=== PATIENT | female | born 1970 | race Caucasian/White ===

== ENCOUNTER 2024-05-30 01:27 | Inpatient (IN) | payer OTHER, SELFPAY ==
[2024-05-30] VITALS (38 sets, daily range): BP systolic 65–184; BP diastolic 36–88; PULSE 67–163; RESP 16–70; TEMP 36.6–37.1; O2SAT 83–100; BMI 24.3; BMI 24.2
--- NOTE | 2024-05-30 01:29 | ECG_ITS ---
APPROVED REPORT Exam: Resting ECG HR:129 bpm ECG Measurements Heart Rate 129 AXES MA 153 P 71 QRSd 94 QRS 52 QT 335 T 61 QTc 411 Conclusion SINUS TACHYCARDIA WITH FREQUENT VENTRICULAR PREMATURE COMPLEXES NONSPECIFIC T-WAVE ABNORMALITY No STEMI Electronically signed by : JACOB ROBIN, 05/30/2024 06:44:50
--- NOTE | 2024-05-30 01:31 | CT_ITS ---
PROCEDURE INFORMATION: Exam: CTA Chest With Contrast Exam date and time: 05/30/2024 2:11 AM Age: 53 years old Clinical indication: Pain; Shortness of breath; Chest pressure; Additional info: Cp tachy hypoxic TECHNIQUE: Imaging protocol: Computed tomographic angiography of the chest with contrast. Exam focused on the arteries. 3D rendering (Not supervised by radiologist): MIP and/or 3D reconstructed images were created by the technologist. Total images: 789 Radiation optimization: All CT scans at this facility use at least one of these dose optimization techniques: automated exposure control; mA and/or kV adjustment per patient size (includes targeted exams where dose is matched to clinical indication); or iterative reconstruction. Contrast material: ISOVUE; Contrast volume: 80 ml; Contrast route: INTRAVENOUS (IV); COMPARISON: CR XR CHEST PORTABLE 05/30/2024 1:43 AM FINDINGS: Pulmonary arteries: Adequate contrast opacification the pulmonary arteries. Cardiac pulsation artifact in the main pulmonary artery. No acute pulmonary emboli. Aorta: Mildly atherosclerotic thoracic aorta without aneurysm or dissection. Cardiac pulsation artifact in the ascending aorta. Thyroid: Irregular 2.2 x 2.8 cm right thyroid nodule. Lungs: The trachea and main bronchi are patent. Completely opacified bronchus intermedius and right lower lobe bronchi. Partially opacified right middle lobe, inferior lingular, and left lower lobe bronchi. Considerable airspace consolidation throughout the majority of the right lower lobe, with partial sparing in the superior segment. Additional considerable airspace consolidation the base of the right upper lobe. Additional airspace consolidation scattered throughout the left lower lobe and within the lingula. Mild centrilobular emphysema. Pleural spaces: Trace right pleural effusion. No pneumothorax. Heart: Normal heart size. No pericardial effusion. Coronary arteries: Mild scattered coronary artery calcifications. Lymph nodes: Mild mediastinal lymphadenopathy. Moderate right greater than left hilar lymphadenopathy. Liver: Hepatic steatosis. Small right hepatic cyst. Gallbladder and biliary ducts: Status post cholecystectomy. Adrenal glands: Bilateral adrenal thickening/hyperplasia. Bones/joints: Moderate degenerative changes of the thoracic spine. Mild osteopenia. Complete loss of disc space with block vertebral body at C6-C7. Remote healed fracture deformity left clavicle. Soft tissues: Unremarkable. IMPRESSION: 1. Considerable airspace consolidation throughout the right lower lobe in keeping with lobar pneumonia. 2. Additional airspace consolidation at the base of the right upper lobe, scattered within the left lower lobe and lingula compatible with bilateral pneumonia. 3. No acute pulmonary emboli. 4. Mediastinal and bilateral hilar lymphadenopathy most likely reactive/postinflammatory. Differential includes granulomatous, metastatic, neoplastic causes. Follow-up will be required. 5. Impacted bronchus intermedius and bilateral lower lobe bronchi compatible with mucous plugging. Partially opacified right middle lobe and lingular bronchi. 6. Trace right pleural effusion 7. Concerning 2.2 x 2.8 cm right thyroid nodule. Recommend follow-up nonemergent ultrasound. 8. Hepatic steatosis 9. Adrenal hyperplasia. 10. Additional chronic and incidental findings. COMMENTS: 1. Consistent with the [employer]'s Incidental Findings Committee white paper (J Am Estelita Radiol 2015): In patients aged 35 years and older with an incidental thyroid nodule equal to or greater than 1.[address], MRI or extrathyroidal US, further evaluation with dedicated thyroid US is recommended for patients with normal life expectancy and without comorbidities. For smaller nodules without suspicious features, no further evaluation or follow up is recommended. 2. The presence of pulmonary emphysema on CT is an independent risk factor for lung cancer. In the absence of a history or active diagnosis of lung cancer, it is recommended that this patient with emphysema be evaluated for enrollment in a low dose CT lung cancer screening program.
--- NOTE | 2024-05-30 01:37 | XR_ITS ---
PROCEDURE INFORMATION: Exam: XR Chest Exam date and time: 05/30/2024 1:43 AM Age: 53 years old Clinical indication: Shortness of breath; Additional info: RAMAN yanez TECHNIQUE: Imaging protocol: Radiologic exam of the chest. Views: 1 view. Total images: 1 COMPARISON: No relevant prior studies available. FINDINGS: Tubes, catheters and devices: EKG leads are present. Lungs: Significant masslike consolidation in the right lung base and right perihilar region. Additional left basilar atelectasis and infiltrate with small volume consolidation. No pulmonary vascular congestion. Pleural spaces: Probable small bilateral pleural effusions. No pneumothorax. Heart/Mediastinum: Unremarkable. No cardiomegaly. No mediastinal widening or hilar enlargement. Bones/joints: Remote fracture deformity left clavicle. Moderate degenerative changes of the thoracic spine. IMPRESSION: 1. Significant masslike consolidation in the right lung base and right perihilar region. Differential includes pneumonia and neoplasm. 2. Additional left basilar atelectasis and infiltrate with small volume consolidation. 3. Suspect small bilateral pleural effusions.
--- NOTE | 2024-05-30 01:38 | ED_ITS ---
Discharge Plan Disposition Patient Disposition: Admitted Condition: Serious Clinical Impressions Clinical Impression: Pneumonia, Sepsis, Hypoxic respiratory failure, Thyroid nodule Discharge ED Provider: Priscilla Cr General Chief Complaint: Chest Pain Stated Complaint: cp Time Seen by Provider: 05/30/24 01:31 Mode of Arrival: Wheelchair Source of Information: Patient Limitations: No Limitations Description of Symptoms (Recalled from ER Triage Doc. by RN): Patient reports pain up uppper back wrapping around to chest. Has been ongoing 4-5 days. States it is a constant pain 05/04. Describes it as pressure. History of Present Illness HPI narrative: 53-year-old female presents to the ER with chest pain, shortness of breath, cough productive of dark sputum. Patient reports symptoms started 4 to 5 days ago with squeezing/pressure which has progressed. She states the pain started more towards her back but wraps around the chest on both sides. She denies any radiation to the arms or neck. Patient states she has felt like she has had fever/chills but has not documented a temperature at home. She has not had congestion, nausea, vomiting, or diarrhea. She reports worsening pain with deep inspiration. Patient reports occasional smoking and occasional marijuana use, denies any history of IV drug use. No known cardiac history. Patient is not on any hormones and has no history of recent long distance travel. No history of blood clot. Patient does not wear oxygen at home, no known pulmonary problems. She reports being a prediabetic who is supposed to take metformin but has not been compliant with her medications recently. She is also supposed to take an antidepressant but has not been on that. Related Data Allergies Allergy/AdvReac Type Severity Reaction Status Date / Time sertraline [From Zoloft] Allergy Unknown unknown Verified 05/30/24 01:38 [facility] Disclaimer: The information contained in this section may have been updated after the patient was seen, as this information can be updated by other users. Social History Smoking Status: Current every day smoker alcohol intake: never current occupational status: other Travel in the last 8 weeks: None ROS Obtained: Yes Systems reviewed as appropriate & no additional complaints except as documented Constitutional Constitutional: Reports chills, Reports fever(s), Denies headache(s) and Denies weakness Eyes Eyes: Denies change in vision ENT Ears, Nose, Mouth, and Throat: Denies dizziness, Denies headache(s), Denies nasal congestion and Denies sore throat Cardiovascular Cardiovascular: Reports chest pain, Reports dyspnea and Denies leg edema Respiratory Respiratory: Reports cough, Reports dyspnea and Reports pain on inspiration Gastrointestinal Gastrointestingal: Denies constipation, diarrhea, nausea or vomiting Genitourinary Female Genitourinary: Denies dysuria Musculoskeletal Musculoskeletal: Denies arthralgias, Denies myalgias, Denies numbness and Denies tingling Integumentary/Breasts Skin/Breast: Denies change in pigmentation Neurologic Neurologic: Denies dizziness, Denies headache(s), Denies numbness, Denies tingling and Denies weakness Physical Exam General General appearance: alert and in distress Comment: In obvious respiratory distress with tachypnea, tachycardia, hypoxia, increased work of breathing Head Head exam: atraumatic and normocephalic Eye Eye exam: Present PERRL and EOMI ENT ENT exam: Present mucous membranes moist Neck Neck exam: Present normal inspection and full ROM Chest Chest inspection: Present symmetric chest wall rise; Absent tenderness Respiratory Respiratory exam: Present respiratory distress; Absent normal lung sounds bilaterally (Rhonchi, rales bilaterally, worse at the bases, increased work of breathing with obvious respiratory distress and hypoxia on room air), wheezes or stridor Cardiovascular Cardiovascular exam: Present normal rhythm and tachycardia Abdominal Exam Abdominal exam: Present soft; Absent distention or tenderness Extremities Exam Extremities exam: Present full ROM; Absent edema Neurological Exam Neurological exam: Present alert and oriented X3; Absent motor sensory deficit Psychiatric Psychiatric exam: Present normal affect and normal mood Skin Skin exam: Present warm and dry HEART Score HEART Score HEART Score assessment performed?: Yes History (anamnesis): Slightly suspicious ECG: Non-specific disturbance Age: 45-65 years Risk factors: 1-2 risk factors Troponin: </= normal limit HEART Score: 3 Critical Care Critical Care Time Critical Care Time: Yes Attestation: On 05/30/24, the high probability of a clinically significant, sudden or life threatening deterioration of the following system(s) (respiratory) required my full and direct attention, intervention and personal management. The time I documented below is in addition to time spent performing reported procedures but includes the following listed in this critical care notation. Total Time Total Critical Care Time: 65 Medical Decision Making Román Inquiry Pt receiving controlled substance: No Vital Signs Vital Signs: 05/30/24 01:27 05/30/24 01:38 05/30/24 01:40 Temperature 97.9 F Temperature Source Oral Pulse Rate 129 H 135 H Pulse Rate [Right Radial] 135 H Respiratory Rate 24 48 H Blood Pressure Blood Pressure [Right Arm] 165/88 H Blood Pressure Mean [Right Arm] 113 Blood Pressure Source Blood Pressure Source [Right Arm] Automatic Cuff Blood Pressure Position Blood Pressure Position [Right Arm] Supine 02 Sat by Pulse Oximetry 83 L 89 L Oxygen Delivery Method Room Air Oxygen Flow Rate (LPM) 4 05/30/24 02:04 05/30/24 02:30 05/30/24 02:57 Temperature 98.1 F Temperature Source Oral Pulse Rate 67 114 H 120 H Pulse Rate [Right Radial] Respiratory Rate 56 H 35 H 24 Blood Pressure 184/83 H 164/75 H 164/88 H Blood Pressure [Right Arm] Blood Pressure Mean [Right Arm] Blood Pressure Source Automatic Cuff Blood Pressure Source [Right Arm] Blood Pressure Position Supine Blood Pressure Position [Right Arm] 02 Sat by Pulse Oximetry 88 L 89 L Oxygen Delivery Method BiPAP Oxygen Flow Rate (LPM) 05/30/24 03:00 05/30/24 03:15 05/30/24 03:30 Temperature Temperature Source Pulse Rate 128 H 124 H 116 H Pulse Rate [Right Radial] Respiratory Rate 46 H 32 H 32 H Blood Pressure 151/83 H 151/83 H 114/65 Blood Pressure [Right Arm] Blood Pressure Mean [Right Arm] Blood Pressure Source Blood Pressure Source [Right Arm] Blood Pressure Position Blood Pressure Position [Right Arm] 02 Sat by Pulse Oximetry 90 L 95 94 L Oxygen Delivery Method Oxygen Flow Rate (LPM) Lab Data Labs: Lab Results 05/30/24 01:40: WBC 2.7 L, RBC 5.17, Hgb 15.2, Hct 45.2, MCV 87.4, MCH 29.4, MCHC 33.6, RDW 14.3, Plt Count 198, MPV 9.9, Neut % (Auto) 87.2 H, Lymph % (Auto) 7.5 L, [place] % (Auto) 4.5, Eos % (Auto) 0.1, Baso % (Auto) 0.8, Neut # (Auto) 2.4, Lymph # (Auto) 0.2 L, [place] # (Auto) 0.1, Eos # (Auto) 0.0, Baso # (Auto) 0.0, Total Counted 100, Neutrophils % (Manual) 83 H, Band Neutrophils % 2.0, Lymphocytes % (Manual) 10, Monocytes % (Manual) 2, Metamyelocytes % 3.0 H, Toxic Vacuolation 1+, RBC Morphology Normal, PT 13.2 H, INR 1.20 H, Sodium 127 L , Potassium 3.4 L, Chloride 94 L, Carbon Dioxide 23, Anion Gap 13.4, BUN 21 H, C reatinine 0.50 L, Estimated Creat Clear 124, Estimated GFR 129, Est GFR ( Amer) 156, Glucose 114 H, Calcium 9.0, Total Bilirubin 1.9 H, AST 56 H, ALT 36, Alkaline Phosphatase 86, Troponin I < 0.01, NT-Pro-B Natriuret Pep 549 H, Total Protein 7.6, Albumin 4.0, Globulin 3.6 H, Albumin/Globulin Ratio 1.1 05/30/24 01:44: VBG pH 7.51 H, VBG pCO2 28.6 L, VBG pO2 64.3 H, VBG HCO3 22.1 L, VBG Total CO2 22.9 L, VBG O2 Saturation 94.7 H, VBG Base Excess -1.0, VBG Lactic Acid 4.8 H 05/30/24 01:49: SARS-CoV-2 (PCR) Not detected, Influenza A Untype (PCR) Not detected, Influenza Type B (PCR) Not detected 05/30/24 01:55: Lactate 3.8 H 05/30/24 01:40 05/30/24 01:40 Response Orders (Tests/Meds): ED MEDICATIONS Generic Name Dose Route Start Last Admin Trade Name Freq PRN Reason Stop Dose Admin Acetaminophen 650 mg 05/30/24 03:28 Acetaminophen 325mg Tab PO 06/29/24 03:27 Q4HP PRN Fever or Mild Pain (1-3) Heparin Sodium (Porcine) 5,000 unit 05/30/24 03:30 Heparin Sodium 5,000 Unit/Ml Vial SUBCUT 06/29/24 03:29 Q8H [facility] Miscellaneous 1 each 05/30/24 02:00 05/30/24 01:56 Vancomycin Consult Request NOTAPPLIC 06/29/24 01:59 Not Given CONSULT PHARMACY [facility] Promethazine HCl 25 mg 11/05/24 03:28 Promethazine Hcl 25mg/Ml 1ml Vial IV 06/29/24 03:27 Q6HP PRN Nausea And Vomiting Sodium Chloride 10 ml 05/30/24 01:49 Sodium Chloride 0.9% 10ml Vial IV 06/29/24 01:48 NEEDED PRN to Dilute Lorazepam inj Sodium Chloride 10 ml 05/30/24 02:43 Sodium Chloride 0.9% 10ml Vial IV 06/29/24 02:42 NEEDED PRN to Dilute Lorazepam inj Sodium Chloride 25 ml 05/30/24 03:28 Sodium Chloride 0.9% 25ml Bag IV 06/29/24 03:27 NEEDED PRN for Use with IV Promethazine Discontinued Medications Generic Name Dose Route Start Last Admin Trade Name Freq PRN Reason Stop Dose Admin Albuterol/Ipratropium 3 ml 05/30/24 01:37 05/30/24 01:55 Ipratropium/Albuterol 3 Ml Neb IH 05/30/24 01:38 3 ml ONCE ONE Administration Aspirin 324 mg 05/30/24 01:31 05/30/24 01:43 Aspirin 81mg Chewable Tablet PO 05/30/24 01:32 324 mg ONCE ONE Administration Piperacillin Sod/Tazobactam 100 mls @ 200 mls/hr 05/30/24 01:48 05/30/24 02:05 Sod 4.5 gm/ Sodium Chloride IV 05/30/24 02:17 200 mls/hr ONCE ONE Administration Lactated Ringer's 1,840 mls @ 920 mls/hr 05/30/24 01:48 05/30/24 02:04 Lactated Ringer's 1000 Ml Bag 30 ml/kg infuse over 2 hr (1840 ml) 05/30/24 03:47 920 mls/hr IV Administration .Q2H ONE Vancomycin/PEG/NADA/Lysine/Water 1.25 gm in 250 mls @ 125 mls/hr 05/30/24 02:00 05/30/24 02:06 Vancomycin 1.25gm/250ml (Peg) Premix IV 05/30/24 03:59 125 mls/hr ONCE ONE Administration Iopamidol 80 ml 05/30/24 02:20 05/30/24 02:21 Iopamidol-370 (76%);100ml Bottle IV 05/30/24 02:21 80 ml ONCE ONE Administration Ketorolac Tromethamine 30 mg 05/30/24 02:23 05/30/24 02:27 Ketorolac 30mg/Ml Vial IV 05/30/24 02:24 30 mg ONCE ONE Administration Lorazepam 1 mg 05/30/24 01:49 05/30/24 02:06 Lorazepam 2mg/Ml Vial IV 05/30/24 01:50 1 mg ONCE ONE Administration Lorazepam 1 mg 05/30/24 02:43 05/30/24 02:51 Lorazepam 2mg/Ml Vial IV 05/30/24 02:44 1 mg ONCE ONE Administration Sodium Chloride 50 ml 05/30/24 02:20 05/30/24 02:22 0.9 % Sodium Chloride 50 Ml Vial IV 05/30/24 02:21 50 ml ONCE ONE Administration Sodium Chloride 10 ml 05/30/24 02:20 05/30/24 02:21 Sodium Chloride 0.9% 10ml Syr (Rad Only) IV 05/30/24 02:21 10 ml ONCE ONE Administration ORDERS Category Date Time Status CT angio chest PE protocol Stat Cat Scan 05/30/24 01:31 Completed CXR --portable [XR chest portable] Stat Exams 05/30/24 01:37 Completed POCUS Point of Care (ER Only) Stat Exams 05/30/24 01:42 Completed Complete Blood Count Auto Diff Stat Lab 05/30/24 01:40 Completed Comprehensive Metabolic Panel Stat Lab 05/30/24 01:40 Completed Lactic Acid Stat Lab 05/30/24 01:55 Completed NT Pro Brain Natriuretic Pep. Stat Lab 05/30/24 01:40 Completed Prothrombin Time INR Stat Lab 05/30/24 01:40 Completed Rapid PCR Covid and Flu A/B Stat Lab 05/30/24 01:49 Completed Troponin I Q3H Lab 05/30/24 04:45 Ordered Troponin I Q3H Lab 05/30/24 07:45 Ordered Troponin I Stat Lab 05/30/24 01:40 Completed Urinalysis and Microscopic Stat Lab 05/30/24 02:45 Ordered Blood Culture Stat Micro 05/30/24 02:00 Received Venous Blood Gas Stat RT 05/30/24 01:44 Completed Tissue Perfus/Sepsis Re-Eval Sepsis Re-Evaluation Performed: Yes Date Performed: 05/30/24 Time Performed: 02:54 MDM Narrative Medical Decision Narrative: In summary, this 53-year-old female presents to the emergency department today with chest pain, shortness of breath, increased work of breathing, subjective fevers and chills. On initial evaluation patient is tachycardic but not hypotensive, tachypneic, hypoxic on room air, obvious respiratory distress with increased work of breathing, rhonchi and rales throughout the bilateral lower lobes, worse on the right, no obvious wheezing, patient improved to 89% on 4 L nasal cannula, DuoNeb administered to help improve oxygenation since patient does have a history of smoking, also performed [id number] bedside ultrasound which demonstrated hepatization of the right lower lobe concerning for pneumonia but no B-lines. This ultrasound exam did not save to the permanent archive. Differential diagnosis includes but is not limited to sepsis, ACS, PE, pneumonia, pneumothorax, I have highest suspicion for pneumonia since this was identified on ultrasound and patient meets sepsis criteria. Based on these concerns, I ordered serum labs, lactic, cardiac workup, CTA PE, chest x-ray, IV fluids, broad-spectrum antibiotics. ECG personally interpreted demonstrates sinus tachycardia, frequent PVCs, rate 129, normal axis, normal ND and QTc, no STEMI. Patient received IV fluids, broad-spectrum antibiotics, DuoNeb, aspirin initially for treatment. Labs personally reviewed demonstrate lactic 4.8, Leukopenia, no anemia, patient is alkalotic with pH 7.51, hypocarbia, elevated lactic. CMP with hyponatremia sodium 127 concerning for possible Legionella pneumonia, trace hypokalemia, mild prerenal azotemia, initial troponin undetectably low at less than 0.01, BNP elevated at 549. PT/INR mildly elevated. Patient was placed on BiPAP for respiratory support. She received IV Ativan for comfort and agitation. She is not sedated on this medication. She is breathing more comfortably, tachycardia is improving, oxygenation is improving, respiratory rate is also improved. XR personally interpreted at bedside demonstrates obvious right lower lobe pneumonia. CT imaging personally interpreted demonstrate no large PE, patient does have obvious right pneumonia as well as left pneumonia. Radiology read also identifies multiple other findings including findings of mucous plugging, thyroid nodule, mediastinal adenopathy. See radiology read for final interpretation. Incidental findings discussed with family. Patient requires admission at this time. She and family are amenable to this plan. I discussed this case with the hospitalist who accepted the patient for admission. Before going upstairs patient became acutely agitated, ripped off her BiPAP, she required additional Ativan and after this again comfortably adjusted back onto the BiPAP. Her heart rate has improved, oxygenation is now in the mid upper 90s and respiratory rate morrison decreased by half compared to her rate on arrival. She is still arousable to stimuli but is now resting more comfortably and respiratory and hemodynamic status is steadily improving. She was admitted in serious but improving condition.
[2024-05-30] MEDS: ASPIRIN 81MG CHEWABLE TABLET 324 MG PO (01:43)
[2024-05-30 01:45] LABS: Basophils % 0.8 % (0.1-2.0); Eosinophils % 0.1 % (0.1-12.0); Hematocrit 45.2 % (37.0-47.0); Hemoglobin 15.2 g/dL (12.2-16.2); Lymphocytes # 0.2 K/mm3 (0.7-4.5); Lymphocytes % 7.5 % (10-50); Mean Corpuscular HGB Conc 33.6 g/dL (31.8-35.4); Mean Corpuscular Hemoglobin 29.4 pg (27.0-31.2); Mean Corpuscular Volume 87.4 fl (81-99); Mean Platelet Volume 9.9 fl (7.4-10.4); Monocytes # 0.1 K/mm3 (0.1-1.0); Monocytes % 4.5 % (1.7-9.3); Neutrophils # 2.4 K/mm3 (1.8-7.8); Neutrophils % 87.2 % (37.0-80.0); Platelet Count 198 K/mm3 (142-424); Red Blood Count 5.17 M/mm3 (4.20-5.40); Red Cell Distribution Width 14.3 % (11.5-17.5); White Blood Count 2.7 K/mm3 (4.8-10.8)
[2024-05-30 01:47] LABS: VBG HCO3 22.1 mmol/L (23-30); VBG Oxygen Saturation 94.7 % (50-70); VBG PCO2 28.6 mmol/L (35-51); VBG PH 7.51 mmol/L (7.31-7.41); VBG PO2 64.3 mmol/L (28-40); VBG Total CO2 22.9 mmol/L (23-27)
[2024-05-30 01:51] LABS: Lactate Venous 4.8 mmol/L (0.4-2.0)
--- NOTE | 2024-05-30 01:51 | PC.NURSE ---
Notified Dr. Cr of patients critical VBG result: Lactiv 4.8 called by rosie
[2024-05-30 01:53] LABS: MANUAL DIFFERENTIAL MANUAL DIFFERENTIAL (MANUAL DIFF)
[2024-05-30 01:53] LABS: Coronavirus 19, PCR Not Detected (NotDetected); Influenza A, PCR Not Detected (NotDetected); Influenza B, PCR Not Detected (NotDetected)
[2024-05-30] MEDS: IPRATROPIUM/ALBUTEROL 3 ML NEB IH ×4 (01:55→18:01)
[2024-05-30 02:03] LABS: Prothrombin Time 13.2 seconds (10.1-12.5)
[2024-05-30] MEDS: LACTATED RINGERS 1000ML 1,840 ML 920 ML IV (02:04)
[2024-05-30] MEDS: PIPERACILLIN/TAZO 4.5 GM in 0.9 % SODIUM CHLORIDE 100 ML IV (02:05)
[2024-05-30] MEDS: LORazepam 2MG/ML VIAL 1 MG IV ×3 (02:06→21:52)
[2024-05-30] MEDS: VANCOMYCIN/WATER FOR INJ (PEG) 1.25 GM/250 ML PIGGYBACK IV (02:06)
[2024-05-30 02:14] LABS: Alanine Aminotransferase 36 U/L (12-78); Albumin/Globulin Ratio 1.1 (1.1-1.8); Alkaline Phosphatase 86 U/L (38-126); Anion Gap 13.4 mEq/L (5-15); Aspartate Amino Transferase 56 U/L (14-36); Bilirubin,Total 1.9 mg/dl (0.2-1.3); Blood Urea Nitrogen 21 mg/dl (7-17); Carbon Dioxide 23 mmol/L (22.0-30.0); Chloride 94 mmol/L (98-107); Creatinine Clearance Estimated 124 mL/min (50-200); Estimated Glomerular Filt Rate 129 ml/min (>60); GFR (African American) 156 ML/MIN (>60); Globulin 3.6 g/dL (1.3-3.2); Glucose 114 mg/dl (74-100); Potassium 3.4 mmoL/L (3.5-5.1); Sodium 127 mmol/L (136-145); Total Protein,Serum 7.6 g/dl (6.3-8.2)
[2024-05-30 02:16] LABS: Lactic Acid 3.8 mmol/L (0.7-2.1)
[2024-05-30] MEDS: IOPAMIDOL-370 (76%);100ML BOTTLE 80 ML IV (02:21)
[2024-05-30] MEDS: SODIUM CHLORIDE 0.9% 10ML SYR (RAD ONLY) 10 ML IV (02:21)
[2024-05-30] MEDS: 0.9 % SODIUM CHLORIDE 50 ML VIAL IV (02:22)
[2024-05-30 02:26] LABS: NT Pro Brain Natriuretic Pep. 549 pg/mL (0-125); Troponin I < 0.01 ng/ml (0.00-0.034)
[2024-05-30] MEDS: KETOROLAC 30MG/ML VIAL 30 MG IV (02:27)
--- NOTE | 2024-05-30 02:32 | PC.NURSE ---
RT placed pt on bipap
[2024-05-30 02:34] LABS: Lymphocytes % 10 % (10-50); Monocytes % 2 % (2-9); Neutrophils % 83 % (42-76); Total Cells Counted 100
[2024-05-30 02:35] LABS: RBC Morphology Normal; Toxic Vacuolation 1+
--- NOTE | 2024-05-30 02:44 | PC.NURSE ---
speaking with hospitalist regarding admission at this time
--- NOTE | 2024-05-30 03:15 | PC.NURSE ---
Patient in OBS in ER per char house supervisor until 399. Then patient will go upstairs to [facility]
--- NOTE | 2024-05-30 03:31 | P.HP_ITS ---
History of Present Illness *Admission Date: 05/30/24 *Reason for visit:: SOB *History of present illness: Patient is a 53-year-old female with past medical history of smoking, marijuana use, prediabetes, depression who presents to the hospital due to shortness of breath, cough. According to patient she also has associated chest pain with shortness of breath, has phlegm production along with a cough. She also mentions she has subjective fevers and chills. She denies sick contacts. She mentions she feels chest pain especially with deep breathing. On further evaluation patient was found to have hypoxia, hyponatremia, hypokalemia as well as right lower lobe consolidation. [facility] Disclaimer: The information contained in this section may have been updated after the patient was seen, as this information can be updated by other users. Social History (Updated 05/30/24 @ 04:11 by Priscilla Cr MD) Smoking Status: Current every day smoker alcohol intake: never current occupational status: other Travel in the last 8 weeks: None Review of Systems Review of Systems Review of systems:: pertinent systems reviewed and negative unless documented below Constitutional Constitutional: Denies headache(s) and Denies weakness ENT Ears, Nose, Mouth, and Throat: Denies dizziness and Denies headache(s) *Musculoskeletal Musculoskeletal: Denies numbness and Denies tingling *Neurologic Neurologic: Denies dizziness, Denies headache(s), Denies numbness, Denies tingling and Denies weakness Meds Home Medications and Allergies New Prescriptions to Start Prescriptions: Allergies Allergy/AdvReac Type Severity Reaction Status Date / Time sertraline [From Zoloft] Allergy Unknown unknown Verified 05/30/24 01:38 Exam Data for Last 24 hours Vital signs and Labs for Last 24 Hours: Temp Pulse Resp BP Pulse Ox O2 Del Method O2 Flow Rate 98.1 F 124 H 32 H 151/83 H 95 BiPAP 4 05/30/24 02:57 05/30/24 03:15 05/30/24 03:15 05/30/24 03:15 05/30/24 03:15 05/30/24 02:57 05/30/24 01:38 FiO2 40 05/30/24 02:48 Laboratory Results - last 24 hr 05/30/24 01:40: WBC 2.7 L, RBC 5.17, Hgb 15.2, Hct 45.2, MCV 87.4, MCH 29.4, MCHC 33.6, RDW 14.3, Plt Count 198, MPV 9.9, Neut % (Auto) 87.2 H, Lymph % (Auto) 7.5 L, [place] % (Auto) 4.5, Eos % (Auto) 0.1, Baso % (Auto) 0.8, Neut # (Auto) 2.4, Lymph # (Auto) 0.2 L, [place] # (Auto) 0.1, Eos # (Auto) 0.0, Baso # (Auto) 0.0, Total Counted 100, Neutrophils % (Manual) 83 H, Band Neutrophils % 2.0, Lymphocytes % (Manual) 10, Monocytes % (Manual) 2, Metamyelocytes % 3.0 H, Toxic Vacuolation 1+, RBC Morphology Normal, PT 13.2 H, INR 1.20 H, Sodium 127 L , Potassium 3.4 L, Chloride 94 L, Carbon Dioxide 23, Anion Gap 13.4, BUN 21 H, Creatinine 0.50 L, Estimated Creat Clear 124, Estimated GFR 129, Est GFR ( Amer) 156, Glucose 114 H, Calcium 9.0, Total Bilirubin 1.9 H, AST 56 H, ALT 36, Alkaline Phosphatase 86, Troponin I < 0.01, NT-Pro-B Natriuret Pep 549 H , Total Protein 7.6, Albumin 4.0, Globulin 3.6 H, Albumin/Globulin Ratio 1.1 05/30/24 01:44: VBG pH 7.51 H, VBG pCO2 28.6 L, VBG pO2 64.3 H, VBG HCO3 22.1 L, VBG Total CO2 22.9 L, VBG O2 Saturation 94.7 H, VBG Base Excess -1.0, VBG Lactic Acid 4.8 H 05/30/24 01:49: SARS-CoV-2 (PCR) Not detected, Influenza A Untype (PCR) Not detected, Influenza Type B (PCR) Not detected 05/30/24 01:55: Lactate 3.8 H I & O for Last 24 hours: Intake & Output 05/27/24 05/28/24 05/29/24 05/30/24 23:59 22:59 23:59 23:59 Weight 61.235 kg Constitutional Constitutional: no acute distress *Routine HEENT Exam Head: Present normocephalic Eye: Present EOMI and PERRL ENT: Present mucous membranes moist *Routine Neck Exam Neck: Present supple; Absent lymphadenopathy *Routine Respiratory Exam Respiratory: Present decreased breath sounds and rhonchi *Routine Cardiovascular Exam Cardiovascular: Present RRR *Routine Abdominal Exam Abdominal: Present soft and normoactive bowel sounds; Absent tenderness *Routine Rectal Exam Rectal:: deferred *Routine Genitalia Exam Genitalia:: deferred *Routine Extremities Exam Extremities: Absent cyanosis, clubbing or edema *Routine Skin Exam Skin: Present warm; Absent rash *Routine Neurological Exam Neurological: Present alert and oriented X3 Assessment and Plan *Assessment and plan (1) Hypoxic respiratory failure: Status: Acute Category: Medical Code(s): J96.91 - Respiratory failure, unspecified with hypoxia (2) Sepsis: Status: Acute Category: Medical Code(s): A41.9 - Sepsis, unspecified organism (3) Pneumonia: Status: Acute Category: Medical Code(s): J18.9 - Pneumonia, unspecified organism Plan Patient is a 53-year-old female with past medical history of smoking, marijuana use, prediabetes, depression who presents to the hospital due to shortness of breath, cough. According to patient she also has associated chest pain with shortness of breath, has phlegm production along with a cough. She also mentions she has subjective fevers and chills. She denies sick contacts. She mentions she feels chest pain especially with deep breathing. On further evaluation patient was found to have hypoxia, hyponatremia, hypokalemia as well as right lower lobe consolidation. Assessment and plan Right lung pneumonia suspect community-acquired pneumonia likely gram-positive organism Mucous plugging, opacified right middle lobe and lingular bronchi Acute hypoxic respiratory failure satting less than 90% on room air Sepsis present on admission likely source pulmonary Started on vancomycin, cefepime Start Mucomyst inhalations Consult pulmonary-appreciate recommendations Currently patient is on BiPAP, wean oxygen as tolerated Start gentle IV fluids with normal saline Monitor blood gases Rapid flu antigen, COVID test performed-negative Check procalcitonin Check nasal MRSA swab Urine Legionella antigen Urine strep antigen Sputum Gram stain culture DVT prophylaxis-heparin
--- NOTE | 2024-05-30 04:14 | PC.NURSE ---
Patient arrived to floor via stretcher from ED at 04:11.
[2024-05-30 04:35] LABS: Troponin I < 0.01 ng/ml (0.00-0.034)
[2024-05-30 05:51] LABS: Reflex Lactic Add Lactic Reflex
[2024-05-30] MEDS: HEPARIN SODIUM 5,000 UNIT/ML VIAL 5000 UNIT SUBCUT ×3 (06:12→21:20)
[2024-05-30] MEDS: 0.9 % SODIUM CHLORIDE 1000ML 1,000 ML 75 ML IV ×2 (06:13→18:22)
[2024-05-30] MEDS: CEFEPIME HCL 2 GM in 0.9 % SODIUM CHLORIDE 100 ML IV ×3 (06:15→21:20)
--- NOTE | 2024-05-30 06:31 | PC.NURSE ---
Patient has rested / slept since admission to floor with Bi Pap in place and tolerating it well at this time. Remains asleep will awaken when spoken to no new c/o.
[2024-05-30 07:00] LABS: Lymphocytes # 0.2 K/mm3 (0.7-4.5); Monocytes # 0.1 K/mm3 (0.1-1.0)
[2024-05-30 07:24] LABS: Anion Gap 12.1 mEq/L (5-15); Blood Urea Nitrogen 19 mg/dl (7-17); Carbon Dioxide 26 mmol/L (22.0-30.0); Chloride 96 mmol/L (98-107); Creatinine Clearance Estimated 124 mL/min (50-200); Estimated Glomerular Filt Rate 129 ml/min (>60); GFR (African American) 156 ML/MIN (>60); Glucose 96 mg/dl (74-100); Potassium 3.1 mmoL/L (3.5-5.1); Sodium 131 mmol/L (136-145)
[2024-05-30 07:30] LABS: Eosinophils % 0.3 % (0.1-12.0); Hematocrit 37.2 % (37.0-47.0); Lymphocytes % 10.5 % (10-50); Mean Corpuscular HGB Conc 33.9 g/dL (31.8-35.4); Mean Corpuscular Hemoglobin 29.1 pg (27.0-31.2); Mean Corpuscular Volume 86.1 fl (81-99); Mean Platelet Volume 9.7 fl (7.4-10.4); Monocytes % 2.3 % (1.7-9.3); Neutrophils # 1.8 K/mm3 (1.8-7.8); Neutrophils % 85.9 % (37.0-80.0); Platelet Count 161 K/mm3 (142-424); Red Blood Count 4.32 M/mm3 (4.20-5.40); Red Cell Distribution Width 14.2 % (11.5-17.5); White Blood Count 2.1 K/mm3 (4.8-10.8)
[2024-05-30 07:31] LABS: Hemoglobin 12.6 g/dL (12.2-16.2)
--- NOTE | 2024-05-30 07:53 | P.CONPHA_ITS ---
Pharmacy Consult Date: 05/30/24 Time: 07:53 Referring provider: DR. ALEJANDRA Reason for Consult:: VANCOMYCIN DOSING Allergies Allergy/AdvReac Type Severity Reaction Status Date / Time sertraline [From Zoloft] Allergy Unknown unknown Verified 05/30/24 01:38 New Prescriptions to Start Prescriptions: Height: 1.59 m Weight: 61.235 kg Laboratory Results:: Laboratory Results - last 24 hr 05/30/24 01:40: WBC 2.7 L, RBC 5.17, Hgb 15.2, Hct 45.2, MCV 87.4, MCH 29.4, MCHC 33.6, RDW 14.3, Plt Count 198, MPV 9.9, Neut % (Auto) 87.2 H, Lymph % (Auto) 7.5 L, [place] % (Auto) 4.5, Eos % (Auto) 0.1, Baso % (Auto) 0.8, Neut # (Auto) 2.4, Lymph # (Auto) 0.2 L, [place] # (Auto) 0.1, Eos # (Auto) 0.0, Baso # (Auto) 0.0, Total Counted 100, Neutrophils % (Manual) 83 H, Band Neutrophils % 2.0, Lymphocytes % (Manual) 10, Monocytes % (Manual) 2, Metamyelocytes % 3.0 H, Toxic Vacuolation 1+, RBC Morphology Normal, PT 13.2 H, INR 1.20 H, Sodium 127 L , Potassium 3.4 L, Chloride 94 L, Carbon Dioxide 23, Anion Gap 13.4, BUN 21 H, Creatinine 0.50 L, Estimated Creat Clear 124, Estimated GFR 129, Est GFR ( Amer) 156, Glucose 114 H, Calcium 9.0, Total Bilirubin 1.9 H, AST 56 H, ALT 36, Alkaline Phosphatase 86, Troponin I < 0.01, NT-Pro-B Natriuret Pep 549 H , Total Protein 7.6, Albumin 4.0, Globulin 3.6 H, Albumin/Globulin Ratio 1.1 05/30/24 01:44: VBG pH 7.51 H, VBG pCO2 28.6 L, VBG pO2 64.3 H, VBG HCO3 22.1 L, VBG Total CO2 22.9 L, VBG O2 Saturation 94.7 H, VBG Base Excess -1.0, VBG Lactic Acid 4.8 H 05/30/24 01:49: SARS-CoV-2 (PCR) Not detected, Influenza A Untype (PCR) Not detected, Influenza Type B (PCR) Not detected 05/30/24 01:55: Lactate 3.8 H 05/30/24 04:05: Troponin I < 0.01 05/30/24 05:25: WBC 2.1 L, RBC 4.32, Hgb 12.6 D, Hct 37.2, MCV 86.1, MCH 29.1, MCHC 33.9, RDW 14.2, Plt Count 161, MPV 9.7, Neut % (Auto) 85.9 H, Lymph % (Auto) 10.5, [place] % (Auto) 2.3, Eos % (Auto) 0.3, Baso % (Auto) 1.0, Neut # (Auto) 1.8, Lymph # (Auto) 0.2 L, [place] # (Auto) 0.1, Eos # (Auto) 0.0, Baso # (Auto) 0.0, Sodium 131 L, Potassium 3.1 L, Chloride 96 L, Carbon Dioxide 26, Anion Gap 12.1, BUN 19 H, Creatinine 0.50 L, Estimated Creat Clear 124, Estimated GFR 129, Est GFR ( Amer) 156, Glucose 96, Calcium 8.0 L Assessment and Plan Assessment and plan all Dx Assessment and Plan for all problems:: Pharmacokinetic dosing service Objective: Patient: Floor: Age: 53 yo Serum creatinine: 0.75 mg/dL Height: 62.6 Inches Weight (kg): 61.235 Assessment: IBW (kg): 55.98 Dosing wt(kg): 61.235 Estimated Creatinine clearance (ml/min): 89.2 CRCL method: Cockcroft and Gault using ibw(default). Drug selected: Vancomycin Loading dose (mg): 0 Vd (liters): 49.0 (factor used: 0.8 L/kg) Percy (hr-1): 0.078 Half life (hrs): 8.89 Recommended dose: 1000 mg Interval: 12 hrs Infusion time (hrs): 2.0 Predicted peak (mcg/mL): 31.1 Predicted trough (mcg/mL): 14.26 Total body weight is being used for vancomycin dosing. Recommendations: Give Vancomycin 1000 mg q 12 hrs with an expected Cpeak of 31.1 mcg/ml and an expected Ctrough of 14.26 mcg/ml ----Vanco only - ignore for aminoglycosides----- CLvanco= 3.82 L/hr AUC 0-24 /ALESSANDRA Data: ALESSANDRA 0.5 mcg/mL: AUC/ALESSANDRA: 1047.1 ALESSANDRA 1.0 mcg/mL: AUC/ALESSANDRA: 523.6 --------- ALESSANDRA 1.5 mcg/mL: AUC/ALESSANDRA: 349.0 ALESSANDRA 2.0 mcg/mL: AUC/ALESSANDRA: 261.8
[2024-05-30 08:28] LABS: VBG Base Excess 1.6 mmol/L (-2.4-2.3); VBG HCO3 25.3 mmol/L (23-30); VBG Oxygen Saturation 96.9 % (50-70); VBG PCO2 35.5 mmol/L (35-51); VBG PH 7.47 mmol/L (7.31-7.41); VBG PO2 83.1 mmol/L (28-40); VBG Total CO2 26.3 mmol/L (23-27)
[2024-05-30 08:29] LABS: Lactate Venous 3.4 mmol/L (0.4-2.0)
--- NOTE | 2024-05-30 08:40 | PC.NURSE ---
RESP CARE NOTE: Pt placed on [address] Sanchez verbal order to wean patient from BIPAP. Will continue to monitor patient.
[2024-05-30 08:44] LABS: Lactic Acid Follow Up (RFLX 1) 2.3 mmol/L (0.7-2.1)
--- NOTE | 2024-05-30 08:51 | PC.NURSE ---
bladder scanned pt due to no urine output overnight and this morning, 677 scanned.
[2024-05-30 09:00] LABS: Troponin I < 0.01 ng/ml (0.00-0.034)
[2024-05-30 09:04] LABS: Procalcitonin 30.4 ng/mL (0.0-2.0)
[2024-05-30 09:23] LABS: Microscopic, Urine URINE MICROSCOPIC (MICROSCOPIC)
--- NOTE | 2024-05-30 09:24 | P.CONS_ITS ---
History of Present Illness History of present illness: Ms. Mckeon is a 53-year-old female with reported history of tobacco abuse presented today with worsening respiratory status and shortness of breath and pulmonary was consulted for further evaluation and management. Patient appeared lethargic, still arousable to verbal commands and responding appropriately [facility] Disclaimer: The information contained in this section may have been updated after the patient was seen, as this information can be updated by other users. Medical History (Updated 05/30/24 @ 10:06 by Raman Sanchez MD) Lactic acidosis Acute respiratory failure with hypoxia Social History (Updated 05/30/24 @ 07:37 by Stephanie Grimaldo, RN) Smoking Status: Current every day smoker alcohol intake: never current occupational status: other Travel in the last 8 weeks: None Review of Systems Review of Systems Review of systems (narrative): Limited review of systems given patient lethargy. Constitutional Constitutional: Reports weakness Eyes Eyes: Denies eye discharge, Denies dry eyes, Denies irritation and Denies itchy eyes ENT Ears, Nose, Mouth, and Throat: Denies lip swelling *Cardiovascular Cardiovascular: Reports dyspnea, Reports dyspnea on exertion, Reports orthopnea and Reports rapid heart rate *Respiratory Respiratory: Reports change in phlegm color, Reports cough, Reports dyspnea, Reports dyspnea on exertion, Reports excessive phlegm production, Denies hemoptysis, Denies pain on inspiration, Denies pain with cough and Reports wheezing *Gastrointestinal Gastrointestinal: Denies abdominal pain, Denies belching and Denies cramping *Musculoskeletal Musculoskeletal: Denies numbness and Denies tingling *Neurologic Neurologic: Denies numbness, Denies tingling and Reports weakness Psychiatric Psychiatric: Denies homicidal ideation and Denies suicidal ideation Endocrine Endocrine: Denies heat intolerance Hematologic/Lymphatic Hematologic/Lymphatic: Denies easy bleeding and Denies lymphadenopathy Allergic/Immunologic Allergic/Immunologic: Denies itchy eyes, Denies lip swelling and Reports wheezing Pulmonology Exam Inpatient Vital signs and Labs for Last 24 Hours: Temp Pulse Resp BP Pulse Ox O2 Del Method O2 Flow Rate 97.8 F 110 H 20 101/59 L 94 L Nasal Cannula 3 05/30/24 07:46 05/30/24 04:18 05/30/24 08:00 05/30/24 04:15 05/30/24 08:39 05/30/24 08:39 05/30/24 08:39 FiO2 40 05/30/24 06:18 Laboratory Results - last 24 hr 05/30/24 01:40: WBC 2.7 L, RBC 5.17, Hgb 15.2, Hct 45.2, MCV 87.4, MCH 29.4, MCHC 33.6, RDW 14.3, Plt Count 198, MPV 9.9, Neut % (Auto) 87.2 H, Lymph % (Auto) 7.5 L, [place] % (Auto) 4.5, Eos % (Auto) 0.1, Baso % (Auto) 0.8, Neut # (Auto) 2.4, Lymph # (Auto) 0.2 L, [place] # (Auto) 0.1, Eos # (Auto) 0.0, Baso # (Auto) 0.0, Total Counted 100, Neutrophils % (Manual) 83 H, Band Neutrophils % 2.0, Lymphocytes % (Manual) 10, Monocytes % (Manual) 2, Metamyelocytes % 3.0 H, Toxic Vacuolation 1+, RBC Morphology Normal, PT 13.2 H, INR 1.20 H, Sodium 127 L , Potassium 3.4 L, Chloride 94 L, Carbon Dioxide 23, Anion Gap 13.4, BUN 21 H, C reatinine 0.50 L, Estimated Creat Clear 124, Estimated GFR 129, Est GFR ( Amer) 156, Glucose 114 H, Calcium 9.0, Total Bilirubin 1.9 H, AST 56 H, ALT 36, Alkaline Phosphatase 86, Troponin I < 0.01, NT-Pro-B Natriuret Pep 549 H, Total Protein 7.6, Albumin 4.0, Globulin 3.6 H, Albumin/Globulin Ratio 1.1 05/30/24 01:44: VBG pH 7.51 H, VBG pCO2 28.6 L, VBG pO2 64.3 H, VBG HCO3 22.1 L, VBG Total CO2 22.9 L, VBG O2 Saturation 94.7 H, VBG Base Excess -1.0, VBG Lactic Acid 4.8 H 05/30/24 01:49: SARS-CoV-2 (PCR) Not detected, Influenza A Untype (PCR) Not detected, Influenza Type B (PCR) Not detected 05/30/24 01:55: Lactate 3.8 H 05/30/24 04:05: Troponin I < 0.01 05/30/24 05:25: WBC 2.1 L, RBC 4.32, Hgb 12.6 D, Hct 37.2, MCV 86.1, MCH 29.1, MCHC 33.9, RDW 14.2, Plt Count 161, MPV 9.7, Neut % (Auto) 85.9 H, Lymph % (Auto) 10.5, [place] % (Auto) 2.3, Eos % (Auto) 0.3, Baso % (Auto) 1.0, Neut # (Auto) 1.8, Lymph # (Auto) 0.2 L, [place] # (Auto) 0.1, Eos # (Auto) 0.0, Baso # (Auto) 0.0, Sodium 131 L, Potassium 3.1 L, Chloride 96 L, Carbon Dioxide 26, Anion Gap 12.1, BUN 19 H, Creatinine 0.50 L, Estimated Creat Clear 124, Estimated GFR 129, Est GFR ( Amer) 156, Glucose 96, Calcium 8.0 L 05/30/24 07:54: VBG pH 7.47 H, VBG pCO2 35.5, VBG pO2 83.1 H, VBG HCO3 25.3, VBG Total CO2 26.3, VBG O2 Saturation 96.9 H, VBG Base Excess 1.6, VBG Lactic Acid 3.4 H 05/30/24 08:05: Troponin I < 0.01, Procalcitonin 30.4 H 05/30/24 08:09: Lactate 2.3 H I & O for Labs for Last 24 Hours: Intake & Output 05/27/24 05/28/24 05/29/24 05/30/24 23:59 22:59 23:59 23:59 Intake Total 840 / 840 Output Total 0 / 0 Balance 840 / 840 Weight 135 lb 0.001 oz Constitutional: Present severe distress Head: Present normocephalic and atraumatic ENT: Present normal exam, normal oropharynx and mucous membranes moist Neck: Present normal inspection and full ROM Respiratory: Present prolonged expiratory phase, respiratory distress, rhonchi, diminished air movement and able to speak in complete sentences Cardiac: Present S1/S2, Tachycardia and radial pulses present GI: Present soft and distention; Absent tenderness or guarding Rectal (female): Present deferred (female): Present deferred Skin: Present intact; Absent cyanosis or jaundice Neuro: Present oriented x 3; Absent alert or awake Extremities: Present normal inspection; Absent clubbing or cyanosis Meds Home Medications and Allergies Home Medications ?Medication ?Instructions ?Recorded ?Confirmed ?Type No Known Home Medications 05/30/24 05/30/24 History New Prescriptions to Start Prescriptions: Allergies Allergy/AdvReac Type Severity Reaction Status Date / Time sertraline [From Zoloft] Allergy Unknown unknown Verified 05/30/24 01:38 Results Laboratory Findings 05/30/24 05:25 05/30/24 05:25 PT/INR, D-dimer PT 13.2 seconds (10.1-12.5) H 05/30/24 01:40 INR 1.20 (0.9-1.1) H 05/30/24 01:40 Abnormal lab findings: Abnormal Labs 05/30/24 05/30/24 05/30/24 01:40 01:44 01:55 WBC 2.7 L Neut % (Auto) 87.2 H Lymph % (Auto) 7.5 L Lymph # (Auto) 0.2 L Neutrophils % (Manual) 83 H Metamyelocytes % 3.0 H PT 13.2 H INR 1.20 H VBG pH 7.51 H VBG pCO2 28.6 L VBG pO2 64.3 H VBG HCO3 22.1 L VBG Total CO2 22.9 L VBG O2 Saturation 94.7 H VBG Lactic Acid 4.8 H Sodium 127 L Potassium 3.4 L Chloride 94 L BUN 21 H Creatinine 0.50 L Glucose 114 H Lactate 3.8 H Calcium Total Bilirubin 1.9 H AST 56 H NT-Pro-B Natriuret Pep 549 H Globulin 3.6 H Procalcitonin 05/30/24 05/30/24 05/30/24 05:25 07:54 08:05 WBC 2.1 L Neut % (Auto) 85.9 H Lymph % (Auto) Lymph # (Auto) 0.2 L Neutrophils % (Manual) Metamyelocytes % PT INR VBG pH 7.47 H VBG pCO2 VBG pO2 83.1 H VBG HCO3 VBG Total CO2 VBG O2 Saturation 96.9 H VBG Lactic Acid 3.4 H Sodium 131 L Potassium 3.1 L Chloride 96 L BUN 19 H Creatinine 0.50 L Glucose Lactate Calcium 8.0 L Total Bilirubin AST NT-Pro-B Natriuret Pep Globulin Procalcitonin 30.4 H 05/30/24 08:09 WBC Neut % (Auto) Lymph % (Auto) Lymph # (Auto) Neutrophils % (Manual) Metamyelocytes % PT INR VBG pH VBG pCO2 VBG pO2 VBG HCO3 VBG Total CO2 VBG O2 Saturation VBG Lactic Acid Sodium Potassium Chloride BUN Creatinine Glucose Lactate 2.3 H Calcium Total Bilirubin AST NT-Pro-B Natriuret Pep Globulin Procalcitonin Assessment and Plan *Assessment and plan (1) Acute respiratory failure with hypoxia: Status: Acute Category: Medical Code(s): J96.01 - Acute respiratory failure with hypoxia (2) Pneumonia: Status: Acute Category: Medical Code(s): J18.9 - Pneumonia, unspecified organism (3) Lactic acidosis: Status: Acute Category: Medical Code(s): E87.20 - Acidosis, unspecified Plan Ms. Mckeon is a 53-year-old female with reported history of tobacco abuse presented today with worsening respiratory status and shortness of breath and pulmonary was consulted for further evaluation and management. Patient appeared lethargic, still arousable to verbal commands and responding appropriately Leukopenia with lymphopenia upon admission. CTA upon admission dense lobar consolidative changes in the right lower lobe along with consolidative changes in the right upper lobe and left lower lobe. COVID-19 and flu PCR panel negative. No recent prior imaging available for comparison. On initial examination patient appeared to be in severe respiratory distress. Saturating 95% on 3 L nasal cannula. VBG from this morning did not show any evidence of hypercarbic respiratory failure. VBG upon admission showed tachypnea and hypercarbia. Plan: Follow with a venous blood gas in 1 hour. Patient respiratory status appeared to be very concerning at this point of time despite no significant hypoxia noted. She is a full code and after discussion this morning she is agreeable for intubation. Will closely monitor her respiratory distress. Continue vancomycin and cefepime pending sputum and blood culture results DuoNebs every 6 hours scheduled Continue nasal cannula oxygen supplementation to maintain O2 saturation goal of 90% and above Recommend to complete sepsis bolus at 30 mL/kg # Thank you for involving pulmonary in this patient care. Will continue to follow.
[2024-05-30 09:37] LABS: Appearance,Urine CLEAR (Clear); Blood, Urine Negative (Negative); Color,Urine YELLOW (Yellow); Glucose,Urine (UA) Negative (Negative); Ketones,Urine TRACE (Negative); Leukocyte Esterase,Urine Negative (Negative); Nitrate,Urine Negative (Negative); PH,Urine 5.5 (5.0-8.5); Protein,Urine 1+ (Negative); Specific Gravity, Urine <= 1.005 (1.005-1.030); Urobilinogen,Urine 0.2 EU/dl (0.2)
[2024-05-30 09:38] LABS: Bilirubin,Urine 1+ (Negative)
[2024-05-30] MEDS: SODIUM CHLORIDE 3% 15ML NEB 3 ML IH (09:40)
[2024-05-30 09:51] LABS: Squamous Epithelial Cell,Urine Occasional #/hpf (0-5); WBC,Urine Occasional #/hpf (0-3)
[2024-05-30 10:44] LABS: Reflex Lactic (2 hrs) Add Lactic Reflex
[2024-05-30 11:23] LABS: VBG Base Excess -0.8 mmol/L (-2.4-2.3); VBG HCO3 23.1 mmol/L (23-30); VBG PCO2 33.4 mmol/L (35-51); VBG PH 7.46 mmol/L (7.31-7.41); VBG PO2 64.9 mmol/L (28-40); VBG Total CO2 24.1 mmol/L (23-27)
--- NOTE | 2024-05-30 12:10 | HMH.PHAINT1 ---
Pharmacy Intervention Comments: Home medication list reviewed, but pt is a poor historian, pt SO was questioned by nursing and he is also unsure. Pt mother also called, she is unsure. Pt listed pharmacy, but she hasn't had medications filled there previously.
[2024-05-30 12:35] LABS: Lactic Acid Follow up (RFLX 2) 2.4 mmol/L (0.7-2.1)
[2024-05-30 13:55] LABS: HIV (1&2) Antibody Rapid NONREACTIVE (NONREACTIVE)
--- NOTE | 2024-05-30 16:00 | PC.NURSE ---
pt resting supine in bed. pt has been very fatigued this shift, sleeping majority of the time with periods of wakefulness where pt is able to answer questions and express needs. pt bladder scanned this morning, showing 677ml. dave placed using sterile technique with 700 immediately out and adequate output since. pt was able to eat some of her lunch, but continually fell asleep. pt has requested water to drink numerous times and has tolerated well. pt was on bipap overnight, but currently on 3L NC with sats >90%. pts lungs sound wet, but cough is nonproductive. pt had episode of anxiety, expressing that she was hot and she felt like her chest was tight. pt encouraged to take deep breaths through nose, uncovered and fan placed on pt. pt calmed easily. no complaints of pain at this time. call light within reach, bed in low and locked position and bed alarm on for pt safety.
--- NOTE | 2024-05-30 16:31 | P.PN_ITS ---
Subjective *Date: 05/31/24 *Time: 00:04 Interval history: Patient has remained somewhat somnolent today. Weaned off BiPAP to nasal cannula oxygen. Improvement in oxygenation. Remains tachycardic and tachypneic. Pulmonology seeing patient this morning. Continues to require ICU level care. Medical Exam Vital signs and Labs for Last 24 Hours: Vital Signs Temp Pulse Pulse Pulse Resp BP BP 05/30/24 16:00 98.1 F 05/30/24 16:00 98 H 05/30/24 15:00 05/30/24 15:00 05/30/24 14:00 112 H 34 H 172/81 H 05/30/24 13:00 05/30/24 12:00 110 H 05/30/24 12:00 98.8 F 96 H 28 H 05/30/24 11:45 106 H 05/30/24 11:45 105 H 05/30/24 11:44 98.5 F 05/30/24 11:00 05/30/24 09:57 97 H 18 05/30/24 09:57 98 H 05/30/24 09:57 97 H 05/30/24 09:57 05/30/24 09:00 05/30/24 08:39 05/30/24 08:00 95 H 24 140/78 05/30/24 08:00 90 05/30/24 08:00 20 05/30/24 07:46 97.8 F 05/30/24 06:52 05/30/24 06:18 05/30/24 05:00 05/30/24 04:18 110 H 05/30/24 04:15 98.6 F 115 H 30 H 101/59 L 05/30/24 03:30 116 H 32 H 114/65 05/30/24 03:15 124 H 32 H 151/83 H 05/30/24 03:00 128 H 46 H 151/83 H 05/30/24 02:57 98.1 F 120 H 24 164/88 H 05/30/24 02:48 05/30/24 02:30 114 H 35 H 164/75 H 05/30/24 02:04 67 56 H 184/83 H 05/30/24 01:40 135 H 05/30/24 01:38 129 H 48 H 05/30/24 01:27 97.9 F 135 H 24 165/88 H Pulse Ox O2 Del Method O2 Flow Rate FiO2 05/30/24 16:00 05/30/24 16:00 91 L Nasal Cannula 3 05/30/24 15:00 Nasal Cannula 2 05/30/24 15:00 Nasal Cannula 3 05/30/24 14:00 93 L Nasal Cannula 3 05/30/24 13:00 Nasal Cannula 3 05/30/24 12:00 05/30/24 12:00 92 L Nasal Cannula 3 05/30/24 11:45 05/30/24 11:45 05/30/24 11:44 05/30/24 11:00 Nasal Cannula 3 05/30/24 09:57 05/30/24 09:57 05/30/24 09:57 05/30/24 09:57 93 L Nasal Cannula 3 05/30/24 09:00 Nasal Cannula 3 05/30/24 08:39 94 L Nasal Cannula 3 05/30/24 08:00 93 L Nasal Cannula 3 05/30/24 08:00 05/30/24 08:00 94 L Nasal Cannula 3 05/30/24 07:46 05/30/24 06:52 BiPAP 05/30/24 06:18 40 05/30/24 05:00 BiPAP 05/30/24 04:18 05/30/24 04:15 95 BiPAP 05/30/24 03:30 94 L 05/30/24 03:15 95 05/30/24 03:00 90 L 05/30/24 02:57 BiPAP 05/30/24 02:48 40 05/30/24 02:30 89 L 05/30/24 02:04 88 L 05/30/24 01:40 05/30/24 01:38 89 L 4 05/30/24 01:27 83 L Room Air Intake and Output 05/30/24 05/30/24 05/30/24 07:59 15:59 23:59 Intake Total 840 / 840 Output Total 0 / 850 850 / 850 Balance 840 / -10 -850 / -10 Intake: Intake, Oral Amount 0 / 0 Intake, Total IV Amount 840 / 840 Lactated Ringers 1000ML 1,840 840 / 840 ml @ 920 mls/hr IV .Q2H ONE Rx# :[id number] Output: Output, Urine Amount 0 850 850 / 850 Other: Number of Voids 0 Weight 61.235 kg Patient Weight 05/30/24 23:59 Weight 61.235 kg Laboratory Results - last 24 hr 05/30/24 01:40: WBC 2.7 L, RBC 5.17, Hgb 15.2, Hct 45.2, MCV 87.4, MCH 29.4, MCHC 33.6, RDW 14.3, Plt Count 198, MPV 9.9, Neut % (Auto) 87.2 H, Lymph % (Auto) 7.5 L, [place] % (Auto) 4.5, Eos % (Auto) 0.1, Baso % (Auto) 0.8, Neut # (Auto) 2.4, Lymph # (Auto) 0.2 L, Benton # (Auto) 0.1, Eos # (Auto) 0.0, Baso # (Auto) 0.0, Total Counted 100, Neutrophils % (Manual) 83 H, Band Neutrophils % 2.0, Lymphocytes % (Manual) 10, Monocytes % (Manual) 2, Metamyelocytes % 3.0 H, Toxic Vacuolation 1+, RBC Morphology Normal, PT 13.2 H, INR 1.20 H, Sodium 127 L , Potassium 3.4 L, Chloride 94 L, Carbon Dioxide 23, Anion Gap 13.4, BUN 21 H, Creatinine 0.50 L, Estimated Creat Clear 124, Estimated GFR 129, Est GFR ( Amer) 156, Glucose 114 H, Calcium 9.0, Total Bilirubin 1.9 H, AST 56 H, ALT 36, Alkaline Phosphatase 86, Troponin I < 0.01, NT-Pro-B Natriuret Pep 549 H , Total Protein 7.6, Albumin 4.0, Globulin 3.6 H, Albumin/Globulin Ratio 1.1 05/30/24 01:44: VBG pH 7.51 H, VBG pCO2 28.6 L, VBG pO2 64.3 H, VBG HCO3 22.1 L, VBG Total CO2 22.9 L, VBG O2 Saturation 94.7 H, VBG Base Excess -1.0, VBG Lactic Acid 4.8 H 05/30/24 01:49: SARS-CoV-2 (PCR) Not detected, Influenza A Untype (PCR) Not detected, Influenza Type B (PCR) Not detected 05/30/24 01:55: Lactate 3.8 H 05/30/24 04:05: Troponin I < 0.01 05/30/24 05:25: WBC 2.1 L, RBC 4.32, Hgb 12.6 D, Hct 37.2, MCV 86.1, MCH 29.1, MCHC 33.9, RDW 14.2, Plt Count 161, MPV 9.7, Neut % (Auto) 85.9 H, Lymph % (Auto) 10.5, Benton % (Auto) 2.3, Eos % (Auto) 0.3, Baso % (Auto) 1.0, Neut # (Auto) 1.8, Lymph # (Auto) 0.2 L, Benton # (Auto) 0.1, Eos # (Auto) 0.0, Baso # (Auto) 0.0, Sodium 131 L, Potassium 3.1 L, Chloride 96 L, Carbon Dioxide 26, Anion Gap 12.1, BUN 19 H, Creatinine 0.50 L, Estimated Creat Clear 124, Estimated GFR 129, Est GFR ( Amer) 156, Glucose 96, Calcium 8.0 L, HIV 1&2 Antibody Rapid Nonreactive 05/30/24 07:54: VBG pH 7.47 H, VBG pCO2 35.5, VBG pO2 83.1 H, VBG HCO3 25.3, VBG Total CO2 26.3, VBG O2 Saturation 96.9 H, VBG Base Excess 1.6, VBG Lactic Acid 3.4 H 05/30/24 08:05: Troponin I < 0.01, Procalcitonin 30.4 H 05/30/24 08:09: Lactate 2.3 H 05/30/24 09:15: Urine Color Yellow, Urine Appearance Clear, Urine pH 5.5, Ur Specific [place] <= 1.005, Urine Protein 1+ A, Urine Glucose (UA) Negative, Urine Ketones Trace, Urine Blood Negative, Urine Nitrate Negative, Urine Jaime irubin 1+ A, Urine Urobilinogen 0.2, Ur Leukocyte Esterase Negative, Urine RBC None, Urine WBC Occasional, Ur Squamous Epith Cells Occasional, Urine Bacteria None 05/30/24 11:11: VBG pH 7.46 H, VBG pCO2 33.4 L, VBG pO2 64.9 H, VBG HCO3 23.1, VBG Total CO2 24.1, VBG O2 Saturation 94.0 H, VBG Base Excess -0.8, VBG Lactic Acid 3.0 H, Lactate 2.4 H I & O for Labs for Last 24 Hours: Intake & Output 05/27/24 05/28/24 05/29/24 05/30/24 23:59 22:59 23:59 23:59 Intake Total 840 / 840 Output Total 850 / 850 Balance - Weight 61.235 kg Microbiology Reports for the Last 24 Hours: Microbiology 05/30/24 01:55 Blood Blood Culture - Preliminary 05/30/24 02:00 Blood Blood Culture - Preliminary Constitutional: Present mild distress, average body habitus, chronically ill appearing and somnolent Head: Present atraumatic and normocephalic ENT: Present normal exam Respiratory: Present accessory muscle use, rhonchi, wheezes and crackles Cardiac: Present Regular Rhythm and Tachycardia GI: Present soft and normal bowel sounds; Absent distention or tenderness Extremities: Present normal inspection and full ROM; Absent tenderness Skin: Present intact; Absent erythema Neuro: Present Grossly Intact, alert, awake and moves all extremities Comment:: Dozes easily Assessment and Plan *Assessment and plan (1) Sepsis: Status: Acute Category: Medical Code(s): A41.9 - Sepsis, unspecified organism (2) Streptococcal bacteremia: Status: Acute Category: Medical Code(s): R78.81 - Bacteremia; B95.5 - Unspecified streptococcus as the cause of diseases classified elsewhere (3) Acute respiratory failure with hypoxia: Status: Acute Category: Medical Code(s): J96.01 - Acute respiratory failure with hypoxia (4) Pneumonia: Status: Acute Qualifiers: Laterality: bilateral Lung location: lower lobe of lung Pneumonia type: due to Pneumococcus Qualified Code(s): J13 - Pneumonia due to Streptococcus pneumoniae Category: Medical Code(s): J18.9 - Pneumonia, unspecified organism (5) Pleural effusion associated with pulmonary infection: Status: Acute Category: Medical Code(s): J18.9 - Pneumonia, unspecified organism; J91.8 - Pleural effusion in other conditions classified elsewhere Plan Patient is a 53-year-old female with past medical history of smoking, marijuana use, prediabetes, depression who presents to the hospital due to shortness of breath, cough. According to patient she also has associated chest pain with shortness of breath, has phlegm production along with a cough. She also mentions she has subjective fevers and chills. She denies sick contacts. She mentions she feels chest pain especially with deep breathing. On further evaluation patient was found to have hypoxia, hyponatremia, hypokalemia as well as right lower lobe consolidation. PSI/port score of 114 on presentation. Class IV risk. Necessitating ICU level care. Problems addressed as follows: Bilateral pneumonia, dense right consolidation Streptococcal pneumonia bacteremia, likely cause of her pneumonia. Acute hypoxic respiratory failure satting less than 90% on room air Sepsis present on admission due to pneumonia and bacteremia -Continues to require ICU level care. De-escalate from BiPAP to nasal cannula oxygen today. Continue on 3 L. -Discussed case with pulmonology, recommend continuing DuoNebs every 6 hours scheduled. Continue Mucomyst twice daily. -Sputum and blood cultures pending, blood cultures positive in all 4 bottles for strep pneumonia at less than 24 hours -Continue vancomycin and cefepime IV. Cefepime every 8 hours. Monitor for toxicity. -Goal sats greater 90%. -Flu and COVID-negative -Procalcitonin elevated at 30, severely elevated consistent with bacterial infection. White count low at 2.1. Kidney function normal with BUN 19, creatinine 0.5. -MRSA swab pending. - Continue Tylenol as needed every 4 hours 650 mg for fever or pain On metformin at home. A1c pending. Continue sliding scale insulin and fingersticks ACHS. Hold blood pressure medication from home due to hypotension. Monitor daily. Goal blood pressure less than 180/100 DVT prophylaxis-heparin regular diet
--- NOTE | 2024-05-30 17:13 | PC.NURSE ---
Pt became anxious and C/O soa after bed bath and coughing up sputum. Pt was noted to be tachypneic and tachycardic. Breathing and calming exercises were tried. Pt continued to c/o soa. RT notified. Pt placed back on Bipap. MD Tenorio and Daniel notified. New orders received to get VBG in 2hrs and notify Daniel with results. Keep pt NPO tonight.
[2024-05-30] MEDS: ACETYLCYSTEINE 20% 4ML VIAL 1 ML IH (18:01)
--- NOTE | 2024-05-30 18:47 | PC.NURSE ---
Lab notified to obtain VB @ 3296.
[2024-05-30 19:36] LABS: VBG HCO3 24.2 mmol/L (23-30); VBG Oxygen Saturation 81.9 % (50-70); VBG PCO2 36.4 mmol/L (35-51); VBG PH 7.44 mmol/L (7.31-7.41); VBG PO2 44.5 mmol/L (28-40); VBG Total CO2 25.3 mmol/L (23-27)
[2024-05-30 19:38] LABS: Lactate Venous 3.9 mmol/L (0.4-2.0)
--- NOTE | 2024-05-30 21:47 | XR_ITS ---
PROCEDURE INFORMATION: Exam: XR Chest Exam date and time: 05/30/2024 9:41 PM Age: 53 years old Clinical indication: Shortness of breath; Additional info: SOA TECHNIQUE: Imaging protocol: Radiologic exam of the chest. Views: 1 view. COMPARISON: CT ANGIO CHEST PE PROTOCOL 05/30/2024 2:11 AM FINDINGS: Lungs: Dense alveolar consolidation identified within the right lower lobe and middle lobe consistent with pneumonia. Patchy infiltrates within the left lower lobe and left perihilar region also consistent with pneumonia. Pleural spaces: Unremarkable. No pleural effusion. No pneumothorax. Heart/Mediastinum: Unremarkable. No cardiomegaly. Bones/joints: Old healed fracture mid left clavicle. IMPRESSION: 1. Dense alveolar consolidation identified within the right lower lobe and middle lobe consistent with pneumonia. 2. Patchy infiltrates within the left lower lobe and left perihilar region also consistent with pneumonia. 3. Findings slightly worse from prior exam
--- NOTE | 2024-05-30 21:48 | ECG_ITS ---
APPROVED REPORT Exam: Resting ECG HR:174 bpm ECG Measurements Heart Rate 174 AXES QRSd 89 QRS 57 QT 265 T 61 QTc 358 Conclusion SUPRAVENTRICULAR TACHYCARDIA POSSIBLE ANTERIOR MYOCARDIAL INFARCTION , OF INDETERMINATE AGE [30 ms Q WAVE IN V3/V4, OR R < 0.2 mV IN V4] CRITICAL TEST RESULT UNCONFIRMED REPORT Electronically signed by : Wero Ronquillo MD 06/04/2024 12:53:56
[2024-05-30] MEDS: METOPROLOL TARTRATE 5MG/5ML VIAL 5 MG IV (21:52)
[2024-05-30 21:58] LABS: VBG Base Excess -5.4 mmol/L (-2.4-2.3); VBG HCO3 20.6 mmol/L (23-30); VBG Oxygen Saturation 71.6 % (50-70); VBG PCO2 40.1 mmol/L (35-51); VBG PH 7.33 mmol/L (7.31-7.41); VBG PO2 39.8 mmol/L (28-40); VBG Total CO2 21.8 mmol/L (23-27)
[2024-05-30 21:59] LABS: Lactate Venous 5.5 mmol/L (0.4-2.0)
--- NOTE | 2024-05-30 21:59 | ECG_ITS ---
APPROVED REPORT Exam: Resting ECG HR:150 bpm ECG Measurements Heart Rate 150 AXES SD 126 P 61 QRSd 95 QRS 64 QT 294 T 70 QTc 379 Conclusion SINUS TACHYCARDIA, POSSIBLE ATRIAL FLUTTER POSSIBLE ANTERIOR MYOCARDIAL INFARCTION , OF INDETERMINATE AGE [30 ms Q WAVE IN V3/V4, OR R < 0.2 mV IN V4] CRITICAL TEST RESULT UNCONFIRMED REPORT Electronically signed by : Wero Ronquillo MD 06/04/2024 12:53:51
[2024-05-30] MEDS: ETOMIDATE 40MG/20ML VIAL 20 MG IV (22:10)
[2024-05-30] MEDS: SUCCINYLCHOLINE 20MG/ML 10 ML MDV 100 MG IV (22:11)
[2024-05-30] MEDS: propofoL 100 ML 1.84 MG IV (22:15)
--- NOTE | 2024-05-30 22:20 | XR_ITS ---
PROCEDURE INFORMATION: Exam: XR Chest Exam date and time: 05/30/2024 10:27 PM Age: 53 years old Clinical indication: Device placement; Ett placement (vent status); Additional info: Tube placement TECHNIQUE: Imaging protocol: Radiologic exam of the chest. Views: 1 view. COMPARISON: CR XR CHEST PORTABLE 05/30/2024 9:41 PM FINDINGS: Tubes, catheters and devices: Endotracheal tube terminates 6 cm above the jay. Nasogastric tube identified with tip projecting over the body of the stomach. Lungs: Stable appearance to bilateral pulmonary infiltrates consistent with pneumonia. Pleural spaces: Probable layering right pleural effusion.. Heart/Mediastinum: Unremarkable. No cardiomegaly. Bones/joints: Unremarkable. IMPRESSION: 1. Nasogastric tube identified with tip projecting over the body of the stomach. 2. Stable appearance to bilateral pulmonary infiltrates consistent with pneumonia. There may be a layering right pleural effusion as well.
--- NOTE | 2024-05-30 22:22 | P.EN_ITS ---
I was called by RN for SPLITTER OPERATOR at bedside. On arrival patient is tachycardic alert awake holding conversations, seems very anxious, resisting BiPAP as well as not cooperative. Patient seems confused. EKG performed did not show sinus tachycardia with a heart rate going into 160s to 170s, 5 mg of metoprolol IV was ordered, blood pressure initially was 147/80. Chest x-ray, EKG, troponin, CBC, VBG, BMP were ordered. Patient was also ordered 1 mg of IV Ativan for anxiety. Patient blood pressure dropped, CODE BLUE was called, ED staff arrived. Patient mention she wants to be intubated and does not want to , patient is full code.. Patient was intubated and sedated on propofol. Chest x-ray before intubation did show worsening from previous chest x-ray. Patient was also started on IV Levophed.
[2024-05-30] MEDS: NOREPINEPHRINE BITARTRATE/D5W 8 MG/250 ML PLAST..BAG 15 MG IV (22:30)
[2024-05-30] MEDS: MIDAZOLAM 2MG/2ML VIAL 2 MG IV (22:30)
[2024-05-30] MEDS: 0.9 % SODIUM CHLORIDE 1000ML 500 ML 999 ML IV (22:30)
--- NOTE | 2024-05-30 22:30 | PC.NURSE ---
Called for vent settings after intubation, they are as follows VT 400 PEEP 10 FIO2 60% Rate 18. obtain ABG in 35 minutes.
[2024-05-30 22:39] LABS: Chloride 100 mmol/L (98-107); Potassium 3.4 mmoL/L (3.5-5.1); Sodium 137 mmol/L (136-145)
[2024-05-30 22:42] LABS: Anion Gap 18.4 mEq/L (5-15); Blood Urea Nitrogen 24 mg/dl (7-17); Calcium 9.1 mg/dl (8.4-10.2); Carbon Dioxide 22 mmol/L (22.0-30.0); Creatinine Clearance Estimated 124 mL/min (50-200); Estimated Glomerular Filt Rate 129 ml/min (>60); GFR (African American) 156 ML/MIN (>60); Glucose 94 mg/dl (74-100)
[2024-05-30] MEDS: FENTANYL CITRATE/PF 1,000 MCG in 0.9 % SODIUM CHLORIDE 80 ML 1 MCG IV (22:45)
--- NOTE | 2024-05-30 22:58 | EXP.EVENT.NO ---
I was called to rapid response/noel-code response on the floor. When I arrived, patient was hypotensive with systolic 50, diastolic 20. Patient tachycardic in the 150s. Norepinephrine drip was started. Patient was resuscitated with IV fluids and vasopressors. Despite management with BiPAP, patient remained hypoxemic around 80. Elected to intubate. Patient was intubated with 7.5 ET tube after 20 etomidate and 100 of succinylcholine. Uncomplicated procedure. Post sedation with propofol. Chest x-ray was ordered. On independent interpretation, no pneumothorax. Severe mucous plugging on the right. Ultrasound-guided IV was placed as well. EKG sinus tachycardia without ST or T wave changes concerning for acute ischemia. On 05/30, the high probability of a clinically significant, sudden or life threatening deterioration of the following system(s) required my full and direct attention, intervention and personal management. The time I documented below is in addition to time spent performing reported procedures but includes the following listed in this critical care notation. 60 minutes were spent stabilizing patient's cardiovascular and pulmonary status.
[2024-05-30 23:06] LABS: Troponin I 3.69 ng/ml (0.00-0.034)
[2024-05-30 23:28] LABS: Reflex Lactic Add Lactic Reflex
[2024-05-30 23:33] LABS: ABG Base Excess -7.2 mmol/L (-2.4-2.3); ABG Oxygen Saturation 93 % (90-100); ABG PCO2 31.5 mmhg (35.0-45.0); ABG PH 7.38 mmol/L (7.35-7.45)
[2024-05-30 23:37] LABS: Allen's Test Y; Oxygen 60 %; PEEP 10; Source Left Radial; Tidal Volume 400; Vent Rate 18
[2024-05-30 23:41] LABS: Lactic Acid Follow Up (RFLX 1) 4.2 mmol/L (0.7-2.1)
[2024-05-31] VITALS (44 sets, daily range): BP systolic 89–130; BP diastolic 51–85; PULSE 82–130; RESP 18–32; TEMP 36.8–37.9; O2SAT 90–100; BMI 24.7; BMI 24.9
--- NOTE | 2024-05-31 | IR_ITS ---
APPROVED REPORT Patient Location: Inpatient PROCEDURES Left heart catheterization Left ventriculogram Selective coronary angiogram INDICATION Acute non-ST elevation myocardial infarction, New onset cardiomyopathy Informed consent was obtained prior to the procedure. COMPLICATIONS None Estimated Blood Loss: Less than 10 mls TECHNIQUE One percent lidocaine used to anesthetize the right anterior aspect of the wrist. The right radial artery was accessed via the Seldinger technique. A 6 Maltese sheath was placed in the right radial artery. 2.5 mg of Verapamil, 800 mcg of nitroglycerin, 1mg Lidocaine and 5000 U Heparin were given through the arterial sheath. The 6 Maltese JL 3 guide catheter was also used to perform left heart catheterization, left ventriculogram and selective coronary angiogram. At the end of the procedure the sheath was removed good hemostasis was achieved using Traclet band, patient was transferred to the postop holding area in stable condition. ANGIOGRAPHIC RESULTS The left main artery Normal The left anterior descending artery Normal The circumflex artery Normal The right coronary artery Codominant normal The [place] ventriculogram reveals Dilated ventricle anterior basal hypokinesis estimate ejection fraction 35% The left ventricular end-diastolic pressure 20 mmHg IMPRESSION Normal coronary arteries Reduced ejection fraction with regional wall motion abnormality Elevated LVEDP PLAN 1. Standard medical management for cardiomyopathy Electronically signed by : Adan Howell MD 05/31/2024 13:09:08
[2024-05-31 00:01] LABS: Reflex Lactic (2 hrs) Add Lactic Reflex
[2024-05-31 00:06] LABS: POC Glucose,Bedside 85 (70-110)
[2024-05-31 00:10] LABS: Lactic Acid Follow up (RFLX 2) 4.8 mmol/L (0.7-2.1)
--- NOTE | 2024-05-31 03:33 | PC.NURSE ---
Rapid Response Note: See Rapid Response intervention 05/30/20242139: RR called. Staff at beside. Patient in respiratory distress 2144: Dr. Patino to bedside. VO's for labs, cxr, ekg, meds 2199: Patient worsening. Dr Mueller from ER called for intubation. 2209: Time out for emergent intubation. Etomidate and Succinylchoine IVP per SEP 2212: 7.5 ett placed, 22cm at teeth. Verified with positive color change and bilateral breath sounds. Pend CXR 2217: 16fr OG placed, 55cm at teeth. Verified with gastric return and air bolus. Pend KUB Rapid response completed at 2229 once patient was stabilized. Niru RN and Kristel RN remained at bedside to complete new head to toe assessment. ICU care continued. See SEP/titration record.
[2024-05-31 04:31] LABS: Basophils # 0.3 K/mm3 (0-0.2); Basophils % 1.8 % (0.1-2.0); Eosinophils % 0.2 % (0.1-12.0); Hematocrit 38.6 % (37.0-47.0); Hemoglobin 13.3 g/dL (12.2-16.2); Lymphocytes # 0.7 K/mm3 (0.7-4.5); Lymphocytes % 4.7 % (10-50); Mean Corpuscular HGB Conc 34.4 g/dL (31.8-35.4); Mean Corpuscular Hemoglobin 30.3 pg (27.0-31.2); Mean Corpuscular Volume 87.9 fl (81-99); Mean Platelet Volume 9.2 fl (7.4-10.4); Monocytes # 0.3 K/mm3 (0.1-1.0); Monocytes % 1.9 % (1.7-9.3); Neutrophils # 12.8 K/mm3 (1.8-7.8); Neutrophils % 91.4 % (37.0-80.0); Platelet Count 283 K/mm3 (142-424); Red Blood Count 4.39 M/mm3 (4.20-5.40); Red Cell Distribution Width 14.7 % (11.5-17.5)
[2024-05-31] MEDS: FENTANYL CITRATE/PF 1,000 MCG in 0.9 % SODIUM CHLORIDE 80 ML 15 MCG IV ×3 (04:33→18:01)
[2024-05-31 04:36] LABS: MANUAL DIFFERENTIAL MANUAL DIFFERENTIAL (MANUAL DIFF)
[2024-05-31 04:41] LABS: Alanine Aminotransferase 82 U/L (12-78); Albumin Level 2.9 g/dl (3.5-5.0); Albumin/Globulin Ratio 1.1 (1.1-1.8); Alkaline Phosphatase 86 U/L (38-126); Anion Gap 13.8 mEq/L (5-15); Aspartate Amino Transferase 172 U/L (14-36); Bilirubin,Total 1.3 mg/dl (0.2-1.3); Blood Urea Nitrogen 33 mg/dl (7-17); Calcium 8.4 mg/dl (8.4-10.2); Carbon Dioxide 23 mmol/L (22.0-30.0); Chloride 103 mmol/L (98-107); Creatinine Clearance Estimated 69 mL/min (50-200); Estimated Glomerular Filt Rate 65 ml/min (>60); GFR (African American) 79 ML/MIN (>60); Globulin 2.6 g/dL (1.3-3.2); Glucose 97 mg/dl (74-100); Magnesium 2.4 mg/dl (1.6-2.3); Phosphorous 4.1 mg/dl (2.5-4.5); Sodium 137 mmol/L (136-145); Total Protein,Serum 5.5 g/dl (6.3-8.2)
--- NOTE | 2024-05-31 04:47 | PC.NURSE ---
End of shift summary: See previous RR note/intervention-- Patient is currently stable on vent: AC mode, Vt 400, RR 18, FiO2 60%, peep 10. Less than adequate urinary output via dave- MD notified. Medicated per SEP. See titration record for current drip rates. Right lung rouse remain diminished and coarse. Left lung rouse are diminished, but mostly clear. VSS, NAD, ICU care continued.
[2024-05-31 04:57] LABS: Procalcitonin 48.9 ng/mL (0.0-2.0)
[2024-05-31 04:59] LABS: Anisocytosis 1+; Lymphocytes % 11 % (10-50); Neutrophils % 89 % (42-76); RBC Morphology Normal; Total Cells Counted 100
[2024-05-31 05:02] LABS: C-Reactive Protein 405.8 mg/L (0-4); Potassium 2.8 mmoL/L (3.5-5.1); Troponin I 5.08 ng/ml (0.00-0.034)
[2024-05-31] MEDS: KCl 20mEq/100ml 100 ML 50 MEQ IV ×2 (05:21→07:27)
[2024-05-31] MEDS: IPRATROPIUM/ALBUTEROL 3 ML NEB IH ×4 (06:23→23:38)
[2024-05-31] MEDS: ACETYLCYSTEINE 20% 4ML VIAL 1 ML IH ×2 (06:24→18:06)
[2024-05-31] MEDS: HEPARIN SODIUM 5,000 UNIT/ML VIAL 5000 UNIT SUBCUT ×3 (06:32→22:23)
[2024-05-31] MEDS: CEFEPIME HCL 2 GM in 0.9 % SODIUM CHLORIDE 100 ML IV ×3 (06:32→21:17)
[2024-05-31] MEDS: propofoL 100 ML 14.7 MG IV (06:59)
--- NOTE | 2024-05-31 08:01 | CA_ITS ---
APPROVED REPORT EXAM: Comprehensive 2D, Doppler, and color-flow Echocardiogram Atmospheric Drier Tender: Rach Mckeon, RT(R) Ht: 5 ft 2 in Wt: 135lbs BSA: 1.62 BP: 114/65 mmHg Indications: CP, DM, SOB, sepsis, pleural effusion, intubated, pneumonia, elevated troponins, resp failure 2D Dimensions Left Atrium 4.24 cm F: 2.7 - 3.8 EF AP4 35.60 % LVOT 1.83 cm (M/F) 1.5-2.5 GL Strain -15.7 % M-Mode Dimensions RVDd 2.82 cm (0.9-2.6) LVDd 4.49 cm (3.5-5.7) Ao Diam 3.06 cm (2.0-3.7) LVDs 3.99 cm (3.5-5.7) IVSd 0.94 cm (0.6-1.1) PWd 0.74 cm (0.6-1.1) EF (Teich) 24.30% FS 11.10% EDV (Teich) 92.00 mL ESV (Teich) 69.60 mL LV Diastology E Decel Time 150 (160-240 msec) E/A Ratio 0.6 MED E' 4.9 (>= 7 cm/sec) E'/MED E' Ratio 11.37 (<= 14) LAT E' 5.7 (>= 10 cm/sec) E/LAT E' Ratio 9.77 (<= 14) Mitral Valve MV E Max Alfredo. 56.0 (40-130 cm/s) MV A Velocity 89.0 (40-130 cm/s) E/A Ratio 0.63 MV Decel. Time 150 (160-240 ms) Tricuspid Valve TR P. Velocity 236.00 cm/s RAP Estimate 10.00 mmHg RVSP 32.30 mmHg Left Ventricle The left ventricle is normal size. The left ventricular systolic function is mildly reduced. Proximal septal thickening is noted. There is mild global hypokinesis present. No regional wall motion abnormalities are noted. Transmitral Doppler flow pattern suggests impaired LV relaxation. LVEF is 40-45%. Right Ventricle The right ventricle is normal size. The right ventricular systolic function is normal. Atria The left atrium size is normal. The right atrium size is normal. There is no Doppler evidence of interatrial shunt. Aortic Valve The aortic valve opens well. There is no aortic valvular stenosis. No aortic regurgitation is present. Mitral Valve The mitral valve leaflets are mildly thickened. No evidence of mitral valve stenosis. Mild mitral regurgitation. There is a small subcentimetric mobile echodensity noted on the anterior leaflet of the mitral valve (seen on apical 4 chamber view - image # 40). Tricuspid Valve The tricuspid valve leaflets are thin and pliable. Mild tricuspid regurgitation. RVSP is 15-20 mmHg. Pulmonic Valve The pulmonary valve is normal in structure. Trace pulmonic regurgitation. Great Vessels The aortic root is normal in size. IVC is normal in size and collapses >50% with inspiration. Pericardium There is no pericardial effusion. Other Information Study Quality: Fair Conclusion Mildly reduced LV systolic function (LVEF 40-45%). Mild MR. Small subcentimetric mobile echodensity noted on the anterior leaflet of the mitral valve (seen on apical 4 chamber view - image # 40). Mild TR RVSP is 15-20 mmHg. Due to reduced LV systolic function, ischemic evaluation is recommended. Also, outpatient cardiac MRI (cardiomyopathy protocol) is suggested to evaluate for nonischemic etiologies. In the setting of positive blood cultures with presence of a small anterior MV leaflet mobile echodensity, further evaluation with SEBASTIAN is suggested to rule out MV endocarditis +/- complications. Electronically signed by : Radha Rogers MD 05/31/2024 11:44:47
[2024-05-31] MEDS: 0.9 % SODIUM CHLORIDE 1000ML 1,000 ML 75 ML IV ×2 (08:05→22:08)
--- NOTE | 2024-05-31 08:21 | EXP.ACUTE.PN ---
Subjective *Date: 05/31/24 *Time: 16:15 Interval history: Patient unabated and sedated overnight. Nonresponsive on exam this morning. Family at bedside. Medical Exam Vital signs and Labs for Last 24 Hours: Vital Signs Temp Pulse Pulse Resp BP BP Pulse Ox 05/31/24 08:00 100 H 29 H 101/79 L 96 05/31/24 07:00 98.4 F 109 H 28 H 101/80 L 95 05/31/24 06:23 98 H 05/31/24 06:23 99 H 05/31/24 06:23 27 H 05/31/24 06:03 103 H 29 H 100/81 L 95 05/31/24 06:00 98.4 F 98 H 30 H 130/85 95 05/31/24 05:00 98.4 F 107 H 28 H 99/75 L 95 05/31/24 04:00 100 H 05/31/24 04:00 108 H 29 H 99/76 L 05/31/24 04:00 104 H 29 H 05/31/24 03:57 30 H 90 L 05/31/24 03:00 98.3 F 109 H 31 H 98/80 L 91 L 05/31/24 02:00 115 H 32 H 99/78 L 91 L 05/31/24 01:37 31 H 93 L 05/31/24 01:00 98.3 F 117 H 30 H 100/80 L 92 L 05/31/24 01:00 05/31/24 00:00 98.7 F 121 H 31 H 98/61 L 93 L 05/31/24 00:00 126 H 93 L 05/31/24 00:00 130 H 05/31/24 00:00 98.2 F 05/30/24 23:45 121 H 30 H 112/65 92 L 05/30/24 23:45 33 H 94 L 05/30/24 23:00 132 H 30 H 123/74 92 L 05/30/24 23:00 05/30/24 22:43 05/30/24 22:42 132 H 30 H 109/68 L 90 L 05/30/24 22:39 132 H 30 H 83/52 L 93 L 05/30/24 22:36 136 H 31 H 79/57 L 92 L 05/30/24 22:33 144 H 31 H 65/47 L 93 L 05/30/24 22:30 98.7 F 149 H 30 H 69/43 L 93 L 05/30/24 22:08 143 H 70 H 79/50 L 88 L 05/30/24 21:40 163 H 68 H 73/36 L 88 L 05/30/24 21:00 134 H 43 H 150/84 H 92 L 05/30/24 21:00 05/30/24 20:15 94 L 05/30/24 20:00 120 H 05/30/24 20:00 98 F 118 H 30 H 148/85 H 95 05/30/24 19:00 128 H 43 H 138/69 98 05/30/24 18:38 05/30/24 18:04 120 H 05/30/24 18:04 120 H 05/30/24 18:04 100 05/30/24 18:00 117 H 35 H 141/75 H 100 05/30/24 18:00 05/30/24 17:18 131 H 47 H 150/82 H 99 05/30/24 17:00 05/30/24 16:00 110 H 05/30/24 16:00 107 H 32 H 149/74 H 92 L 05/30/24 16:00 98.1 F 05/30/24 16:00 98 H 91 L 05/30/24 15:00 05/30/24 15:00 05/30/24 14:00 112 H 34 H 172/81 H 93 L 05/30/24 13:00 05/30/24 12:00 110 H 05/30/24 12:00 98.8 F 96 H 28 H 92 L 05/30/24 11:45 106 H 05/30/24 11:45 105 H 05/30/24 11:44 98.5 F 05/30/24 11:00 05/30/24 09:57 97 H 18 05/30/24 09:57 98 H 05/30/24 09:57 97 H 05/30/24 09:57 93 L 05/30/24 09:00 05/30/24 08:39 94 L O2 Del Method O2 Flow Rate FiO2 05/31/24 08:00 Mechanical Ventilation 05/31/24 07:00 Mechanical Ventilation 60 05/31/24 06:23 05/31/24 06:23 05/31/24 06:23 60 11/06/24 06:03 Mechanical Ventilation 60 05/31/24 06:00 Mechanical Ventilation 60 05/31/24 05:00 Mechanical Ventilation 60 05/31/24 04:00 05/31/24 04:00 Mechanical Ventilation 05/31/24 04:00 Mechanical Ventilation 05/31/24 03:57 60 05/31/24 03:00 Mechanical Ventilation 60 05/31/24 02:00 Mechanical Ventilation 05/31/24 01:37 60 05/31/24 01:00 Mechanical Ventilation 60 05/31/24 01:00 Mechanical Ventilation 05/31/24 00:00 Mechanical Ventilation 60 05/31/24 00:00 Mechanical Ventilation 05/31/24 00:00 05/31/24 00:00 05/30/24 23:45 Mechanical Ventilation 60 05/30/24 23:45 60 05/30/24 23:00 Mechanical Ventilation 60 05/30/24 23:00 Mechanical Ventilation 05/30/24 22:43 60 05/30/24 22:42 Mechanical Ventilation 60 05/30/24 22:39 Mechanical Ventilation 60 05/30/24 22:36 Mechanical Ventilation 60 05/30/24 22:33 Mechanical Ventilation 60 05/30/24 22:30 Mechanical Ventilation 60 05/30/24 22:08 Ambu-Bag 15 05/30/24 21:40 BiPAP 100 05/30/24 21:00 BiPAP 45 05/30/24 21:00 BiPAP 05/30/24 20:15 BiPAP 05/30/24 20:00 05/30/24 20:00 BiPAP 05/30/24 19:00 BiPAP 40 05/30/24 18:38 BiPAP 05/30/24 18:04 05/30/24 18:04 05/30/24 18:04 BiPAP 45 05/30/24 18:00 BiPAP 05/30/24 18:00 45 05/30/24 17:18 BiPAP 05/30/24 17:00 BiPAP 05/30/24 16:00 05/30/24 16:00 Nasal Cannula 3 05/30/24 16:00 05/30/24 16:00 Nasal Cannula 3 05/30/24 15:00 Nasal Cannula 2 05/30/24 15:00 Nasal Cannula 3 05/30/24 14:00 Nasal Cannula 3 05/30/24 13:00 Nasal Cannula 3 05/30/24 12:00 05/30/24 12:00 Nasal Cannula 3 05/30/24 11:45 05/30/24 11:45 05/30/24 11:44 05/30/24 11:00 Nasal Cannula 3 05/30/24 09:57 05/30/24 09:57 05/30/24 09:57 05/30/24 09:57 Nasal Cannula 3 05/30/24 09:00 Nasal Cannula 3 05/30/24 08:39 Nasal Cannula 3 Intake and Output 05/30/24 05/31/24 05/31/24 23:59 07:59 15:59 Intake Total 1131.517 / 1735.218 5332.797 / 1570.871 46.074 / 1570.871 Output Total 400 / 1250 665 / 665 Balance 731.517 / 721.517 859.797 / 905.871 46.074 / 905.871 Intake: Intake, Oral Amount 0 / 0 Intake, Total IV Amount 1131.517 / 6018.307 5611.797 / 1170.871 46.074 / 1170.871 0.9 % Sodium Chloride 1000ML 1, 1119 / 1119 600 / 600 000 ml @ 75 mls/hr IV .[id number] [facility] Rx#:[id number] Cefepime HCl 2 gm In 0.9 % 200 / 200 Sodium Chloride 100 ml @ 200 mls/hr IV Q8H [facility] Rx#:[id number] Infusion Intake 400 / 400 0.9 % Sodium Chloride 1000ML 1, 300 / 300 000 ml @ 75 mls/hr IV .[id number] [facility] Rx#:[id number] KCl 20mEq/100ml 100 ml @ 50 mls 100 / 100 /hr IV Q2H [facility] Rx#:[id number] Output: Output, Urine Amount 400 / 1250 405 / 405 Output, Urine Amount (Catheter) 85 / 85 Barrett 85 / 85 Output, Gastric Drainage Amount 175 / 175 Oral 175 / 175 Other: Number of Voids 0 Number of Unmeasured Voids 0 Weight 61.5 kg Patient Weight 05/31/24 23:59 Weight 61.5 kg Laboratory Results - last 24 hr 05/30/24 05:25: HIV 1&2 Antibody Rapid Nonreactive 05/30/24 07:54: VBG pH 7.47 H, VBG pCO2 35.5, VBG pO2 83.1 H, VBG HCO3 25.3, VBG Total CO2 26.3, VBG O2 Saturation 96.9 H, VBG Base Excess 1.6, VBG Lactic Acid 3.4 H 05/30/24 08:05: Troponin I < 0.01, Procalcitonin 30.4 H 05/30/24 08:09: Lactate 2.3 H 05/30/24 09:15: Urine Color Yellow, Urine Appearance Clear, Urine pH 5.5, Ur Specific [place] <= 1.005, Urine Protein 1+ A, Urine Glucose (UA) Negative, Urine Ketones Trace, Urine Blood Negative, Urine Nitrate Negative, Urine Bilirubin 1+ A, Urine Urobilinogen 0.2, Ur Leukocyte Esterase Negative, Urine RBC None, Urine WBC Occasional, Ur Squamous Epith Cells Occasional, Urine Bacteria None 05/30/24 11:11: VBG pH 7.46 H, VBG pCO2 33.4 L, VBG pO2 64.9 H, VBG HCO3 23.1, VBG Total CO2 24.1, VBG O2 Saturation 94.0 H, VBG Base Excess -0.8, VBG Lactic Acid 3.0 H, Lactate 2.4 H 05/30/24 19:15: VBG pH 7.44 H, VBG pCO2 36.4, VBG pO2 44.5 H, VBG HCO3 24.2, VBG Total CO2 25.3, VBG O2 Saturation 81.9 H, VBG Base Excess 0.0, VBG Lactic Acid 3.9 H 05/30/24 21:44: POC Glucose 85 05/30/24 21:48: VBG pH 7.33, VBG pCO2 40.1, VBG pO2 39.8, VBG HCO3 20.6 L, VBG Total CO2 21.8 L, VBG O2 Saturation 71.6 H, VBG Base Excess -5.4 L, VBG Lactic Acid 5.5 H 05/30/24 21:50: Sodium 137, Potassium 3.4 L, Chloride 100, Carbon Dioxide 22, Anion Gap 18.4 H, BUN 24 H D, Creatinine 0.50 L, Estimated Creat Clear 124, Estimated GFR 129, Est GFR ( Amer) 156, Glucose 94, Lactate 4.2 H, Calcium 9.1, Troponin I 3.69 H 05/30/24 23:32: Specimen Source Left radial, O2 % 60, ABG pH 7.38, ABG pCO2 31.5 L, ABG pO2 71.0 L, ABG HCO3 18.0 L, ABG Total CO2 19.0 L, ABG O2 Saturation 93, ABG Base Excess -7.2 L, Lux Test Y, Vent Rate 18, Tidal Volume 400, PEEP 10 05/31/24 00:01: Lactate 4.8 H 05/31/24 04:20: WBC 14.0 H D, RBC 4.39, Hgb 13.3, Hct 38.6, MCV 87.9, MCH 30.3, MCHC 34.4, RDW 14.7, Plt Count 283 D, MPV 9.2, Neut % (Auto) 91.4 H, Lymph % (Auto) 4.7 L, Day % (Auto) 1.9, Eos % (Auto) 0.2, Baso % (Auto) 1.8, Neut # (Auto) 12.8 H, Lymph # (Auto) 0.7, Day # (Auto) 0.3, Eos # (Auto) 0.0, Baso # (Auto) 0.3 H, Total Counted 100, Neutrophils % (Manual) 89 H, Lymphocytes % (Manual) 11, RBC Morphology Normal, Anisocytosis 1+, Sodium 137, Potassium 2.8 L*, Chloride 103, Carbon Dioxide 23, Anion Gap 13.8, BUN 33 H D, Creatinine 0.90 D, Estimated Creat Clear 69, Estimated GFR 65, Est GFR ( Amer) 79 D, Glucose 97, Calcium 8.4, Phosphorus 4.1, Magnesium 2.4 H, Total Bilirubin 1.3, AST 172 H D, ALT 82 H D, Alkaline Phosphatase 86, Troponin I 5.08 H, C-Reactive Protein 405.8 H, Total Protein 5.5 L D, Albumin 2.9 L D, Globulin 2.6, Albumin/Globulin Ratio 1.1, Procalcitonin 48.9 H I & O for Labs for Last 24 Hours: Intake & Output 05/28/24 05/29/24 05/30/24 05/31/24 22:59 23:59 23:59 23:59 Intake Total 1971.517 / 4264.585 4902.871 / 1570.871 Output Total 1250 / 1250 665 / 665 Balance 721.517 / 721.517 905.871 / 905.871 Weight 61.235 kg 61.5 kg Microbiology Reports for the Last 24 Hours: Microbiology 05/30/24 22:23 Sputum - Endotracheal Tube Aspirate Gram Stain - Preliminary 05/30/24 16:30 Sputum - Expectorated Sputum Gram Stain - Preliminary 05/30/24 01:55 Blood Blood Culture - Preliminary 05/30/24 02:00 Blood Blood Culture - Preliminary Constitutional: Present moderate distress, average body habitus, chronically ill appearing and somnolent Head: Present atraumatic and normocephalic ENT: Present normal exam Respiratory: Present patient mechanically ventilated, rhonchi, wheezes and crackles Cardiac: Present Regular Rhythm and Tachycardia GI: Present soft and normal bowel sounds; Absent distention or tenderness Extremities: Present normal inspection and full ROM; Absent tenderness Skin: Present intact; Absent erythema Neuro: Present moves all extremities; Absent Grossly Intact, alert, awake or oriented x 3 Comment:: Sedated Assessment and Plan *Assessment and plan (1) Septic shock: Status: Acute Category: Medical Code(s): A41.9 - Sepsis, unspecified organism; R65.21 - Severe sepsis with septic shock (2) Streptococcal bacteremia: Status: Acute Category: Medical Code(s): R78.81 - Bacteremia; B95.5 - Unspecified streptococcus as the cause of diseases classified elsewhere (3) Acute respiratory failure with hypoxia: Status: Acute Category: Medical Code(s): J96.01 - Acute respiratory failure with hypoxia (4) Non-STEMI (non-ST elevated myocardial infarction): Status: Acute Category: Medical Code(s): I21.4 - Non-ST elevation (NSTEMI) myocardial infarction (5) Pneumonia: Status: Acute Qualifiers: Laterality: bilateral Lung location: lower lobe of lung Pneumonia type: due to Pneumococcus Qualified Code(s): J13 - Pneumonia due to Streptococcus pneumoniae Category: Medical Code(s): J18.9 - Pneumonia, unspecified organism (6) Pleural effusion associated with pulmonary infection: Status: Acute Category: Medical Code(s): J18.9 - Pneumonia, unspecified organism; J91.8 - Pleural effusion in other conditions classified elsewhere Plan Patient is a 53-year-old female with past medical history of smoking, marijuana use, prediabetes, depression who presents to the hospital due to shortness of breath, cough. According to patient she also has associated chest pain with shortness of breath, has phlegm production along with a cough. She also mentions she has subjective fevers and chills. She denies sick contacts. She mentions she feels chest pain especially with deep breathing. On further evaluation patient was found to have hypoxia, hyponatremia, hypokalemia as well as right lower lobe consolidation. PSI/port score of 114 on presentation. Class IV risk. Overnight, patient decompensated necessitating enervation for protection of airway and respiratory support. Currently on ventilator. Pulmonology and cardiology assisting with care. Troponin jumped overnight. Planning for bronchoscopy and left heart cath today. Necessitating ICU level care. Problems addressed as follows: Septic shock Bilateral pneumonia, dense right consolidation Streptococcal pneumonia bacteremia, likely cause of her pneumonia. Acute hypoxic respiratory failure satting less than 90% on room air Sepsis present on admission due to pneumonia and bacteremia -Continues to require ICU level care. Initiated on ventilator overnight. Continue with assist control, full settings and respiratory therapy note. -VBG today with pH 7.45, pCO2 31. Pulmonology assisting with management of ventilator. -White count elevated at 14, hemoglobin 13. Platelets 283. - Continue broad-spectrum antibiotics with vancomycin and cefepime. -Blood cultures positive for Streptococcus pneumoniae, repeat blood cultures ordered -Procalcitonin elevating, 48 today. Up from 30 on admission. CRP elevated at 405. -Closely monitoring kidney function and electrolytes. Kidney function acceptable with BUN 33, creatinine 0.9. Slight bump in liver enzymes concerning for septic injury to liver. -Continue Analgo-sedation with propofol and fentanyl NSTEMI: Troponin elevated to 3 after intubation last night, peaked at 5. Going for left heart cath today. Cardiology assisting with care, discussed case today, concerned that elevation in troponin likely secondary to demand ischemia from her severe illness/septic shock. Diabetes: On metformin at home. A1c pending. continue sliding scale insulin and fingersticks ACHS. Will consider initiating tube feeds in the next [address]. Initiated on norepinephrine due to hypotension secondary to septic shock and sedation DVT prophylaxis-heparin Full code ICU/Critical care attestation This patient is critically ill with 35 minutes devoted solely to this patient managing life/organ supporting interventions that required physician assessment. This includes time spent making adjustments in ventilator settings, IV fluid administration, titration of pressors, adjustments of medications, discussion of patient with consultants and other care providers as well as updating patient and/or family (if patient by virtue of his/her condition is unable to participate in decision making). This does not include time spent performing separately billed procedures. Time is not concurrent with that of other providers.
[2024-05-31] MEDS: VANCOMYCIN HCL 1,000 MG in 0.9 % SODIUM CHLORIDE 250 ML 125 MG IV ×2 (09:20→20:19)
[2024-05-31] MEDS: NOREPINEPHRINE BITARTRATE/D5W 8 MG/250 ML PLAST..BAG 11.25 MG IV (09:24)
[2024-05-31 09:39] LABS: HCV Ab Non Reactive (Non Reactive)
--- NOTE | 2024-05-31 09:42 | P.PN_ITS ---
Subjective *Date: 05/31/24 *Time: 10:41 Interval history: Worsening respiratory distress overnight needing intubation and mechanical ventilatory support. Pulmonology Exam Inpatient Vital signs and Labs for Last 24 Hours: Temp Pulse Resp BP Pulse Ox O2 Del Method O2 Flow Rate 98.4 F 100 H 29 H 101/79 L 96 Mechanical Ventilation 15 05/31/24 07:00 05/31/24 08:00 05/31/24 08:00 05/31/24 08:00 05/31/24 08:00 05/31/24 08:00 05/30/24 22:08 FiO2 60 05/31/24 07:00 Laboratory Results - last 24 hr 05/30/24 05:25: Hepatitis C Antibody Non reactive, HIV 1&2 Antibody Rapid Nonreactive 05/30/24 09:15: Urine RBC None, Urine WBC Occasional, Ur Squamous Epith Cells Occasional, Urine Bacteria None 05/30/24 11:11: VBG pH 7.46 H, VBG pCO2 33.4 L, VBG pO2 64.9 H, VBG HCO3 23.1, VBG Total CO2 24.1, VBG O2 Saturation 94.0 H, VBG Base Excess -0.8, VBG Lactic Acid 3.0 H, Lactate 2.4 H 05/30/24 19:15: VBG pH 7.44 H, VBG pCO2 36.4, VBG pO2 44.5 H, VBG HCO3 24.2, VBG Total CO2 25.3, VBG O2 Saturation 81.9 H, VBG Base Excess 0.0, VBG Lactic Acid 3.9 H 05/30/24 21:44: POC Glucose 85 05/30/24 21:48: VBG pH 7.33, VBG pCO2 40.1, VBG pO2 39.8, VBG HCO3 20.6 L, VBG Total CO2 21.8 L, VBG O2 Saturation 71.6 H, VBG Base Excess -5.4 L, VBG Lactic Acid 5.5 H 05/30/24 21:50: Sodium 137, Potassium 3.4 L, Chloride 100, Carbon Dioxide 22, Anion Gap 18.4 H, BUN 24 H D, Creatinine 0.50 L, Estimated Creat Clear 124, Estimated GFR 129, Est GFR ( Amer) 156, Glucose 94, Lactate 4.2 H, Calcium 9.1, Troponin I 3.69 H 05/30/24 23:32: Specimen Source Left radial, O2 % 60, ABG pH 7.38, ABG pCO2 31.5 L, ABG pO2 71.0 L, ABG HCO3 18.0 L, ABG Total CO2 19.0 L, ABG O2 Saturation 93, ABG Base Excess -7.2 L, Lux Test Y, Vent Rate 18, Tidal Volume 400, PEEP 10 05/31/24 00:01: Lactate 4.8 H 05/31/24 04:20: WBC 14.0 H D, RBC 4.39, Hgb 13.3, Hct 38.6, MCV 87.9, MCH 30.3, MCHC 34.4, RDW 14.7, Plt Count 283 D, MPV 9.2, Neut % (Auto) 91.4 H, Lymph % (Auto) 4.7 L, [place] % (Auto) 1.9, Eos % (Auto) 0.2, Baso % (Auto) 1.8, Neut # (Auto) 12.8 H, Lymph # (Auto) 0.7, [place] # (Auto) 0.3, Eos # (Auto) 0.0, Baso # (Auto) 0.3 H, Total Counted 100, Neutrophils % (Manual) 89 H, Lymphocytes % (Manual) 11, RBC Morphology Normal, Anisocytosis 1+, Sodium 137, Potassium 2.8 L*, Chloride 103, Carbon Dioxide 23, Anion Gap 13.8, BUN 33 H D, Creatinine 0.90 D, Estimated Creat Clear 69, Estimated GFR 65, Est GFR ( Amer) 79 D, Glucose 97, Calcium 8.4, Phosphorus 4.1, Magnesium 2.4 H, Total Bilirubin 1.3, AST 172 H D, ALT 82 H D, Alkaline Phosphatase 86, Troponin I 5.08 H, C-Reactive Protein 405.8 H, Total Protein 5.5 L D, Albumin 2.9 L D, Globulin 2.6, Albumin/Globulin Ratio 1.1, Procalcitonin 48.9 H I & O for Labs for Last 24 Hours: Intake & Output 05/28/24 05/29/24 05/30/24 05/31/24 22:59 23:59 23:59 23:59 Intake Total 1971.517 / 9700.057 5758.129 / 1602.129 Output Total 1250 / 1250 665 / 665 Balance 721.517 / 721.517 937.129 / 937.129 Weight 135 lb 0.001 oz 135 lb 9.349 oz Microbiology Reports for the Last 24 Hours: Microbiology 05/30/24 22:23 Sputum - Endotracheal Tube Aspirate Gram Stain - Preliminary 05/30/24 16:30 Sputum - Expectorated Sputum Gram Stain - Preliminary 05/30/24 01:55 Blood Blood Culture - Preliminary 05/30/24 02:00 Blood Blood Culture - Preliminary Constitutional: Present severe distress Head: Present normocephalic and atraumatic ENT: Present normal exam, normal oropharynx and mucous membranes moist Neck: Present normal inspection and full ROM Respiratory: Present respiratory distress, rhonchi, diminished air movement and able to speak in complete sentences; Absent wheezes Cardiac: Present S1/S2, Tachycardia and radial pulses present GI: Present soft and distention; Absent tenderness or guarding Rectal (female): Present deferred (female): Present deferred Skin: Present intact; Absent cyanosis or jaundice Neuro: Absent alert, awake or oriented x 3 Extremities: Present normal inspection; Absent clubbing or cyanosis Assessment and Plan *Assessment and plan (1) Acute respiratory failure with hypoxia: Status: Acute Category: Medical Code(s): J96.01 - Acute respiratory failure with hypoxia (2) Pneumonia: Status: Acute Qualifiers: Laterality: bilateral Lung location: lower lobe of lung Pneumonia type: due to Pneumococcus Qualified Code(s): J13 - Pneumonia due to Streptococcus pneumoniae Category: Medical Code(s): J18.9 - Pneumonia, unspecified organism (3) Lactic acidosis: Status: Acute Category: Medical Code(s): E87.20 - Acidosis, unspecified (4) Septic shock: Status: Acute Category: Medical Code(s): A41.9 - Sepsis, unspecified organism; R65.21 - Severe sepsis with septic shock (5) Streptococcal bacteremia: Status: Acute Category: Medical Code(s): R78.81 - Bacteremia; B95.5 - Unspecified streptococcus as the cause of diseases classified elsewhere Plan Ms. Mckeon is a 53-year-old female with reported history of tobacco abuse presented today with worsening respiratory status and shortness of breath and pulmonary was consulted for further evaluation and management. Patient appeared lethargic, still arousable to verbal commands and responding appropriately Leukopenia with lymphopenia upon admission. CTA upon admission dense lobar consolidative changes in the right lower lobe along with consolidative changes in the right upper lobe and left lower lobe. COVID-19 and flu PCR panel negative. No recent prior imaging available for comparison. On initial examination patient appeared to be in severe respiratory distress. Saturating 95% on 3 L nasal cannula. VBG from this morning did not show any evidence of hypercarbic respiratory failure. VBG upon admission showed tachypnea and hypercarbia. Interval update: Continue on elbow sedation with propofol and fentanyl. Currently single and 50 of fentanyl and 50 of propofol. Continue mechanical ventilatory support and PEEP of 10 tidal volume of 400 FiO2 of 60% and respiratory rate of 18. Pending tracheal aspirate. BAL cultures. Blood cultures growing strep pneumonia. On vancomycin and cefepime. Will continue current antibiotics pending BAL results. DuoNebs every 6 hours scheduled Status post bronchoscopy today no evidence of hemoptysis. ET tube advanced now in position, confirmed with bronchoscopy. Hemodynamically unstable needing vasopressor support for likely combination of septic shock and sedation. EF reduced at 40%. Cardiology following. Continue current antibiotics pending final culture results and nasal MRSA PCR Abdomen soft nondistended. Recommend initiating tube feeds. AST ALT slightly elevated from admission. Will continue to monitor. Adequate urine output. BUN/creatinine within normal limits. Severe hypokalemia noted, repleting by primary team. Renally dose medications. - Continue mechanical ventilatory support - Continue AnalgoSedation with Propofol and Fentanyl with CPOT gal less than or euqal to 2 and RASS goal of to 2 (No need for deep sedation) - VAP bundle Recommend elevate head of the bed at 30 to 45 degrees Recommend oral care with chlorhexidne Recommend GI ulcer prophylaxis - Famotidine 20mg IV BID Recommend chemical DVT prophylaxis Total critical care time spent on this patient is 35 minutes managing acute hypoxic respiratory failure needing mechanical ventilation. This time spent include reviewing test results including interpreting chest x-rays, labs and arterial blood gas, optimizing the ventilator settings,formulating plan of care, discussing the plan of care with the team and the nursing staff.
--- NOTE | 2024-05-31 09:43 | XR_ITS ---
PROCEDURE INFORMATION: Exam: XR Chest Exam date and time: 05/31/2024 12:52 PM Age: 53 years old Clinical indication: Pain; Chest pressure; Additional info: Mv. . SOA TECHNIQUE: Imaging protocol: Radiologic exam of the chest. Views: 1 view. COMPARISON: CR XR CHEST PORTABLE 05/30/2024 10:27 PM FINDINGS: Tubes, catheters and devices: Endotracheal and enteric tubes remain in place. Lungs: There is poor ventilation of the lungs, with perihilar vascular crowding and a diffuse increase in pulmonary parenchymal density. There is redemonstration of dense right lower lobe consolidation. Additional consolidations noted in left lower lobe. Pleural spaces: Small bilateral pleural effusions. No pneumothorax. Heart/Mediastinum: Cardiomegaly noted. Bones/joints: Unremarkable. IMPRESSION: No substantial change in multifocal pneumonia/aspiration.
[2024-05-31] MEDS: MIDAZOLAM 2MG/2ML VIAL 2 MG IV ×2 (10:14→10:18)
--- NOTE | 2024-05-31 10:47 | PC.NURSE ---
RESP CARE NOTE: ET repositioned to 22 at the lip, per Dr Sanchez during brochoscopy, with direct visualization. Will continue to monitor patient.
[2024-05-31] MEDS: FAMOTIDINE 20MG/2ML VIAL 20 MG IV ×2 (11:08→20:21)
[2024-05-31] MEDS: SODIUM CHLORIDE 0.9% 10ML VIAL 8 ML IV ×2 (11:08→20:21)
--- NOTE | 2024-05-31 11:41 | EXP.BRONCH.N ---
Procedure: Date: 05/31/24 Patient Date of :: 1970 Procedure Performed:: Bronchoscopy with airway examination, bronchoalveolar lavage Indications:: Hemoptysis, pneumonia Performing Provider:: Raman Sanchez MD Referring Provider:: Dr. Tenorio Sedation:: General anesthesia. Patient received propofol and fentanyl for sedation while being intubated she also received 4 mg of IV Versed and 50 mcg IV fentanyl during the procedure. Procedure:: Bronchoscopy airway examination and bronchoalveolar lavage: A clean DIAGNOSTIC bronchoscopy was advanced through the ET tube and airways were examined up to subsegmental bronchi. ET tube was noted high from jay. Advanced via bronchoscopy and position was confirmed by direct visual examination. Airways appeared grossly normal, no evidence of copious mucoid secretions and mucous plugging noted.. Minimal amount of blood-tinged mucoid secretions were suctioned. No evidence of active bleeding/old blood clots noted. Bronchoalveolar lavage was performed in the RIGHT LOWER LOBE with instillation of 60 cc normal saline with return of 20 cc blood tinged fluid back. BAL fluid was sent for cell count and differential along with bacterial fungal and AFB stain and cultures. BAL fluid was also sent for cytopathologic examination. Patient tolerated the procedure with no immediate acute complications. We will follow the patient in pulmonary clinic in 7 to 10 days. Findings:: Please see the procedure note Recommendations:: Postoperative bronchoscopy instructions Please see the progress note from today for further recommendations Complications:: No acute immediate complications Estimated blood obtained (mL): 0
[2024-05-31] MEDS: diphenhydrAMINE 50MG/ML VIAL 50 MG IV (11:49)
[2024-05-31] MEDS: LIDOCAINE 1% 10ML MDV 20 ML IJ (12:08)
[2024-05-31] MEDS: HEPARIN 1,000 UNITS/500ML NS (CATH LAB) 3000 UNIT IV (12:08)
[2024-05-31] MEDS: HEPARIN 1,000 UNITS/ML 10ML VIAL (CATH LAB) 10000 UNIT IV (12:09)
[2024-05-31] MEDS: VERAPAMIL 2.5MG/ML 2ML VIAL 2.5 MG IV (12:09)
[2024-05-31] MEDS: NITROGLYCERIN 800MCG/8ML SYR (CATH LAB) 800 MCG IA (12:09)
--- NOTE | 2024-05-31 12:10 | SUR.PHASEII ---
PATIENT TAKEN DIRECLTY FROM LAB TO MED/SURG/ICU, REPORT CALLED TO KAREN UNGER. RESPIRATORY AT BEDSIDE AND ASSISTED WITH TRANSFER BACK TO PATEINT ROOM.
[2024-05-31] MEDS: propofoL 100 ML 18.37 MG IV (12:39)
[2024-05-31] MEDS: IOPAMIDOL-370 (76%);100ML BOTTLE 60 ML IV (12:42)
[2024-05-31] MEDS: LACTATED RINGERS 1000ML 1,000 ML 75 ML IV (13:00)
--- NOTE | 2024-05-31 13:03 | EXP.CARD.CON ---
History of Present Illness History of Present Illness Consult date: 05/31/24 Requesting physician: Shyam Tenorio Chief complaint: Tachycardia, Resp Failure, Hypotension, NSTEMI Additional Medical History:: 1. HTN 2. Drug use, including heroin and marijuana. Denies IV drug use. 3. Pre-diabetes 4. Resp Failure with strep pneumonia, sepsis and hypoxia requiring intubation and mech Vent, 05/30/2024 5. Depression 6. Medication non-compliance History of present illness: In summary, this 53-year-old female presents to the emergency department today with chest pain, shortness of breath, increased work of breathing, subjective fevers and chills. On initial evaluation patient is tachycardic but not hypotensive, tachypneic, hypoxic on room air, obvious respiratory distress with increased work of breathing, rhonchi and rales throughout the bilateral lower lobes, worse on the right, no obvious wheezing, patient improved to 89% on 4 L nasal cannula, DuoNeb administered to help improve oxygenation since patient does have a history of smoking, also performed [id number] bedside ultrasound which demonstrated hepatization of the right lower lobe concerning for pneumonia but no B-lines. This ultrasound exam did not save to the permanent archive. Differential diagnosis includes but is not limited to sepsis, ACS, PE, pneumonia, pneumothorax, I have highest suspicion for pneumonia since this was identified on ultrasound and patient meets sepsis criteria. Based on these concerns, I ordered serum labs, lactic, cardiac workup, CTA PE, chest x-ray, IV fluids, broad-spectrum antibiotics. ECG personally interpreted demonstrates sinus tachycardia, frequent PVCs, rate 129, normal axis, normal [place] and QTc, no STEMI. Patient received IV fluids, broad-spectrum antibiotics, DuoNeb, aspirin initially for treatment. Labs personally reviewed demonstrate lactic 4.8, Leukopenia, no anemia, patient is alkalotic with pH 7.51, hypocarbia, elevated lactic. CMP with hyponatremia sodium 127 concerning for possible Legionella pneumonia, trace hypokalemia, mild prerenal azotemia, initial troponin undetectably low at less than 0.01, BNP elevated at 549. PT/INR mildly elevated. Patient was placed on BiPAP for respiratory support. She received IV Ativan for comfort and agitation. She is not sedated on this medication. She is breathing more comfortably, tachycardia is improving, oxygenation is improving, respiratory rate is also improved. XR personally interpreted at bedside demonstrates obvious right lower lobe pneumonia. CT imaging personally interpreted demonstrate no large PE, patient does have obvious right pneumonia as well as left pneumonia. Radiology read also identifies multiple other findings including findings of mucous plugging, thyroid nodule, mediastinal adenopathy. See radiology read for final interpretation. Incidental findings discussed with family. Patient requires admission at this time. She and family are amenable to this plan. I discussed this case with the hospitalist who accepted the patient for admission. Before going upstairs patient became acutely agitated, ripped off her BiPAP, she required additional Ativan and after this again comfortably adjusted back onto the BiPAP. Her heart rate has improved, oxygenation is now in the mid upper 90s and respiratory rate morrison decreased by half compared to her rate on arrival. She is still arousable to stimuli but is now resting more comfortably and respiratory and hemodynamic status is steadily improving. She was admitted in serious but improving condition. The above per Dr. Cr in ER Patient continued to deteriorate over the course of several hours and subsequently [facility] Cardiology consulted due to tachycardia, hypotension and elevated troponins. Patient remains sedated, intubated on mechanical ventilation this morning. Heart rate has improved to around 100 bpm with blood pressure Systolic in the 90s. She is on cefepime and vancomycin IV along with norepinephrine, propofol and fentanyl. Echocardiogram this evening shows reduced ejection fraction at about 40%. There is questionable echodensity on the anterior leaflet of the mitral valve is mobile. In light of the patient's positive blood cultures recommendation for SEBASTIAN for further evaluation of possible endocarditis versus thrombus. Also recommend ischemic evaluation in light of positive troponins and reduced ejection fraction. [facility] Disclaimer: The information contained in this section may have been updated after the patient was seen, as this information can be updated by other users. Medical History (Updated 05/31/24 @ 13:15 by JESSICA Hyde) Bacteremia Septic shock Lactic acidosis Acute respiratory failure with hypoxia Social History (Updated 05/30/24 @ 07:37 by Stephanie Grimaldo RN) Smoking Status: Current every day smoker alcohol intake: never current occupational status: other Travel in the last 8 weeks: None Review of Systems Review of Systems Review of systems:: unable to obtain Constitutional Constitutional: Denies headache(s) and Reports weakness ENT Ears, Nose, Mouth, and Throat: Denies dizziness and Denies headache(s) *Musculoskeletal Musculoskeletal: Denies numbness and Denies tingling *Neurologic Neurologic: Denies dizziness, Denies headache(s), Denies numbness, Denies tingling and Reports weakness Exam Data for Last 24 hours Vital signs and Labs for Last 24 Hours: Temp Pulse Resp BP Pulse Ox O2 Del Method O2 Flow Rate 98.4 F 107 H 28 H 91/51 L 94 L Mechanical Ventilation 15 05/31/24 07:00 05/31/24 11:00 05/31/24 11:00 05/31/24 11:00 05/31/24 11:00 05/31/24 13:00 05/30/24 22:08 FiO2 60 05/31/24 10:53 Laboratory Results - last 24 hr 05/30/24 05:25: Hepatitis C Antibody Non reactive, HIV 1&2 Antibody Rapid Nonreactive 05/30/24 19:15: VBG pH 7.44 H, VBG pCO2 36.4, VBG pO2 44.5 H, VBG HCO3 24.2, VBG Total CO2 25.3, VBG O2 Saturation 81.9 H, VBG Base Excess 0.0, VBG Lactic Acid 3.9 H 05/30/24 21:44: POC Glucose 85 05/30/24 21:48: VBG pH 7.33, VBG pCO2 40.1, VBG pO2 39.8, VBG HCO3 20.6 L, VBG Total CO2 21.8 L, VBG O2 Saturation 71.6 H, VBG Base Excess -5.4 L, VBG Lactic Acid 5.5 H 05/30/24 21:50: Sodium 137, Potassium 3.4 L, Chloride 100, Carbon Dioxide 22, Anion Gap 18.4 H, BUN 24 H D, Creatinine 0.50 L, Estimated Creat Clear 124, Estimated GFR 129, Est GFR ( Amer) 156, Glucose 94, Lactate 4.2 H, Calcium 9.1, Troponin I 3.69 H 05/30/24 23:32: Specimen Source Left radial, O2 % 60, ABG pH 7.38, ABG pCO2 31.5 L, ABG pO2 71.0 L, ABG HCO3 18.0 L, ABG Total CO2 19.0 L, ABG O2 Saturation 93, ABG Base Excess -7.2 L, Lux Test Y, Vent Rate 18, Tidal Volume 400, PEEP 10 05/31/24 00:01: Lactate 4.8 H 05/31/24 04:20: WBC 14.0 H D, RBC 4.39, Hgb 13.3, Hct 38.6, MCV 87.9, MCH 30.3, MCHC 34.4, RDW 14.7, Plt Count 283 D, MPV 9.2, Neut % (Auto) 91.4 H, Lymph % (Auto) 4.7 L, [place] % (Auto) 1.9, Eos % (Auto) 0.2, Baso % (Auto) 1.8, Neut # (Auto) 12.8 H, Lymph # (Auto) 0.7, [place] # (Auto) 0.3, Eos # (Auto) 0.0, Baso # (Auto) 0.3 H, Total Counted 100, Neutrophils % (Manual) 89 H, Lymphocytes % (Manual) 11, RBC Morphology Normal, Anisocytosis 1+, Sodium 137, Potassium 2.8 L*, Chloride 103, Carbon Dioxide 23, Anion Gap 13.8, BUN 33 H D, Creatinine 0.90 D, Estimated Creat Clear 69, Estimated GFR 65, Est GFR ( Amer) 79 D, Glucose 97, Calcium 8.4, Phosphorus 4.1, Magnesium 2.4 H, Total Bilirubin 1.3, AST 172 H D, ALT 82 H D, Alkaline Phosphatase 86, Troponin I 5.08 H, C-Reactive Protein 405.8 H, Total Protein 5.5 L D, Albumin 2.9 L D, Globulin 2.6, Albumin/Globulin Ratio 1.1, Procalcitonin 48.9 H I & O for Last 24 hours: Intake & Output 05/29/24 05/30/24 05/31/24 06/01/24 11:59 11:59 11:59 11:59 Intake Total 840 / 840 2851.834 / 4201.834 1464.805 / 1464.805 Output Total 700 / 700 1295 / 1295 Balance 140 / 140 1556.834 / 2906.834 1464.805 / 1464.805 Weight 135 lb 0.001 oz 135 lb 9.349 oz Microbiology Reports for the Last 24 Hours: Microbiology 05/30/24 01:55 Blood Blood Culture - Preliminary 05/30/24 02:00 Blood Blood Culture - Preliminary 05/30/24 22:23 Sputum - Endotracheal Tube Aspirate Gram Stain - Preliminary 05/30/24 16:30 Sputum - Expectorated Sputum Gram Stain - Preliminary Constitutional Constitutional: obtunded Comments: Patient is on IV sedation due to being intubated on mechanical ventilation *Routine Respiratory Exam Respiratory: Present patient mechanically ventilated *Routine Cardiovascular Exam Cardiovascular: Present RRR and tachycardia *Routine Extremities Exam Extremities: Absent edema Meds Home Medications and Allergies Home Medications ?Medication ?Instructions ?Recorded ?Confirmed ?Type buspirone 10 mg tablet 10 mg PO BID 05/30/24 05/30/24 History lisinopril 10 mg tablet 10 mg PO DAILY 05/30/24 05/30/24 History melatonin 5 mg tablet 5 mg PO HS PRN Insomnia 05/30/24 05/30/24 History metformin 500 mg tablet 500 mg PO DAILY 05/30/24 05/30/24 History New Prescriptions to Start Prescriptions: Allergies Allergy/AdvReac Type Severity Reaction Status Date / Time sertraline [From Zoloft] Allergy Intermediate Unknown Verified 05/30/24 21:20 allergy reaction morphine AdvReac Intermediate Unknown Verified 05/30/24 21:20 allergy reaction Assessment and Plan *Assessment and plan (1) Bacteremia: Status: Acute Category: Medical Code(s): R78.81 - Bacteremia (2) Septic shock: Status: Acute Category: Medical Code(s): A41.9 - Sepsis, unspecified organism; R65.21 - Severe sepsis with septic shock (3) Acute respiratory failure with hypoxia: Status: Acute Category: Medical Code(s): J96.01 - Acute respiratory failure with hypoxia (4) Non-STEMI (non-ST elevated myocardial infarction): Status: Acute Category: Medical Code(s): I21.4 - Non-ST elevation (NSTEMI) myocardial infarction (5) Pneumonia: Status: Acute Qualifiers: Laterality: bilateral Lung location: lower lobe of lung Pneumonia type: due to Pneumococcus Qualified Code(s): J13 - Pneumonia due to Streptococcus pneumoniae Category: Medical Code(s): J18.9 - Pneumonia, unspecified organism Plan 1. Bacteremia with septic shock secondary to strep pneumonia. -Acute respiratory failure with hypoxia requiring intubation/mechanical ventilation -requiring Norepinephrine IV along with sedation for mechanical ventilation -IV antibiotics including cefepime and vancomycin for positive blood cultures -procalcitonin 48.9 -elevated AST and ALT 2. Non-STEMI with elevated troponin and echo showing EF 40% -Left heart catheterization today showed normal coronaries with EF 35% and LVEDP 20 mm Hg -Unable to add GDMT at this point due to inotropic support for blood pressure. 3. Mobile echodensity noted on mitral valve leaflet with concern for endocarditis versus thrombus due to history of IV drug use and positive blood cultures -Plan to proceed with SEBASTIAN tomorrow 4. Hemoptysis -Bronchoscopy this morning with no evidence of bleeding noted. 5. Tachycardia reactionary due to Pulmonary issues 6. Hypokalemia -replacement ordered SEBASTIAN tomorrow Continue support for BP as needed Dr. Sanchez and Dr. Tenorio managing Respiratory issues and possible withdrawal
[2024-05-31 14:42] LABS: VBG Base Excess -2.7 mmol/L (-2.4-2.3); VBG HCO3 21.4 mmol/L (23-30); VBG Oxygen Saturation 98.9 % (50-70); VBG PCO2 31.6 mmol/L (35-51); VBG PH 7.45 mmol/L (7.31-7.41); VBG PO2 140.9 mmol/L (28-40); VBG Total CO2 22.3 mmol/L (23-27)
[2024-05-31 14:45] LABS: Lactate Venous 2.4 mmol/L (0.4-2.0)
--- NOTE | 2024-05-31 14:48 | PC.NURSE ---
RESP CARE NOTE: Pt ventilator mode switched to Pressure Control mode with a pressure limit of [id number], FIO2 decreased to 50%, Rate increased to 20 bpm, and PEEP increased to [address] Sanchez himself. He advises to keep ETCO2 within the range of 30-35 mmHg, and notify him of any changes to the patients ventilator settings to maintain an acceptable breathing pattern as discussed. Will continue to monitor patient.
[2024-05-31 17:03] LABS: Blood Urea Nitrogen 40 mg/dl (7-17); Calcium 8.2 mg/dl (8.4-10.2); Carbon Dioxide 24 mmol/L (22.0-30.0); Chloride 106 mmol/L (98-107); Creatinine Clearance Estimated 89 mL/min (50-200); Estimated Glomerular Filt Rate 87 ml/min (>60); GFR (African American) 106 ML/MIN (>60); Glucose 75 mg/dl (74-100); Phosphorous 2.9 mg/dl (2.5-4.5); Sodium 137 mmol/L (136-145)
[2024-05-31] MEDS: propofoL 100 ML 22.05 MG IV ×2 (17:14→20:19)
[2024-05-31 18:07] LABS: Hemoglobin A1C 5.6 % (4.0-6.0)
[2024-05-31] MEDS: KCl 10mEq/100ml 100 ML 100 MEQ IV ×4 (18:43→22:07)
[2024-05-31 18:44] LABS: Reflex Lactic Add Lactic Reflex
[2024-05-31 19:09] LABS: VBG Base Excess -2.3 mmol/L (-2.4-2.3); VBG HCO3 21.4 mmol/L (23-30); VBG PCO2 30.2 mmol/L (35-51); VBG PH 7.47 mmol/L (7.31-7.41); VBG PO2 139.4 mmol/L (28-40); VBG Total CO2 22.3 mmol/L (23-27)
[2024-05-31 19:10] LABS: Lactate Venous 2.2 mmol/L (0.4-2.0)
[2024-05-31 19:29] LABS: Lactic Acid Follow Up (RFLX 1) 1.6 mmol/L (0.7-2.1)
[2024-05-31] MEDS: ACETAMINOPHEN 325MG TAB 650 MG PO (20:56)
[2024-05-31] MEDS: KCl 10mEq/100ml 100 ML 50 MEQ IV (22:54)
[2024-06-01] VITALS (36 sets, daily range): BP systolic 91–141; BP diastolic 48–89; PULSE 94–170; RESP 20–38; TEMP 36.7–37.1; O2SAT 92–100; BMI 25.6
[2024-06-01] MEDS: KCl 10mEq/100ml 100 ML 50 MEQ IV (00:56)
[2024-06-01] MEDS: propofoL 100 ML 7.35 MG IV (01:15)
[2024-06-01] MEDS: FENTANYL CITRATE/PF 1,000 MCG in 0.9 % SODIUM CHLORIDE 80 ML 12 MCG IV (01:15)
--- NOTE | 2024-06-01 04:18 | PC.NURSE ---
Addendum entered by Sid Jara RN 06/01/24 04:57: Ventilator mode is PC not AC-- all settings correct Original Note: Patient remains stable on the ventilator. AC mode: Vt 400, peep 12, FiO2 50%, RR 20. Patient has tolerated coming off of presser support with stable BP/MAPs. Her RASS scores remain stable at -1 for sedation, and after weaning down on hourly rates. Turned q2 hours to reduce risk of pressure injury. ICU care continues, NAD, VSS
[2024-06-01 05:23] LABS: Basophils # 0.3 K/mm3 (0-0.2); Basophils % 2.1 % (0.1-2.0); Eosinophils # 0.1 K/mm3 (0.0-0.4); Eosinophils % 0.7 % (0.1-12.0); Hemoglobin 10.9 g/dL (12.2-16.2); Lymphocytes # 1.1 K/mm3 (0.7-4.5); Lymphocytes % 7.8 % (10-50); Mean Corpuscular Hemoglobin 29.5 pg (27.0-31.2); Mean Corpuscular Volume 89.4 fl (81-99); Mean Platelet Volume 8.9 fl (7.4-10.4); Monocytes # 0.2 K/mm3 (0.1-1.0); Monocytes % 1.7 % (1.7-9.3); Neutrophils # 12.1 K/mm3 (1.8-7.8); Neutrophils % 87.6 % (37.0-80.0); Platelet Count 166 K/mm3 (142-424); Red Blood Count 3.69 M/mm3 (4.20-5.40); Red Cell Distribution Width 14.6 % (11.5-17.5); White Blood Count 13.9 K/mm3 (4.8-10.8)
[2024-06-01 05:25] LABS: MANUAL DIFFERENTIAL MANUAL DIFFERENTIAL (MANUAL DIFF)
[2024-06-01 05:31] LABS: Chloride 108 mmol/L (98-107)
[2024-06-01 05:32] LABS: Albumin Level 2.4 g/dl (3.5-5.0); Sodium 135 mmol/L (136-145)
[2024-06-01 05:34] LABS: Alanine Aminotransferase 95 U/L (12-78); Albumin/Globulin Ratio 0.9 (1.1-1.8); Alkaline Phosphatase 112 U/L (38-126); Aspartate Amino Transferase 186 U/L (14-36); Bilirubin,Total 0.8 mg/dl (0.2-1.3); Blood Urea Nitrogen 39 mg/dl (7-17); Carbon Dioxide 21 mmol/L (22.0-30.0); Creatinine Clearance Estimated 104 mL/min (50-200); Estimated Glomerular Filt Rate 104 ml/min (>60); GFR (African American) 126 ML/MIN (>60); Globulin 2.6 g/dL (1.3-3.2); Magnesium 2.6 mg/dl (1.6-2.3)
[2024-06-01 05:35] LABS: Calcium 7.9 mg/dl (8.4-10.2); Glucose 106 mg/dl (74-100)
[2024-06-01] MEDS: CEFEPIME HCL 2 GM in 0.9 % SODIUM CHLORIDE 100 ML IV ×3 (05:47→21:33)
[2024-06-01] MEDS: HEPARIN SODIUM 5,000 UNIT/ML VIAL 5000 UNIT SUBCUT ×3 (05:47→21:33)
[2024-06-01 05:51] LABS: Eosinophils % 1 % (0-3); Lymphocytes % 14 % (10-50); Neutrophils % 85 % (42-76); Total Cells Counted 100
[2024-06-01 05:52] LABS: RBC Morphology Normal
[2024-06-01] MEDS: ACETYLCYSTEINE 20% 4ML VIAL 1 ML IH ×2 (06:02→19:07)
[2024-06-01] MEDS: IPRATROPIUM/ALBUTEROL 3 ML NEB IH ×3 (06:02→19:06)
[2024-06-01] MEDS: VANCOMYCIN HCL 1,000 MG in 0.9 % SODIUM CHLORIDE 250 ML 125 MG IV (08:02)
[2024-06-01] MEDS: SODIUM CHLORIDE 0.9% 10ML VIAL 8 ML IV ×2 (08:03→21:33)
[2024-06-01] MEDS: FAMOTIDINE 20MG/2ML VIAL 20 MG IV ×2 (08:03→21:33)
[2024-06-01] MEDS: propofoL 100 ML 12.86 MG IV (08:10)
[2024-06-01] MEDS: FENTANYL CITRATE/PF 1,000 MCG in 0.9 % SODIUM CHLORIDE 80 ML 11 MCG IV ×2 (08:15→17:32)
[2024-06-01 08:58] LABS: Vancomycin,Trough 7.5 ug/mL (5.0-10.0)
--- NOTE | 2024-06-01 09:33 | EXP.PULM.PN ---
Subjective *Date: 06/01/24 *Time: 10:40 Interval history: No acute respiratory vents overnight. Improving ventilator settings. Pulmonology Exam Inpatient Vital signs and Labs for Last 24 Hours: Temp Pulse Resp BP Pulse Ox O2 Del Method O2 Flow Rate 98.1 F 104 H 22 110/59 L 100 Mechanical Ventilation 15 06/01/24 08:00 06/01/24 07:00 06/01/24 07:00 06/01/24 07:00 06/01/24 07:00 06/01/24 07:00 05/30/24 22:08 FiO2 50 06/01/24 07:00 Laboratory Results - last 24 hr 05/30/24 05:25: Hepatitis C Antibody Non reactive 05/31/24 04:20: Hemoglobin A1c 5.6 05/31/24 14:24: VBG pH 7.45 H, VBG pCO2 31.6 L, VBG pO2 140.9 H, VBG HCO3 21.4 L, VBG Total CO2 22.3 L, VBG O2 Saturation 98.9 H, VBG Base Excess -2.7 L, VBG Lactic Acid 2.4 H 05/31/24 18:46: VBG pH 7.47 H, VBG pCO2 30.2 L, VBG pO2 139.4 H, VBG HCO3 21.4 L, VBG Total CO2 22.3 L, VBG O2 Saturation 99.0 H, VBG Base Excess -2.3, VBG Lactic Acid 2.2 H 05/31/24 19:04: Lactate 1.6 05/31/24 : Sodium 137, Potassium 3.0 L, Chloride 106, Carbon Dioxide 24, Anion Gap 10.0, BUN 40 H, Creatinine 0.70 D, Estimated Creat Clear 89, Estimated GFR 87, Est GFR ( Amer) 106 D, Glucose 75 D, Calcium 8.2 L, Phosphorus 2.9 D 06/01/24 05:15: WBC 13.9 H, RBC 3.69 L, Hgb 10.9 L, Hct 33.0 L, MCV 89.4, MCH 29.5, MCHC 33.0, RDW 14.6, Plt Count 166 D, MPV 8.9, Neut % (Auto) 87.6 H, Lymph % (Auto) 7.8 L, [place] % (Auto) 1.7, Eos % (Auto) 0.7, Baso % (Auto) 2.1 H, Neut # (Auto) 12.1 H, Lymph # (Auto) 1.1, [place] # (Auto) 0.2, Eos # (Auto) 0.1, Baso # (Auto) 0.3 H, Total Counted 100, Neutrophils % (Manual) 85 H, Lymphocytes % (Manual) 14, Eosinophils % (Manual) 1, RBC Morphology Normal, Sodium 135 L, Potassium 4.0 D, Chloride 108 H, Carbon Dioxide 21 L, Anion Gap 10.0, BUN 39 H, Creatinine 0.60, Estimated Creat Clear 104, Estimated GFR 104, Est GFR ( Amer) 126, Glucose 106 H D, Calcium 7.9 L, Magnesium 2.6 H, Total Bilirubin 0.8, AST 186 H, ALT 95 H, Alkaline Phosphatase 112, Total Protein 5.0 L, Albumin 2.4 L D, Globulin 2.6, Albumin/Globulin Ratio 0.9 L 06/01/24 08:14: Vancomycin Trough 7.5 I & O for Labs for Last 24 Hours: Intake & Output 05/29/24 05/30/24 05/31/24 06/01/24 23:59 23:59 23:59 23:59 Intake Total 1971.517 / 5984.468 8406.705 / 5270.672 953.482 / 953.482 Output Total 1250 / 1250 1275 / 1335 345 / 345 Balance 721.517 / 562.000 0522.705 / 3935.672 608.482 / 608.482 Weight 135 lb 0.001 oz 135 lb 9.349 oz 135 lb 8.996 oz Microbiology Reports for the Last 24 Hours: Microbiology 05/30/24 02:00 Blood Blood Culture - Final Streptococcus pneumoniae 05/30/24 01:55 Blood Blood Culture - Final Streptococcus pneumoniae Constitutional: Present severe distress Head: Present normocephalic and atraumatic ENT: Present normal exam, normal oropharynx and mucous membranes moist Neck: Present normal inspection and full ROM Respiratory: Present respiratory distress, rhonchi, diminished air movement and able to speak in complete sentences; Absent wheezes Cardiac: Present S1/S2, Tachycardia and radial pulses present GI: Present soft and distention; Absent tenderness or guarding Rectal (female): Present deferred (female): Present deferred Skin: Present intact; Absent cyanosis or jaundice Neuro: Absent alert, awake or oriented x 3 Extremities: Present normal inspection; Absent clubbing or cyanosis Assessment and Plan *Assessment and plan (1) Acute respiratory failure with hypoxia: Status: Acute Category: Medical Code(s): J96.01 - Acute respiratory failure with hypoxia (2) Pneumonia: Status: Acute Qualifiers: Laterality: bilateral Lung location: lower lobe of lung Pneumonia type: due to Pneumococcus Qualified Code(s): J13 - Pneumonia due to Streptococcus pneumoniae Category: Medical Code(s): J18.9 - Pneumonia, unspecified organism (3) Lactic acidosis: Status: Acute Category: Medical Code(s): E87.20 - Acidosis, unspecified (4) Septic shock: Status: Acute Category: Medical Code(s): A41.9 - Sepsis, unspecified organism; R65.21 - Severe sepsis with septic shock (5) Streptococcal bacteremia: Status: Acute Category: Medical Code(s): R78.81 - Bacteremia; B95.5 - Unspecified streptococcus as the cause of diseases classified elsewhere Plan Ms. Mckeon is a 53-year-old female with reported history of tobacco abuse presented today with worsening respiratory status and shortness of breath and pulmonary was consulted for further evaluation and management. Patient appeared lethargic, still arousable to verbal commands and responding appropriately Leukopenia with lymphopenia upon admission. CTA upon admission dense lobar consolidative changes in the right lower lobe along with consolidative changes in the right upper lobe and left lower lobe. COVID-19 and flu PCR panel negative. No recent prior imaging available for comparison. On initial examination patient appeared to be in severe respiratory distress. Saturating 95% on 3 L nasal cannula. VBG from this morning did not show any evidence of hypercarbic respiratory failure. VBG upon admission showed tachypnea and hypercarbia. Interval update: No acute respiratory vents overnight. Stable oxygen commands. Status post [facility] normal coronaries. EF at 35 to 40%. Concern for vegetation, planning SEBASTIAN. Hemodynamics improved, off pressors. Chest x-ray from today reviewed, worsening effusions. Relatively stable airspace disease. Plan: Continue sedation with propofol and fentanyl. Wean sedation to perform SBT. Continue mechanical ventilatory support and PEEP of 5 tidal volume of 440 FiO2 of 30% and respiratory rate of 20. Discontinue vancomycin. Continue cefepime. Follow with final cultures. DuoNebs every 6 hours scheduled Hemodynamically stable. Off pressors. MAP greater than 65. Discontinue vancomycin. Continue cefepime. X-ray, worsening effusions. Lasix 40 mg IV once. Abdomen soft nondistended. Recommend initiating tube feeds. AST ALT relatively stable. Will continue to monitor. Adequate urine output. BUN/creatinine within normal limits. Hypokalemia resolved renally dose medications. - Continue mechanical ventilatory support - Continue AnalgoSedation with Propofol and Fentanyl with CPOT gal less than or euqal to 2 and RASS goal of to 2 (No need for deep sedation) - VAP bundle Recommend elevate head of the bed at 30 to 45 degrees Recommend oral care with chlorhexidne Recommend GI ulcer prophylaxis - Famotidine 20mg IV BID Recommend chemical DVT prophylaxis Total critical care time spent on this patient is 35 minutes managing acute hypoxic respiratory failure needing mechanical ventilation. This time spent include reviewing test results including interpreting chest x-rays, labs and blood gas, optimizing the ventilator settings,formulating plan of care, discussing the plan of care with the team and the nursing staff.
--- NOTE | 2024-06-01 09:34 | XR_ITS ---
PROCEDURE INFORMATION: Exam: XR Chest Exam date and time: 06/01/2024 10:24 AM Age: 53 years old Clinical indication: Shortness of breath; Additional info: Pnm TECHNIQUE: Imaging protocol: Radiologic exam of the chest. Views: 1 view. Total images: 1 COMPARISON: CR XR CHEST PORTABLE 05/31/2024 12:52 PM FINDINGS: Tubes, catheters and devices: Endotracheal tube is in place with the tip approximately 3.9 cm above the level of the jay. Nasogastric tube is in place. Lungs: Patchy airspace opacities consistent with pneumonia present within both lung bases, greater on the right. Pleural spaces: Bilateral pleural effusions. Heart/Mediastinum: Heart demonstrates mild diffuse enlargement. Bones/joints: Unremarkable. IMPRESSION: 1. Patchy airspace opacities consistent with pneumonia present within both lung bases, greater on the right. 2. Mild cardiomegaly. 3. Bilateral pleural effusions.
--- NOTE | 2024-06-01 10:00 | CA_ITS ---
APPROVED REPORT EXAM: Comprehensive 2D, Doppler, and color-flow Echocardiogram Heel Lining Paster: RT Berna(R) Ht: 5 ft 2 in Wt: 135lbs BSA: 1.62 BP: 99/37 mmHg Indications: Assess MV post TTE, resp failure, currently intubated, DM, SOB, sepsis Procedure After obtaining informed consent, patient underwent transesophageal echo in the bedside. Type of Sedation : Mechanical ventilation Sedation was administered by OSTEOPATHIC RESIDENT. Sedation start time: 3:30 Case end Time: 3:42 Transesophageal probe was inserted and advanced into esophagus without difficulty by Dr. Rohit Rogers. The SEBASTIAN was performed without complications. Throughout the procedure, the blood pressure, pulse oximetry, cardiac rhythm, and rate were monitored. The patient tolerated the procedure without adverse effects. Recovery from conscious sedation was uneventful and vital signs were stable. Left Ventricle The left ventricle is normal size. The left ventricular systolic function is mildly to moderately reduced. Septal thickening is noted. There is mild to moderate global hypokinesis present. LVEF is 40%. Right Ventricle The right ventricle is normal size. The right ventricular systolic function is normal. Atria The left atrium size is normal. No thrombus is visualized in the left atrium or appendage. The right atrium size is normal. Interatrial septum is intact without evidence of ASD or PFO. Aortic Valve The aortic valve opens well. The aortic valve is trileaflet. There is no aortic valvular stenosis. No aortic regurgitation is present. There is no aortic valvular vegetation. Mitral Valve The mitral valve is normal in structure. No evidence of mitral valve stenosis. Mild mitral regurgitation. There is no evidence of mitral valve vegetations. Tricuspid Valve Tricuspid valve is grossly normal in structure and function. Mild tricuspid regurgitation. RVSP is 12 mmHg plus RA pressure. Pulmonic Valve The pulmonary valve is normal in structure. Other Information Study Quality: Fair Conclusion Mild to moderate reduction in LV systolic function (LVEF 40%). Mild MR, mild TR. No evidence of valvular vegetations. Of note, the previously visualized MV echodensity on TTE is likely the MV chordal attachment to the papillary muscle and does not reflect a vegetation, as demonstrated by this SEBASTIAN. Electronically signed by : Radha Rogers MD 06/02/2024 03:51:57
--- NOTE | 2024-06-01 10:10 | EXP.PHA.CONS ---
Pharmacy Consult Date: 06/01/24 Time: 10:11 Referring provider: DR. ALEJANDRA Reason for Consult:: VANCOMYCIN TROUGH LEVEL AND DOSE CHANGE Allergies Allergy/AdvReac Type Severity Reaction Status Date / Time sertraline [From Zoloft] Allergy Intermediate Unknown Verified 05/30/24 21:20 allergy reaction morphine AdvReac Intermediate Unknown Verified 05/30/24 21:20 allergy reaction Home Medications ?Medication ?Instructions ?Recorded ?Confirmed ?Type buspirone 10 mg tablet 10 mg PO BID 05/30/24 05/30/24 History lisinopril 10 mg tablet 10 mg PO DAILY 05/30/24 05/30/24 History melatonin 5 mg tablet 5 mg PO HS PRN Insomnia 05/30/24 05/30/24 History metformin 500 mg tablet 500 mg PO DAILY 05/30/24 05/30/24 History New Prescriptions to Start Prescriptions: Height: 1.55 m Weight: 61.49 kg Laboratory Results:: Laboratory Results - last 24 hr 05/31/24 04:20: Hemoglobin A1c 5.6 05/31/24 14:24: VBG pH 7.45 H, VBG pCO2 31.6 L, VBG pO2 140.9 H, VBG HCO3 21.4 L, VBG Total CO2 22.3 L, VBG O2 Saturation 98.9 H, VBG Base Excess -2.7 L, VBG Lactic Acid 2.4 H 05/31/24 18:46: VBG pH 7.47 H, VBG pCO2 30.2 L, VBG pO2 139.4 H, VBG HCO3 21.4 L, VBG Total CO2 22.3 L, VBG O2 Saturation 99.0 H, VBG Base Excess -2.3, VBG Lactic Acid 2.2 H 05/31/24 19:04: Lactate 1.6 05/31/24 : Sodium 137, Potassium 3.0 L, Chloride 106, Carbon Dioxide 24, Anion Gap 10.0, BUN 40 H, Creatinine 0.70 D, Estimated Creat Clear 89, Estimated GFR 87, Est GFR ( Amer) 106 D, Glucose 75 D, Calcium 8.2 L, Phosphorus 2.9 D 06/01/24 05:15: WBC 13.9 H, RBC 3.69 L, Hgb 10.9 L, Hct 33.0 L, MCV 89.4, MCH 29.5, MCHC 33.0, RDW 14.6, Plt Count 166 D, MPV 8.9, Neut % (Auto) 87.6 H, Lymph % (Auto) 7.8 L, [place] % (Auto) 1.7, Eos % (Auto) 0.7, Baso % (Auto) 2.1 H, Neut # (Auto) 12.1 H, Lymph # (Auto) 1.1, [place] # (Auto) 0.2, Eos # (Auto) 0.1, Baso # (Auto) 0.3 H, Total Counted 100, Neutrophils % (Manual) 85 H, Lymphocytes % (Manual) 14, Eosinophils % (Manual) 1, RBC Morphology Normal, Sodium 135 L, Potassium 4.0 D, Chloride 108 H, Carbon Dioxide 21 L, Anion Gap 10.0, BUN 39 H, Creatinine 0.60, Estimated Creat Clear 104, Estimated GFR 104, Est GFR ( Amer) 126, Glucose 106 H D, Calcium 7.9 L, Magnesium 2.6 H, Total Bilirubin 0.8, AST 186 H, ALT 95 H, Alkaline Phosphatase 112, Total Protein 5.0 L, Albumin 2.4 L D, Globulin 2.6, Albumin/Globulin Ratio 0.9 L 06/01/24 08:14: Vancomycin Trough 7.5 Medical History: Medical History (Updated 05/31/24 @ 13:15 by JESSICA Hyde) Bacteremia Septic shock Lactic acidosis Acute respiratory failure with hypoxia Assessment and Plan Assessment and plan all Dx Assessment and Plan for all problems:: BASED ON PATIENT FACTORS AND VANCOMYCIN TROUGH LEVEL OF 7.5, RECOMMEND INCREASING VANCOMYCIN DOSE TO 1,500MG EVERY 18 HOURS. PHARMACY WILL CONTINUE TO MONITOR AND WILL ADJUST DOSE APPROPRIATE. -ESTELLA CRUZ, CAROLINED
[2024-06-01] MEDS: FENTANYL 12.5MCG/0.25ML 12.5 MCG IV ×8 (10:15→15:28)
--- NOTE | 2024-06-01 10:30 | PC.NURSE ---
MD gave verbal order for soft restraints at this time until breathing trial completed
--- NOTE | 2024-06-01 11:25 | DIET.NUTRFU ---
if unable to extubate start TF: pulmocare at 20ml/hr to goal rate of 40ml/hr ATC= 960ml/1440kcal/60gm protein and 753.6ml free water. flush is dependent on IVF and feeding may need to be adjusted d/t propofol dose. Patient received 118.04ml of propofol 05/31=129.84kcal. A1c 5.6WNL. Liver enzymes elevated 186/95H, albumin worse at 2.4L. IVF running, minimal flush to start 100ml R4O=104es/day will adjust when IVF discontinues.
--- NOTE | 2024-06-01 11:42 | P.PN_ITS ---
Subjective *Date: 06/01/24 *Time: 19:43 Interval history: Remains intubated today. Attempted SBT trial after morning rounds, patient severely agitated. Developed an episode of SVT. Necessitated intervention including adenosine and metoprolol IV. Sedation reinitiated. Remains criticall y ill. Planning for SEBASTIAN today. Medical Exam Vital signs and Labs for Last 24 Hours: Vital Signs Temp Pulse Pulse Resp BP BP Pulse Ox 06/01/24 11:00 06/01/24 10:53 131 H 06/01/24 10:53 136 H 06/01/24 10:53 94 L 06/01/24 10:53 38 H 94 L 06/01/24 09:40 26 H 99 06/01/24 09:00 06/01/24 09:00 102 H 26 H 109/64 L 100 06/01/24 08:00 98.1 F 06/01/24 07:45 06/01/24 07:00 98.8 F 104 H 22 110/59 L 100 06/01/24 06:05 100 H 06/01/24 06:05 101 H 06/01/24 06:05 99 06/01/24 06:05 99 06/01/24 06:00 98.8 F 100 H 24 100/59 L 100 06/01/24 05:40 99 H 21 114/63 100 06/01/24 05:20 105 H 22 136/74 100 06/01/24 05:00 98.8 F 105 H 21 108/64 L 100 06/01/24 04:00 110 H 06/01/24 04:00 100 06/01/24 04:00 98.1 F 104 H 23 103/67 L 100 06/01/24 03:55 21 100 06/01/24 03:00 98.1 F 100 H 22 114/69 100 06/01/24 02:00 22 100 06/01/24 02:00 98.1 F 97 H 21 102/57 L 100 06/01/24 01:00 98.1 F 99 H 22 96/52 L 100 06/01/24 00:30 97 H 24 97/54 L 100 06/01/24 00:00 110 H 06/01/24 00:00 98 06/01/24 00:00 98.1 F 104 H 24 95/56 L 96 05/31/24 23:39 89 05/31/24 23:39 98 H 05/31/24 23:39 21 100 05/31/24 23:00 98.2 F 100 H 22 115/62 96 05/31/24 22:30 90 21 114/65 100 05/31/24 22:15 90 21 116/65 100 05/31/24 22:10 86 22 113/69 99 05/31/24 22:05 86 23 119/68 100 05/31/24 22:00 98.6 F 82 24 120/71 98 05/31/24 21:26 98.7 F 05/31/24 21:00 100.3 F H 100 H 22 100/62 L 95 05/31/24 21:00 96 05/31/24 20:00 110 H 05/31/24 20:00 100 05/31/24 20:00 99.6 F 108 H 26 H 105/63 L 94 L 05/31/24 19:00 99.6 F 108 H 28 H 103/59 L 95 05/31/24 18:54 118 H 27 H 112/54 L 94 L 05/31/24 18:32 05/31/24 18:25 117 H 27 H 94/53 L 92 L 05/31/24 18:08 109 H 05/31/24 18:08 109 H 05/31/24 18:08 94 L 05/31/24 18:08 20 94 L 05/31/24 17:25 110 H 27 H 101/57 L 93 L 05/31/24 17:00 05/31/24 16:00 05/31/24 16:00 100 H 05/31/24 15:25 105 H 27 H 113/55 L 94 L 05/31/24 14:58 05/31/24 14:55 104 H 26 H 103/57 L 95 05/31/24 14:46 25 H 94 L 05/31/24 14:25 103 H 26 H 103/53 L 94 L 05/31/24 14:06 18 95 05/31/24 13:55 103 H 27 H 98/55 L 95 05/31/24 13:55 101 H 28 H 98/55 L 95 05/31/24 13:25 103 H 27 H 102/60 L 94 L 05/31/24 13:10 102 H 27 H 97/54 L 94 L 05/31/24 13:00 05/31/24 12:55 100 H 27 H 99/58 L 95 05/31/24 12:40 99 H 27 H 101/60 L 93 L 05/31/24 12:15 97 H 28 H 89/57 L 94 L 05/31/24 12:00 O2 Del Method FiO2 06/01/24 11:00 Mechanical Ventilation 06/01/24 10:53 06/01/24 10:53 06/01/24 10:53 Mechanical Ventilation 40 06/01/24 10:53 40 06/01/24 09:40 40 06/01/24 09:00 Mechanical Ventilation 06/01/24 09:00 Mechanical Ventilation 06/01/24 08:00 06/01/24 07:45 Mechanical Ventilation 06/01/24 07:00 Mechanical Ventilation 50 06/01/24 06:05 06/01/24 06:05 06/01/24 06:05 Mechanical Ventilation 50 06/01/24 06:05 50 06/01/24 06:00 Mechanical Ventilation 50 06/01/24 05:40 Mechanical Ventilation 50 06/01/24 05:20 Mechanical Ventilation 50 06/01/24 05:00 Mechanical Ventilation 50 06/01/24 04:00 06/01/24 04:00 Mechanical Ventilation 50 06/01/24 04:00 Mechanical Ventilation 50 06/01/24 03:55 50 06/01/24 03:00 Mechanical Ventilation 50 06/01/24 02:00 50 06/01/24 02:00 Mechanical Ventilation 50 06/01/24 01:00 Mechanical Ventilation 50 06/01/24 00:30 Mechanical Ventilation 50 06/01/24 00:00 06/01/24 00:00 Mechanical Ventilation 50 06/01/24 00:00 Mechanical Ventilation 50 05/31/24 23:39 05/31/24 23:39 05/31/24 23:39 50 05/31/24 23:00 Mechanical Ventilation 50 05/31/24 22:30 Mechanical Ventilation 50 05/31/24 22:15 Mechanical Ventilation 50 05/31/24 22:10 Mechanical Ventilation 50 05/31/24 22:05 Mechanical Ventilation 50 05/31/24 22:00 Mechanical Ventilation 50 05/31/24 21:26 05/31/24 21:00 Mechanical Ventilation 50 05/31/24 21:00 50 05/31/24 20:00 05/31/24 20:00 Mechanical Ventilation 50 05/31/24 20:00 Mechanical Ventilation 50 05/31/24 19:00 Mechanical Ventilation 50 05/31/24 18:54 Mechanical Ventilation 05/31/24 18:32 Mechanical Ventilation 05/31/24 18:25 Mechanical Ventilation 05/31/24 18:08 05/31/24 18:08 05/31/24 18:08 Mechanical Ventilation 50 05/31/24 18:08 50 05/31/24 17:25 Mechanical Ventilation 05/31/24 17:00 Mechanical Ventilation 05/31/24 16:00 Mechanical Ventilation 05/31/24 16:00 05/31/24 15:25 Mechanical Ventilation 05/31/24 14:58 Mechanical Ventilation 05/31/24 14:55 Mechanical Ventilation 05/31/24 14:46 50 05/31/24 14:25 Mechanical Ventilation 05/31/24 14:06 60 05/31/24 13:55 Mechanical Ventilation 05/31/24 13:55 Mechanical Ventilation 05/31/24 13:25 Mechanical Ventilation 05/31/24 13:10 Mechanical Ventilation 05/31/24 13:00 Mechanical Ventilation 05/31/24 12:55 Mechanical Ventilation 05/31/24 12:40 Mechanical Ventilation 05/31/24 12:15 Mechanical Ventilation 05/31/24 12:00 Mechanical Ventilation Intake and Output 05/31/24 06/01/24 06/01/24 23:59 07:59 15:59 Intake Total 1621.191 / 5270.672 936.413 / 993.155 56.742 / 993.155 Output Total 435 / 1335 345 / 590 245 / 590 Balance 1186.191 / 3935.672 591.413 / 403.155 -188.258 / 403.155 Intake: Intake, Oral Amount 0 / 0 0 / 0 Intake, Tube Irrigant Amount 60 / 60 Intake, Total IV Amount 1161.191 / 4335.672 336.413 / 393.155 56.742 / 393.155 Cefepime HCl 2 gm In 0.9 % 100 / 500 Sodium Chloride 100 ml @ 200 mls/hr IV Q8H [facility] Rx#:[id number] KCl 10mEq/100ml 100 ml @ 100 300 / 300 mls/hr IV Q1H [facility] Rx#:[id number] Lactated Ringers 1000ML 1,000 193 / 228 ml @ 75 mls/hr IV .[id number] [facility] Rx#:[id number] Vancomycin HCl 1,000 mg In 0.9 250 / 500 % Sodium Chloride 250 ml @ 125 mls/hr IV Q12H [facility] Rx#:[id number] Infusion Intake 400 / 875 600 / 600 0.9 % Sodium Chloride 1000ML 1, 600 / 600 000 ml @ 75 mls/hr IV .[id number] [facility] Rx#:[id number] KCl 10mEq/100ml 100 ml @ 100 100 / 100 mls/hr IV Q1H [facility] Rx#:[id number] Lactated Ringers 1000ML 1,000 300 / 300 ml @ 75 mls/hr IV .[id number] [facility] Rx#:[id number] Output: Output, Urine Amount 0 / 405 75 / 75 Output, Urine Amount (Catheter) 435 / 755 345 / 515 170 / 515 Barrett 435 / 755 345 / 515 170 / 515 Output, Gastric Drainage Amount 0 / 175 Oral 0 / 175 Other: Number of Unmeasured Voids 0 0 Weight 61.49 kg 61.49 kg Patient Weight 06/01/24 23:59 Weight 61.49 kg Laboratory Results - last 24 hr 05/31/24 04:20: Hemoglobin A1c 5.6 05/31/24 14:24: VBG pH 7.45 H, VBG pCO2 31.6 L, VBG pO2 140.9 H, VBG HCO3 21.4 L , VBG Total CO2 22.3 L, VBG O2 Saturation 98.9 H, VBG Base Excess -2.7 L, VBG Lactic Acid 2.4 H 05/31/24 18:46: VBG pH 7.47 H, VBG pCO2 30.2 L, VBG pO2 139.4 H, VBG HCO3 21.4 L , VBG Total CO2 22.3 L, VBG O2 Saturation 99.0 H, VBG Base Excess -2.3, VBG Lactic Acid 2.2 H 05/31/24 19:04: Lactate 1.6 05/31/24 : Sodium 137, Potassium 3.0 L, Chloride 106, Carbon Dioxide 24, Anion G ap 10.0, BUN 40 H, Creatinine 0.70 D, Estimated Creat Clear 89, Estimated GFR 87, Est GFR ( Amer) 106 D, Glucose 75 D, Calcium 8.2 L, Phosphorus 2.9 D 06/01/24 05:15: WBC 13.9 H, RBC 3.69 L, Hgb 10.9 L, Hct 33.0 L, MCV 89.4, MCH 29.5, MCHC 33.0, RDW 14.6, Plt Count 166 D, MPV 8.9, Neut % (Auto) 87.6 H, Lymph % (Auto) 7.8 L, [place] % (Auto) 1.7, Eos % (Auto) 0.7, Baso % (Auto) 2.1 H, Neut # (Auto) 12.1 H, Lymph # (Auto) 1.1, [place] # (Auto) 0.2, Eos # (Auto) 0.1, Baso # (Auto) 0.3 H, Total Counted 100, Neutrophils % (Manual) 85 H, Lymphocytes % (Manual) 14, Eosinophils % (Manual) 1, RBC Morphology Normal, Sodium 135 L, Potassium 4.0 D, Chloride 108 H, Carbon Dioxide 21 L, Anion Gap 10.0, BUN 39 H, Creatinine 0.60, Estimated Creat Clear 104, Estimated GFR 104, Est GFR ( Amer) 126, Glucose 106 H D, Calcium 7.9 L, Magnesium 2.6 H, Total Bilirubin 0.8, AST 186 H, ALT 95 H, Alkaline Phosphatase 112, Total Protein 5.0 L, Albumin 2.4 L D, Globulin 2.6, Albumin/Globulin Ratio 0.9 L 06/01/24 08:14: Vancomycin Trough 7.5 I & O for Labs for Last 24 Hours: Intake & Output 05/29/24 05/30/24 05/31/24 06/01/24 23:59 23:59 23:59 23:59 Intake Total 1971.517 / 6954.348 6138.705 / 5270.672 993.155 / 993.155 Output Total 1250 / 1250 1275 / 1335 590 / 590 Balance 721.517 / 220.288 2843.705 / 3935.672 403.155 / 403.155 Weight 61.235 kg 61.5 kg 61.49 kg Microbiology Reports for the Last 24 Hours: Microbiology 05/30/24 22:23 Sputum - Endotracheal Tube Aspirate Gram Stain - Preliminary 05/30/24 22:23 Sputum - Endotracheal Tube Aspirate Sputum Culture - Preliminary 05/30/24 16:30 Sputum - Expectorated Sputum Gram Stain - Preliminary 05/30/24 16:30 Sputum - Expectorated Sputum Sputum Culture - Preliminary 05/30/24 02:00 Blood Blood Culture - Final Streptococcus pneumoniae 05/30/24 01:55 Blood Blood Culture - Final Streptococcus pneumoniae Constitutional: Present mild distress, average body habitus, chronically ill appearing and somnolent Head: Present atraumatic and normocephalic ENT: Present normal exam Respiratory: Present patient mechanically ventilated, rhonchi, wheezes and crackles Cardiac: Present Regular Rhythm and Tachycardia GI: Present soft and normal bowel sounds; Absent distention or tenderness Extremities: Present normal inspection and full ROM; Absent tenderness Skin: Present intact; Absent erythema Neuro: Present moves all extremities; Absent Grossly Intact, alert, awake or oriented x 3 Comment:: Sedated Assessment and Plan *Assessment and plan (1) Septic shock: Status: Acute Category: Medical Code(s): A41.9 - Sepsis, unspecified organism; R65.21 - Severe sepsis with septic shock (2) Streptococcal bacteremia: Status: Acute Category: Medical Code(s): R78.81 - Bacteremia; B95.5 - Unspecified streptococcus as the cause of diseases classified elsewhere (3) Acute respiratory failure with hypoxia: Status: Acute Category: Medical Code(s): J96.01 - Acute respiratory failure with hypoxia (4) Non-STEMI (non-ST elevated myocardial infarction): Status: Acute Category: Medical Code(s): I21.4 - Non-ST elevation (NSTEMI) myocardial infarction (5) Pneumonia: Status: Acute Qualifiers: Laterality: bilateral Lung location: lower lobe of lung Pneumonia type: due to Pneumococcus Qualified Code(s): J13 - Pneumonia due to Streptococcus pneumoniae Category: Medical Code(s): J18.9 - Pneumonia, unspecified organism (6) Pleural effusion associated with pulmonary infection: Status: Acute Category: Medical Code(s): J18.9 - Pneumonia, unspecified organism; J91.8 - Pleural effusion in other conditions classified elsewhere Plan Patient is a 53-year-old female with past medical history of smoking, marijuana use, prediabetes, depression who presents to the hospital due to shortness of breath, cough. According to patient she also has associated chest pain with shortness of breath, has phlegm production along with a cough. She also mentions she has subjective fevers and chills. She denies sick contacts. She mentions she feels chest pain especially with deep breathing. On further evaluation patient was found to have hypoxia, hyponatremia, hypokalemia as well as right lower lobe consolidation. PSI/port score of 114 on presentation. Class IV risk. Overnight, patient decompensated necessitating enervation for protection of airway and respiratory support. Currently on ventilator. lmonology and cardiology assisting with care. SBT daily. Necessitating ICU level care. Problems addressed as follows: Septic shock Bilateral pneumonia, dense right consolidation Streptococcal pneumonia bacteremia, likely cause of her pneumonia. Acute hypoxic respiratory failure satting less than 90% on room air Sepsis present on admission due to pneumonia and bacteremia -Continues to require ICU level care. - discussed case with pulmonology, continue mechanical ventilation with PEEP of 5, tidal volume 440, FiO2 30% and respiratory rate of 20. Patient overbreathing vent. -Blood cultures positive for strep pneumo, sensitive to cephalosporins. Intermittent resistance to levofloxacin and 1 set of cultures. Will de-escalate antibiotics to continue cefepime 2 g every 12 hours, discontinue vancomycin. -Discontinue IV fluids, Lasix 40 mg IV once today due to worsening effusions on chest imaging for personal review. -Off pressors, MAP remains greater than 65. -White count elevated at 14. Kidney function with elevated BUN at 39, creatinine normal at 0.6. Adequate urine in Barrett bag. Electrolytes stable with potassium 4.0, magnesium 2.6. Hemoglobin 11. - Repeat CBC, CMP, magnesium and phosphorus ordered for the morning. Initiate tube feed, nutrition consulted to assist Sinus tachycardia, during episode of SVT, given 12 of adenosine. Rate slowed but did not convert. Initiated on metoprolol 10 mg IV, continue every 6 hours for rate greater than 120. NSTEMI SEBASTIAN performed. No vegetations identified. At this time, no indication of endocarditis. Discussed case with cardiology, patient status post left heart cath with normal coronaries. EF approximately 40%. Secondary to stress of acute illness and sepsis -White count elevated at 14, hemoglobin 13. Platelets 283. - Continue broad-spectrum antibiotics with vancomycin and cefepime. -Blood cultures positive for Streptococcus pneumoniae, repeat blood cultures ordered -Procalcitonin elevating, 48 today. Up from 30 on admission. CRP elevated at 405. -Closely monitoring kidney function and electrolytes. Kidney function acceptable with BUN 33, creatinine 0.9. Slight bump in liver enzymes concerning for septic injury to liver. -Continue Analgo-sedation with propofol and fentanyl Diabetes: On metformin at home. A1c normal at 5.6. continue sliding scale insulin and fingersticks ACHS. DVT prophylaxis-heparin Full code ICU/Critical care attestation This patient is critically ill with 40 minutes devoted solely to this patient managing life/organ supporting interventions that required physician assessment. This includes time spent making adjustments in ventilator settings, IV fluid administration, titration of pressors, adjustments of medications, discussion of patient with consultants and other care providers as well as updating patient and/or family (if patient by virtue of his/her condition is unable to participate in decision making). This does not include time spent performing separately billed procedures. Time is not concurrent with that of other providers.
--- NOTE | 2024-06-01 11:44 | EXP.CARD.PN ---
Subjective Subjective Date: 06/01/24 Time: 11:00 Principal diagnosis: Resp Failure, [place] Interval history: 53 yo WF in bed. Currently undergoing SBT Off norepi Tele shows sinus tach in the 130-140's bpm but is agitated due to SBT Planning for SEBASTIAN later today. Discussed with daughter via phone Exam Data for Last 24 hours Vital signs and Labs for Last 24 Hours: Temp Pulse Resp BP Pulse Ox O2 Del Method O2 Flow Rate 98.1 F 131 H 38 H 109/64 L 94 L Mechanical Ventilation 15 06/01/24 08:00 06/01/24 10:53 06/01/24 10:53 06/01/24 09:00 06/01/24 10:53 06/01/24 11:00 05/30/24 22:08 FiO2 40 06/01/24 10:53 Laboratory Results - last 24 hr 05/31/24 04:20: Hemoglobin A1c 5.6 05/31/24 14:24: VBG pH 7.45 H, VBG pCO2 31.6 L, VBG pO2 140.9 H, VBG HCO3 21.4 L, VBG Total CO2 22.3 L, VBG O2 Saturation 98.9 H, VBG Base Excess -2.7 L, VBG Lactic Acid 2.4 H 05/31/24 18:46: VBG pH 7.47 H, VBG pCO2 30.2 L, VBG pO2 139.4 H, VBG HCO3 21.4 L, VBG Total CO2 22.3 L, VBG O2 Saturation 99.0 H, VBG Base Excess -2.3, VBG Lactic Acid 2.2 H 05/31/24 19:04: Lactate 1.6 05/31/24 : Sodium 137, Potassium 3.0 L, Chloride 106, Carbon Dioxide 24, Anion Gap 10.0, BUN 40 H, Creatinine 0.70 D, Estimated Creat Clear 89, Estimated GFR 87, Est GFR ( Amer) 106 D, Glucose 75 D, Calcium 8.2 L, Phosphorus 2.9 D 06/01/24 05:15: WBC 13.9 H, RBC 3.69 L, Hgb 10.9 L, Hct 33.0 L, MCV 89.4, MCH 29.5, MCHC 33.0, RDW 14.6, Plt Count 166 D, MPV 8.9, Neut % (Auto) 87.6 H, Lymph % (Auto) 7.8 L, [place] % (Auto) 1.7, Eos % (Auto) 0.7, Baso % (Auto) 2.1 H, Neut # (Auto) 12.1 H, Lymph # (Auto) 1.1, [place] # (Auto) 0.2, Eos # (Auto) 0.1, Baso # (Auto) 0.3 H, Total Counted 100, Neutrophils % (Manual) 85 H, Lymphocytes % (Manual) 14, Eosinophils % (Manual) 1, RBC Morphology Normal, Sodium 135 L, Potassium 4.0 D, Chloride 108 H, Carbon Dioxide 21 L, Anion Gap 10.0, BUN 39 H, Creatinine 0.60, Estimated Creat Clear 104, Estimated GFR 104, Est GFR ( Amer) 126, Glucose 106 H D, Calcium 7.9 L, Magnesium 2.6 H, Total Bilirubin 0.8, AST 186 H, ALT 95 H, Alkaline Phosphatase 112, Total Protein 5.0 L, Albumin 2.4 L D, Globulin 2.6, Albumin/Globulin Ratio 0.9 L 06/01/24 08:14: Vancomycin Trough 7.5 I & O for Last 24 hours: Intake & Output 05/29/24 05/30/24 05/31/24 06/01/24 11:59 11:59 11:59 11:59 Intake Total 840 / 840 2851.834 / 4201.834 4297.543 / 4297.543 Output Total 700 / 700 1295 / 1295 1120 / 1120 Balance 140 / 140 1556.834 / 2906.834 3177.543 / 3177.543 Weight 135 lb 0.001 oz 135 lb 9.349 oz 135 lb 8.996 oz Microbiology Reports for the Last 24 Hours: Microbiology 05/30/24 22:23 Sputum - Endotracheal Tube Aspirate Gram Stain - Preliminary 05/30/24 22:23 Sputum - Endotracheal Tube Aspirate Sputum Culture - Preliminary 05/30/24 16:30 Sputum - Expectorated Sputum Gram Stain - Preliminary 05/30/24 16:30 Sputum - Expectorated Sputum Sputum Culture - Preliminary 05/30/24 02:00 Blood Blood Culture - Final Streptococcus pneumoniae 05/30/24 01:55 Blood Blood Culture - Final Streptococcus pneumoniae Constitutional Constitutional: agitated *Routine Respiratory Exam Respiratory: Present rhonchi and wheezes *Routine Cardiovascular Exam Cardiovascular: Present tachycardia *Routine Extremities Exam Extremities: Absent edema Progress Note: A&P Assessment and plan (1) Acute respiratory failure with hypoxia: Status: Acute (2) Pneumonia: Status: Acute (3) Lactic acidosis: Status: Acute (4) Septic shock: Status: Acute (5) Streptococcal bacteremia: Status: Acute Assessment and Plan Assessment and Plan for All Diagnoses:: 1. Bacteremia with septic shock secondary to strep pneumonia. -Acute respiratory failure with hypoxia requiring intubation/mechanical ventilation -IV sedation for mechanical ventilation -IV cefepime for positive blood cultures -procalcitonin 48.9 -elevated AST and ALT 2. Non-STEMI with elevated troponin and echo showing EF 40% -Left heart catheterization today showed normal coronaries with EF 35% and LVEDP 20 mm Hg -start GDMT when BP stable and pt extubated and taking oral meds 3. Mobile echodensity noted on mitral valve leaflet with concern for endocarditis versus thrombus due to history of IV drug use and positive blood cultures -Plan SEBASTIAN today 4. Hemoptysis -Bronchoscopy yesterday no evidence of bleeding noted. 5. Tachycardia -reactionary due to Pulmonary issues 6. Hypokalemia -replacement ordered Pt is net fluid positive over 5 liters. Would recommend diuresing gently SEBASTIAN today Start oral GDMT meds when awake and able to swallow safely
[2024-06-01 11:58] LABS: ABG Base Excess -6.7 mmol/L (-2.4-2.3); ABG HCO3 19.8 mmhg (22.0-26.0); ABG Oxygen Saturation 93 % (90-100); ABG PCO2 42.2 mmhg (35.0-45.0); ABG PH 7.29 mmol/L (7.35-7.45); ABG PO2 72.1 mmhg (80-100); ABG TCO2 21.1 mmhg (23-27)
[2024-06-01 11:59] LABS: Oxygen 80 %
[2024-06-01 12:00] LABS: Allen's Test ACCEPTABLE; PEEP 10; Source L RADIAL
--- NOTE | 2024-06-01 12:05 | ECG_ITS ---
APPROVED REPORT Exam: Resting ECG HR:172 bpm ECG Measurements Heart Rate 172 AXES QRSd 86 QRS -50 QT 269 T 104 QTc 362 Conclusion SUPRAVENTRICULAR TACHYCARDIA INFERIOR MYOCARDIAL INFARCTION , OF INDETERMINATE AGE [40+ ms Q WAVE AND/OR ST/T ABNORMALITY IN II/aVF] ANTEROSEPTAL MYOCARDIAL INFARCTION , OF INDETERMINATE AGE [40+ ms Q WAVE IN V1-V4] MODERATE T-WAVE ABNORMALITY, CONSIDER LATERAL ISCHEMIA [-0.1+ mV T-WAVE IN I/aVL/V5/V6] CRITICAL TEST RESULT UNCONFIRMED REPORT Electronically signed by : Wero Ronquillo MD 06/04/2024 12:51:49
[2024-06-01] MEDS: ADENOSINE 6MG/2ML VIAL 12 MG IV (12:07)
[2024-06-01] MEDS: METOPROLOL TARTRATE 5MG/5ML VIAL 10 MG IV (12:10)
[2024-06-01] MEDS: FUROSEMIDE 40MG/4ML VIAL 40 MG IV (13:03)
--- NOTE | 2024-06-01 13:16 | PC.NURSE ---
Terminated SBT trial at 1140am. Pt. was extremely agitated her RR was 58, HR 169 .Will plan to retry SBT trial again tomorrow.
[2024-06-01] MEDS: propofoL 100 ML 18.37 MG IV ×3 (14:21→23:48)
[2024-06-01] MEDS: MIDAZOLAM 2MG/2ML VIAL 2 MG IV (15:23)
--- NOTE | 2024-06-01 16:40 | PC.NURSE ---
VS stable and patient's heart rate low 100's after metoprolol administration. Rhythm sinus tach on monitor. Lung sounds rhonchi bilaterally on ascultation. Tube feeding initiated at 20 ml start rate. Turned q2, oral care q2.
[2024-06-01 18:05] LABS: POC Glucose,Bedside 98 (70-110)
[2024-06-02] VITALS (46 sets, daily range): BP systolic 88–149; BP diastolic 45–106; PULSE 80–127; RESP 20–57; TEMP 37–37.8; O2SAT 93–100; BMI 25.2; BMI 30.1
[2024-06-02] MEDS: IPRATROPIUM/ALBUTEROL 3 ML NEB IH ×3 (00:30→18:12)
[2024-06-02] MEDS: FENTANYL CITRATE/PF 1,000 MCG in 0.9 % SODIUM CHLORIDE 80 ML 11.5 MCG IV ×2 (01:38→09:54)
[2024-06-02] MEDS: propofoL 100 ML 18.37 MG IV (05:30)
[2024-06-02 06:01] LABS: Basophils # 0.2 K/mm3 (0-0.2); Basophils % 1.9 % (0.1-2.0); Eosinophils # 0.1 K/mm3 (0.0-0.4); Eosinophils % 0.9 % (0.1-12.0); Hematocrit 29.4 % (37.0-47.0); Hemoglobin 10.1 g/dL (12.2-16.2); Lymphocytes # 1.4 K/mm3 (0.7-4.5); Lymphocytes % 11.6 % (10-50); Mean Corpuscular HGB Conc 34.4 g/dL (31.8-35.4); Mean Corpuscular Volume 87.3 fl (81-99); Mean Platelet Volume 9.2 fl (7.4-10.4); Monocytes # 0.4 K/mm3 (0.1-1.0); Monocytes % 2.8 % (1.7-9.3); Neutrophils # 10.3 K/mm3 (1.8-7.8); Neutrophils % 82.7 % (37.0-80.0); Platelet Count 176 K/mm3 (142-424); Red Blood Count 3.37 M/mm3 (4.20-5.40); Red Cell Distribution Width 15.1 % (11.5-17.5); White Blood Count 12.4 K/mm3 (4.8-10.8)
[2024-06-02 06:10] LABS: Phosphorous 2.1 mg/dl (2.5-4.5)
[2024-06-02 06:14] LABS: Alanine Aminotransferase 102 U/L (12-78); Albumin/Globulin Ratio 0.9 (1.1-1.8); Alkaline Phosphatase 112 U/L (38-126); Anion Gap 8.5 mEq/L (5-15); Aspartate Amino Transferase 141 U/L (14-36); Bilirubin,Total 0.7 mg/dl (0.2-1.3); Blood Urea Nitrogen 31 mg/dl (7-17); Calcium 7.6 mg/dl (8.4-10.2); Carbon Dioxide 25 mmol/L (22.0-30.0); Chloride 109 mmol/L (98-107); Creatinine Clearance Estimated 156 mL/min (50-200); Estimated Glomerular Filt Rate 166 ml/min (>60); GFR (African American) 201 ML/MIN (>60); Globulin 2.2 g/dL (1.3-3.2); Glucose 114 mg/dl (74-100); Potassium 3.5 mmoL/L (3.5-5.1); Sodium 139 mmol/L (136-145); Total Protein,Serum 4.2 g/dl (6.3-8.2)
[2024-06-02] MEDS: HEPARIN SODIUM 5,000 UNIT/ML VIAL 5000 UNIT SUBCUT ×3 (06:20→21:44)
[2024-06-02] MEDS: CEFEPIME HCL 2 GM in 0.9 % SODIUM CHLORIDE 100 ML IV ×3 (06:20→21:43)
[2024-06-02 06:25] LABS: Procalcitonin 21.7 ng/mL (0.0-2.0)
[2024-06-02] MEDS: ACETYLCYSTEINE 20% 4ML VIAL 1 ML IH ×2 (06:41→18:12)
--- NOTE | 2024-06-02 08:24 | EXP.PHA.PN ---
Subjective *Date: 06/02/24 *Time: 08:24 Medical Exam Vital signs and Labs for Last 24 Hours: Vital Signs Temp Pulse Pulse Resp BP Pulse Ox O2 Del Method 06/02/24 08:00 100.0 F H 96 H 22 103/48 L 97 Mechanical Ventilation 06/02/24 07:30 108 H 22 133/68 100 Mechanical Ventilation 06/02/24 06:59 102 H 20 118/62 100 Mechanical Ventilation 06/02/24 06:46 Mechanical Ventilation 06/02/24 06:40 06/02/24 06:00 104 H 20 118/62 100 Mechanical Ventilation 06/02/24 05:00 102 H 20 107/54 L 100 Mechanical Ventilation 06/02/24 05:00 Mechanical Ventilation 06/02/24 04:02 24 100 06/02/24 04:00 100 Mechanical Ventilation 06/02/24 04:00 100 H 06/02/24 04:00 97 H 20 112/68 100 Mechanical Ventilation 06/02/24 03:00 98 H 20 102/52 L 100 Mechanical Ventilation 06/02/24 02:55 Mechanical Ventilation 06/02/24 02:00 94 H 20 116/61 100 Mechanical Ventilation 06/02/24 01:58 24 100 06/02/24 01:00 95 H 22 96/45 L 100 Mechanical Ventilation 06/02/24 01:00 Mechanical Ventilation 06/02/24 00:30 92 H 06/02/24 00:30 90 06/02/24 00:30 27 H 100 06/02/24 00:00 96 H 06/02/24 00:00 98.6 F 97 H 22 96/50 L 100 Mechanical Ventilation 06/02/24 00:00 100 Mechanical Ventilation 06/01/24 23:00 98 H 20 106/58 L 100 Mechanical Ventilation 06/01/24 22:56 Mechanical Ventilation 06/01/24 22:20 23 100 06/01/24 22:00 97 H 22 110/60 100 Mechanical Ventilation 06/01/24 21:00 Mechanical Ventilation 06/01/24 21:00 101 H 20 114/61 100 Mechanical Ventilation 06/01/24 20:44 26 H 100 06/01/24 20:00 100 H 06/01/24 20:00 98.5 F 99 H 21 110/63 100 Mechanical Ventilation 06/01/24 20:00 100 Mechanical Ventilation 06/01/24 19:07 94 H 06/01/24 19:07 100 H 06/01/24 19:07 100 Mechanical Ventilation 06/01/24 19:07 22 100 06/01/24 18:55 Mechanical Ventilation 06/01/24 18:55 100 H 21 98/51 L 100 Mechanical Ventilation 06/01/24 18:00 100 H 21 101/56 L 100 Mechanical Ventilation 06/01/24 17:00 99 H 21 93/50 L 06/01/24 16:59 Mechanical Ventilation 06/01/24 16:00 100 H 06/01/24 16:00 98 H 22 91/48 L 100 Mechanical Ventilation 06/01/24 15:55 Mechanical Ventilation 06/01/24 15:00 101 H 21 99/57 L 100 Mechanical Ventilation 06/01/24 15:00 Mechanical Ventilation 06/01/24 14:00 100 H 22 93/55 L 100 Mechanical Ventilation 06/01/24 13:13 99 Mechanical Ventilation 06/01/24 13:13 27 H 99 06/01/24 13:00 105 H 22 99/56 L Mechanical Ventilation 06/01/24 13:00 Mechanical Ventilation 06/01/24 12:15 118 H 117/66 Mechanical Ventilation 06/01/24 12:00 170 H 06/01/24 12:00 Mechanical Ventilation 06/01/24 11:00 125 H 35 H 141/89 H 92 L Mechanical Ventilation 06/01/24 11:00 Mechanical Ventilation 06/01/24 10:53 131 H 06/01/24 10:53 136 H 06/01/24 10:53 94 L Mechanical Ventilation 06/01/24 10:53 38 H 94 L 06/01/24 10:00 101 H 25 H 118/68 100 Mechanical Ventilation 06/01/24 09:40 26 H 99 06/01/24 09:00 Mechanical Ventilation 06/01/24 09:00 102 H 26 H 109/64 L 100 Mechanical Ventilation FiO2 06/02/24 08:00 30 06/02/24 07:30 30 06/02/24 06:59 30 06/02/24 06:46 06/02/24 06:40 30 06/02/24 06:00 30 06/02/24 05:00 30 06/02/24 05:00 06/02/24 04:02 30 06/02/24 04:00 30 06/02/24 04:00 06/02/24 04:00 06/02/24 03:00 06/02/24 02:55 06/02/24 02:00 30 06/02/24 01:58 30 06/02/24 01:00 30 06/02/24 01:00 06/02/24 00:30 06/02/24 00:30 06/02/24 00:30 31 06/02/24 00:00 06/02/24 00:00 06/02/24 00:00 30 06/01/24 23:00 06/01/24 22:56 06/01/24 22:20 30 06/01/24 22:00 06/01/24 21:00 06/01/24 21:00 06/01/24 20:44 30 06/01/24 20:00 06/01/24 20:00 06/01/24 20:00 30 06/01/24 19:07 06/01/24 19:07 06/01/24 19:07 30 06/01/24 19:07 30 06/01/24 18:55 06/01/24 18:55 06/01/24 18:00 06/01/24 17:00 06/01/24 16:59 06/01/24 16:00 06/01/24 16:00 06/01/24 15:55 06/01/24 15:00 06/01/24 15:00 06/01/24 14:00 06/01/24 13:13 30 06/01/24 13:13 30 06/01/24 13:00 06/01/24 13:00 06/01/24 12:15 06/01/24 12:00 06/01/24 12:00 06/01/24 11:00 06/01/24 11:00 06/01/24 10:53 06/01/24 10:53 06/01/24 10:53 40 06/01/24 10:53 40 06/01/24 10:00 06/01/24 09:40 40 06/01/24 09:00 06/01/24 09:00 Intake and Output 06/01/24 06/02/24 06/02/24 23:59 07:59 15:59 Intake Total 620.575 / 2200.676 487.679 / 487.679 Output Total 422 / 1837 220 / 220 Balance 198.575 / 363.676 267.679 / 267.679 Intake: Intake, Tube Feeding Amount 174 / 174 102 / 102 Intake, Tube Irrigant Amount 80 / 80 130 / 130 Intake, Total IV Amount 366.575 / 1346.676 255.679 / 255.679 Cefepime HCl 2 gm In 0.9 % 100 / 100 90 / 90 Sodium Chloride 100 ml @ 200 mls/hr IV Q8H [facility] Rx#:[id number] Output: Output, Urine Amount 0 / 75 Output, Urine Amount (Catheter) 422 / 1762 220 / 220 Barrett 422 / 1762 / 220 Other: Number of Unmeasured Voids 0 Weight 60.49 kg Patient Weight 06/02/24 23:59 Weight 60.49 kg Laboratory Results - last 24 hr 06/01/24 08:14: Vancomycin Trough 7.5 06/01/24 11:54: Specimen Source L radial, O2 % 80, ABG pH 7.29 L, ABG pCO2 42.2, ABG pO2 72.1 L, ABG HCO3 19.8 L, ABG Total CO2 21.1 L, ABG O2 Saturation 93, ABG Base Excess -6.7 L, Lux Test Acceptable, PEEP 10 06/01/24 17:55: POC Glucose 98 06/02/24 05:34: WBC 12.4 H, RBC 3.37 L, Hgb 10.1 L, Hct 29.4 L, MCV 87.3, MCH 30.0, MCHC 34.4, RDW 15.1, Plt Count 176, MPV 9.2, Neut % (Auto) 82.7 H, Lymph % (Auto) 11.6, [place] % (Auto) 2.8, Eos % (Auto) 0.9, Baso % (Auto) 1.9, Neut # (Auto) 10.3 H, Lymph # (Auto) 1.4, [place] # (Auto) 0.4, Eos # (Auto) 0.1, Baso # (Auto) 0.2, Sodium 139, Potassium 3.5, Chloride 109 H, Carbon Dioxide 25, Anion Gap 8.5, BUN 31 H, Creatinine 0.40 L D, Estimated Creat Clear 156, Estimated GFR 166, Est GFR ( Amer) 201 D, Glucose 114 H, Calcium 7.6 L, Phosphorus 2.1 L D, Magnesium 2.0 D, Total Bilirubin 0.7, AST 141 H, ALT 102 H, Alkaline Phosphatase 112, Total Protein 4.2 L, Albumin 2.0 L D, Globulin 2.2, Albumin/Globulin Ratio 0.9 L, Procalcitonin 21.7 H I & O for Labs for Last 24 Hours: Intake & Output 05/30/24 05/31/24 06/01/24 06/02/24 23:59 23:59 23:59 23:59 Intake Total 1971.517 / 3159.491 0041.705 / 5270.672 2200.676 / 2200.676 487.679 / 487.679 Output Total 1250 / 1250 1275 / 1335 1837 / 1837 220 / 220 Balance 721.517 / 655.694 3205.705 / 3935.672 363.676 / 363.676 267.679 / 267.679 Weight 61.235 kg 61.5 kg 61.49 kg 60.49 kg Microbiology Reports for the Last 24 Hours: Microbiology 05/31/24 Unknown Bronchial Washings - Right Lower Lobe Gram Stain - Preliminary 05/31/24 Unknown Blood Blood Culture - Preliminary NO GROWTH AFTER 24 HOURS 05/31/24 Unknown Blood Blood Culture - Preliminary NO GROWTH AFTER 24 HOURS 05/30/24 22:23 Sputum - Endotracheal Tube Aspirate Gram Stain - Preliminary 05/30/24 22:23 Sputum - Endotracheal Tube Aspirate Sputum Culture - Preliminary 05/30/24 16:30 Sputum - Expectorated Sputum Gram Stain - Preliminary 05/30/24 16:30 Sputum - Expectorated Sputum Sputum Culture - Preliminary 05/30/24 02:00 Blood Blood Culture - Final Streptococcus pneumoniae 05/30/24 01:55 Blood Blood Culture - Final Streptococcus pneumoniae The patient's infection will respond to the chosen ABx?: Yes (INITIAL BLOOD CX = STREPTOCOCCUS PNEUMONIAE, REPEAT CX = NO GROWTH) Is the patient receiving the right drug, dose, and route?: Yes Could a more targeted ABx be ordered?: No How long ABx needed (days)?: 7
[2024-06-02] MEDS: SODIUM CHLORIDE 0.9% 10ML VIAL 8 ML IV (08:51)
[2024-06-02] MEDS: FAMOTIDINE 20MG/2ML VIAL 20 MG IV ×2 (08:51→20:19)
[2024-06-02] MEDS: ACETAMINOPHEN 325MG/10.15ML UDC 650 MG NG-TUBE ×2 (08:52→20:36)
[2024-06-02] MEDS: CALCIUM GLUC IN NACL, ISO-OSM 2 GM/100 ML BAG IV (09:09)
[2024-06-02] MEDS: POTASSIUM PHOSPHATE 9 MMOL in 0.9 % SODIUM CHLORIDE 250 ML 63.25 MMOL IV (09:13)
--- NOTE | 2024-06-02 09:49 | P.PN_ITS ---
Subjective *Date: 06/02/24 *Time: 11:10 Interval history: No acute respiratory vents overnight. Pulmonology Exam Inpatient Vital signs and Labs for Last 24 Hours: Temp Pulse Resp BP Pulse Ox O2 Del Method O2 Flow Rate 100.0 F H 109 H 22 103/48 L 100 Mechanical Ventilation 15 06/02/24 08:00 06/02/24 08:00 06/02/24 08:00 06/02/24 08:00 06/02/24 08:00 06/02/24 08:00 05/30/24 22:08 FiO2 30 06/02/24 08:00 Laboratory Results - last 24 hr 06/01/24 11:54: Specimen Source L radial, O2 % 80, ABG pH 7.29 L, ABG pCO2 42.2, ABG pO2 72.1 L, ABG HCO3 19.8 L, ABG Total CO2 21.1 L, ABG O2 Saturation 93, ABG Base Excess -6.7 L, Lux Test Acceptable, PEEP 10 06/01/24 17:55: POC Glucose 98 06/02/24 05:34: WBC 12.4 H, RBC 3.37 L, Hgb 10.1 L, Hct 29.4 L, MCV 87.3, MCH 30.0, MCHC 34.4, RDW 15.1, Plt Count 176, MPV 9.2, Neut % (Auto) 82.7 H, Lymph % (Auto) 11.6, [place] % (Auto) 2.8, Eos % (Auto) 0.9, Baso % (Auto) 1.9, Neut # (Auto) 10.3 H, Lymph # (Auto) 1.4, [place] # (Auto) 0.4, Eos # (Auto) 0.1, Baso # (Auto) 0.2, Sodium 139, Potassium 3.5, Chloride 109 H, Carbon Dioxide 25, Anion Gap 8.5, BUN 31 H, Creatinine 0.40 L D, Estimated Creat Clear 156, Estimated GFR 166, Est GFR ( Amer) 201 D, Glucose 114 H, Calcium 7.6 L, Phosphorus 2.1 L D, Magnesium 2.0 D, Total Bilirubin 0.7, AST 141 H, ALT 102 H, Alkaline Phosphatase 112, Total Protein 4.2 L, Albumin 2.0 L D, Globulin 2.2, Albumin/Globulin Ratio 0.9 L, Procalcitonin 21.7 H I & O for Labs for Last 24 Hours: Intake & Output 05/30/24 05/31/24 06/01/24 06/02/24 23:59 23:59 23:59 23:59 Intake Total 1971.517 / 7039.657 7298.705 / 5270.672 2200.676 / 2200.676 537.979 / 537.979 Output Total 1250 / 1250 1275 / 1335 1837 / 1837 320 / 320 Balance 721.517 / 844.634 1261.705 / 3935.672 363.676 / 363.676 217.979 / 217.979 Weight 135 lb 0.001 oz 135 lb 9.349 oz 135 lb 8.996 oz 133 lb 5.722 oz Microbiology Reports for the Last 24 Hours: Microbiology 05/30/24 16:30 Sputum - Expectorated Sputum Gram Stain - Preliminary 05/30/24 16:30 Sputum - Expectorated Sputum Sputum Culture - Preliminary Gram Positive Cocci 05/30/24 22:23 Sputum - Endotracheal Tube Aspirate Gram Stain - Preliminary 05/30/24 22:23 Sputum - Endotracheal Tube Aspirate Sputum Culture - Final No growth. 05/31/24 Unknown Bronchial Washings - Right Lower Lobe Gram Stain - Preliminary 05/31/24 Unknown Blood Blood Culture - Preliminary NO GROWTH AFTER 24 HOURS 05/31/24 Unknown Blood Blood Culture - Preliminary NO GROWTH AFTER 24 HOURS 05/30/24 02:00 Blood Blood Culture - Final Streptococcus pneumoniae 05/30/24 01:55 Blood Blood Culture - Final Streptococcus pneumoniae Constitutional: Present severe distress Head: Present normocephalic and atraumatic ENT: Present normal exam, normal oropharynx and mucous membranes moist Neck: Present normal inspection and full ROM Respiratory: Present respiratory distress, rhonchi, diminished air movement and able to speak in complete sentences; Absent wheezes Cardiac: Present S1/S2, Tachycardia and radial pulses present GI: Present soft and distention; Absent tenderness or guarding Rectal (female): Present deferred (female): Present deferred Skin: Present intact; Absent cyanosis or jaundice Neuro: Absent alert, awake or oriented x 3 Extremities: Present normal inspection; Absent clubbing or cyanosis Assessment and Plan *Assessment and plan (1) Acute respiratory failure with hypoxia: Status: Acute Category: Medical Code(s): J96.01 - Acute respiratory failure with hypoxia (2) Pneumonia: Status: Acute Qualifiers: Laterality: bilateral Lung location: lower lobe of lung Pneumonia type: due to Pneumococcus Qualified Code(s): J13 - Pneumonia due to Streptococcus pneumoniae Category: Medical Code(s): J18.9 - Pneumonia, unspecified organism (3) Lactic acidosis: Status: Acute Category: Medical Code(s): E87.20 - Acidosis, unspecified (4) Septic shock: Status: Acute Category: Medical Code(s): A41.9 - Sepsis, unspecified organism; R65.21 - Severe sepsis with septic shock (5) Streptococcal bacteremia: Status: Acute Category: Medical Code(s): R78.81 - Bacteremia; B95.5 - Unspecified streptococcus as the cause of diseases classified elsewhere Plan Ms. Mckeon is a 53-year-old female with reported history of tobacco abuse presented today with worsening respiratory status and shortness of breath and pulmonary was consulted for further evaluation and management. Patient appeared lethargic, still arousable to verbal commands and responding appropriately Leukopenia with lymphopenia upon admission. CTA upon admission dense lobar consolidative changes in the right lower lobe along with consolidative changes in the right upper lobe and left lower lobe. COVID-19 and flu PCR panel negative. No recent prior imaging available for comparison. On initial examination patient appeared to be in severe respiratory distress. Saturating 95% on 3 L nasal cannula. VBG from this morning did not show any evidence of hypercarbic respiratory failure. VBG upon admission showed tachypnea and hypercarbia. Echo EF 35 to 40%. SEBASTIAN negative for vegetations. Repeat blood cultures negative. Interval update: Stable ventilator requirements. Failed SBT yesterday. SVT resolved with adenosine followed by metoprolol. Hemodynamically stable throughout. Continue to receive cefepime. Vancomycin discontinued yesterday. Stable leukocytosis. Low-grade fevers 100.3. X-ray improving pneumonia. Plan: Continue sedation with propofol and fentanyl. Wean sedation to perform SBT. Initiate clonidine 0.1 mg 3 times daily Initiate Seroquel 50 mg twice daily Continue mechanical ventilatory support and PEEP of 5 tidal volume of 440 FiO2 of 30% and respiratory rate of 20. Continue cefepime. Repeat blood cultures negative DuoNebs every 6 hours scheduled Hemodynamically stable. Off pressors. MAP greater than 65. Continue cefepime. Lasix 40 mg IV once. Abdomen soft nondistended. Continue tube feeds. AST ALT improving will continue to monitor. Adequate urine output. BUN/creatinine within normal limits. Hypokalemia resolved renally dose medications. - Continue mechanical ventilatory support - Continue AnalgoSedation with Propofol and Fentanyl with CPOT gal less than or euqal to 2 and RASS goal of to 2 (No need for deep sedation) - VAP bundle Recommend elevate head of the bed at 30 to 45 degrees Recommend oral care with chlorhexidne Recommend GI ulcer prophylaxis - Famotidine 20mg IV BID Recommend chemical DVT prophylaxis Total critical care time spent on this patient is 35 minutes managing acute hypoxic respiratory failure needing mechanical ventilation. This time spent include reviewing test results including interpreting chest x-rays, labs, optimizing the ventilator settings,formulating plan of care, discussing the plan of care with the team and the nursing staff.
--- NOTE | 2024-06-02 09:50 | XR_ITS ---
FINAL REPORT CLINICAL HISTORY: Pneumonia follow-up COMPARISON: 06/01/2024 FINDINGS: A single portable view of the chest was obtained. An endotracheal tube and NG tube remain in place. Cardiomegaly is noted. There is worsening pulmonary vascular congestion. The mediastinum is within normal limits. Persistent bilateral pulmonary opacities are consistent with pneumonia. There is a small right pleural effusion. The bony thorax is intact. IMPRESSION: Pneumonia with a small right pleural effusion. Cardiomegaly with worsening pulmonary vascular congestion. Reviewed, Interpreted and Dictated by Robert Olivarez III, MD Transcribed by Reta Roberts Authenticated and [facility]
--- NOTE | 2024-06-02 10:08 | P.PN_ITS ---
Subjective *Date: 06/02/24 *Time: 18:02 Interval history: Patient did well overnight on sedation. Tolerating vent well. Afebrile overnight. No vomiting. Continues to have good urine output. Output of 1800 cc yesterday. No bowel movement in the past 3 days. Initiated on tube feeds, to lerating slow advancement. Reattempting SBT this morning Medical Exam Vital signs and Labs for Last 24 Hours: Vital Signs Temp Pulse Pulse Resp BP Pulse Ox O2 Del Method 06/02/24 10:05 28 H 99 06/02/24 08:00 109 H 100 Mechanical Ventilation 06/02/24 08:00 100.0 F H 96 H 22 103/48 L 97 Mechanical Ventilation 06/02/24 07:30 108 H 22 133/68 100 Mechanical Ventilation 06/02/24 06:59 102 H 20 118/62 100 Mechanical Ventilation 06/02/24 06:46 Mechanical Ventilation 06/02/24 06:40 06/02/24 06:00 104 H 20 118/62 100 Mechanical Ventilation 06/02/24 05:00 102 H 20 107/54 L 100 Mechanical Ventilation 06/02/24 05:00 Mechanical Ventilation 06/02/24 04:02 24 100 06/02/24 04:00 100 Mechanical Ventilation 06/02/24 04:00 100 H 06/02/24 04:00 97 H 20 112/68 100 Mechanical Ventilation 06/02/24 03:00 98 H 20 102/52 L 100 Mechanical Ventilation 06/02/24 02:55 Mechanical Ventilation 06/02/24 02:00 94 H 20 116/61 100 Mechanical Ventilation 06/02/24 01:58 24 100 06/02/24 01:00 95 H 22 96/45 L 100 Mechanical Ventilation 06/02/24 01:00 Mechanical Ventilation 06/02/24 00:30 92 H 06/02/24 00:30 90 06/02/24 00:30 27 H 100 06/02/24 00:00 96 H 06/02/24 00:00 98.6 F 97 H 22 96/50 L 100 Mechanical Ventilation 06/02/24 00:00 100 Mechanical Ventilation 06/01/24 23:00 98 H 20 106/58 L 100 Mechanical Ventilation 06/01/24 22:56 Mechanical Ventilation 06/01/24 22:20 23 100 06/01/24 22:00 97 H 22 110/60 100 Mechanical Ventilation 06/01/24 21:00 Mechanical Ventilation 06/01/24 21:00 101 H 20 114/61 100 Mechanical Ventilation 06/01/24 20:44 26 H 100 06/01/24 20:00 100 H 06/01/24 20:00 98.5 F 99 H 21 110/63 100 Mechanical Ventilation 06/01/24 20:00 100 Mechanical Ventilation 06/01/24 19:07 94 H 06/01/24 19:07 100 H 06/01/24 19:07 100 Mechanical Ventilation 06/01/24 19:07 22 100 06/01/24 18:55 Mechanical Ventilation 06/01/24 18:55 100 H 21 98/51 L 100 Mechanical Ventilation 06/01/24 18:00 100 H 21 101/56 L 100 Mechanical Ventilation 06/01/24 17:00 99 H 21 93/50 L 06/01/24 16:59 Mechanical Ventilation 06/01/24 16:00 100 H 06/01/24 16:00 98 H 22 91/48 L 100 Mechanical Ventilation 06/01/24 15:55 Mechanical Ventilation 06/01/24 15:00 101 H 21 99/57 L 100 Mechanical Ventilation 06/01/24 15:00 Mechanical Ventilation 06/01/24 14:00 100 H 22 93/55 L 100 Mechanical Ventilation 06/01/24 13:13 99 Mechanical Ventilation 06/01/24 13:13 27 H 99 06/01/24 13:00 105 H 22 99/56 L Mechanical Ventilation 06/01/24 13:00 Mechanical Ventilation 06/01/24 12:15 118 H 117/66 Mechanical Ventilation 06/01/24 12:00 170 H 06/01/24 12:00 Mechanical Ventilation 06/01/24 11:00 125 H 35 H 141/89 H 92 L Mechanical Ventilation 06/01/24 11:00 Mechanical Ventilation 06/01/24 10:53 131 H 06/01/24 10:53 136 H 06/01/24 10:53 94 L Mechanical Ventilation 06/01/24 10:53 38 H 94 L FiO2 06/02/24 10:05 30 06/02/24 08:00 30 06/02/24 08:00 30 06/02/24 07:30 30 06/02/24 06:59 30 06/02/24 06:46 06/02/24 06:40 30 06/02/24 06:00 30 06/02/24 05:00 30 06/02/24 05:00 06/02/24 04:02 30 06/02/24 04:00 30 06/02/24 04:00 06/02/24 04:00 06/02/24 03:00 06/02/24 02:55 06/02/24 02:00 30 06/02/24 01:58 30 06/02/24 01:00 30 06/02/24 01:00 06/02/24 00:30 06/02/24 00:30 06/02/24 00:30 31 06/02/24 00:00 06/02/24 00:00 06/02/24 00:00 30 06/01/24 23:00 06/01/24 22:56 06/01/24 22:20 30 06/01/24 22:00 06/01/24 21:00 06/01/24 21:00 06/01/24 20:44 30 06/01/24 20:00 06/01/24 20:00 06/01/24 20:00 30 06/01/24 19:07 06/01/24 19:07 06/01/24 19:07 30 06/01/24 19:07 30 06/01/24 18:55 06/01/24 18:55 06/01/24 18:00 06/01/24 17:00 06/01/24 16:59 06/01/24 16:00 06/01/24 16:00 06/01/24 15:55 06/01/24 15:00 06/01/24 15:00 06/01/24 14:00 06/01/24 13:13 30 06/01/24 13:13 30 06/01/24 13:00 06/01/24 13:00 06/01/24 12:15 06/01/24 12:00 06/01/24 12:00 06/01/24 11:00 06/01/24 11:00 06/01/24 10:53 06/01/24 10:53 06/01/24 10:53 40 06/01/24 10:53 40 Intake and Output 06/01/24 06/02/24 06/02/24 23:59 07:59 15:59 Intake Total 620.575 / 2200.676 537.979 / 560.787 22.808 / 560.787 Output Total 422 / 1837 320 / 320 Balance 198.575 / 363.676 217.979 / 240.787 22.808 / 240.787 Intake: Intake, Tube Feeding Amount 174 / 174 125 / 125 Intake, Tube Irrigant Amount 80 / 80 130 / 130 Intake, Total IV Amount 366.575 / 1346.676 282.979 / 305.787 22.808 / 305.787 Cefepime HCl 2 gm In 0.9 % 100 / 100 90 / 90 Sodium Chloride 100 ml @ 200 mls/hr IV Q8H [facility] Rx#:[id number] Output: Output, Urine Amount 0 / 75 100 / 100 Output, Urine Amount (Catheter) / 1762 220 / 220 Barrett / 176 220 / 220 Other: Number of Unmeasured Voids 0 Weight 60.49 kg Patient Weight 06/02/24 23:59 Weight 60.49 kg Laboratory Results - last 24 hr 06/01/24 11:54: Specimen Source L radial, O2 % 80, ABG pH 7.29 L, ABG pCO2 42.2, ABG pO2 72.1 L, ABG HCO3 19.8 L, ABG Total CO2 21.1 L, ABG O2 Saturation 93, ABG Base Excess -6.7 L, Lux Test Acceptable, PEEP 10 06/01/24 17:55: POC Glucose 98 06/02/24 05:34: WBC 12.4 H, RBC 3.37 L, Hgb 10.1 L, Hct 29.4 L, MCV 87.3, MCH 30.0, MCHC 34.4, RDW 15.1, Plt Count 176, MPV 9.2, Neut % (Auto) 82.7 H, Lymph % (Auto) 11.6, [place] % (Auto) 2.8, Eos % (Auto) 0.9, Baso % (Auto) 1.9, Neut # (Auto) 10.3 H, Lymph # (Auto) 1.4, [place] # (Auto) 0.4, Eos # (Auto) 0.1, Baso # (Auto) 0.2, Sodium 139, Potassium 3.5, Chloride 109 H, Carbon Dioxide 25, Anion Gap 8.5, BUN 31 H, Creatinine 0.40 L D, Estimated Creat Clear 156, Estimated GFR 166, Est GFR ( Amer) 201 D, Glucose 114 H, Calcium 7.6 L, Phosphorus 2.1 L D, Magnesium 2.0 D, Total Bilirubin 0.7, AST 141 H, ALT 102 H, Alkaline Phosphatase 112, Total Protein 4.2 L, Albumin 2.0 L D, Globulin 2.2, Albumin/Globulin Ratio 0.9 L, Procalcitonin 21.7 H I & O for Labs for Last 24 Hours: Intake & Output 05/30/24 05/31/24 06/01/24 06/02/24 23:59 23:59 23:59 23:59 Intake Total 1971.517 / 2393.320 4760.705 / 5270.672 2200.676 / 2200.676 560.787 / 560.787 Output Total 1250 / 1250 1275 / 1335 1837 / 1837 320 / 320 Balance 721.517 / 269.469 7818.705 / 3935.672 363.676 / 363.676 240.787 / 240.787 Weight 61.235 kg 61.5 kg 61.49 kg 60.49 kg Microbiology Reports for the Last 24 Hours: Microbiology 05/30/24 16:30 Sputum - Expectorated Sputum Gram Stain - Preliminary 05/30/24 16:30 Sputum - Expectorated Sputum Sputum Culture - Preliminary Gram Positive Cocci 05/30/24 22:23 Sputum - Endotracheal Tube Aspirate Gram Stain - Preliminary 05/30/24 22:23 Sputum - Endotracheal Tube Aspirate Sputum Culture - Final No growth. 05/31/24 Unknown Bronchial Washings - Right Lower Lobe Gram Stain - Preliminary 05/31/24 Unknown Blood Blood Culture - Preliminary NO GROWTH AFTER 24 HOURS 05/31/24 Unknown Blood Blood Culture - Preliminary NO GROWTH AFTER 24 HOURS 05/30/24 02:00 Blood Blood Culture - Final Streptococcus pneumoniae 05/30/24 01:55 Blood Blood Culture - Final Streptococcus pneumoniae Constitutional: Present mild distress, average body habitus, chronically ill appearing and somnolent Head: Present atraumatic and normocephalic ENT: Present normal exam Respiratory: Present patient mechanically ventilated, rhonchi, wheezes and crackles Cardiac: Present Regular Rhythm and Tachycardia GI: Present soft and normal bowel sounds; Absent distention or tenderness Extremities: Present normal inspection and full ROM; Absent tenderness Skin: Present intact; Absent erythema Neuro: Present moves all extremities; Absent Grossly Intact, alert, awake or oriented x 3 Comment:: Sedated Assessment and Plan *Assessment and plan (1) Septic shock: Status: Acute Category: Medical Code(s): A41.9 - Sepsis, unspecified organism; R65.21 - Severe sepsis with septic shock (2) Streptococcal bacteremia: Status: Acute Category: Medical Code(s): R78.81 - Bacteremia; B95.5 - Unspecified streptococcus as the cause of diseases classified elsewhere (3) Acute respiratory failure with hypoxia: Status: Acute Category: Medical Code(s): J96.01 - Acute respiratory failure with hypoxia (4) Non-STEMI (non-ST elevated myocardial infarction): Status: Acute Category: Medical Code(s): I21.4 - Non-ST elevation (NSTEMI) myocardial infarction (5) Pneumonia: Status: Acute Qualifiers: Laterality: bilateral Lung location: lower lobe of lung Pneumonia type: due to Pneumococcus Qualified Code(s): J13 - Pneumonia due to Streptococcus pneumoniae Category: Medical Code(s): J18.9 - Pneumonia, unspecified organism (6) Pleural effusion associated with pulmonary infection: Status: Acute Category: Medical Code(s): J18.9 - Pneumonia, unspecified organism; J91.8 - Pleural effusion in other conditions classified elsewhere Plan Patient is a 53-year-old female with past medical history of smoking, marijuana use, prediabetes, depression who presents to the hospital due to shortness of breath, cough. According to patient she also has associated chest pain with shortness of breath, has phlegm production along with a cough. She also mentions she has subjective fevers and chills. She denies sick contacts. She mentions she feels chest pain especially with deep breathing. On further evaluation patient was found to have hypoxia, hyponatremia, hypokalemia as well as right lower lobe consolidation. PSI/port score of 114 on presentation. Class IV risk. Overnight, patient decompensated necessitating enervation for protection of airway and respiratory support. Currently on ventilator. Pulmonology and cardiology assisting with care. SBT daily. Necessitating ICU level care. Problems addressed as follows: Septic shock Bilateral pneumonia, dense right consolidation Streptococcal pneumonia bacteremia, likely cause of her pneumonia. Acute hypoxic respiratory failure satting less than 90% on room air Sepsis present on admission due to pneumonia and bacteremia -Continues to require ICU level care. - Discussed case with pulmonology, patient continues to have stable ventilator requirements. Failed SBT yesterday. Will retry SBT today. Plan initiate clonidine 0.1 mg 3 times a day and Seroquel 50 mg twice daily to help with agitation -Continue ventilator support with PEEP of 5, tidal volume 440, FiO2 30%. Respiratory rate 20. -Repeat blood cultures negative at 48 hours. Will attempt placement of PICC line today. -DuoNebs every 6 hours -Off pressors for over 48 hours, diurese with Lasix 40 mg IV once today. -continue cefepime 2 g every 12 hours -White count improved to 12.4. Procalcitonin decreasing at 21.7, down from 48 on admission. Kidney function improving with BUN 31, creatinine 0.9. Potassium 3.5, magnesium 2.0. Phosphorus low at 2.1. Replace with IV potassium ph osphate. - Repeat CBC, CMP, magnesium, procalcitonin, and phosphorus ordered for the morning. Continue tube feed, nutrition consulted to assist Sinus tachycardia: Metoprolol 10 mg IV every 6 hours as needed for heart rate greater than 120 NSTEMI - SEBASTIAN performed. No vegetations identified. At this time, no indication of endocarditis. Discussed case with cardiology, patient status post left heart cath with normal coronaries. EF approximately 40%. Secondary to stress of acute illness and sepsis Diabetes: On metformin at home. A1c normal at 5.6. continue sliding scale insulin and fingersticks ACHS. DVT prophylaxis-heparin Full code ICU/Critical care attestation This patient is critically ill with 35 minutes devoted solely to this patient managing life/organ supporting interventions that required physician assessment. This includes time spent making adjustments in ventilator settings, IV fluid administration, titration of pressors, adjustments of medications, discussion of patient with consultants and other care providers as well as updating patient and/or family (if patient by virtue of his/her condition is unable to participate in decision making). This does not include time spent performing separately billed procedures. Time is not concurrent with that of other providers.
[2024-06-02] MEDS: FUROSEMIDE 40MG/4ML VIAL 40 MG IV (10:20)
[2024-06-02] MEDS: cloNIDine 0.1MG TABLET 0.1 MG PO ×2 (10:21→18:39)
[2024-06-02] MEDS: propofoL 100 ML 16.53 MG IV ×2 (10:51→17:57)
--- NOTE | 2024-06-02 11:19 | P.PN_ITS ---
Subjective Subjective Date: 06/02/24 Time: 11:19 Principal diagnosis: Resp Failure, [place] Interval history: 53 yo WF still sedated/intubated on [place] Vent. HR on Tele is around 100 bpm SEBASTIAN yesterday negative for vegetation or thrombus Exam Data for Last 24 hours Vital signs and Labs for Last 24 Hours: Temp Pulse Resp BP Pulse Ox O2 Del Method O2 Flow Rate 100.0 F H 109 H 28 H 103/48 L 99 Mechanical Ventilation 15 06/02/24 08:00 06/02/24 08:00 06/02/24 10:05 06/02/24 08:00 06/02/24 10:05 06/02/24 08:00 05/30/24 22:08 FiO2 30 06/02/24 10:05 Laboratory Results - last 24 hr 06/01/24 11:54: Specimen Source L radial, O2 % 80, ABG pH 7.29 L, ABG pCO2 42.2, ABG pO2 72.1 L, ABG HCO3 19.8 L, ABG Total CO2 21.1 L, ABG O2 Saturation 93, ABG Base Excess -6.7 L, Lux Test Acceptable, PEEP 10 06/01/24 17:55: POC Glucose 98 06/02/24 05:34: WBC 12.4 H, RBC 3.37 L, Hgb 10.1 L, Hct 29.4 L, MCV 87.3, MCH 30.0, MCHC 34.4, RDW 15.1, Plt Count 176, MPV 9.2, Neut % (Auto) 82.7 H, Lymph % (Auto) 11.6, [place] % (Auto) 2.8, Eos % (Auto) 0.9, Baso % (Auto) 1.9, Neut # (Auto) 10.3 H, Lymph # (Auto) 1.4, [place] # (Auto) 0.4, Eos # (Auto) 0.1, Baso # (Auto) 0.2, Sodium 139, Potassium 3.5, Chloride 109 H, Carbon Dioxide 25, Anion Gap 8.5, BUN 31 H, Creatinine 0.40 L D, Estimated Creat Clear 156, Estimated GFR 166, Est GFR ( Amer) 201 D, Glucose 114 H, Calcium 7.6 L, Phosphorus 2.1 L D, Magnesium 2.0 D, Total Bilirubin 0.7, AST 141 H, ALT 102 H, Alkaline Phosphatase 112, Total Protein 4.2 L, Albumin 2.0 L D, Globulin 2.2, Albumin/Globulin Ratio 0.9 L, Procalcitonin 21.7 H I & O for Last 24 hours: Intake & Output 05/30/24 05/31/24 06/01/24 06/02/24 11:59 11:59 11:59 11:59 Intake Total 840 / 840 2851.834 / 4201.834 4299.625 / 4794.625 2156.579 / 2156.579 Output Total 700 / 700 1295 / 1295 1120 / 1195 1902 / 1902 Balance 140 / 140 1556.834 / 2906.834 3179.625 / 3599.625 254.579 / 254.579 Weight 135 lb 0.001 oz 135 lb 9.349 oz 135 lb 8.996 oz 133 lb 5.722 oz Microbiology Reports for the Last 24 Hours: Microbiology 05/30/24 16:30 Sputum - Expectorated Sputum Gram Stain - Preliminary 05/30/24 16:30 Sputum - Expectorated Sputum Sputum Culture - Preliminary Gram Positive Cocci 05/30/24 22:23 Sputum - Endotracheal Tube Aspirate Gram Stain - Preliminary 05/30/24 22:23 Sputum - Endotracheal Tube Aspirate Sputum Culture - Final No growth. 05/31/24 Unknown Bronchial Washings - Right Lower Lobe Gram Stain - Preliminary 05/31/24 Unknown Blood Blood Culture - Preliminary NO GROWTH AFTER 24 HOURS 05/31/24 Unknown Blood Blood Culture - Preliminary NO GROWTH AFTER 24 HOURS 05/30/24 02:00 Blood Blood Culture - Final Streptococcus pneumoniae 05/30/24 01:55 Blood Blood Culture - Final Streptococcus pneumoniae Constitutional Constitutional: no acute distress *Routine Respiratory Exam Respiratory: Present patient mechanically ventilated *Routine Cardiovascular Exam Cardiovascular: Present RRR and tachycardia Progress Note: A&P Assessment and plan (1) Acute respiratory failure with hypoxia: Status: Acute (2) Pneumonia: Status: Acute (3) Lactic acidosis: Status: Acute (4) Septic shock: Status: Acute (5) Streptococcal bacteremia: Status: Acute Assessment and Plan Assessment and Plan for All Diagnoses:: 1. Bacteremia with septic shock secondary to strep pneumonia. -Acute respiratory failure with hypoxia requiring intubation/mechanical ventilation -IV sedation for mechanical ventilation -IV cefepime for positive blood cultures -procalcitonin 48.9 -elevated AST and ALT 2. Non-STEMI with elevated troponin and echo showing EF 40% -Left heart catheterization today showed normal coronaries with EF 35% and LVEDP 20 mm Hg -start GDMT when BP stable and pt extubated and taking oral meds 3. Mobile echodensity noted on mitral valve leaflet with concern for endocarditis versus thrombus due to history of IV drug use and positive blood cultures -SEBASTIAN negative for endocarditis or thrombus 4. Hemoptysis -Bronchoscopy no evidence of bleeding noted. 5. Tachycardia -reactionary due to Pulmonary issues 6. Hypokalemia -replacement ordered Pt is net fluid positive over 5 liters. continue lasix as needed Start oral GDMT meds when awake and able to swallow safely Will revisit on Wednesday if still in hospital. Nothing further to add at this time.
[2024-06-02] MEDS: METOPROLOL TARTRATE 5MG/5ML VIAL 10 MG IV (11:34)
[2024-06-02] MEDS: OXYCODONE 5MG IMMEDIATE RELEASE TABLET 5 MG PO ×2 (12:49→18:39)
[2024-06-02] MEDS: QUETIAPINE 100MG TABLET 50 MG PO ×2 (12:49→20:04)
[2024-06-02] MEDS: FENTANYL 12.5MCG/0.25ML 12.5 MCG IV (13:00)
--- NOTE | 2024-06-02 13:53 | PC.NURSE ---
sedation decreased at 1150, SBT started at 1224 per RT
--- NOTE | 2024-06-02 15:35 | XR_ITS ---
PROCEDURE INFORMATION: Exam: XR Chest Exam date and time: 06/04/2024 9:56 AM Age: 53 years old Clinical indication: Device placement; Other: . ; Additional info: Verify ett/ng. Intubated. TECHNIQUE: Imaging protocol: Radiologic exam of the chest. Views: 1 view. COMPARISON: CR XR CHEST PORTABLE 06/02/2024 9:57 AM FINDINGS: Tubes, catheters and devices: The ET tube ends 5 cm above the jay. The NG tube ends in the stomach. Lungs: Bibasilar opacities likely representing atelectasis or infection are stable. Pleural spaces: Small bilateral pleural effusions are stable. Heart/Mediastinum: Unremarkable. No cardiomegaly. Bones/joints: Unremarkable. IMPRESSION: Bibasilar opacities likely representing atelectasis or infection are stable. Small bilateral pleural effusions are stable. The ET tube ends 5 cm above the jay. The NG tube ends in the stomach.
--- NOTE | 2024-06-02 16:08 | DIET.NUTRFU ---
Patient failed SBT, TF turned back on at 25ml/hr with goal rate at 40ml/hr. Nursing did report some higher residuals last night, will continue to monitor tolerance. Anticipate needing the TF for nutrition throughout weekend. Bolus fluid discontinued, increased flush to 120 [id number] formula at goal rate of [id number] fluid/day plus fluid used with medications. Labs reviewed renal labs have improved 31/.40, Na 139 and potassium 3.5. Lasix was given today will continue to monitor fluid status. Propofol continues, received 271.89ml 06/01 which provided 299 calories. Goal rate TF is providing 1440kcal/60gm protein, which allows for extra calories with propofol will continue current order. No BM noted since admit, will continue to monitor, nutrition was just started yesterday.
[2024-06-02 17:19] LABS: Legionella pneumophila Urinary Negative (Negative)
--- NOTE | 2024-06-02 18:33 | HMH.ITSTN ---
Called floor about portable chest for PICC line placement - CORNEL Liao informed me that they were going to try to place the line tomorrow (06/03)
[2024-06-02] MEDS: DOCUSATE SODIUM 10 ML/UDC UDC PO (20:04)
[2024-06-02] MEDS: SENNA 8.6MG TABLET 8.6 MG PO (20:07)
[2024-06-02 20:40] LABS: POC Glucose,Bedside 124 (70-110)
[2024-06-03] VITALS (60 sets, daily range): BP systolic 78–254; BP diastolic 38–132; PULSE 70–140; RESP 20–57; TEMP 36.7–38.5; O2SAT 83–100; BMI 27.6
[2024-06-03] MEDS: OXYCODONE 5MG IMMEDIATE RELEASE TABLET 5 MG PO ×3 (00:01→22:47)
--- NOTE | 2024-06-03 00:17 | EXP.EVENT.NO ---
Nursing reported that patient has a rectal temp of 100.3, had used Tylenol earlier did not completely work. Will try 1 dose of the IV Tylenol 1000 mg, we will see if this also works if it does we will continue that as needed if not we will try Toradol for fever. If it is needed Nursing notified me at 3:30 AM, the patient was no longer febrile., But yet urine output has decreased to 60 cc in the last 4 hours, she did receive Lasix at approximately 10 PM yesterday, blood pressure systolic remains under 100 at this time, and sedation being cut back., As a precaution but because of the new fever we will go ahead and start 1 L of normal saline at 250 cc an hour for 4 hours, patient is noted is already being on 2 separate antibiotics., Will continue to watch for possible sepsis related to the fever and the decreasing blood pressure heart rate remained at 74,
[2024-06-03] MEDS: IPRATROPIUM/ALBUTEROL 3 ML NEB IH ×5 (00:20→23:09)
[2024-06-03] MEDS: FENTANYL CITRATE/PF 1,000 MCG in 0.9 % SODIUM CHLORIDE 80 ML 7 MCG IV (00:34)
[2024-06-03] MEDS: ACETAMINOPHEN 1,000MG/100ML VIAL 1000 MG IV (00:57)
[2024-06-03] MEDS: propofoL 100 ML 16.53 MG IV (01:03)
[2024-06-03] MEDS: cloNIDine 0.1MG TABLET 0.1 MG PO ×2 (02:30→09:54)
[2024-06-03] MEDS: 0.9 % SODIUM CHLORIDE 1000ML 1,000 ML 250 ML IV (03:33)
[2024-06-03] MEDS: CEFEPIME HCL 2 GM in 0.9 % SODIUM CHLORIDE 100 ML IV ×3 (05:53→21:16)
[2024-06-03] MEDS: HEPARIN SODIUM 5,000 UNIT/ML VIAL 5000 UNIT SUBCUT ×2 (05:53→21:31)
[2024-06-03] MEDS: propofoL 100 ML 11.02 MG IV (05:57)
[2024-06-03] MEDS: ACETYLCYSTEINE 20% 4ML VIAL 1 ML IH ×2 (06:17→18:24)
--- NOTE | 2024-06-03 06:19 | PC.NURSE ---
Pt continues to be intubated with TV 440, FIo2 30%, PEEP 5, RR 20. 7.[address] @ 22cm at the lip. OG in place @ 58cm. Tube feeding running at 30ml/hr. Residuals have been 80-120ml. NO BM during shift. Pt was febrile through the night with fever up to 101.3. Tylenol administered per MAR and patient cooling interventions performed. Pt had minmal dark mica urine output after 0000 and then became hypotensive. Jay Paez notified- ordered 1 L NS to be given over 4 hrs (currently running). Pt VSS at this time. Propofol currently running @ 30mcg/kg/min Fentanyl currently running @ 60mcg/hr Pt repositioned and oral care provided q2hrs.
[2024-06-03 06:23] LABS: POC Glucose,Bedside 124 (70-110)
[2024-06-03 08:06] LABS: Basophils # 0.2 K/mm3 (0-0.2); Basophils % 2.1 % (0.1-2.0); Eosinophils # 0.1 K/mm3 (0.0-0.4); Eosinophils % 1.2 % (0.1-12.0); Hematocrit 30.5 % (37.0-47.0); Lymphocytes # 1.6 K/mm3 (0.7-4.5); Lymphocytes % 18.8 % (10-50); Mean Corpuscular HGB Conc 32.7 g/dL (31.8-35.4); Mean Corpuscular Hemoglobin 29.2 pg (27.0-31.2); Mean Corpuscular Volume 89.1 fl (81-99); Mean Platelet Volume 9.5 fl (7.4-10.4); Monocytes # 0.3 K/mm3 (0.1-1.0); Monocytes % 3.9 % (1.7-9.3); Neutrophils # 6.2 K/mm3 (1.8-7.8); Platelet Count 133 K/mm3 (142-424); Red Blood Count 3.42 M/mm3 (4.20-5.40); White Blood Count 8.3 K/mm3 (4.8-10.8)
--- NOTE | 2024-06-03 08:19 | PC.WOUNDNOTE ---
Skin assessment at start of shift, dressing covering blister from previous photos
[2024-06-03 09:10] LABS: Alanine Aminotransferase 83 U/L (12-78); Albumin Level 2.2 g/dl (3.5-5.0); Albumin/Globulin Ratio 0.8 (1.1-1.8); Alkaline Phosphatase 126 U/L (38-126); Anion Gap 9.5 mEq/L (5-15); Aspartate Amino Transferase 70 U/L (14-36); Blood Urea Nitrogen 26 mg/dl (7-17); Calcium 7.5 mg/dl (8.4-10.2); Carbon Dioxide 25 mmol/L (22.0-30.0); Chloride 111 mmol/L (98-107); Creatinine Clearance Estimated 185 mL/min (50-200); Estimated Glomerular Filt Rate 166 ml/min (>60); GFR (African American) 201 ML/MIN (>60); Globulin 2.6 g/dL (1.3-3.2); Glucose 111 mg/dl (74-100); Magnesium 1.9 mg/dl (1.6-2.3); Phosphorous 2.3 mg/dl (2.5-4.5); Potassium 3.5 mmoL/L (3.5-5.1); Sodium 142 mmol/L (136-145); Total Protein,Serum 4.8 g/dl (6.3-8.2)
[2024-06-03 09:27] LABS: Procalcitonin 10.4 ng/mL (0.0-2.0)
[2024-06-03] MEDS: QUETIAPINE 100MG TABLET 50 MG PO ×2 (09:54→21:16)
[2024-06-03] MEDS: DOCUSATE SODIUM 10 ML/UDC UDC PO (09:54)
[2024-06-03] MEDS: SENNA 8.6MG TABLET 8.6 MG PO (09:54)
[2024-06-03] MEDS: FAMOTIDINE 20MG/2ML VIAL 20 MG IV ×2 (09:54→21:15)
[2024-06-03] MEDS: SODIUM CHLORIDE 0.9% 10ML VIAL 8 ML IV (09:55)
--- NOTE | 2024-06-03 11:55 | PC.NURSE ---
Addendum entered by Yanni Jackson RN 06/03/24 13:09: SBT ended 1224 r/t pt not tolerating. pt propofol at 20mcg, fent at 40 mcg. pt hr noted to be in the 140's, bp noted to be 250/132, 246/124, 254/114, pt rr in the mid to upper 50's. pt was noted to be thrashing in bed. pulling at ett. pt was placed in soft wrist restraints during sbt from approx [id number] Original Note: sbt started at 1154 by judy in RT
[2024-06-03] MEDS: FENTANYL 12.5MCG/0.25ML 12.5 MCG IV (12:01)
[2024-06-03] MEDS: ACETAMINOPHEN 325MG/10.15ML UDC 650 MG NG-TUBE (12:34)
[2024-06-03] MEDS: propofoL 100 ML 7.35 MG IV (12:48)
--- NOTE | 2024-06-03 13:48 | PC.NURSE ---
1219 sbt stopped, bp 246/124 drip increased 30mcg 1228 bp 163/88 pt still thrashing in bed, drip increased to 40mcg 1238 bp 175/92 drip increased to 45mcg. 1345 bp 109/62 drip decreased to 40mcg
--- NOTE | 2024-06-03 13:52 | PC.NURSE ---
Started SBT trial at 11:55 am . Ended STB trial at 1224 pm due to high HR .
[2024-06-03] MEDS: FENTANYL CITRATE/PF 1,000 MCG in 0.9 % SODIUM CHLORIDE 80 ML 4.5 MCG IV (14:12)
--- NOTE | 2024-06-03 14:53 | EXP.ACUTE.PN ---
Subjective *Date: 06/03/24 *Time: 14:53 Interval history: Did well overnight. Blood pressure has been soft however. Will make adjustments to blood pressure regimen. No nausea or vomiting. Had a bowel movement after initiating bowel regimen. Tolerating tube feeds. Tolerating minimal vent settings. Afebrile overnight. Medical Exam Vital signs and Labs for Last 24 Hours: Vital Signs Temp Pulse Pulse Resp BP Pulse Ox O2 Del Method 06/03/24 14:32 25 H 100 06/03/24 14:30 88 24 113/63 100 Mechanical Ventilation 06/03/24 14:00 94 H 21 104/57 L 100 Mechanical Ventilation 06/03/24 13:30 95 H 22 109/63 L 100 Mechanical Ventilation 06/03/24 13:00 99 H 26 H 143/82 H 100 Mechanical Ventilation 06/03/24 12:43 116 H 36 H 173/94 H 96 Mechanical Ventilation 06/03/24 12:38 100.1 F H 120 H 34 H 175/92 H 92 L Mechanical Ventilation 06/03/24 12:30 121 H 36 H 164/81 H 98 Mechanical Ventilation 06/03/24 12:28 124 H 46 H 163/88 H 96 Mechanical Ventilation 06/03/24 12:26 133 H 49 H 177/88 H 98 Mechanical Ventilation 06/03/24 12:24 140 H 53 H 228/97 H 85 L Mechanical Ventilation 06/03/24 12:21 140 H 53 H 254/114 H 83 L Mechanical Ventilation 06/03/24 12:19 130 H 52 H 246/124 H 87 L Mechanical Ventilation 06/03/24 12:18 129 H 57 H 250/132 H 87 L Mechanical Ventilation 06/03/24 12:00 117 H 55 H 153/93 H 87 L Mechanical Ventilation 06/03/24 12:00 110 H 06/03/24 11:56 113 H 35 H 109/93 L 100 Mechanical Ventilation 06/03/24 11:45 78 06/03/24 11:45 78 06/03/24 11:45 100 Mechanical Ventilation 06/03/24 11:45 20 100 06/03/24 11:37 78 22 81/46 L 100 Mechanical Ventilation 06/03/24 11:30 80 25 H 84/46 L 100 Mechanical Ventilation 06/03/24 11:00 95 H 21 94/47 L 100 Mechanical Ventilation 06/03/24 10:30 83 20 103/55 L 100 Mechanical Ventilation 06/03/24 10:29 22 100 06/03/24 10:00 81 20 128/99 H 100 Mechanical Ventilation 06/03/24 09:30 80 20 118/67 100 Mechanical Ventilation 06/03/24 09:16 Mechanical Ventilation 06/03/24 09:00 85 20 107/64 L 100 Mechanical Ventilation 06/03/24 08:00 99.0 F 06/03/24 08:00 90 06/03/24 08:00 95 H 21 137/79 100 Mechanical Ventilation 06/03/24 07:40 83 100 Mechanical Ventilation 06/03/24 07:30 73 22 111/60 100 Mechanical Ventilation 06/03/24 07:12 78 06/03/24 07:12 83 06/03/24 07:12 100 Mechanical Ventilation 06/03/24 07:12 20 100 06/03/24 06:53 98.4 F 78 20 101/56 L 100 Mechanical Ventilation 06/03/24 06:34 Mechanical Ventilation 06/03/24 06:00 99.7 F H 77 20 99/51 L 100 Mechanical Ventilation 06/03/24 05:00 77 20 94/55 L 100 Mechanical Ventilation 06/03/24 04:38 Mechanical Ventilation 06/03/24 04:10 24 100 06/03/24 04:00 70 06/03/24 04:00 77 100 Mechanical Ventilation 06/03/24 04:00 98.1 F 76 20 125/78 100 Mechanical Ventilation 06/03/24 03:00 75 20 96/51 L 100 Mechanical Ventilation 06/03/24 02:48 Mechanical Ventilation 06/03/24 02:47 99.8 F H 06/03/24 02:07 24 100 06/03/24 02:00 100.3 F H 89 21 111/59 L 100 Mechanical Ventilation 06/03/24 01:30 78/38 L 06/03/24 01:06 Mechanical Ventilation 06/03/24 01:00 89 20 89/45 L 100 Mechanical Ventilation 06/03/24 00:20 92 H 06/03/24 00:20 95 H 06/03/24 00:20 25 H 100 06/03/24 00:00 110 H 06/03/24 00:00 102 H 100 Mechanical Ventilation 06/03/24 00:00 101.3 F H 105 H 20 110/57 L 100 Mechanical Ventilation 06/02/24 23:00 Mechanical Ventilation 06/02/24 23:00 104 H 21 135/76 100 Mechanical Ventilation 06/02/24 22:15 26 H 06/02/24 22:00 96 H 20 110/60 100 Mechanical Ventilation 06/02/24 21:06 99.9 F H 06/02/24 21:00 90 20 110/59 L 100 Mechanical Ventilation 06/02/24 20:45 Mechanical Ventilation 06/02/24 20:15 28 H 100 06/02/24 20:00 90 06/02/24 20:00 100 Mechanical Ventilation 06/02/24 20:00 93 H 21 110/62 100 Mechanical Ventilation 06/02/24 19:44 99.9 F H 06/02/24 19:00 95 H 22 120/67 100 Mechanical Ventilation 06/02/24 18:55 Mechanical Ventilation 06/02/24 18:30 97 H 20 119/61 100 Mechanical Ventilation 06/02/24 18:12 95 H 06/02/24 18:12 98 H 06/02/24 18:12 100 Mechanical Ventilation 06/02/24 18:12 24 100 06/02/24 18:00 92 H 20 120/61 100 Mechanical Ventilation 06/02/24 17:30 87 20 124/59 L 99 Mechanical Ventilation 06/02/24 17:00 Mechanical Ventilation 06/02/24 17:00 84 20 130/63 100 Mechanical Ventilation 06/02/24 16:00 86 22 101/54 L 95 Mechanical Ventilation 06/02/24 16:00 90 06/02/24 16:00 99.5 F 06/02/24 15:34 88 93 L Mechanical Ventilation 06/02/24 15:07 Mechanical Ventilation 06/02/24 15:00 92 H 20 88/51 L 100 Mechanical Ventilation FiO2 06/03/24 14:32 30 06/03/24 14:30 50 06/03/24 14:00 50 06/03/24 13:30 50 06/03/24 13:00 50 06/03/24 12:43 50 06/03/24 12:38 50 06/03/24 12:30 50 06/03/24 12:28 50 06/03/24 12:26 50 06/03/24 12:24 30 06/03/24 12:21 30 06/03/24 12:19 30 06/03/24 12:18 30 06/03/24 12:00 30 06/03/24 12:00 06/03/24 11:56 30 06/03/24 11:45 06/03/24 11:45 06/03/24 11:45 30 06/03/24 11:45 30 06/03/24 11:37 30 06/03/24 11:30 30 06/03/24 11:00 30 06/03/24 10:30 30 06/03/24 10:29 30 06/03/24 10:00 30 06/03/24 09:30 30 06/03/24 09:16 06/03/24 09:00 30 06/03/24 08:00 06/03/24 08:00 06/03/24 08:00 30 06/03/24 07:40 30 06/03/24 07:30 30 06/03/24 07:12 06/03/24 07:12 06/03/24 07:12 30 06/03/24 07:12 30 06/03/24 06:53 30 06/03/24 06:34 06/03/24 06:00 30 06/03/24 05:00 30 06/03/24 04:38 06/03/24 04:10 30 06/03/24 04:00 06/03/24 04:00 30 06/03/24 04:00 30 06/03/24 03:00 30 06/03/24 02:48 06/03/24 02:47 06/03/24 02:07 30 06/03/24 02:00 30 06/03/24 01:30 06/03/24 01:06 06/03/24 01:00 30 06/03/24 00:20 06/03/24 00:20 06/03/24 00:20 30 06/03/24 00:00 06/03/24 00:00 30 06/03/24 00:00 30 06/02/24 23:00 06/02/24 23:00 30 06/02/24 22:15 30 06/02/24 22:00 30 06/02/24 21:06 06/02/24 21:00 30 06/02/24 20:45 06/02/24 20:15 30 06/02/24 20:00 06/02/24 20:00 30 06/02/24 20:00 30 06/02/24 19:44 06/02/24 19:00 30 06/02/24 18:55 06/02/24 18:30 30 06/02/24 18:12 06/02/24 18:12 06/02/24 18:12 30 06/02/24 18:12 30 06/02/24 18:00 30 06/02/24 17:30 30 06/02/24 17:00 06/02/24 17:00 30 06/02/24 16:00 30 06/02/24 16:00 06/02/24 16:00 06/02/24 15:34 30 06/02/24 15:07 06/02/24 15:00 30 Intake and Output 06/02/24 06/03/24 06/03/24 23:59 07:59 15:59 Intake Total 361.159 / 9849.782 7613.028 / 2013.006 158.978 / 2013.006 Output Total 280 / 1690 290 / 460 170 / 460 Balance 81.159 / 716.953 5824.028 / 1553.006 -11.022 / 1553.006 Intake: Intake, Tube Feeding Amount 57 / 451 284 / 332 48 / 332 Intake, Tube Irrigant Amount 40 / 480 320 / 320 Intake, Total IV Amount 264.159 / 7786.928 2684.028 / 1361.006 110.978 / 1361.006 0.9 % Sodium Chloride 1000ML 1, 980 / 980 000 ml @ 250 mls/hr IV .Q4H [facility] Rx#:[id number] Cefepime HCl 2 gm In 0.9 % 100 / 190 200 / 200 Sodium Chloride 100 ml @ 200 mls/hr IV Q8H [facility]IUM Rx#:[id number] Output: Output, Urine Amount 125 / 1280 70 / 240 170 / 240 Output, Urine Amount (Catheter) 155 / 410 220 / 220 Barrett 155 / 410 220 / 220 Other: Number of Unmeasured Voids 0 0 Number of Bowel Movements 1 Weight 73.057 kg Patient Weight 06/03/24 23:59 Weight 73.057 kg Laboratory Results - last 24 hr 05/30/24 09:15: Ur L.pneumophila Ag Negative 06/02/24 20:18: POC Glucose 124 H 06/03/24 06:10: POC Glucose 124 H 06/03/24 06:46: WBC 8.3 D, RBC 3.42 L, Hgb 10.0 L, Hct 30.5 L, MCV 89.1, MCH 29.2, MCHC 32.7, RDW 15.0, Plt Count 133 L, MPV 9.5, Neut % (Auto) 74.0, Lymph % (Auto) 18.8, Whitfield % (Auto) 3.9, Eos % (Auto) 1.2, Baso % (Auto) 2.1 H, Neut # (Auto) 6.2, Lymph # (Auto) 1.6, Whitfield # (Auto) 0.3, Eos # (Auto) 0.1, Baso # (Auto) 0.2, Sodium 142, Potassium 3.5, Chloride 111 H, Carbon Dioxide 25, Anion Gap 9.5, BUN 26 H, Creatinine 0.40 L, Estimated Creat Clear 185, Estimated GFR 166, Est GFR ( Amer) 201, Glucose 111 H, Calcium 7.5 L, Phosphorus 2.3 L, Magnesium 1.9, Total Bilirubin 1.0, AST 70 H D, ALT 83 H, Alkaline Phosphatase 126, Total Protein 4.8 L, Albumin 2.2 L, Globulin 2.6, Albumin/Globulin Ratio 0.8 L, Procalcitonin 10.4 H I & O for Labs for Last 24 Hours: Intake & Output 05/31/24 06/01/24 06/02/24 06/03/24 23:59 23:59 23:59 23:59 Intake Total 5024.705 / 5270.672 2200.676 / 2200.676 1692.024 / 1379.598 0137.006 / 2012.006 Output Total 1275 / 1335 1837 / 1837 1655 / 1690 460 / 460 Balance 3749.705 / 3935.672 363.676 / 363.676 37.024 / 909.621 3522.006 / 1553.006 Weight 61.5 kg 61.49 kg 60.49 kg 73.057 kg Microbiology Reports for the Last 24 Hours: Microbiology 05/31/24 12:30 Nose - Nasal MRSA Culture - Final 05/30/24 16:30 Sputum - Expectorated Sputum Gram Stain - Preliminary 05/30/24 16:30 Sputum - Expectorated Sputum Sputum Culture - Final Streptococcus pneumoniae 05/31/24 Unknown Blood Blood Culture - Preliminary NO GROWTH AFTER 48 HOURS 05/31/24 Unknown Blood Blood Culture - Preliminary NO GROWTH AFTER 48 HOURS Constitutional: Present mild distress, average body habitus, chronically ill appearing and somnolent Head: Present atraumatic and normocephalic ENT: Present normal exam Respiratory: Present patient mechanically ventilated, rhonchi, wheezes and crackles Cardiac: Present Regular Rhythm and Tachycardia GI: Present soft and normal bowel sounds; Absent distention or tenderness Extremities: Present normal inspection and full ROM; Absent tenderness Skin: Present intact; Absent erythema Neuro: Present moves all extremities; Absent Grossly Intact, alert, awake or oriented x 3 Comment:: Sedated Assessment and Plan *Assessment and plan (1) Septic shock: Status: Acute Category: Medical Code(s): A41.9 - Sepsis, unspecified organism; R65.21 - Severe sepsis with septic shock (2) Streptococcal bacteremia: Status: Acute Category: Medical Code(s): R78.81 - Bacteremia; B95.5 - Unspecified streptococcus as the cause of diseases classified elsewhere (3) Acute respiratory failure with hypoxia: Status: Acute Category: Medical Code(s): J96.01 - Acute respiratory failure with hypoxia (4) Non-STEMI (non-ST elevated myocardial infarction): Status: Acute Category: Medical Code(s): I21.4 - Non-ST elevation (NSTEMI) myocardial infarction (5) Pneumonia: Status: Acute Qualifiers: Laterality: bilateral Lung location: lower lobe of lung Pneumonia type: due to Pneumococcus Qualified Code(s): J13 - Pneumonia due to Streptococcus pneumoniae Category: Medical Code(s): J18.9 - Pneumonia, unspecified organism (6) Pleural effusion associated with pulmonary infection: Status: Acute Category: Medical Code(s): J18.9 - Pneumonia, unspecified organism; J91.8 - Pleural effusion in other conditions classified elsewhere Plan Patient is a 53-year-old female with past medical history of smoking, marijuana use, prediabetes, depression who presents to the hospital due to shortness of breath, cough. According to patient she also has associated chest pain with shortness of breath, has phlegm production along with a cough. She also mentions she has subjective fevers and chills. She denies sick contacts. She mentions she feels chest pain especially with deep breathing. On further evaluation patient was found to have hypoxia, hyponatremia, hypokalemia as well as right lower lobe consolidation. PSI/port score of 114 on presentation. Class IV risk. Overnight, patient decompensated necessitating enervation for protection of airway and respiratory support. Currently on ventilator. Pulmonology and cardiology assisting with care. SBT daily. Necessitating ICU level care. Problems addressed as follows: Septic shock Bilateral pneumonia, dense right consolidation Streptococcal pneumonia bacteremia, likely cause of her pneumonia. Acute hypoxic respiratory failure satting less than 90% on room air Sepsis present on admission due to pneumonia and bacteremia -Continues to require ICU level care. -SBT daily. Will hold clonidine due to soft blood pressures. Continue Seroquel 50 mg twice daily however for agitation. - Continue ventilator support with PEEP of 5, tidal volume 440, FiO2 30%. Respiratory rate 20. -Repeat blood cultures negative at 48 hours. Will attempt placement of PICC or midline again today, failed yesterday. -DuoNebs every 6 hours -Hold diuretics today due to soft blood pressure. Consider resuming tomorrow -continue cefepime 2 g every 12 hours -White count normalized to 8. Procalcitonin continues to improve, 10 today. Kidney function continues to improve, BUN 26, creatinine 0.4 phosphorus low at 2.3. Will replace with potassium phosphate today - Repeat CBC, CMP, magnesium, procalcitonin, and phosphorus ordered for the morning. Continue tube feed, nutrition consulted to assist Sinus tachycardia: Metoprolol to tartrate decreased to 5 mg IV every 6 hours as needed for heart rate greater than 120 NSTEMI - SEBASTIAN performed. No vegetations identified. At this time, no indication of endocarditis. Discussed case with cardiology, patient status post left heart cath with normal coronaries. EF approximately 40%. Secondary to stress of acute illness and sepsis Diabetes: On metformin at home. A1c normal at 5.6. continue sliding scale insulin and fingersticks ACHS. DVT prophylaxis-heparin Full code ICU/Critical care attestation This patient is critically ill with 35 minutes devoted solely to this patient managing life/organ supporting interventions that required physician assessment. This includes time spent making adjustments in ventilator settings, IV fluid administration, titration of pressors, adjustments of medications, discussion of patient with consultants and other care providers as well as updating patient and/or family (if patient by virtue of his/her condition is unable to participate in decision making). This does not include time spent performing separately billed procedures. Time is not concurrent with that of other providers.
[2024-06-03] MEDS: POTASSIUM PHOSPHATE 9 MMOL in 0.9 % SODIUM CHLORIDE 250 ML 63.25 MMOL IV (16:04)
[2024-06-03] MEDS: propofoL 100 ML 14.7 MG IV (18:58)
[2024-06-03 23:29] LABS: POC Glucose,Bedside 104 (70-110)
[2024-06-04] VITALS (53 sets, daily range): BP systolic 100–148; BP diastolic 46–84; PULSE 73–101; RESP 20–56; TEMP 36.6–38; O2SAT 95–100; BMI 27.5
[2024-06-04] MEDS: propofoL 100 ML 16.53 MG IV (01:07)
[2024-06-04] MEDS: OXYCODONE 5MG IMMEDIATE RELEASE TABLET 5 MG PO ×4 (04:38→23:21)
[2024-06-04] MEDS: ACETAMINOPHEN 325MG/10.15ML UDC 650 MG NG-TUBE ×2 (04:38→17:10)
[2024-06-04] MEDS: FENTANYL CITRATE/PF 1,000 MCG in 0.9 % SODIUM CHLORIDE 80 ML 7 MCG IV ×2 (05:01→17:55)
[2024-06-04] MEDS: CEFEPIME HCL 2 GM in 0.9 % SODIUM CHLORIDE 100 ML IV ×3 (05:05→21:52)
[2024-06-04] MEDS: HEPARIN SODIUM 5,000 UNIT/ML VIAL 5000 UNIT SUBCUT ×3 (05:10→21:53)
[2024-06-04] MEDS: ACETYLCYSTEINE 20% 4ML VIAL 1 ML IH ×2 (05:52→18:06)
[2024-06-04] MEDS: IPRATROPIUM/ALBUTEROL 3 ML NEB IH ×3 (05:53→18:07)
[2024-06-04 06:02] LABS: POC Glucose,Bedside 124 (70-110)
[2024-06-04] MEDS: propofoL 100 ML 18.37 MG IV (06:04)
--- NOTE | 2024-06-04 06:21 | PC.NURSE ---
Patient now resting at this time continues on ventilator. Patient had several episodes of restlessness, throwing rt arm up and down, facial grimacing throughout shift and sedation medications needed titrated up several times. Patient seems to be at theraputic range at this time. Patient continues on IV atb therapy no adverse drug reactions noted. Reviewed poc and d/c goals. No new c/o
[2024-06-04 07:35] LABS: Basophils # 0.1 K/mm3 (0-0.2); Basophils % 0.9 % (0.1-2.0); Eosinophils # 0.1 K/mm3 (0.0-0.4); Eosinophils % 1.7 % (0.1-12.0); Hematocrit 30.4 % (37.0-47.0); Hemoglobin 9.9 g/dL (12.2-16.2); Lymphocytes # 1.5 K/mm3 (0.7-4.5); Lymphocytes % 17.2 % (10-50); Mean Corpuscular HGB Conc 32.6 g/dL (31.8-35.4); Mean Corpuscular Hemoglobin 29.4 pg (27.0-31.2); Mean Corpuscular Volume 90.2 fl (81-99); Monocytes # 0.4 K/mm3 (0.1-1.0); Monocytes % 4.3 % (1.7-9.3); Neutrophils # 6.5 K/mm3 (1.8-7.8); Neutrophils % 75.9 % (37.0-80.0); Platelet Count 141 K/mm3 (142-424); Red Blood Count 3.37 M/mm3 (4.20-5.40); Red Cell Distribution Width 14.7 % (11.5-17.5); White Blood Count 8.6 K/mm3 (4.8-10.8)
[2024-06-04 07:48] LABS: Albumin Level 2.5 g/dl (3.5-5.0); Chloride 110 mmol/L (98-107); Potassium 3.4 mmoL/L (3.5-5.1); Sodium 140 mmol/L (136-145)
[2024-06-04 07:51] LABS: Alanine Aminotransferase 58 U/L (12-78); Albumin/Globulin Ratio 0.8 (1.1-1.8); Alkaline Phosphatase 129 U/L (38-126); Anion Gap 6.4 mEq/L (5-15); Aspartate Amino Transferase 43 U/L (14-36); Bilirubin,Total 0.9 mg/dl (0.2-1.3); Blood Urea Nitrogen 21 mg/dl (7-17); Carbon Dioxide 27 mmol/L (22.0-30.0); Creatinine Clearance Estimated 185 mL/min (50-200); Estimated Glomerular Filt Rate 166 ml/min (>60); GFR (African American) 201 ML/MIN (>60); Globulin 3.1 g/dL (1.3-3.2); Total Protein,Serum 5.6 g/dl (6.3-8.2)
[2024-06-04 07:52] LABS: Calcium 7.7 mg/dl (8.4-10.2); Glucose 140 mg/dl (74-100)
--- NOTE | 2024-06-04 08:14 | PC.WOUNDNOTE ---
Skin assessment at start of shift
[2024-06-04 08:31] LABS: Magnesium 1.9 mg/dl (1.6-2.3); Phosphorous 2.7 mg/dl (2.5-4.5)
[2024-06-04 08:49] LABS: Procalcitonin 6.16 ng/mL (0.0-2.0)
[2024-06-04] MEDS: FAMOTIDINE 20MG/2ML VIAL 20 MG IV ×2 (08:51→21:51)
[2024-06-04] MEDS: SODIUM CHLORIDE 0.9% 10ML VIAL 8 ML IV (08:51)
[2024-06-04] MEDS: QUETIAPINE 100MG TABLET 50 MG PO ×2 (08:51→21:52)
--- NOTE | 2024-06-04 10:05 | XR_ITS ---
PROCEDURE INFORMATION: Exam: XR Chest Exam date and time: 06/04/2024 10:07 AM Age: 53 years old Clinical indication: Device placement; Other: Midline; Additional info: Verify ett/ng & midline placement. Intubated TECHNIQUE: Imaging protocol: Radiologic exam of the chest. Views: 1 view. COMPARISON: CR (CHEST, CXR AP LANDSCAPE) 06/04/2024 9:56 AM FINDINGS: Tubes, catheters and devices: The ET tube ends 5 cm above the jay. The NG tube ends in the stomach. Lungs: Bibasilar opacities likely representing atelectasis or infection are stable. Patchy opacities in the left upper lobe are stable since the prior study. Pleural spaces: Small bilateral pleural effusions are stable. Heart/Mediastinum: Unremarkable. No cardiomegaly. Bones/joints: Unremarkable. IMPRESSION: 1. Bibasilar opacities likely representing atelectasis or infection are stable. Patchy opacities in the left upper lobe are stable since the prior study. 2. Small bilateral pleural effusions are stable. 3. The ET tube ends 5 cm above the jay. The NG tube ends in the stomach.
[2024-06-04] MEDS: propofoL 100 ML 22.05 MG IV ×4 (10:47→23:01)
--- NOTE | 2024-06-04 11:38 | PC.NURSE ---
Midline insertion start at 0923
--- NOTE | 2024-06-04 11:39 | PC.NURSE ---
Addendum entered by Yanni Jackson RN 06/04/24 12:20: 1208 SBT ended. pt noted to have rr in the upper 50's, with o2 sat in the 70's. sats/rr unchanged with suctioning. hr 105 Original Note: 1128 SBT started by Diya in [place]
[2024-06-04 12:30] LABS: POC Glucose,Bedside 120 (70-110)
[2024-06-04] MEDS: POTASSIUM CHLORIDE 20MEQ/15ML UDC 40 MEQ NG-TUBE ×2 (12:37→14:49)
--- NOTE | 2024-06-04 13:44 | P.PN_ITS ---
Subjective *Date: 06/04/24 *Time: 17:13 Interval history: Did well overnight. Blood pressure better today. Attempt SBT this morning. No nausea or vomiting. Having bowel movements. Evaluated wound on bottom today, has developed decubitus wound. Blood sugar stable. Electrolytes look good today. Overall showing improvement. On minimal vent settings. Afebrile Medical Exam Vital signs and Labs for Last 24 Hours: Vital Signs Temp Pulse Pulse Resp BP Pulse Ox O2 Del Method 06/04/24 13:00 95 H 23 135/60 99 Mechanical Ventilation 06/04/24 13:00 Mechanical Ventilation 06/04/24 12:30 97 H 38 H 130/61 95 Mechanical Ventilation 06/04/24 12:07 30 H 06/04/24 12:00 100 H 06/04/24 12:00 101 H 56 H 148/69 H 95 Mechanical Ventilation 06/04/24 11:50 99.3 F 06/04/24 11:30 95 H 20 131/68 100 Mechanical Ventilation 06/04/24 11:17 43 H 06/04/24 11:00 94 H 20 133/65 100 Mechanical Ventilation 06/04/24 11:00 Mechanical Ventilation 06/04/24 10:55 92 H 06/04/24 10:55 91 H 06/04/24 10:30 87 24 129/65 100 Mechanical Ventilation 06/04/24 10:00 88 24 117/58 L 100 Mechanical Ventilation 06/04/24 09:30 89 24 106/52 L 98 Mechanical Ventilation 06/04/24 09:00 92 H 22 136/67 100 Mechanical Ventilation 06/04/24 09:00 Mechanical Ventilation 06/04/24 08:30 86 20 129/64 100 Mechanical Ventilation 06/04/24 08:00 90 06/04/24 08:00 88 21 140/66 100 Mechanical Ventilation 06/04/24 08:00 88 100 Mechanical Ventilation 06/04/24 07:30 99.5 F 85 20 137/77 98 Mechanical Ventilation 06/04/24 07:00 86 20 146/74 H 98 Room Air 06/04/24 06:39 Mechanical Ventilation 06/04/24 06:00 82 20 136/70 100 Mechanical Ventilation 06/04/24 05:52 81 06/04/24 05:52 83 06/04/24 05:52 20 06/04/24 05:21 99.0 F 06/04/24 04:48 Mechanical Ventilation 06/04/24 04:00 95 H 06/04/24 04:00 Mechanical Ventilation 06/04/24 04:00 100.4 F H 81 26 H 133/84 97 Mechanical Ventilation 06/04/24 03:00 95 H 22 125/70 100 Mechanical Ventilation 06/04/24 03:00 Mechanical Ventilation 06/04/24 03:00 96 H 25 H 125/70 100 Mechanical Ventilation 06/04/24 03:00 Mechanical Ventilation 06/04/24 02:00 97 H 22 128/67 100 Mechanical Ventilation 06/04/24 01:37 24 99 06/04/24 01:00 90 22 122/61 100 Mechanical Ventilation 06/04/24 01:00 Mechanical Ventilation 06/04/24 00:17 22 100 06/04/24 00:14 21 06/04/24 00:13 73 06/04/24 00:12 75 06/04/24 00:00 84 06/04/24 00:00 98.9 F 87 22 142/76 H 100 Mechanical Ventilation 06/03/24 23:59 100 Mechanical Ventilation 06/03/24 23:00 98 H 20 100/47 L Mechanical Ventilation 06/03/24 23:00 Mechanical Ventilation 06/03/24 22:15 26 H 100 06/03/24 22:00 93 H 22 109/52 L Mechanical Ventilation 06/03/24 21:00 91 H 20 121/64 Mechanical Ventilation 06/03/24 21:00 Mechanical Ventilation 06/03/24 20:05 24 100 06/03/24 20:00 95 H 06/03/24 20:00 Mechanical Ventilation 06/03/24 20:00 99.4 F 93 H 23 120/65 Mechanical Ventilation 06/03/24 19:20 89 25 H 126/74 100 Mechanical Ventilation 06/03/24 19:20 20 06/03/24 19:08 75 06/03/24 19:07 74 06/03/24 18:54 Mechanical Ventilation 06/03/24 18:30 83 20 111/59 L 100 Mechanical Ventilation 06/03/24 18:00 90 22 118/69 100 Mechanical Ventilation 06/03/24 17:06 86 23 130/77 100 Mechanical Ventilation 06/03/24 17:06 Mechanical Ventilation 06/03/24 16:30 84 21 102/59 L 100 Mechanical Ventilation 06/03/24 16:00 99.8 F H 06/03/24 16:00 80 06/03/24 16:00 06/03/24 16:00 83 20 109/57 L 100 Mechanical Ventilation 06/03/24 15:39 83 100 Mechanical Ventilation 06/03/24 15:30 84 21 114/67 100 Mechanical Ventilation 06/03/24 15:00 86 21 112/64 100 Mechanical Ventilation 06/03/24 14:54 Mechanical Ventilation 06/03/24 14:32 25 H 100 06/03/24 14:30 88 24 113/63 100 Mechanical Ventilation 06/03/24 14:00 94 H 21 104/57 L 100 Mechanical Ventilation FiO2 06/04/24 13:00 30 06/04/24 13:00 06/04/24 12:30 30 06/04/24 12:07 30 06/04/24 12:00 06/04/24 12:00 30 06/04/24 11:50 06/04/24 11:30 30 06/04/24 11:17 06/04/24 11:00 30 06/04/24 11:00 06/04/24 10:55 06/04/24 10:55 06/04/24 10:30 30 06/04/24 10:00 30 06/04/24 09:30 30 06/04/24 09:00 30 06/04/24 09:00 06/04/24 08:30 30 06/04/24 08:00 06/04/24 08:00 30 06/04/24 08:00 30 06/04/24 07:30 30 06/04/24 07:00 30 06/04/24 06:39 06/04/24 06:00 06/04/24 05:52 06/04/24 05:52 06/04/24 05:52 30 06/04/24 05:21 06/04/24 04:48 06/04/24 04:00 06/04/24 04:00 06/04/24 04:00 30 06/04/24 03:00 06/04/24 03:00 06/04/24 03:00 30 06/04/24 03:00 06/04/24 02:00 06/04/24 01:37 30 06/04/24 01:00 06/04/24 01:00 06/04/24 00:17 30 06/04/24 00:14 30 06/04/24 00:13 06/04/24 00:12 06/04/24 00:00 06/04/24 00:00 06/03/24 23:59 06/03/24 23:00 06/03/24 23:00 06/03/24 22:15 30 06/03/24 22:00 06/03/24 21:00 06/03/24 21:00 06/03/24 20:05 30 06/03/24 20:00 06/03/24 20:00 30 06/03/24 20:00 30 06/03/24 19:20 30 06/03/24 19:20 30 06/03/24 19:08 06/03/24 19:07 06/03/24 18:54 06/03/24 18:30 30 06/03/24 18:00 30 06/03/24 17:06 30 06/03/24 17:06 06/03/24 16:30 30 06/03/24 16:00 06/03/24 16:00 06/03/24 16:00 30 06/03/24 16:00 30 06/03/24 15:39 30 06/03/24 15:30 30 06/03/24 15:00 30 06/03/24 14:54 06/03/24 14:32 30 06/03/24 14:30 50 06/03/24 14:00 50 Intake and Output 06/03/24 06/04/24 06/04/24 23:59 07:59 15:59 Intake Total 847.215 / 2884.221 890.500 / 1540.130 649.630 / 1540.130 Output Total 290 / 945 290 / 531 241 / 531 Balance 557.215 / 1939.221 600.500 / 1009.130 408.630 / 1009.130 Intake: Intake, Tube Feeding Amount 191 / 523 452 / 554 102 / 554 Intake, Tube Irrigant Amount 120 / 440 180 / 560 380 / 560 Intake, Total IV Amount 536.215 / 1921.221 258.500 / 426.130 167.630 / 426.130 Cefepime HCl 2 gm In 0.9 % 100 / 300 Sodium Chloride 100 ml @ 200 mls/hr IV Q8H [facility], [facility] Rx#:[id number] Potassium Phosphate 9 mmol In 0 349 / 349 .9 % Sodium Chloride 250 ml @ 63.25 mls/hr IV ONCE ONE Rx#: [id number] Output: Output, Urine Amount 130 / 530 241 / 241 Output, Urine Amount (Catheter) 160 / 415 290 / 290 Barrett 160 / 415 290 / 290 Other: Number of Unmeasured Voids 0 0 0 Number of Bowel Movements 1 1 Weight 73.057 kg Patient Weight 06/04/24 23:59 Weight 73.057 kg Laboratory Results - last 24 hr 06/03/24 23:22: POC Glucose 104 06/04/24 05:54: POC Glucose 124 H 06/04/24 06:54: WBC 8.6, RBC 3.37 L, Hgb 9.9 L, Hct 30.4 L, MCV 90.2, MCH 29.4, MCHC 32.6, RDW 14.7, Plt Count 141 L, MPV 10.0, Neut % (Auto) 75.9, Lymph % (Auto) 17.2, [place] % (Auto) 4.3, Eos % (Auto) 1.7, Baso % (Auto) 0.9, Neut # (Auto) 6.5, Lymph # (Auto) 1.5, [place] # (Auto) 0.4, Eos # (Auto) 0.1, Baso # (Auto) 0.1, Sodium 140, Potassium 3.4 L, Chloride 110 H, Carbon Dioxide 27, Anion Gap 6.4, BUN 21 H, Creatinine 0.40 L, Estimated Creat Clear 185, Estimated GFR 166, Est GFR ( Amer) 201, Glucose 140 H, Calcium 7.7 L, Phosphorus 2.7, Magnesium 1.9, Total Bilirubin 0.9, AST 43 H D, ALT 58 D, Alkaline Phosphatase 129 H, Total Protein 5.6 L, Albumin 2.5 L D, Globulin 3.1, Albumin/Globulin Ratio 0.8 L, Procalcitonin 6.16 H 06/04/24 11:58: POC Glucose 120 H I & O for Labs for Last 24 Hours: Intake & Output 06/01/24 06/02/24 06/03/24 06/04/24 23:59 23:59 23:59 23:59 Intake Total 2200.676 / 2200.676 1692.024 / 0579.093 5548.221 / 2884.221 1540.130 / 1540.130 Output Total 1837 / 1837 1655 / 1690 910 / 945 531 / 531 Balance 363.676 / 363.676 37.024 / 913.728 2251.221 / 2251.909 2128.130 / 1009.130 Weight 61.49 kg 60.49 kg 73.057 kg 73.057 kg Microbiology Reports for the Last 24 Hours: Microbiology 05/31/24 Unknown Bronchial Washings - Right Lower Lobe Gram Stain - Final 05/31/24 Unknown Bronchial Washings - Right Lower Lobe Bronchoalveolar Lavage Culture - Final 05/31/24 12:30 Nose - Nasal MRSA Culture - Final Constitutional: Present no acute distress, average body habitus, chronically ill appearing and somnolent Head: Present atraumatic and normocephalic ENT: Present normal exam Respiratory: Present patient mechanically ventilated, rhonchi and crackles; Absent wheezes Cardiac: Present Reg Rate and Rhythm GI: Present soft and normal bowel sounds; Absent distention or tenderness Comments:: Stage I wound over sacrum Extremities: Present normal inspection and full ROM; Absent tenderness Skin: Present intact; Absent erythema Neuro: Present moves all extremities; Absent Grossly Intact, alert, awake or oriented x 3 Comment:: Sedated Assessment and Plan *Assessment and plan (1) Septic shock: Status: Acute Category: Medical Code(s): A41.9 - Sepsis, unspecified organism; R65.21 - Severe sepsis with septic shock (2) Streptococcal bacteremia: Status: Acute Category: Medical Code(s): R78.81 - Bacteremia; B95.5 - Unspecified streptococcus as the cause of diseases classified elsewhere (3) Acute respiratory failure with hypoxia: Status: Acute Category: Medical Code(s): J96.01 - Acute respiratory failure with hypoxia (4) Non-STEMI (non-ST elevated myocardial infarction): Status: Acute Category: Medical Code(s): I21.4 - Non-ST elevation (NSTEMI) myocardial infarction (5) Pneumonia: Status: Acute Qualifiers: Laterality: bilateral Lung location: lower lobe of lung Pneumonia type: due to Pneumococcus Qualified Code(s): J13 - Pneumonia due to Streptococcus pneumoniae Category: Medical Code(s): J18.9 - Pneumonia, unspecified organism (6) Pleural effusion associated with pulmonary infection: Status: Acute Category: Medical Code(s): J18.9 - Pneumonia, unspecified organism; J91.8 - Pleural effusion in other conditions classified elsewhere Plan Patient is a 53-year-old female with past medical history of smoking, marijuana use, prediabetes, depression who presents to the hospital due to shortness of breath, cough. According to patient she also has associated chest pain with shortness of breath, has phlegm production along with a cough. She also mentions she has subjective fevers and chills. She denies sick contacts. She mentions she feels chest pain especially with deep breathing. On further evaluation patient was found to have hypoxia, hyponatremia, hypokalemia as well as right lower lobe consolidation. PSI/port score of 114 on presentation. Class IV risk. Patient showing some improvement. Continues to be intubated. SBT trial daily, continue ICU level care. Pulmonology and cardiology assisting with care. Problems addressed as follows: Septic shock Bilateral pneumonia, dense right consolidation Streptococcal pneumonia bacteremia, likely cause of her pneumonia. Acute hypoxic respiratory failure satting less than 90% on room air Sepsis present on admission due to pneumonia and bacteremia -Continues to require ICU level care. -SBT daily. Will hold clonidine due to soft blood pressures. Continue Seroquel 50 mg twice daily however for agitation. - Continue ventilator support with PEEP of 5, tidal volume 440, FiO2 30%. Respiratory rate 20. -Chest x-ray personally reviewed showing stable bibasilar opacities. Effusion still present. ET and NG tube in appropriate place. -DuoNebs every 6 hours -Midline placed today. -Hold diuretics today, will administer Lasix 40 mg IV once tomorrow prior to SBT -continue cefepime 2 g every 8 hours -White count normalized at 8.6. Procalcitonin continues to improve, 6 today. Kidney function continues to improve, BUN 21, creatinine 0.4, phosphorus 2.7 -Potassium 3.4. Magnesium 1.9. - Repeat CBC, CMP, magnesium, procalcitonin, and phosphorus ordered for the mo rning. Anemia stable with hemoglobin 10 Continue tube feed, nutrition consulted to assist Sinus tachycardia: Improving, metoprolol tartrate 5 mg IV every 6 hours as needed for heart rate greater than 120 NSTEMI - SEBASTIAN performed. No vegetations identified. At this time, no indication of endocarditis. Discussed case with cardiology, patient status post left heart cath with normal coronaries. EF approximately 40%. Secondary to stress of acute illness and sepsis Diabetes: On metformin at home. A1c normal at 5.6. continue sliding scale insulin and fingersticks ACHS. DVT prophylaxis-heparin Full code ICU/Critical care attestation This patient is critically ill with 35 minutes devoted solely to this patient managing life/organ supporting interventions that required physician assessment. This includes time spent making adjustments in ventilator settings, IV fluid administration, titration of pressors, adjustments of medications, discussion of patient with consultants and other care providers as well as updating patient and/or family (if patient by virtue of his/her condition is unable to participate in decision making). This does not include time spent performing separately billed procedures. Time is not concurrent with that of other providers.
[2024-06-04 18:00] LABS: POC Glucose,Bedside 116 (70-110)
[2024-06-05] VITALS (33 sets, daily range): BP systolic 90–184; BP diastolic 58–90; PULSE 77–111; RESP 20–54; TEMP 36.9–37.8; O2SAT 91–100; BMI 27.5
[2024-06-05 00:15] LABS: POC Glucose,Bedside 107 (70-110)
[2024-06-05] MEDS: IPRATROPIUM/ALBUTEROL 3 ML NEB IH ×5 (00:52→23:47)
[2024-06-05] MEDS: propofoL 100 ML 22.05 MG IV (03:37)
--- NOTE | 2024-06-05 04:40 | PC.NURSE ---
Patient remains on mechanical vent at this time, rested throughout shift, significant other at bedside. Staff provided total care throughout the shift, turned and repositioned every 2 hrs and PRN. POC reviewed, no new c/o.
[2024-06-05] MEDS: OXYCODONE 5MG IMMEDIATE RELEASE TABLET 5 MG PO ×3 (05:04→17:20)
[2024-06-05] MEDS: CEFEPIME HCL 2 GM in 0.9 % SODIUM CHLORIDE 100 ML IV ×3 (05:04→21:26)
[2024-06-05] MEDS: HEPARIN SODIUM 5,000 UNIT/ML VIAL 5000 UNIT SUBCUT ×3 (05:04→21:26)
[2024-06-05 05:31] LABS: POC Glucose,Bedside 98 (70-110)
[2024-06-05 06:17] LABS: Basophils # 0.1 K/mm3 (0-0.2); Eosinophils # 0.2 K/mm3 (0.0-0.4); Hematocrit 30.4 % (37.0-47.0); Hemoglobin 10.1 g/dL (12.2-16.2); Lymphocytes # 1.2 K/mm3 (0.7-4.5); Lymphocytes % 16.6 % (10-50); Mean Corpuscular HGB Conc 33.3 g/dL (31.8-35.4); Mean Corpuscular Hemoglobin 30.3 pg (27.0-31.2); Mean Corpuscular Volume 90.9 fl (81-99); Mean Platelet Volume 10.2 fl (7.4-10.4); Monocytes # 0.3 K/mm3 (0.1-1.0); Monocytes % 4.2 % (1.7-9.3); Neutrophils # 5.7 K/mm3 (1.8-7.8); Neutrophils % 76.2 % (37.0-80.0); Platelet Count 166 K/mm3 (142-424); Red Blood Count 3.35 M/mm3 (4.20-5.40); White Blood Count 7.5 K/mm3 (4.8-10.8)
[2024-06-05 06:27] LABS: Magnesium 1.7 mg/dl (1.6-2.3)
[2024-06-05 06:31] LABS: Alanine Aminotransferase 43 U/L (12-78); Albumin Level 2.4 g/dl (3.5-5.0); Albumin/Globulin Ratio 0.8 (1.1-1.8); Alkaline Phosphatase 126 U/L (38-126); Anion Gap 8.2 mEq/L (5-15); Aspartate Amino Transferase 35 U/L (14-36); Bilirubin,Total 0.7 mg/dl (0.2-1.3); Blood Urea Nitrogen 15 mg/dl (7-17); Calcium 7.8 mg/dl (8.4-10.2); Carbon Dioxide 24 mmol/L (22.0-30.0); Chloride 111 mmol/L (98-107); Creatinine Clearance Estimated 247 mL/min (50-200); Estimated Glomerular Filt Rate 232 ml/min (>60); GFR (African American) 281 ML/MIN (>60); Globulin 2.9 g/dL (1.3-3.2); Glucose 95 mg/dl (74-100); Potassium 4.2 mmoL/L (3.5-5.1); Sodium 139 mmol/L (136-145); Total Protein,Serum 5.3 g/dl (6.3-8.2)
[2024-06-05 06:44] LABS: Procalcitonin 3.07 ng/mL (0.0-2.0)
[2024-06-05] MEDS: FENTANYL CITRATE/PF 1,000 MCG in 0.9 % SODIUM CHLORIDE 80 ML 12 MCG IV (07:21)
[2024-06-05] MEDS: propofoL 100 ML 33.07 MG IV (07:23)
[2024-06-05] MEDS: QUETIAPINE 100MG TABLET 50 MG PO ×2 (08:59→21:25)
[2024-06-05] MEDS: DOCUSATE SODIUM 10 ML/UDC UDC PO (09:00)
[2024-06-05] MEDS: FAMOTIDINE 20MG/2ML VIAL 20 MG IV ×2 (09:00→21:25)
[2024-06-05] MEDS: SENNA 8.6MG TABLET 8.6 MG PO (09:00)
[2024-06-05] MEDS: FUROSEMIDE 40MG/4ML VIAL 40 MG IV (09:00)
[2024-06-05] MEDS: FENTANYL 12.5MCG/0.25ML 12.5 MCG IV (09:37)
--- NOTE | 2024-06-05 09:43 | EXP.PULM.PN ---
Subjective *Date: 06/05/24 *Time: 10:44 Interval history: No acute respiratory events overnight. Pulmonology Exam Inpatient Vital signs and Labs for Last 24 Hours: Temp Pulse Resp BP Pulse Ox O2 Del Method O2 Flow Rate 98.4 F 92 H 54 H 171/86 H 98 Mechanical Ventilation 96 06/05/24 08:00 06/05/24 07:00 06/05/24 09:34 06/05/24 07:00 06/05/24 09:34 06/05/24 08:00 06/04/24 13:00 FiO2 30 06/05/24 09:34 Laboratory Results - last 24 hr 06/04/24 11:58: POC Glucose 120 H 06/04/24 17:50: POC Glucose 116 H 06/05/24 00:06: POC Glucose 107 06/05/24 05:22: WBC 7.5, RBC 3.35 L, Hgb 10.1 L, Hct 30.4 L, MCV 90.9, MCH 30.3, MCHC 33.3, RDW 15.0, Plt Count 166, MPV 10.2, Neut % (Auto) 76.2, Lymph % (Auto) 16.6, [place] % (Auto) 4.2, Eos % (Auto) 2.0, Baso % (Auto) 1.0, Neut # (Auto) 5.7, Lymph # (Auto) 1.2, [place] # (Auto) 0.3, Eos # (Auto) 0.2, Baso # (Auto) 0.1, Sodium 139, Potassium 4.2 D, Chloride 111 H, Carbon Dioxide 24, Anion Gap 8.2, BUN 15 D, Creatinine 0.30 L D, Estimated Creat Clear 247, Estimated GFR 232, Est GFR ( Amer) 281 D, Glucose 95 D, Calcium 7.8 L, Phosphorus 3.0, Magnesium 1.7 D, Total Bilirubin 0.7, AST 35, ALT 43 D, Alkaline Phosphatase 126, Total Protein 5.3 L, Albumin 2.4 L, Globulin 2.9, Albumin/Globulin Ratio 0.8 L, Procalcitonin 3.07 H 06/05/24 05:23: POC Glucose 98 I & O for Labs for Last 24 Hours: Intake & Output 06/02/24 06/03/24 06/04/24 06/05/24 23:59 23:59 23:59 23:59 Intake Total 1692.024 / 3596.979 9729.221 / 2884.221 2641.999 / 2969.999 600.118 / 600.118 Output Total 1655 / 1690 910 / 945 1001 / 1051 720 / 720 Balance 37.024 / 869.153 7074.221 / 9064.289 9365.999 / 1918.999 -119.882 / -119.882 Weight 133 lb 5.722 oz 161 lb 1 oz 161 lb 1.01 oz 161 lb 1.01 oz Microbiology Reports for the Last 24 Hours: Microbiology 05/31/24 Unknown Blood Blood Culture - Preliminary NO GROWTH AFTER 4 DAYS 05/31/24 Unknown Blood Blood Culture - Preliminary NO GROWTH AFTER 4 DAYS 05/31/24 Unknown Bronchial Washings - Right Lower Lobe Gram Stain - Final 05/31/24 Unknown Bronchial Washings - Right Lower Lobe Bronchoalveolar Lavage Culture - Final Constitutional: Present severe distress Head: Present normocephalic and atraumatic ENT: Present normal exam, normal oropharynx and mucous membranes moist Neck: Present normal inspection and full ROM Respiratory: Present respiratory distress, rhonchi, diminished air movement and able to speak in complete sentences; Absent wheezes Cardiac: Present S1/S2, Tachycardia and radial pulses present GI: Present soft and distention; Absent tenderness or guarding Rectal (female): Present deferred (female): Present deferred Skin: Present intact; Absent cyanosis or jaundice Neuro: Present awake; Absent alert or oriented x 3 Extremities: Present normal inspection; Absent clubbing or cyanosis Assessment and Plan *Assessment and plan (1) Acute respiratory failure with hypoxia: Status: Acute Category: Medical Code(s): J96.01 - Acute respiratory failure with hypoxia (2) Pneumonia: Status: Acute Qualifiers: Laterality: bilateral Lung location: lower lobe of lung Pneumonia type: due to Pneumococcus Qualified Code(s): J13 - Pneumonia due to Streptococcus pneumoniae Category: Medical Code(s): J18.9 - Pneumonia, unspecified organism (3) Lactic acidosis: Status: Acute Category: Medical Code(s): E87.20 - Acidosis, unspecified (4) Septic shock: Status: Acute Category: Medical Code(s): A41.9 - Sepsis, unspecified organism; R65.21 - Severe sepsis with septic shock (5) Streptococcal bacteremia: Status: Acute Category: Medical Code(s): R78.81 - Bacteremia; B95.5 - Unspecified streptococcus as the cause of diseases classified elsewhere Plan Ms. Mckeon is a 53-year-old female with reported history of tobacco abuse presented today with worsening respiratory status and shortness of breath and pulmonary was consulted for further evaluation and management. Patient appeared lethargic, still arousable to verbal commands and responding appropriately Leukopenia with lymphopenia upon admission. CTA upon admission dense lobar consolidative changes in the right lower lobe along with consolidative changes in the right upper lobe and left lower lobe. COVID-19 and flu PCR panel negative. No recent prior imaging available for comparison. On initial examination patient appeared to be in severe respiratory distress. Saturating 95% on 3 L nasal cannula. VBG from this morning did not show any evidence of hypercarbic respiratory failure. VBG upon admission showed tachypnea and hypercarbia. Echo EF 35 to 40%. SEBASTIAN negative for vegetations. Repeat blood cultures negative. Interval update: No acute respiratory vents over the weekend. Chest x-ray improving pneumonia. Worsening effusions. Afebrile. Hemodynamically stable. Improving leukocytosis. Chest x-ray from this morning reviewed, improving airspace disease. Continue to show effusions. Plan: Continue sedation with propofol and fentanyl. Wean sedation to perform SBT. Clonidine 0.1 mg 3 times daily Seroquel 50 mg twice daily Continue mechanical ventilatory support and PEEP of 5 tidal volume of 440 FiO2 of 30% and respiratory rate of 20. Continue cefepime x 14 days Repeat blood cultures negative DuoNebs every 6 hours scheduled Hemodynamically stable. Off pressors. MAP greater than 65. Continue cefepime. Lasix 40 mg IV once. Abdomen soft nondistended. Continue tube feeds. Adequate urine output. BUN/creatinine within normal limits. - Continue mechanical ventilatory support - Continue AnalgoSedation with Propofol and Fentanyl with CPOT gal less than or euqal to 2 and RASS goal of to 2 (No need for deep sedation) - VAP bundle Recommend elevate head of the bed at 30 to 45 degrees Recommend oral care with chlorhexidne Recommend GI ulcer prophylaxis - Famotidine 20mg IV BID Recommend chemical DVT prophylaxis Total critical care time spent on this patient is 35 minutes managing acute hypoxic respiratory failure needing mechanical ventilation. This time spent include reviewing test results including interpreting chest x-rays, labs, optimizing the ventilator settings,formulating plan of care, discussing the plan of care with the team and the nursing staff.
--- NOTE | 2024-06-05 09:44 | XR_ITS ---
FINAL REPORT CLINICAL HISTORY: PNM COMPARISON: 06/04/2024 FINDINGS: A single portable view of the chest was obtained. The heart size is enlarged. An endotracheal tube and nasogastric tube are present. The pulmonary vascularity is within normal limits. The mediastinum is within normal limits. There are persistent but partially improved pulmonary opacities consistent with partially improved pneumonia. The bony thorax is intact. IMPRESSION: Findings consistent with partially improved pneumonia. Reviewed, Interpreted and Dictated by Robert Olivarez III, MD Transcribed by [place] Authenticated and [facility]
[2024-06-05] MEDS: cloNIDine 0.1MG TABLET 0.1 MG PO ×2 (10:13→18:00)
--- NOTE | 2024-06-05 10:37 | P.PN_ITS ---
Subjective Subjective Date: 06/05/24 Time: 09:30 Principal diagnosis: Resp Failure, [place] Interval history: The patient remains intubated and on the ventilator this morning. She is on a spontaneous breathing trial. Her vital signs are stable. She is awake on the ventilator and appears to be in no distress. Exam Data for Last 24 hours Vital signs and Labs for Last 24 Hours: Temp Pulse Resp BP Pulse Ox O2 Del Method O2 Flow Rate 98.4 F 92 H 54 H 171/86 H 98 Mechanical Ventilation 96 06/05/24 08:00 06/05/24 07:00 06/05/24 09:34 06/05/24 07:00 06/05/24 09:34 06/05/24 08:00 06/04/24 13:00 FiO2 30 06/05/24 09:34 Laboratory Results - last 24 hr 06/04/24 11:58: POC Glucose 120 H 06/04/24 17:50: POC Glucose 116 H 06/05/24 00:06: POC Glucose 107 06/05/24 05:22: WBC 7.5, RBC 3.35 L, Hgb 10.1 L, Hct 30.4 L, MCV 90.9, MCH 30.3, MCHC 33.3, RDW 15.0, Plt Count 166, MPV 10.2, Neut % (Auto) 76.2, Lymph % (Auto) 16.6, [place] % (Auto) 4.2, Eos % (Auto) 2.0, Baso % (Auto) 1.0, Neut # (Auto) 5.7, Lymph # (Auto) 1.2, [place] # (Auto) 0.3, Eos # (Auto) 0.2, Baso # (Auto) 0.1, Sodium 139, Potassium 4.2 D, Chloride 111 H, Carbon Dioxide 24, Anion Gap 8.2, BUN 15 D, Creatinine 0.30 L D, Estimated Creat Clear 247, Estimated GFR 232, Est GFR ( Amer) 281 D, Glucose 95 D, Calcium 7.8 L, Phosphorus 3.0, Magnesium 1.7 D, Total Bilirubin 0.7, AST 35, ALT 43 D, Alkaline Phosphatase 126, Total Protein 5.3 L, Albumin 2.4 L, Globulin 2.9, Albumin/Globulin Ratio 0.8 L, Procalcitonin 3.07 H 06/05/24 05:23: POC Glucose 98 I & O for Last 24 hours: Intake & Output 06/02/24 06/03/24 06/04/24 06/05/24 23:59 23:59 23:59 23:59 Intake Total 1692.024 / 1912.720 8649.221 / 2884.221 2641.999 / 2969.999 600.118 / 600.118 Output Total 1655 / 1690 910 / 945 1001 / 1051 720 / 720 Balance 37.024 / 356.313 9737.221 / 7566.866 7709.999 / 1918.999 -119.882 / - 119.882 Weight 133 lb 5.722 oz 161 lb 1 oz 161 lb 1.01 oz 161 lb 1.01 oz Microbiology Reports for the Last 24 Hours: Microbiology 05/31/24 Unknown Blood Blood Culture - Preliminary NO GROWTH AFTER 4 DAYS 05/31/24 Unknown Blood Blood Culture - Preliminary NO GROWTH AFTER 4 DAYS 05/31/24 Unknown Bronchial Washings - Right Lower Lobe Gram Stain - Final 05/31/24 Unknown Bronchial Washings - Right Lower Lobe Bronchoalveolar Lavage Culture - Final Constitutional Constitutional: no acute distress and average body habitus *Routine HEENT Exam Head: Present normocephalic and atraumatic ENT: Present mucous membranes moist *Routine Neck Exam Neck: Present supple and full ROM; Absent JVD, carotid bruit or lymphadenopathy *Routine Respiratory Exam Respiratory: Present patient mechanically ventilated and normal respiratory effo rt *Routine Cardiovascular Exam Cardiovascular: Present RRR, Normal S1 and Normal S2; Absent murmur or gallop *Routine Abdominal Exam Abdominal: Present soft and normoactive bowel sounds; Absent distended or organomegaly *Routine Extremities Exam Extremities: Present pulses intact and normal capillary refill; Absent cyanosis or clubbing *Routine Skin Exam Skin: Present intact and warm; Absent erythema *Routine Neurological Exam Neurological: Present altered mental status Routine Psychiatric Exam Psychiatric: Present unable to assess Progress Note: A&P Assessment and plan (1) Acute respiratory failure with hypoxia: Status: Acute (2) Pneumonia: Status: Acute (3) Lactic acidosis: Status: Acute (4) Septic shock: Status: Acute (5) Streptococcal bacteremia: Status: Acute (6) Cardiomyopathy: Status: Acute (7) HFrEF (heart failure with reduced ejection fraction): Status: Acute Assessment and Plan Assessment and Plan for All Diagnoses:: Plan: 1. The patient was admitted to the hospital with bacteremia and septic shock secondary to strep pneumonia. She had acute respiratory failure with hypoxia requiring intubation and mechanical ventilation. The patient remains on mechanical ventilation this morning. She is on a spontaneous breathing trial. It is very likely that she will be extubated today. Will defer management of this to the hospitalist and pulmonology. 2. The patient did have a non-STEMI with an elevated troponin. Left cardiac catheterization showed normal coronary arteries with an ejection fraction of 35% and LVEDP of 20 mmHg. Echocardiogram and SEBASTIAN showed ejection fraction of 40%. Once the patient has been extubated we will get her started on GDMT for HFrEF. 3. Echocardiogram shows an ejection fraction of 40 to 45%. The patient has normal coronary arteries. Recommend an outpatient cardiac MRI with cardiomyopathy protocol to evaluate for nonischemic etiologies. 4. Her blood pressure is elevated this morning but she is on a spontaneous breathing trial. Will continue to follow her blood pressure. 5. Her LDL goal is less than 100. Will obtain a lipid panel. 6. The patient has had a positive fluid balance daily. Will increase her Lasix to 60 mg IV twice daily for diuresis secondary to her HFrEF. 7. Further recommendations will be made pending the patient's response to treatment. Thank you for the opportunity to help participate in the care of this patient. All recommendations and orders are per Dr. Rogers.
[2024-06-05 10:45] LABS: Lactate Venous 1.1 mmol/L (0.4-2.0); VBG Base Excess 1.6 mmol/L (-2.4-2.3); VBG HCO3 23.9 mmol/L (23-30); VBG Oxygen Saturation 98.3 % (50-70); VBG PCO2 27.5 mmol/L (35-51); VBG PO2 98.9 mmol/L (28-40); VBG Total CO2 24.7 mmol/L (23-27)
[2024-06-05 10:49] LABS: VBG PH 7.56 mmol/L (7.31-7.41)
[2024-06-05] MEDS: MAGNESIUM SULFATE IN WATER 2 GM/50 ML PIGGYBACK IV ×2 (12:15→13:55)
--- NOTE | 2024-06-05 13:16 | DIET.NUTRFU ---
Anticipate extubation today with POT MAKER eval tomorrow for oral diet. Patient tolerated TF over weekend and was able to reach goal rate of 40ml/hr. Urine output 1001ml, labs reviewed: Na 139, K 4.2, BUN 15, Cr 0.30L and glucose 98. She did receive 590kcal via propofol 06/04. Will follow POT MAKER diet recommendations and eval oral intake/need for supplement
--- NOTE | 2024-06-05 13:49 | HMH.OTEV ---
OT Inpatient Evaluation Rehab OT IP Evaluation Start: 06/05/24 08:41 Freq: ONCE Status: Active Protocol: Document 06/05/24 13:40 [email or web address] (Rec: 06/05/24 13:49 MARII [id number]) Rehab OT IP Assessment Subjective History 1. The patient was admitted to the hospital with bacteremia and septic shock secondary to strep pneumonia. She had acute respiratory failure with hypoxia requiring intubation and mechanical ventilation. The patient remains on mechanical ventilation this morning. She is on a spontaneous breathing trial. It is very likely that she will be extubated today. Will defer management of this to the hospitalist and pulmonology. 2. The patient did have a non -STEMI with an elevated troponin. Left cardiac catheterization showed normal coronary arteries with an ejection fraction of 35% and LVEDP of 20 mmHg. Echocardiogram and SEBASTIAN showed ejection fraction of 40%. Once the patient has been extubated we will get her started on GDMT for HFrEF. 3. Echocardiogram shows an ejection fraction of 40 to 45% . The patient has normal coronary arteries. Recommend an outpatient cardiac MRI with cardiomyopathy protocol to evaluate for nonischemic etiologies. 4. Her blood pressure is elevated this morning but she is on a spontaneous breathing trial. Will continue to follow her blood pressure. 5. Her LDL goal is less than 100. Will obtain a lipid panel. 6. The patient has had a positive fluid balance daily. Will increase her Lasix to 60 mg IV twice daily for diuresis secondary to her HFrEF. 7. Further recommendations will be made pending the patient's response to treatment. Thank you for the opportunity to help participate in the care of this patient. All recommendations and orders are per Dr. Rogers. Subjective Instructed Patient on proper hand and foot placement to complete bed mobility from supine->sit @ EOB requiring Mod A. Patient sat up @ EOB ~2 mins with Min A due to fatigue and unsteady sitting balance. Objective Patient Orientation Person,Name,Age,Birthday,Year Right Upper Extremity Gross ROM WFL Left Upper Extremity Gross ROM WFL Bed Mobility bed mobility - supine/sit Assist Level Minimal x 1 (25% assist) Rehab OT IP prob,goals,plan Problems Date of Evaluation: 06/05/24 OT IP Problems Bed Mobility,Transfers,Balance ,Self care,Safety Rehab Potential Rehab Potential Good Equipment Needs Assistive Devices None / NA Plan OT intervention Plan Bed Mobility,Transfers,Balance ,Self care,Safety,Therapeutic Exercise OT Plan Frequency Daily Duration LOS Discharge Goals Bed Mobility Ability Assistance x1 Sit to Stand Chair Transfer Ability Contact Guard/Hand Hold Chair Transfer Ability Contact Guard/Hand Hold Discharge Plan OT Discharge Plan Recommend placement at this time. Patient will require increase amount of assistance to complete ADLs and fx'l mobility tasks. Patient to continue skilled OT services while here at [facility]. Eval Complexity Eval Charge Codes 40470 - Low Complexity PHYSICIAN CERTIFICATION: I certify the specified therapy services for Meryl Mckeon are required, authorized, and reviewed every 30 days.
--- NOTE | 2024-06-05 14:49 | HMH.PTEV ---
Physical Therapy Evaluation Rehab PT IP Evaluation Start: 06/05/24 08:41 Freq: ONCE Status: Active Protocol: Document 06/05/24 14:11 TRISTA (Rec: 06/05/24 14:47 TRISTA [id number]) Subjective/History History History Patient is a 53-year-old female with past medical history of smoking, marijuana use, prediabetes, depression who presents to the hospital due to shortness of breath, cough. Pt was previously independent w/ all ADLs and ambulation. Pt lives at home w / her boyfriend. Pt denies having stairs to enter home. Subjective Subjective Pt presents supine in bed, awake and oriented. Pt c/o abdominal pain and has difficulty w/ breathing. Pt consents to therapy services this afternoon. New diagnosis of cancer in past 12 No months? Rehab PT IP Eval Objective Appearance Patient Behavior Appropriate,Cooperative, Aggressive Patient Orientation Person,Place,Birthday Difficulty following instructions none Speech Pattern Appropriate,Coherent,Soft- Spoken Ambulation Patient Able to Ambulate No Balance Ability to Arise Able, uses arms to help Sitting Balance Steady, safe Dynamic Sitting Balance Ability Fair Transfers Bed Transfer Ability Moderate x 1 (50% assist) Rehab PT IP prob,goals,plan Problems Date of Evaluation: 06/05/24 PT IP Problems Bed Mobility,Transfers,Gait, Balance Rehab Potential Rehab Potential Good Plan PT Intervention Plan Bed Mobility,Transfers,Gait, Balance,Therapeutic Exercise PT Plan Frequency BID Duration LOS Discharge Goals Bed Transfer Ability Minimal x 1 (25% assist) Sit to Stand Chair Transfer Ability Minimal x 2 (25% assist) Ambulation Assistive Device Rolling Walker Ambulation Distance (feet) 10 Discharge Plan PT Discharge Plan Currently, pt is most appropriate for rehab placement once medically stable for d/c. Pt demonstrates mod assist x1 for [id number] transfer and required constant contact guard assist in sitting. Due to patient's c/o pain and difficulty breathing, sit-to- stand transfer and ambulation was not performed or evaluated this date. PT services are indicated to improve bed mobility, transfers, and ambulation. Eval Complexity Eval Charge Codes 32402 - High Complexity PHYSICIAN CERTIFICATION: I certify the specified therapy services for Meryl Mckeon are required, authorized, and reviewed every 30 days.
[2024-06-05] MEDS: FUROSEMIDE 40MG/4ML VIAL 60 MG IV (15:16)
[2024-06-05 17:58] LABS: POC Glucose,Bedside 109 (70-110)
[2024-06-05] MEDS: ACETYLCYSTEINE 20% 4ML VIAL 1 ML IH (18:31)
--- NOTE | 2024-06-05 18:54 | EXP.ACUTE.PN ---
Subjective *Date: 06/05/24 *Time: 18:54 Interval history: Did well with SBT today on rounds. Extubated after rounds. Continues to show daily improvement. Afebrile overnight. No nausea or vomiting. Having multiple bowel movements. Medical Exam Vital signs and Labs for Last 24 Hours: Vital Signs Temp Pulse Pulse Resp BP Pulse Ox O2 Del Method 06/05/24 18:33 Room Air 06/05/24 18:31 90 06/05/24 18:31 93 H 06/05/24 17:00 Room Air 06/05/24 17:00 89 42 H 173/87 H 97 Room Air 06/05/24 16:00 100 H 06/05/24 16:00 Room Air 06/05/24 16:00 97 H 41 H 184/83 H 97 Room Air 06/05/24 15:00 93 H 44 H 90/71 L 93 L Room Air 06/05/24 15:00 Room Air 06/05/24 14:00 104 H 41 H 176/90 H 91 L Room Air 06/05/24 13:37 91 H 06/05/24 13:37 90 06/05/24 13:00 97 H 42 H 172/88 H 98 Nasal Cannula 06/05/24 13:00 Nasal Cannula 06/05/24 12:03 80 06/05/24 12:00 98.6 F 98 H 42 H 162/85 H 97 Nasal Cannula 06/05/24 12:00 Nasal Cannula 06/05/24 11:04 99 Nasal Cannula 06/05/24 11:00 101 H 25 H 176/84 H 98 Nasal Cannula 06/05/24 11:00 Nasal Cannula 06/05/24 10:00 104 H 40 H 171/67 H 93 L Mechanical Ventilation 06/05/24 09:34 54 H 98 06/05/24 09:00 84 20 155/87 H 99 Mechanical Ventilation 06/05/24 09:00 Mechanical Ventilation 06/05/24 08:00 90 06/05/24 08:00 98.4 F 06/05/24 08:00 Mechanical Ventilation 06/05/24 07:00 92 H 26 H 171/86 H Mechanical Ventilation 06/05/24 07:00 Mechanical Ventilation 06/05/24 06:24 108 H 06/05/24 06:24 95 H 06/05/24 06:24 39 H 94 L 06/05/24 06:00 111 H 37 H 157/79 H Mechanical Ventilation 06/05/24 05:00 91 H 27 H 137/72 Mechanical Ventilation 06/05/24 05:00 Mechanical Ventilation 06/05/24 04:00 100.1 F H 06/05/24 04:00 Mechanical Ventilation 06/05/24 04:00 90 06/05/24 04:00 88 23 136/71 99 Mechanical Ventilation 06/05/24 03:50 98 06/05/24 03:00 83 20 112/58 L 97 Mechanical Ventilation 06/05/24 03:00 Mechanical Ventilation 06/05/24 02:24 97 06/05/24 02:00 83 20 118/58 L 99 Mechanical Ventilation 06/05/24 01:00 77 20 138/79 Mechanical Ventilation 06/05/24 01:00 Mechanical Ventilation 06/05/24 00:52 90 06/05/24 00:52 81 06/05/24 00:52 100 06/05/24 00:00 82 06/05/24 00:00 99.5 F 06/05/24 00:00 99.5 F 82 20 137/73 100 Mechanical Ventilation 06/05/24 00:00 Mechanical Ventilation 06/04/24 23:27 98 06/04/24 23:00 88 30 H 144/82 H Mechanical Ventilation 06/04/24 23:00 Mechanical Ventilation 06/04/24 22:00 81 24 123/63 Mechanical Ventilation 06/04/24 21:17 100 06/04/24 21:00 84 22 136/78 Mechanical Ventilation 06/04/24 21:00 Mechanical Ventilation 06/04/24 20:04 100 Mechanical Ventilation 06/04/24 20:00 83 06/04/24 20:00 Mechanical Ventilation 06/04/24 20:00 97.8 F 80 24 100/46 L 100 Mechanical Ventilation 06/04/24 19:00 84 20 106/48 L 97 Mechanical Ventilation O2 Flow Rate FiO2 06/05/24 18:33 06/05/24 18:31 06/05/24 18:31 06/05/24 17:00 06/05/24 17:00 06/05/24 16:00 06/05/24 16:00 06/05/24 16:00 06/05/24 15:00 06/05/24 15:00 06/05/24 14:00 06/05/24 13:37 06/05/24 13:37 06/05/24 13:00 2 06/05/24 13:00 2 06/05/24 12:03 06/05/24 12:00 2 06/05/24 12:00 2 06/05/24 11:04 2 06/05/24 11:00 2 06/05/24 11:00 2 06/05/24 10:00 06/05/24 09:34 30 06/05/24 09:00 06/05/24 09:00 06/05/24 08:00 06/05/24 08:00 06/05/24 08:00 30 06/05/24 07:00 06/05/24 07:00 06/05/24 06:24 06/05/24 06:24 06/05/24 06:24 30 06/05/24 06:00 06/05/24 05:00 06/05/24 05:00 06/05/24 04:00 06/05/24 04:00 30 06/05/24 04:00 06/05/24 04:00 30 06/05/24 03:50 30 06/05/24 03:00 06/05/24 03:00 06/05/24 02:24 30 06/05/24 02:00 06/05/24 01:00 30 06/05/24 01:00 06/05/24 00:52 06/05/24 00:52 06/05/24 00:52 30 06/05/24 00:00 06/05/24 00:00 06/05/24 00:00 30 06/05/24 00:00 30 06/04/24 23:27 30 06/04/24 23:00 06/04/24 23:00 06/04/24 22:00 06/04/24 21:17 30 06/04/24 21:00 06/04/24 21:00 06/04/24 20:04 30 06/04/24 20:00 06/04/24 20:00 30 06/04/24 20:00 06/04/24 19:00 30 Intake and Output 06/05/24 06/05/24 06/05/24 07:59 15:59 23:59 Intake Total 600.118 / 886.651 86.533 / 886.651 200 / 886.651 Output Total 620 / 3545 1775 / 3545 1150 / 3545 Balance -19.882 / -2658.349 -1688.467 / -2658.349 -950 / -2658.349 Intake: Intake, Tube Feeding Amount 208 / 208 Intake, Tube Irrigant Amount 120 / 120 Intake, Total IV Amount 272.118 / 558.651 86.533 / 558.651 200 / 558.651 Cefepime HCl 2 gm In 0.9 % 100 / 100 Sodium Chloride 100 ml @ 200 mls/hr IV Q8H MARIUM Rx#:[id number] Magnesium Sulfate in Water 2 gm 100 / 100 In 50 ml @ 50 mls/hr IV Q1H [facility] Rx#:[id number] Output: Output, Urine Amount 0 / 0 0 / 0 Output, Urine Amount (Catheter) 620 / 3545 1775 / 3545 1150 / 3545 Barrett 620 / 3545 1775 / 3545 1150 / 3545 Other: Number of Voids 0 Number of Unmeasured Voids 0 0 0 Number of Bowel Movements 1 1 Weight 73.057 kg Patient Weight 06/05/24 23:59 Weight 73.057 kg Laboratory Results - last 24 hr 06/05/24 00:06: POC Glucose 107 06/05/24 05:22: WBC 7.5, RBC 3.35 L, Hgb 10.1 L, Hct 30.4 L, MCV 90.9, MCH 30.3, MCHC 33.3, RDW 15.0, Plt Count 166, MPV 10.2, Neut % (Auto) 76.2, Lymph % (Auto) 16.6, [place] % (Auto) 4.2, Eos % (Auto) 2.0, Baso % (Auto) 1.0, Neut # (Auto) 5.7, Lymph # (Auto) 1.2, [place] # (Auto) 0.3, Eos # (Auto) 0.2, Baso # (Auto) 0.1, Sodium 139, Potassium 4.2 D, Chloride 111 H, Carbon Dioxide 24, Anion Gap 8.2, BUN 15 D, Creatinine 0.30 L D, Estimated Creat Clear 247, Estimated GFR 232, Est GFR ( Amer) 281 D, Glucose 95 D, Calcium 7.8 L, Phosphorus 3.0, Magnesium 1.7 D, Total Bilirubin 0.7, AST 35, ALT 43 D, Alkaline Phosphatase 126, Total Protein 5.3 L, Albumin 2.4 L, Globulin 2.9, Albumin/Globulin Ratio 0.8 L, Procalcitonin 3.07 H 06/05/24 05:23: POC Glucose 98 06/05/24 10:24: VBG pH 7.56 H, VBG pCO2 27.5 L, VBG pO2 98.9 H, VBG HCO3 23.9, VBG Total CO2 24.7, VBG O2 Saturation 98.3 H, VBG Base Excess 1.6, VBG Lactic Acid 1.1 06/05/24 12:16: POC Glucose 109 I & O for Labs for Last 24 Hours: Intake & Output 06/02/24 06/03/24 06/04/24 06/05/24 23:59 23:59 23:59 23:59 Intake Total 1692.024 / 7079.593 3714.221 / 2884.221 2641.999 / 2969.999 886.651 / 886.651 Output Total 1655 / 1690 910 / 945 1001 / 1051 3545 / 3545 Balance 37.024 / 991.302 7596.221 / 7409.437 6838.999 / 1918.999 -2658.349 / -2658.349 Weight 60.49 kg 73.057 kg 73.057 kg 73.057 kg Microbiology Reports for the Last 24 Hours: Microbiology 05/31/24 Unknown Blood Blood Culture - Final NO GROWTH AFTER 5 DAYS 05/31/24 Unknown Blood Blood Culture - Final NO GROWTH AFTER 5 DAYS Constitutional: Present no acute distress, average body habitus, chronically ill appearing and cooperative Head: Present atraumatic and normocephalic ENT: Present normal exam Respiratory: Present accessory muscle use, prolonged expiratory phase, rhonchi and crackles; Absent wheezes Cardiac: Present Reg Rate and Rhythm GI: Present soft and normal bowel sounds; Absent distention or tenderness Comments:: Stage I wound over sacrum Extremities: Present normal inspection and full ROM; Absent tenderness Skin: Present intact; Absent erythema Neuro: Present Grossly Intact, alert, awake and moves all extremities Comment:: Weak voice, inability to assess orientation but makes good eye contact and answers questions with hand gestures and nods Assessment and Plan *Assessment and plan (1) Septic shock: Status: Acute Category: Medical Code(s): A41.9 - Sepsis, unspecified organism; R65.21 - Severe sepsis with septic shock (2) Streptococcal bacteremia: Status: Acute Category: Medical Code(s): R78.81 - Bacteremia; B95.5 - Unspecified streptococcus as the cause of diseases classified elsewhere (3) Acute respiratory failure with hypoxia: Status: Acute Category: Medical Code(s): J96.01 - Acute respiratory failure with hypoxia (4) Non-STEMI (non-ST elevated myocardial infarction): Status: Acute Category: Medical Code(s): I21.4 - Non-ST elevation (NSTEMI) myocardial infarction (5) Pneumonia: Status: Acute Qualifiers: Laterality: bilateral Lung location: lower lobe of lung Pneumonia type: due to Pneumococcus Qualified Code(s): J13 - Pneumonia due to Streptococcus pneumoniae Category: Medical Code(s): J18.9 - Pneumonia, unspecified organism (6) Pleural effusion associated with pulmonary infection: Status: Acute Category: Medical Code(s): J18.9 - Pneumonia, unspecified organism; J91.8 - Pleural effusion in other conditions classified elsewhere Plan Patient is a 53-year-old female with past medical history of smoking, marijuana use, prediabetes, depression who presents to the hospital due to shortness of breath, cough. According to patient she also has associated chest pain with shortness of breath, has phlegm production along with a cough. She also mentions she has subjective fevers and chills. She denies sick contacts. She mentions she feels chest pain especially with deep breathing. On further evaluation patient was found to have hypoxia, hyponatremia, hypokalemia as well as right lower lobe consolidation. PSI/port score of 114 on presentation. Class IV risk. Patient showing some improvement. SBT did well today, plan to extubate. Pulmonology and cardiology assisting with care. Problems addressed as follows: Septic shock Bilateral pneumonia, dense right consolidation Streptococcal pneumonia bacteremia, likely cause of her pneumonia. Acute hypoxic respiratory failure satting less than 90% on room air Sepsis present on admission due to pneumonia and bacteremia -Discussed case with pulmonology, recommend extubation today. Continue cefepime for 14 days. Repeat blood cultures were negative. Continue DuoNebs every 6 hours scheduled. -Resume clonidine for agitation, Continue Seroquel 50 mg twice daily however for agitation. - Chest x-ray personally reviewed showing consistent pneumonia, does appear to have some partial improvement however -Lasix 40 mg IV once prior to extubation -continue cefepime 2 g every 8 hours -White count remains normal at 7.5, hemoglobin 10. Pro-Francis improved to 3. Potassium 4.2, magnesium 1.7, phosphorus 3.0, BUN 15, creatinine 0.3. - Repeat CBC, CMP, magnesium ordered for the morning Therapy and speech evaluating patient. Consider advancing diet tomorrow pending speech eval NSTEMI - SEBASTIAN performed. No vegetations identified. At this time, no indication of endocarditis. Discussed case with cardiology, patient status post left heart cath with normal coronaries. EF approximately 40%. Secondary to stress of acute illness and sepsis Diabetes: On metformin at home. A1c normal at 5.6. continue sliding scale insulin and fingersticks ACHS. DVT prophylaxis-heparin Full code
[2024-06-05] MEDS: HYDROCODONE/APAP 5/325 MG TABLET 1 TAB PO (18:58)
--- NOTE | 2024-06-05 21:33 | XR_ITS ---
PROCEDURE INFORMATION: Exam: XR Abdomen Exam date and time: 06/05/2024 9:36 PM Age: 53 years old Clinical indication: Abdominal pain; Localized; Left lower quadrant (llq); Additional info: Llq abdominal pain TECHNIQUE: Imaging protocol: Radiologic exam of the abdomen. Views: Frontal supine view of the abdomen. 1 View. COMPARISON: CR XR CHEST PORTABLE 06/05/2024 9:36 PM FINDINGS: Gastrointestinal tract: Nonobstructive bowel gas pattern. Intraperitoneal space: Cholecystectomy clips right upper quadrant Bones/joints: Unremarkable. IMPRESSION: 1. Suspect prior cholecystectomy. 2. Nonobstructive bowel gas pattern
--- NOTE | 2024-06-05 21:34 | XR_ITS ---
PROCEDURE INFORMATION: Exam: XR Chest Exam date and time: 06/05/2024 9:36 PM Age: 53 years old Clinical indication: Tachypnea TECHNIQUE: Imaging protocol: Radiologic exam of the chest. Views: 1 view. COMPARISON: CR XR CHEST PORTABLE 06/05/2024 9:55 AM FINDINGS: Lungs: Right midlung infiltrate is largely unchanged. Pleural spaces: Small right pleural effusion. Heart/Mediastinum: Stable cardiomegaly. Bones/joints: Unremarkable. Other findings: Interval extubation. IMPRESSION: 1. Interval extubation. 2. Stable right lung small pneumonia and right small pleural effusion.
[2024-06-05] MEDS: LORazepam 0.5MG TABLET 0.5 MG PO (22:18)
[2024-06-05 23:37] LABS: Microscopic, Urine URINE MICROSCOPIC (MICROSCOPIC)
[2024-06-05 23:54] LABS: Appearance,Urine CLEAR (Clear); Bilirubin,Urine Negative (Negative); Blood, Urine 3+ (Negative); Color,Urine YELLOW (Yellow); Glucose,Urine (UA) Negative (Negative); Ketones,Urine TRACE (Negative); Leukocyte Esterase,Urine Negative (Negative); Nitrate,Urine Negative (Negative); PH,Urine 7.5 (5.0-8.5); Protein,Urine TRACE (Negative); Urobilinogen,Urine 0.2 EU/dl (0.2)
[2024-06-06] VITALS (21 sets, daily range): BP systolic 130–159; BP diastolic 60–86; PULSE 63–90; RESP 16–43; TEMP 36.8–37.6; O2SAT 90–100; BMI 43.2
[2024-06-06 00:01] LABS: POC Glucose,Bedside 117 (70-110)
[2024-06-06 00:05] LABS: Bacteria,Urine Trace /lpf; Hyaline Casts,Urine Occasional #/lpf (0); RBC,Urine 20-50 #/hpf (0-3)
[2024-06-06] MEDS: BUPRENORPHINE/NALOXONE 8MG/2MG ODT 1 EACH SL ×3 (01:21→15:55)
[2024-06-06] MEDS: cloNIDine 0.1MG TABLET 0.1 MG PO (04:10)
[2024-06-06] MEDS: ACETYLCYSTEINE 20% 4ML VIAL 1 ML IH (05:58)
[2024-06-06] MEDS: IPRATROPIUM/ALBUTEROL 3 ML NEB IH ×4 (05:58→23:00)
[2024-06-06] MEDS: CEFEPIME HCL 2 GM in 0.9 % SODIUM CHLORIDE 100 ML IV ×3 (06:38→21:12)
[2024-06-06] MEDS: HEPARIN SODIUM 5,000 UNIT/ML VIAL 5000 UNIT SUBCUT ×3 (06:39→21:12)
[2024-06-06 06:53] LABS: Basophils # 0.1 K/mm3 (0-0.2); Basophils % 0.8 % (0.1-2.0); Eosinophils # 0.1 K/mm3 (0.0-0.4); Eosinophils % 1.2 % (0.1-12.0); Hematocrit 27.9 % (37.0-47.0); Hemoglobin 9.5 g/dL (12.2-16.2); Lymphocytes # 1.6 K/mm3 (0.7-4.5); Lymphocytes % 17.2 % (10-50); Mean Corpuscular HGB Conc 34.1 g/dL (31.8-35.4); Mean Corpuscular Hemoglobin 29.5 pg (27.0-31.2); Mean Corpuscular Volume 86.4 fl (81-99); Mean Platelet Volume 9.2 fl (7.4-10.4); Monocytes # 0.5 K/mm3 (0.1-1.0); Monocytes % 5.5 % (1.7-9.3); Neutrophils # 6.9 K/mm3 (1.8-7.8); Neutrophils % 75.4 % (37.0-80.0); Platelet Count 265 K/mm3 (142-424); Red Blood Count 3.23 M/mm3 (4.20-5.40); Red Cell Distribution Width 14.9 % (11.5-17.5); White Blood Count 9.1 K/mm3 (4.8-10.8)
[2024-06-06 06:54] LABS: POC Glucose,Bedside 94 (70-110)
[2024-06-06 07:11] LABS: Alanine Aminotransferase 35 U/L (12-78); Albumin Level 2.5 g/dl (3.5-5.0); Albumin/Globulin Ratio 0.8 (1.1-1.8); Alkaline Phosphatase 108 U/L (38-126); Anion Gap 6.9 mEq/L (5-15); Aspartate Amino Transferase 32 U/L (14-36); Bilirubin,Total 0.9 mg/dl (0.2-1.3); Blood Urea Nitrogen 14 mg/dl (7-17); Calcium 7.5 mg/dl (8.4-10.2); Carbon Dioxide 29 mmol/L (22.0-30.0); Chloride 105 mmol/L (98-107); Creatinine Clearance Estimated 84 mL/min (50-200); Estimated Glomerular Filt Rate 232 ml/min (>60); GFR (African American) 281 ML/MIN (>60); Globulin 3.1 g/dL (1.3-3.2); Glucose 94 mg/dl (74-100); Phosphorous 3.2 mg/dl (2.5-4.5); Sodium 138 mmol/L (136-145); Total Protein,Serum 5.6 g/dl (6.3-8.2)
[2024-06-06 07:20] LABS: Chol/HDL Ratio 4.3 (1-3.5); Cholesterol 103 mg/dl (140-200); HDL Cholesterol 24 mg/dl (40-60); Triglycerides 132 mg/dl (30-150); VLDL Cholesterol 26 mg/dL (0-40)
[2024-06-06 07:30] LABS: Direct LDL Cholesterol 58.04 mg/dL (100-129)
[2024-06-06] MEDS: QUETIAPINE 100MG TABLET 50 MG PO ×2 (07:52→20:15)
[2024-06-06] MEDS: FAMOTIDINE 20MG/2ML VIAL 20 MG IV (07:54)
[2024-06-06] MEDS: FUROSEMIDE 40MG/4ML VIAL 60 MG IV ×2 (07:54→15:22)
[2024-06-06] MEDS: SODIUM CHLORIDE 0.9% 10ML VIAL 8 ML IV (07:55)
[2024-06-06] MEDS: DOCUSATE SODIUM 100 MG CAPSULE PO ×2 (07:57→20:17)
[2024-06-06 08:15] LABS: Potassium 2.9 mmoL/L (3.5-5.1)
--- NOTE | 2024-06-06 09:35 | P.PN_ITS ---
Subjective *Date: 06/06/24 *Time: 10:35 Interval history: No acute respiratory vents overnight. Patient admits continued improvement in her respiratory symptoms. Pulmonology Exam Inpatient Vital signs and Labs for Last 24 Hours: Temp Pulse Resp BP Pulse Ox O2 Del Method O2 Flow Rate 99.7 F H 81 36 H 159/86 H 98 Room Air 2 06/06/24 08:00 06/06/24 08:00 06/06/24 08:00 06/06/24 08:00 06/06/24 08:00 06/06/24 08:46 06/06/24 08:00 FiO2 30 06/05/24 09:34 Laboratory Results - last 24 hr 06/05/24 10:24: VBG pH 7.56 H, VBG pCO2 27.5 L, VBG pO2 98.9 H, VBG HCO3 23.9, VBG Total CO2 24.7, VBG O2 Saturation 98.3 H, VBG Base Excess 1.6, VBG Lactic Acid 1.1 06/05/24 12:16: POC Glucose 109 06/05/24 23:20: Urine Color Yellow, Urine Appearance Clear, Urine pH 7.5, Ur Specific [place] 1.020, Urine Protein Trace, Urine Glucose (UA) Negative, Urine Ketones Trace, Urine Blood 3+ A, Urine Nitrate Negative, Urine Bilirubin Negative, Urine Urobilinogen 0.2, Ur Leukocyte Esterase Negative, Urine RBC 20- 50, Urine WBC None, Ur Squamous Epith Cells 3-5, Urine Bacteria Trace, Hyaline Casts Occasional 06/05/24 23:54: POC Glucose 117 H 06/06/24 05:23: WBC 9.1, RBC 3.23 L, Hgb 9.5 L, Hct 27.9 L, MCV 86.4, MCH 29.5, MCHC 34.1, RDW 14.9, Plt Count 265 D, MPV 9.2, Neut % (Auto) 75.4, Lymph % (Auto) 17.2, [place] % (Auto) 5.5, Eos % (Auto) 1.2, Baso % (Auto) 0.8, Neut # (Auto) 6.9, Lymph # (Auto) 1.6, [place] # (Auto) 0.5, Eos # (Auto) 0.1, Baso # (Auto) 0.1, Sodium 138, Potassium 2.9 L* D, Chloride 105, Carbon Dioxide 29, Anion Gap 6.9, BUN 14, Creatinine 0.30 L, Estimated Creat Clear 84, Estimated GFR 232, Est GFR ( Amer) 281, Glucose 94, Calcium 7.5 L, Phosphorus 3.2, Magnesium 2.0 D, Total Bilirubin 0.9, AST 32, ALT 35, Alkaline Phosphatase 108, Total Protein 5.6 L, Albumin 2.5 L, Globulin 3.1, Albumin/Globulin Ratio 0.8 L, Triglycerides 132, Cholesterol 103 L, LDL Cholesterol Direct 58.04 L, VLDL Cholesterol 26, HDL Cholesterol 24 L, Cholesterol/HDL Ratio 4.3 H 06/06/24 06:42: POC Glucose 94 I & O for Labs for Last 24 Hours: Intake & Output 06/03/24 06/04/24 06/05/24 06/06/24 23:59 23:59 23:59 23:59 Intake Total 2884.221 / 2884.221 2641.999 / 2969.999 1186.651 / 1186.651 240 / 240 Output Total 910 / 945 1001 / 1051 3970 / 3970 945 / 945 Balance 1974.221 / 3105.986 0144.999 / 1918.999 -2783.349 / -2783.349 -705 / - 705 Weight 161 lb 1 oz 161 lb 1.01 oz 161 lb 1.01 oz 161 lb 1.01 oz Microbiology Reports for the Last 24 Hours: Microbiology 05/31/24 Unknown Blood Blood Culture - Final NO GROWTH AFTER 5 DAYS 05/31/24 Unknown Blood Blood Culture - Final NO GROWTH AFTER 5 DAYS Constitutional: Present moderate distress Head: Present normocephalic and atraumatic ENT: Present normal exam, normal oropharynx and mucous membranes moist Neck: Present normal inspection and full ROM Respiratory: Present respiratory distress, rhonchi and able to speak in complete sentences; Absent wheezes Cardiac: Present S1/S2, Tachycardia and radial pulses present GI: Present soft and distention; Absent tenderness or guarding Rectal (female): Present deferred (female): Present deferred Skin: Present intact; Absent cyanosis or jaundice Neuro: Present alert, awake and oriented x 3 Extremities: Present normal inspection; Absent clubbing or cyanosis Assessment and Plan *Assessment and plan (1) Acute respiratory failure with hypoxia: Status: Acute Category: Medical Code(s): J96.01 - Acute respiratory failure with hypoxia (2) Pneumonia: Status: Acute Qualifiers: Laterality: bilateral Lung location: lower lobe of lung Pneumonia type: due to Pneumococcus Qualified Code(s): J13 - Pneumonia due to Streptococ cus pneumoniae Category: Medical Code(s): J18.9 - Pneumonia, unspecified organism (3) Lactic acidosis: Status: Acute Category: Medical Code(s): E87.20 - Acidosis, unspecified (4) Septic shock: Status: Acute Category: Medical Code(s): A41.9 - Sepsis, unspecified organism; R65.21 - Severe sepsis with septic shock (5) Streptococcal bacteremia: Status: Acute Category: Medical Code(s): R78.81 - Bacteremia; B95.5 - Unspecified streptococcus as the cause of diseases classified elsewhere Plan Ms. Mckeon is a 53-year-old female with reported history of tobacco abuse presented today with worsening respiratory status and shortness of breath and pulmonary was consulted for further evaluation and management. Patient appeared lethargic, still arousable to verbal commands and responding appropriately Leukopenia with lymphopenia upon admission. CTA upon admission dense lobar consolidative changes in the right lower lobe along with consolidative changes in the right upper lobe and left lower lobe. COVID-19 and flu PCR panel negative. No recent prior imaging available for comparison. On initial examination patient appeared to be in severe respiratory distress. Saturating 95% on 3 L nasal cannula. VBG from this morning did not show any evidence of hypercarbic respiratory failure. VBG upon admission showed tachypnea and hypercarbia. Echo EF 35 to 40%. SEBASTIAN negative for vegetations. Repeat blood cultures negative. Interval update: Stable respiratory status. Successfully extubated nasal cannula/room air yesterday. Tolerating well. Plan: Continue cefepime to complete a total of 10-day course. DuoNebs every 6 hours on a scheduled basis Discontinue clonidine and Mucomyst Decrease Seroquel to 25 mg twice daily # Thank you for involving pulmonary in this patient care. Will continue to follow.
[2024-06-06] MEDS: KCl 10mEq/100ml 100 ML 100 MEQ IV ×8 (10:16→22:18)
--- NOTE | 2024-06-06 11:18 | P.PN_ITS ---
Subjective Subjective Date: 06/06/24 Time: 09:30 Principal diagnosis: Resp Failure, MINOCA Interval history: The patient was extubated yesterday. This morning she is sitting in a chair and appears to be in no distress. She denies any chest pain or pressure. She denies any shortness of breath or edema. She denies any fever, chills, nausea, vomiting, diarrhea, PND or orthopnea. She states that she is feeling much better. Exam Data for Last 24 hours Vital signs and Labs for Last 24 Hours: Temp Pulse Resp BP Pulse Ox O2 Del Method O2 Flow Rate 99.7 F H 81 35 H 137/64 98 Room Air 2 06/06/24 08:00 06/06/24 10:00 06/06/24 10:00 06/06/24 10:00 06/06/24 10:00 06/06/24 11:00 06/06/24 09:00 FiO2 30 06/05/24 09:34 Laboratory Results - last 24 hr 06/05/24 12:16: POC Glucose 109 06/05/24 23:20: Urine Color Yellow, Urine Appearance Clear, Urine pH 7.5, Ur Specific [place] 1.020, Urine Protein Trace, Urine Glucose (UA) Negative, Urine Ketones Trace, Urine Blood 3+ A, Urine Nitrate Negative, Urine Bilirubin Negative, Urine Urobilinogen 0.2, Ur Leukocyte Esterase Negative, Urine RBC 20- 50, Urine WBC None, Ur Squamous Epith Cells 3-5, Urine Bacteria Trace, Hyaline Casts Occasional 06/05/24 23:54: POC Glucose 117 H 06/06/24 05:23: WBC 9.1, RBC 3.23 L, Hgb 9.5 L, Hct 27.9 L, MCV 86.4, MCH 29.5, MCHC 34.1, RDW 14.9, Plt Count 265 D, MPV 9.2, Neut % (Auto) 75.4, Lymph % (Auto) 17.2, [place] % (Auto) 5.5, Eos % (Auto) 1.2, Baso % (Auto) 0.8, Neut # (Auto) 6.9, Lymph # (Auto) 1.6, [place] # (Auto) 0.5, Eos # (Auto) 0.1, Baso # (Auto) 0.1, Sodium 138, Potassium 2.9 L* D, Chloride 105, Carbon Dioxide 29, Anion Gap 6.9, BUN 14, Creatinine 0.30 L, Estimated Creat Clear 84, Estimated GFR 232, Est GFR ( Amer) 281, Glucose 94, Calcium 7.5 L, Phosphorus 3.2, Magnesium 2.0 D, Total Bilirubin 0.9, AST 32, ALT 35, Alkaline Phosphatase 108, Total Protein 5.6 L, Albumin 2.5 L, Globulin 3.1, Albumin/Globulin Ratio 0.8 L, Triglycerides 132, Cholesterol 103 L, LDL Cholesterol Direct 58.04 L, VLDL Cholesterol 26, HDL Cholesterol 24 L, Cholesterol/HDL Ratio 4.3 H 06/06/24 06:42: POC Glucose 94 I & O for Last 24 hours: Intake & Output 06/03/24 06/04/24 06/05/24 06/06/24 23:59 23:59 23:59 23:59 Intake Total 2884.221 / 2884.221 2641.999 / 2969.999 1186.651 / 1186.651 240 / 240 Output Total 910 / 945 1001 / 1051 3970 / 3970 2245 / 2245 Balance 1974.221 / 8169.176 1080.999 / 1918.999 -2783.349 / -2783.349 -2004 / 2004 Weight 161 lb 1 oz 161 lb 1.01 oz 161 lb 1.01 oz 161 lb 1.01 oz Microbiology Reports for the Last 24 Hours: Microbiology 05/31/24 Unknown Blood Blood Culture - Final NO GROWTH AFTER 5 DAYS 05/31/24 Unknown Blood Blood Culture - Final NO GROWTH AFTER 5 DAYS Constitutional Constitutional: no acute distress and average body habitus *Routine HEENT Exam Head: Present normocephalic and atraumatic ENT: Present mucous membranes moist *Routine Neck Exam Neck: Present supple, full ROM and normal carotid upstroke; Absent JVD, carotid bruit or lymphadenopathy *Routine Respiratory Exam Respiratory: Present rhonchi, normal respiratory effort and able to speak in complete sentences; Absent accessory muscle use *Routine Cardiovascular Exam Cardiovascular: Present RRR, Normal S1 and Normal S2; Absent murmur or gallop *Routine Abdominal Exam Abdominal: Present soft and normoactive bowel sounds; Absent distended or organomegaly *Routine Extremities Exam Extremities: Present full ROM, pulses intact and normal capillary refill; Absent cyanosis, clubbing or edema *Routine Skin Exam Skin: Present intact and warm; Absent erythema *Routine Neurological Exam Neurological: Present alert and oriented X3 Routine Psychiatric Exam Psychiatric: Present normal affect Progress Note: A&P Assessment and plan (1) HFrEF (heart failure with reduced ejection fraction): Status: Acute (2) Cardiomyopathy: Status: Acute (3) Acute respiratory failure with hypoxia: Status: Acute (4) Pneumonia: Status: Acute (5) Lactic acidosis: Status: Acute (6) Septic shock: Status: Acute (7) Streptococcal bacteremia: Status: Acute Assessment and Plan Assessment and Plan for All Diagnoses:: Plan: 1. The patient was admitted to the hospital with bacteremia and septic shock secondary to strep pneumonia. She had acute respiratory failure with hypoxia requiring intubation and mechanical ventilation. The patient was successfully extubated yesterday and is currently on room air. Will defer management of this to the hospitalist and pulmonology. 2. The patient did have a non-STEMI with an elevated troponin. Left cardiac catheterization showed normal coronary arteries with an ejection fraction of 35% and LVEDP of 20 mmHg. Echocardiogram and SEBATSIAN showed ejection fraction of 40%. 3. Echocardiogram shows an ejection fraction of 40 to 45%. The patient has normal coronary arteries. Recommend an outpatient cardiac MRI with cardiomyopathy protocol to evaluate for nonischemic etiologies. 4. Her blood pressure is well-controlled this morning. 5. Her LDL goal is less than 100. Her LDL is 58. 6. The patient has been diuresed with IV Lasix for her HFrEF. She has a -2700 fluid balance overnight. Continue IV diuretics at this time. Her creatinine remains normal. 7. The patient is hypokalemic today. Will start her on spironolactone 50 mg p.o. daily for continued diuresis and for her hypokalemia. 8. Will start her on Entresto 24/26 mg p.o. twice daily for HFrEF. 9. Will start her on Jardiance 10 mg daily for HFrEF. 10. Will start her on Coreg 3.125 mg p.o. twice daily for HFrEF. 11. Further recommendations will be made pending the patient's response to treatment. Thank you for the opportunity to help participate in the care of this patient. All recommendations and orders are per Dr. Rogers.
[2024-06-06] MEDS: SPIRONOLACTONE 25MG TABLET 50 MG PO (11:39)
[2024-06-06] MEDS: CARVEDILOL 3.125MG TABLET 3.125 MG PO ×2 (13:23→20:20)
[2024-06-06] MEDS: SACUBITRIL/VALSARTAN 24-26MG TABLET 1 EACH PO ×2 (13:23→20:16)
[2024-06-06] MEDS: EMPAGLIFLOZIN 10MG TABLET 10 MG PO (13:23)
--- NOTE | 2024-06-06 14:16 | SW/DCPLANNER ---
Addendum entered by Aissatou Valdez 06/08/24 14:15: Gloria w/ Peer Support stated that she will schedule patient for outpatient apt at [facility] [place] today. Addendum entered by Aissatou Valdez 06/08/24 11:49: Ensemble Member will schedule patient w/ [facility] outpatient PT appointment. Addendum entered by Aissatou Vladez 06/07/24 13:38: Mercedes w/ Peer Support stated that patient has an apt w/ [facility] [place] tomorrow morning at 8AM. Addendum entered by Aissatou Valdez 06/07/24 10:03: Per PT patient did show improvement today and home health is now recommended. Unfortunately at this time due to patient's location/insurance she is unable to be set up w/ home health services. Patient is agreeable to outpatient PT at [facility] and stated that family/friends could assist w/ transportation. Patient has also requested a rolling walker at time of discharge. Drug Enforcement Administration Agent spoke w/ patient yesterday and patient is interested in following up w/ [facility] [place] at time of discharge. Discharge date is unknown at this time. I will continue to follow up. Original Note: I spoke w/ this patient regarding plans once medically stable for discharge. PT/OT evaluated patient and recommended placement. I did discuss placement under [facility] w/ this patient. Patient is NOT interested in placement at this time. Patient stated that her S.O. will be at home her in the evenings and care for her and she will have other family members to come in the home during the day. I informed patient that home health services will not be available due to location/insurance. Patient expressed that she would be interested in outpatient PT services at [facility]. I will continue to follow up w/ this patient until medically stable for discharge. Discharge date is unknown at this time.
--- NOTE | 2024-06-06 15:53 | HMH.SLDYSPHA ---
Speech & Language Evaluation Speech/Language Dysphagia Evaluation Start: 06/06/24 15:34 Freq: ONCE Status: Active Protocol: Document 06/06/24 15:34 YOBANI (Rec: 06/06/24 15:53 YOBANI [id number]) Co-signed By [facility] Alfonso Dysphagia Assess/Goals/Plan Assessment Date of Evaluation: 06/06/24 Evaluation Type Initial Certification Assessment/Problems post-extubation per MD order Does Patient Qualify for Service No Qualify/Failure Comment Further speech therapy services are not warranted at this time d/t no overt s/sx of aspiration and WFL mastication and manipulation of bolus. Recommendations PHYSICIAN CERTIFICATION: The specified therapy services are required, authorized, and reviewed every 30 days. Diet Recommendations Mechanical Soft Liquid Type Recommendations Normal/Thin SL Swallow Guidelines Alt bite w/sip thru meal, Standard Aspiration Prec.,Eat at slow rate,Oral Care Education Dysphagia Swallow Precautions/Strategies Sitting Upright (90 deg),Small Bites and Sips,Alternate Liquids/Solids Plan Pt/Guardian verbally ack understanding Yes of dx/prognosis/goals G -code Required No Education Instructions provided GLASSWORKER discussed clinical observations made throughout clinical bedside swallow evaluation, diet recommendations, and aspiration precautions/ compensatory strategies with pt and nursing, each of which expressed understanding. GLASSWORKER left voicemail for CM. Pt/Caregiver able to recall information Able to recall/restate Reinforcement needed No Speech & Language HPI History Present Illness Description of Patient Problem GLASSWORKER pulled the following information from pt's H&P and chest X-ray: Patient is a 53-year-old female with past medical history of smoking, marijuana use, prediabetes, depression who presents to the hospital due to shortness of breath, cough. According to patient she also has associated chest pain with shortness of breath, has phlegm production along with a cough. She also mentions she has subjective fevers and chills. She denies sick contacts. She mentions she feels chest pain especially with deep breathing . On further evaluation patient was found to have hypoxia, hyponatremia, hypokalemia as well as right lower lobe consolidation. Chest X-ray: IMPRESSION: 1. Interval extubation. 2. Stable right lung small pneumonia and right small pleural effusion. Rehab Services Assessed Speech therapy Is this evaluation r/t stroke? No Therapy History Seen by other SL therapists No General Information General Current Food Consistancy NPO Dentition Upper Only Oxygen Status Room Air Facial Symmetry Symmetrical Patient Orientation Person,Place,Time,Situation Ability to Follow Directions Excellent Communication Ability No Impairment Dysphagia:Food Presentation Evaluation Food Type Pureed,Mechanical Soft,Liquid, Pudding Dysphagia Evaluation Mechanical Soft Difficulty chewing Food Behavior Response Dysphagia Evaluation Summary GLASSWORKER administered a clinical bedside swallow on pt this afternoon, with pt sitting upright and on room air. Pt stated that she left her bottom dentures at home, but had her top dentures in place. Pt was A&O x4. GLASSWORKER began with extensive oral care. GLASSWORKER then presented pt with trials of ice chips, thin liquids (water ) via cup and straw, pudding, puree (applesauce), and mechanical soft (cookie). All bolus presentations were administered x2 to assess for consistency and fatigue. Pt demonstrated no overt s/sx of aspiration on any consistency trialed. Pt demonstrated prolonged mastication and manipulation of bolus on mechanical soft trial 2' dentition. No oral residue was noted on any consistency trialed. GLASSWORKER and pt chose not to administer regular food trial d/t dentition and prolonged mastication. GLASSWORKER recommends mechanical soft diet/thin liquids and compensatory strategies including small bites and sips , alternating bites and sips, and sitting upright while eating and 30-60 mins after eating. Stroke Dysphagia Assessment PHYSICIAN CERTIFICATION: I certify the specified therapy services for Meryl Mckeon are required, authorized, and reviewed every 30 days.
--- NOTE | 2024-06-06 16:21 | EXP.PN ---
Subjective *Date: 06/06/24 *Time: 16:21 Interval history: Patient doing well today, though drowsy this morning as she did not sleep last night. Opioid withdrawal symptoms improving with Suboxone. Exam Data for Last 24 hours Vital signs and Labs for Last 24 Hours: Temp Pulse Resp BP Pulse Ox O2 Del Method O2 Flow Rate 98.5 F 69 28 H 152/84 H 99 Room Air 2 06/06/24 12:00 06/06/24 12:56 06/06/24 12:00 06/06/24 12:00 06/06/24 12:00 06/06/24 15:34 06/06/24 09:00 FiO2 30 06/05/24 09:34 Laboratory Results - last 24 hr 06/05/24 12:16: POC Glucose 109 06/05/24 23:20: Urine Color Yellow, Urine Appearance Clear, Urine pH 7.5, Ur Specific [place] 1.020, Urine Protein Trace, Urine Glucose (UA) Negative, Urine Ketones Trace, Urine Blood 3+ A, Urine Nitrate Negative, Urine Bilirubin Negative, Urine Urobilinogen 0.2, Ur Leukocyte Esterase Negative, Urine RBC 20-50, Urine WBC None, Ur Squamous Epith Cells 3-5, Urine Bacteria Trace, Hyaline Casts Occasional 06/05/24 23:54: POC Glucose 117 H 06/06/24 05:23: WBC 9.1, RBC 3.23 L, Hgb 9.5 L, Hct 27.9 L, MCV 86.4, MCH 29.5, MCHC 34.1, RDW 14.9, Plt Count 265 D, MPV 9.2, Neut % (Auto) 75.4, Lymph % (Auto) 17.2, [place] % (Auto) 5.5, Eos % (Auto) 1.2, Baso % (Auto) 0.8, Neut # (Auto) 6.9, Lymph # (Auto) 1.6, [place] # (Auto) 0.5, Eos # (Auto) 0.1, Baso # (Auto) 0.1, Sodium 138, Potassium 2.9 L* D, Chloride 105, Carbon Dioxide 29, Anion Gap 6.9, BUN 14, Creatinine 0.30 L, Estimated Creat Clear 84, Estimated GFR 232, Est GFR ( Amer) 281, Glucose 94, Calcium 7.5 L, Phosphorus 3.2, Magnesium 2.0 D, Total Bilirubin 0.9, AST 32, ALT 35, Alkaline Phosphatase 108, Total Protein 5.6 L, Albumin 2.5 L, Globulin 3.1, Albumin/Globulin Ratio 0.8 L, Triglycerides 132, Cholesterol 103 L, LDL Cholesterol Direct 58.04 L, VLDL Cholesterol 26, HDL Cholesterol 24 L, Cholesterol/HDL Ratio 4.3 H 06/06/24 06:42: POC Glucose 94 I & O for Last 24 hours: Intake & Output 06/03/24 06/04/24 06/05/24 06/06/24 23:59 23:59 23:59 23:59 Intake Total 2884.221 / 2884.221 2641.999 / 2969.999 1186.651 / 1186.651 880 / 880 Output Total 910 / 945 1001 / 1051 3970 / 3970 2445 / 2445 Balance 1974.221 / 9710.969 4908.999 / 1918.999 -2783.349 / -2783.349 -1565 / -1565 Weight 73.057 kg 73.057 kg 73.057 kg 73.057 kg Microbiology Reports for the Last 24 Hours: Microbiology 05/31/24 Unknown Blood Blood Culture - Final NO GROWTH AFTER 5 DAYS 05/31/24 Unknown Blood Blood Culture - Final NO GROWTH AFTER 5 DAYS Constitutional Constitutional: no acute distress *Routine HEENT Exam Head: Present normocephalic Eye: Present EOMI and PERRL ENT: Present mucous membranes moist *Routine Neck Exam Neck: Present supple; Absent lymphadenopathy *Routine Respiratory Exam Respiratory: Present CTA bilaterally *Routine Cardiovascular Exam Cardiovascular: Present RRR *Routine Abdominal Exam Abdominal: Present soft and normoactive bowel sounds; Absent tenderness *Routine Extremities Exam Extremities: Absent cyanosis, clubbing or edema *Routine Skin Exam Skin: Present warm; Absent rash *Routine Neurological Exam Neurological: Present alert and oriented X3 Assessment and Plan *Assessment and plan (1) Septic shock: Status: Acute Category: Medical Code(s): A41.9 - Sepsis, unspecified organism; R65.21 - Severe sepsis with septic shock (2) Streptococcal bacteremia: Status: Acute Category: Medical Code(s): R78.81 - Bacteremia; B95.5 - Unspecified streptococcus as the cause of diseases classified elsewhere (3) Acute respiratory failure with hypoxia: Status: Acute Category: Medical Code(s): J96.01 - Acute respiratory failure with hypoxia (4) Non-STEMI (non-ST elevated myocardial infarction): Status: Acute Category: Medical Code(s): I21.4 - Non-ST elevation (NSTEMI) myocardial infarction (5) Pneumonia: Status: Acute Qualifiers: Laterality: bilateral Lung location: lower lobe of lung Pneumonia type: due to Pneumococcus Qualified Code(s): J13 - Pneumonia due to Streptococcus pneumoniae Category: Medical Code(s): J18.9 - Pneumonia, unspecified organism (6) Pleural effusion associated with pulmonary infection: Status: Acute Category: Medical Code(s): J18.9 - Pneumonia, unspecified organism; J91.8 - Pleural effusion in other conditions classified elsewhere Plan Patient is a 53-year-old female with past medical history of smoking, marijuana use, prediabetes, depression who presents to the hospital due to shortness of breath, cough. According to patient she also has associated chest pain with shortness of breath, has phlegm production along with a cough. She also mentions she has subjective fevers and chills. She denies sick contacts. She mentions she feels chest pain especially with deep breathing. On further evaluation patient was found to have hypoxia, hyponatremia, hypokalemia as well as right lower lobe consolidation. PSI/port score of 114 on presentation. Class IV risk. Patient showing some improvement. SBT did well today, plan to extubate. Pulmonology and cardiology assisting with care. Problems addressed as follows: Septic shock, resolved Bilateral pneumonia, dense right consolidation Streptococcal pneumonia bacteremia, likely cause of her pneumonia. Acute hypoxic respiratory failure satting less than 90% on room air, resolved Sepsis present on admission due to pneumonia and bacteremia #Opioid withdrawal - S/p extubation 06/05/2024. ? Blood cultures growing strep pneumonia, sensitive to cephalosporins. Continue cefepime for 14 days. Repeat blood cultures were negative. ? Pulmonology consulted, assisting with care. Discontinued clonidine today. ? Started Suboxone 8/2 last night with improvement in tachypnea, abdominal pain, anxiety suggesting opioid withdrawal. Given a second dose this afternoon. ? Start Suboxone 16/4mg starting tomorrow. [facility] residential direct support professional consulted, will likely be set up with [facility] upon discharge MOTION PICTURE SET WORKER recommended mechanical soft with thin liquids today. NSTEMI - SEBASTIAN performed. No vegetations identified. At this time, no indication of endocarditis. Discussed case with cardiology, patient status post left heart cath with normal coronaries. EF approximately 40%. Secondary to stress of acute illness and sepsis Diabetes: On metformin at home. A1c normal at 5.6. continue sliding scale insulin and fingersticks ACHS. DVT prophylaxis-heparin Full code
--- NOTE | 2024-06-06 16:38 | PC.NURSE ---
Addendum entered by Kenzie Benedict RN 06/06/24 16:42: pt dave removed by helen UNGER at approximately 1250. pt has since voided twice. Original Note: i took over pt care from helen UNGER around 1pm today. pt has had no complaints. pt remains on room air and has remained alert and oriented x4. pt has been voiding using purewick, pt cleaned up earlier d/t soiling the bed. no new orders at this time. call light within reach. K+ infusing currently.
--- NOTE | 2024-06-06 16:45 | PC.NURSE ---
SRNA notified me of o2 sat of 89%. 2L nc applied for pt comfort.
[2024-06-06] MEDS: ONDANSETRON 4MG/2ML VIAL 4 MG IV (19:55)
[2024-06-06] MEDS: SENNA 8.6MG TABLET 8.6 MG PO (20:16)
[2024-06-06] MEDS: FAMOTIDINE 20MG TABLET 20 MG PO (20:17)
[2024-06-07] VITALS (10 sets, daily range): BP systolic 96–149; BP diastolic 52–71; PULSE 73–95; RESP 17–19; TEMP 36.6–37.1; O2SAT 90–98; BMI 43.7
--- NOTE | 2024-06-07 03:42 | PC.NURSE ---
Reassessment of wound and excoriation, Pt educated on importance of turning from side to side and avoiding incontinence. this nurse encouraged pt to use call light when needing to urinate for assistance from staff.
[2024-06-07] MEDS: IPRATROPIUM/ALBUTEROL 3 ML NEB IH (05:50)
[2024-06-07] MEDS: HEPARIN SODIUM 5,000 UNIT/ML VIAL 5000 UNIT SUBCUT ×2 (06:00→21:50)
[2024-06-07] MEDS: CEFEPIME HCL 2 GM in 0.9 % SODIUM CHLORIDE 100 ML IV ×2 (06:00→16:17)
[2024-06-07 07:13] LABS: Basophils # 0.1 K/mm3 (0-0.2); Basophils % 0.8 % (0.1-2.0); Eosinophils # 0.2 K/mm3 (0.0-0.4); Eosinophils % 1.1 % (0.1-12.0); Hematocrit 31.8 % (37.0-47.0); Hemoglobin 10.8 g/dL (12.2-16.2); Lymphocytes # 1.6 K/mm3 (0.7-4.5); Lymphocytes % 10.7 % (10-50); Mean Corpuscular HGB Conc 34.1 g/dL (31.8-35.4); Mean Corpuscular Hemoglobin 30.2 pg (27.0-31.2); Mean Corpuscular Volume 88.4 fl (81-99); Monocytes # 0.7 K/mm3 (0.1-1.0); Neutrophils # 11.9 K/mm3 (1.8-7.8); Neutrophils % 82.3 % (37.0-80.0); Platelet Count 353 K/mm3 (142-424); Red Blood Count 3.59 M/mm3 (4.20-5.40); Red Cell Distribution Width 14.8 % (11.5-17.5); White Blood Count 14.4 K/mm3 (4.8-10.8)
[2024-06-07 07:42] LABS: Alanine Aminotransferase 32 U/L (12-78); Albumin Level 2.8 g/dl (3.5-5.0); Albumin/Globulin Ratio 0.9 (1.1-1.8); Alkaline Phosphatase 108 U/L (38-126); Anion Gap 11.7 mEq/L (5-15); Aspartate Amino Transferase 29 U/L (14-36); Blood Urea Nitrogen 18 mg/dl (7-17); Carbon Dioxide 22 mmol/L (22.0-30.0); Chloride 101 mmol/L (98-107); Creatinine Clearance Estimated 63 mL/min (50-200); Estimated Glomerular Filt Rate 166 ml/min (>60); GFR (African American) 201 ML/MIN (>60); Globulin 3.2 g/dL (1.3-3.2); Glucose 81 mg/dl (74-100); Potassium 3.7 mmoL/L (3.5-5.1); Sodium 131 mmol/L (136-145)
[2024-06-07] MEDS: CARVEDILOL 3.125MG TABLET 3.125 MG PO ×2 (09:28→20:32)
[2024-06-07] MEDS: SACUBITRIL/VALSARTAN 24-26MG TABLET 2 EACH PO (09:28)
[2024-06-07] MEDS: ONDANSETRON 4MG/2ML VIAL 4 MG IV (09:28)
[2024-06-07] MEDS: SPIRONOLACTONE 25MG TABLET 50 MG PO (09:29)
[2024-06-07] MEDS: FAMOTIDINE 20MG TABLET 20 MG PO ×2 (09:29→20:32)
[2024-06-07] MEDS: SENNA 8.6MG TABLET 8.6 MG PO ×2 (09:29→20:32)
[2024-06-07] MEDS: EMPAGLIFLOZIN 10MG TABLET 10 MG PO (09:29)
[2024-06-07] MEDS: FUROSEMIDE 40 MG TABLET PO (09:29)
[2024-06-07] MEDS: DOCUSATE SODIUM 100 MG CAPSULE PO ×2 (09:29→20:32)
[2024-06-07] MEDS: QUETIAPINE 100MG TABLET 50 MG PO (09:29)
--- NOTE | 2024-06-07 09:33 | EXP.PULM.PN ---
Subjective *Date: 06/07/24 *Time: 11:19 Interval history: No acute respiratory vents overnight. Admits continued improvement in her respiratory status. Pulmonology Exam Inpatient Vital signs and Labs for Last 24 Hours: Temp Pulse Resp BP Pulse Ox O2 Del Method O2 Flow Rate 98.8 F 85 19 147/71 H 90 L Room Air 2 06/07/24 08:00 06/07/24 08:00 06/07/24 08:00 06/07/24 08:00 06/07/24 08:00 06/07/24 08:00 06/07/24 05:50 FiO2 28 06/06/24 19:01 Laboratory Results - last 24 hr 06/07/24 06:35: WBC 14.4 H D, RBC 3.59 L, Hgb 10.8 L, Hct 31.8 L, MCV 88.4, MCH 30.2, MCHC 34.1, RDW 14.8, Plt Count 353 D, MPV 9.0, Neut % (Auto) 82.3 H, Lymph % (Auto) 10.7, [place] % (Auto) 5.0, Eos % (Auto) 1.1, Baso % (Auto) 0.8, Neut # (Auto) 11.9 H, Lymph # (Auto) 1.6, [place] # (Auto) 0.7, Eos # (Auto) 0.2, Baso # (Auto) 0.1, Sodium 131 L, Potassium 3.7 D, Chloride 101, Carbon Dioxide 22, Anion Gap 11.7, BUN 18 H D, Creatinine 0.40 L D, Estimated Creat Clear 63, Estimated GFR 166, Est GFR ( Amer) 201 D, Glucose 81, Calcium 8.0 L, Total Bilirubin 1.0, AST 29, ALT 32, Alkaline Phosphatase 108, Total Protein 6.0 L, Albumin 2.8 L D, Globulin 3.2, Albumin/Globulin Ratio 0.9 L I & O for Labs for Last 24 Hours: Intake & Output 06/04/24 06/05/24 06/06/24 06/07/24 23:59 23:59 23:59 23:59 Intake Total 2641.999 / 2969.999 1186.651 / 9653.904 7042 / 1560 720 / 720 Output Total 1001 / 1051 3970 / 3970 3145 / 3145 0 / 0 Balance 1640.999 / 1918.999 -2783.349 / -2783.349 -2145 / -1585 720 / 720 Weight 161 lb 1.01 oz 161 lb 1.01 oz 161 lb 1.01 oz 162 lb 11.218 oz Constitutional: Present moderate distress Head: Present normocephalic and atraumatic ENT: Present normal exam, normal oropharynx and mucous membranes moist Neck: Present normal inspection and full ROM Respiratory: Present respiratory distress, rhonchi and able to speak in complete sentences; Absent wheezes Cardiac: Present S1/S2, Tachycardia and radial pulses present GI: Present soft and distention; Absent tenderness or guarding Rectal (female): Present deferred (female): Present deferred Skin: Present intact; Absent cyanosis or jaundice Neuro: Present alert, awake and oriented x 3 Extremities: Present normal inspection; Absent clubbing or cyanosis Assessment and Plan *Assessment and plan (1) Acute respiratory failure with hypoxia: Status: Acute Category: Medical Code(s): J96.01 - Acute respiratory failure with hypoxia (2) Pneumonia: Status: Acute Qualifiers: Laterality: bilateral Lung location: lower lobe of lung Pneumonia type: due to Pneumococcus Qualified Code(s): J13 - Pneumonia due to Streptococcus pneumoniae Category: Medical Code(s): J18.9 - Pneumonia, unspecified organism (3) Lactic acidosis: Status: Acute Category: Medical Code(s): E87.20 - Acidosis, unspecified (4) Septic shock: Status: Acute Category: Medical Code(s): A41.9 - Sepsis, unspecified organism; R65.21 - Severe sepsis with septic shock (5) Streptococcal bacteremia: Status: Acute Category: Medical Code(s): R78.81 - Bacteremia; B95.5 - Unspecified streptococcus as the cause of diseases classified elsewhere Plan Ms. Mckeon is a 53-year-old female with reported history of tobacco abuse presented today with worsening respiratory status and shortness of breath and pulmonary was consulted for further evaluation and management. Patient appeared lethargic, still arousable to verbal commands and responding appropriately Leukopenia with lymphopenia upon admission. CTA upon admission dense lobar consolidative changes in the right lower lobe along with consolidative changes in the right upper lobe and left lower lobe. COVID-19 and flu PCR panel negative. No recent prior imaging available for comparison. On initial examination patient appeared to be in severe respiratory distress. Saturating 95% on 3 L nasal cannula. VBG from this morning did not show any evidence of hypercarbic respiratory failure. VBG upon admission showed tachypnea and hypercarbia. Echo EF 35 to 40%. SEBASTIAN negative for vegetations. Repeat blood cultures negative. Interval update: No acute respiratory vents overnight. Continue to remain on room air. Slight worsening leukocytosis. Afebrile. Hemodynamically stable. Continue to monitor. Plan: Continue cefepime to complete a total of 10-day course. Day 8/10 days. Trelegy 100 inhaler along with DuoNebs 4 times daily. Discontinue Seroquel. # Thank you for involving pulmonary in this patient care. Will continue to follow.
[2024-06-07] MEDS: BUPRENORPHINE/NALOXONE 8MG/2MG ODT 2 EACH SL (09:38)
--- NOTE | 2024-06-07 11:07 | XR_ITS ---
FINAL REPORT CLINICAL HISTORY: SOB COMPARISON: 06/05/2024 FINDINGS: A single portable view of the chest was obtained. The heart size and pulmonary vascularity are within normal limits. The mediastinum is within normal limits. Persistent bibasilar opacities favor atelectasis over pneumonia. There are small bilateral pleural effusions. The bony thorax is intact. IMPRESSION: Persistent bibasilar opacities, favor atelectasis over pneumonia, with small bilateral pleural effusions. Reviewed, Interpreted and Dictated by Robert Olivarez III, MD Transcribed by Reta Roberts Authenticated and [facility]
--- NOTE | 2024-06-07 11:11 | EXP.CARD.PN ---
Subjective Subjective Date: 06/07/24 Time: 09:00 Principal diagnosis: Resp Failure, [place] Interval history: This is a 53-year-old white female who was admitted to the hospital with pneumonia and respiratory distress. She was extubated on Wednesday. Today she denies any chest pain or pressure. She states that she does not feel like she can take a deep breath at times but no real shortness of breath. She denies any fever, chills, nausea, vomiting or diarrhea. She denies any lower extremity edema Exam Data for Last 24 hours Vital signs and Labs for Last 24 Hours: Temp Pulse Resp BP Pulse Ox O2 Del Method O2 Flow Rate 98.8 F 85 19 147/71 H 90 L Nasal Cannula 2 06/07/24 08:00 06/07/24 08:00 06/07/24 08:00 06/07/24 08:00 06/07/24 08:00 06/07/24 09:00 06/07/24 09:00 FiO2 28 06/06/24 19:01 Laboratory Results - last 24 hr 06/07/24 06:35: WBC 14.4 H D, RBC 3.59 L, Hgb 10.8 L, Hct 31.8 L, MCV 88.4, MCH 30.2, MCHC 34.1, RDW 14.8, Plt Count 353 D, MPV 9.0, Neut % (Auto) 82.3 H, Lymph % (Auto) 10.7, [place] % (Auto) 5.0, Eos % (Auto) 1.1, Baso % (Auto) 0.8, Neut # (Auto) 11.9 H, Lymph # (Auto) 1.6, [place] # (Auto) 0.7, Eos # (Auto) 0.2, Baso # (Auto) 0.1, Sodium 131 L, Potassium 3.7 D, Chloride 101, Carbon Dioxide 22, Anion Gap 11.7, BUN 18 H D, Creatinine 0.40 L D, Estimated Creat Clear 63, Estimated GFR 166, Est GFR ( Amer) 201 D, Glucose 81, Calcium 8.0 L, Total Bilirubin 1.0, AST 29, ALT 32, Alkaline Phosphatase 108, Total Protein 6.0 L, Albumin 2.8 L D, Globulin 3.2, Albumin/Globulin Ratio 0.9 L I & O for Last 24 hours: Intake & Output 06/04/24 06/05/24 06/06/24 06/07/24 23:59 23:59 23:59 23:59 Intake Total 2641.999 / 2969.999 1186.651 / 1403.374 4925 / 1560 720 / 720 Output Total 1001 / 1051 3970 / 3970 3145 / 3145 0 / 0 Balance 1640.999 / 1918.999 -2783.349 / -2783.349 -2145 / -1585 720 / 720 Weight 161 lb 1.01 oz 161 lb 1.01 oz 161 lb 1.01 oz 162 lb 11.218 oz Constitutional Constitutional: no acute distress and average body habitus *Routine HEENT Exam Head: Present normocephalic and atraumatic ENT: Present mucous membranes moist *Routine Neck Exam Neck: Present supple, full ROM and normal carotid upstroke; Absent JVD, carotid bruit or lymphadenopathy *Routine Respiratory Exam Respiratory: Present rhonchi, normal respiratory effort and able to speak in complete sentences; Absent accessory muscle use *Routine Cardiovascular Exam Cardiovascular: Present RRR, Normal S1 and Normal S2; Absent murmur or gallop *Routine Abdominal Exam Abdominal: Present soft and normoactive bowel sounds; Absent distended or organomegaly *Routine Extremities Exam Extremities: Present full ROM, pulses intact and normal capillary refill; Absent cyanosis, clubbing or edema *Routine Skin Exam Skin: Present intact and warm; Absent erythema *Routine Neurological Exam Neurological: Present alert and oriented X3 Routine Psychiatric Exam Psychiatric: Present normal affect Progress Note: A&P Assessment and plan (1) HFrEF (heart failure with reduced ejection fraction): Status: Acute (2) Cardiomyopathy: Status: Acute (3) Non-STEMI (non-ST elevated myocardial infarction): Status: Acute (4) Acute respiratory failure with hypoxia: Status: Acute (5) Pneumonia: Status: Acute (6) Lactic acidosis: Status: Acute (7) Septic shock: Status: Acute (8) Streptococcal bacteremia: Status: Acute Assessment and Plan Assessment and Plan for All Diagnoses:: Plan: 1. The patient was admitted to the hospital with bacteremia and septic shock secondary to strep pneumonia. She had acute respiratory failure with hypoxia requiring intubation and mechanical ventilation. The patient was successfully extubated Wednesday. Will defer management of this to the hospitalist and pulmonology. 2. The patient did have a non-STEMI with an elevated troponin. Left cardiac catheterization showed normal coronary arteries with an ejection fraction of 35% and LVEDP of 20 mmHg. Echocardiogram and SEBASTIAN showed ejection fraction of 40%. 3. Echocardiogram shows an ejection fraction of 40 to 45%. The patient has normal coronary arteries. Recommend an outpatient cardiac MRI with cardiomyopathy protocol to evaluate for nonischemic etiologies. 4. Her blood pressure has improved but could be under a little better control. Will increase her Entresto to 49/51 mg p.o. twice daily. 5. Her LDL goal is less than 100. Her LDL is 58. 6. Stop IV Lasix and start Lasix 40 mg p.o. daily for HFrEF. Continue spironolactone for HFrEF. 7. Continue carvedilol and Jardiance for HFrEF. 8. Further recommendations will be made pending the patient's response to treatment. Thank you for the opportunity to help participate in the care of this patient. All recommendations and orders are per Dr. Rogers.
[2024-06-07 11:45] LABS: Procalcitonin 1.22 ng/mL (0.0-2.0)
[2024-06-07 12:46] LABS: Microscopic, Urine URINE MICROSCOPIC (MICROSCOPIC)
[2024-06-07 12:49] LABS: Appearance,Urine CLEAR (Clear); Bilirubin,Urine Negative (Negative); Blood, Urine 2+ (Negative); Color,Urine YELLOW (Yellow); Glucose,Urine (UA) 1+ (Negative); Ketones,Urine 1+ (Negative); Leukocyte Esterase,Urine Negative (Negative); Nitrate,Urine Negative (Negative); Protein,Urine Negative (Negative); Urobilinogen,Urine 0.2 EU/dl (0.2)
[2024-06-07 12:57] LABS: Bacteria,Urine Trace /lpf
[2024-06-07 13:42] LABS: Basophils # 0.1 K/mm3 (0-0.2); Basophils % 0.5 % (0.1-2.0); Eosinophils # 0.2 K/mm3 (0.0-0.4); Eosinophils % 0.8 % (0.1-12.0); Hematocrit 31.5 % (37.0-47.0); Hemoglobin 10.6 g/dL (12.2-16.2); Lymphocytes # 1.8 K/mm3 (0.7-4.5); Lymphocytes % 8.5 % (10-50); Mean Corpuscular HGB Conc 33.8 g/dL (31.8-35.4); Mean Corpuscular Hemoglobin 29.8 pg (27.0-31.2); Mean Corpuscular Volume 88.1 fl (81-99); Mean Platelet Volume 8.5 fl (7.4-10.4); Monocytes # 0.7 K/mm3 (0.1-1.0); Monocytes % 3.5 % (1.7-9.3); Neutrophils # 18.1 K/mm3 (1.8-7.8); Neutrophils % 86.7 % (37.0-80.0); Platelet Count 414 K/mm3 (142-424); Red Blood Count 3.58 M/mm3 (4.20-5.40); Red Cell Distribution Width 14.7 % (11.5-17.5); White Blood Count 20.9 K/mm3 (4.8-10.8)
--- NOTE | 2024-06-07 13:43 | PEERSUPPORT ---
Peer Support Note Patient Information Patient Information: DOS: 06/06/2024 ? Reason: OUD ? 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 She says this the thing that broke her, ever since her she could not stand the pain so by using she was able to see what her daughter felt. ? Ps provided empathetic listening. Pt was tearful while sharing, stating she is done with living her life chasing a high and knows it will not bring her daughter back.? ? Ps educated pt on grief and the awareness to identify healthy vs non healthy grief discussing outcomes of each. ? Ps explores her environment at home, relationships and family. ? Pt has three children living and grandchildren. She wants to be involved in their lives saying God must have a purpose for her, or she would be by the life she has been living. ? Ps shares personal relevant stories to affirm hope and purpose through recovery that were built from the hardships and challenges faced. ? Pt is eager to enroll in an outpatient medically assisted treatment clinic [facility] to build connections, continue medication for her OUD. ? Ps provides [facility] with information on services offered and medication options. Pt stated she has started suboxone here at [facility]. ? Ps will follow up with pt ongoing during her admission. ? ? Thank you for allowing [facility] to assist in caring for the patient!
--- NOTE | 2024-06-07 13:44 | PEERSUPPORT ---
Peer Support Note Patient Information Patient Information: DOS: 06/07/2024 ? Reason: Ps Check in ? Pt is frustrated when lab is taking blood she is having a hard time with being poked so many times, during her admission. Heather with [facility] provided patient choice and right to deny the service. ? Ps provides empathetic listening to validate pts feelings. ? Ps reflects the importance of her health as well as rights as a patient, Pt agrees to the lab work deciding her health is priority and not wanting to return to hospital for infection. ? Ps practices distractions with the patient while lab work is being done. ? Pt is then able to self- soothe and share openly her under lying issues. She is able to discuss her grief of losing her daughter. ? Ps shares personal relevant stories allowing understanding while building rapport. ? Pt is receptive to Ps and expresses gratitude. ? Plan: Ps will follow up tomorrow with patient.
[2024-06-07 13:45] LABS: MANUAL DIFFERENTIAL MANUAL DIFFERENTIAL (MANUAL DIFF)
[2024-06-07 14:50] LABS: Eosinophils % 1 % (0-3); Lymphocytes % 6 % (10-50); Monocytes % 3 % (2-9); Neutrophils % 87 % (42-76); Total Cells Counted 100
[2024-06-07 14:53] LABS: Anisocytosis 1+; Macrocytosis 1+; Microcytosis 1+; Platelet Estimate Normal
[2024-06-07] MEDS: LORazepam 0.5MG TABLET 0.5 MG PO (15:30)
--- NOTE | 2024-06-07 16:40 | P.PN_ITS ---
Subjective *Date: 06/07/24 *Time: 16:40 Interval history: Patient is disappointed that she is not able to go home today due to worsening leukocytosis. She is otherwise and asymptomatic, denies chest pain, shortness of breath, abdominal pain, urinary symptoms, fever/chills. Exam Data for Last 24 hours Vital signs and Labs for Last 24 Hours: Temp Pulse Resp BP Pulse Ox O2 Del Method O2 Flow Rate 98 F 95 H 18 115/52 L 91 L Room Air 2 06/07/24 11:40 06/07/24 12:00 06/07/24 11:40 06/07/24 11:40 06/07/24 11:40 06/07/24 13:00 06/07/24 11:40 FiO2 28 06/06/24 19:01 Laboratory Results - last 24 hr 06/07/24 06:35: WBC 14.4 H D, RBC 3.59 L, Hgb 10.8 L, Hct 31.8 L, MCV 88.4, MCH 30.2, MCHC 34.1, RDW 14.8, Plt Count 353 D, MPV 9.0, Neut % (Auto) 82.3 H, Lymph % (Auto) 10.7, [place] % (Auto) 5.0, Eos % (Auto) 1.1, Baso % (Auto) 0.8, Neut # (Auto) 11.9 H, Lymph # (Auto) 1.6, [place] # (Auto) 0.7, Eos # (Auto) 0.2, Baso # (Auto) 0.1, Sodium 131 L, Potassium 3.7 D, Chloride 101, Carbon Dioxide 22, Anion Gap 11.7, BUN 18 H D, Creatinine 0.40 L D, Estimated Creat Clear 63, Estimated GFR 166, Est GFR ( Amer) 201 D, Glucose 81, Calcium 8.0 L, Total Bilirubin 1.0, AST 29, ALT 32, Alkaline Phosphatase 108, Total Protein 6.0 L, Albumin 2.8 L D, Globulin 3.2, Albumin/Globulin Ratio 0.9 L, Procalcitonin 1.22 06/07/24 12:20: Urine Color Yellow, Urine Appearance Clear, Urine pH 6.0, Ur Specific [place] 1.020, Urine Protein Negative, Urine Glucose (UA) 1+, Urine Ketones 1+, Urine Blood 2+ A, Urine Nitrate Negative, Urine Bilirubin Negative, Urine Urobilinogen 0.2, Ur Leukocyte Esterase Negative, Urine RBC 5-10, Urine WBC None, Ur Squamous Epith Cells None, Urine Bacteria Trace 06/07/24 13:30: WBC 20.9 H* D, RBC 3.58 L, Hgb 10.6 L, Hct 31.5 L, MCV 88.1, MCH 29.8, MCHC 33.8, RDW 14.7, Plt Count 414, MPV 8.5, Neut % (Auto) 86.7 H, Lymph % (Auto) 8.5 L, [place] % (Auto) 3.5, Eos % (Auto) 0.8, Baso % (Auto) 0.5, Neut # (Auto) 18.1 H, Lymph # (Auto) 1.8, [place] # (Auto) 0.7, Eos # (Auto) 0.2, Baso # (Auto) 0.1, Total Counted 100, Neutrophils % (Manual) 87 H, Band Neutrophils % 3.0, Lymphocytes % (Manual) 6 L, Monocytes % (Manual) 3, Eosinophils % (Manual) 1, Platelet Estimate Normal, Anisocytosis 1+, Microcytosis 1+, Macrocytosis 1+ I & O for Last 24 hours: Intake & Output 06/04/24 06/05/24 06/06/24 06/07/24 23:59 23:59 23:59 23:59 Intake Total 2641.999 / 2969.999 1186.651 / 0204.234 3971 / 1560 720 / 720 Output Total 1001 / 1051 3970 / 3970 3145 / 3145 300 / 300 Balance 1640.999 / 1918.999 -2783.349 / -2783.349 -2145 / -1585 420 / 420 Weight 73.057 kg 73.057 kg 73.057 kg 73.8 kg Constitutional Constitutional: no acute distress *Routine HEENT Exam Head: Present normocephalic Eye: Present EOMI and PERRL ENT: Present mucous membranes moist *Routine Neck Exam Neck: Present supple; Absent lymphadenopathy *Routine Respiratory Exam Respiratory: Present CTA bilaterally *Routine Cardiovascular Exam Cardiovascular: Present RRR *Routine Abdominal Exam Abdominal: Present soft and normoactive bowel sounds; Absent tenderness *Routine Extremities Exam Extremities: Absent cyanosis, clubbing or edema *Routine Skin Exam Skin: Present warm; Absent rash *Routine Neurological Exam Neurological: Present alert and oriented X3 Assessment and Plan *Assessment and plan (1) Septic shock: Status: Acute Category: Medical Code(s): A41.9 - Sepsis, unspecified organism; R65.21 - Severe sepsis with septic shock (2) Streptococcal bacteremia: Status: Acute Category: Medical Code(s): R78.81 - Bacteremia; B95.5 - Unspecified streptococcus as the cause of diseases classified elsewhere (3) Acute respiratory failure with hypoxia: Status: Acute Category: Medical Code(s): J96.01 - Acute respiratory failure with hypoxia (4) Non-STEMI (non-ST elevated myocardial infarction): Status: Acute Category: Medical Code(s): I21.4 - Non-ST elevation (NSTEMI) myocardial infarction (5) Pneumonia: Status: Acute Qualifiers: Laterality: bilateral Lung location: lower lobe of lung Pneumonia type: due to Pneumococcus Qualified Code(s): J13 - Pneumonia due to Streptococcus pneumoniae Category: Medical Code(s): J18.9 - Pneumonia, unspecified organism (6) Pleural effusion associated with pulmonary infection: Status: Acute Category: Medical Code(s): J18.9 - Pneumonia, unspecified organism; J91.8 - Pleural effusion in other conditions classified elsewhere Plan Patient is a 53-year-old female with past medical history of smoking, marijuana use, prediabetes, depression who presents to the hospital due to shortness of breath, cough. According to patient she also has associated chest pain with shortness of breath, has phlegm production along with a cough. She also mentions she has subjective fevers and chills. She denies sick contacts. She mentions she feels chest pain especially with deep breathing. On further evaluation patient was found to have hypoxia, hyponatremia, hypokalemia as well as right lower lobe consolidation. PSI/port score of 114 on presentation. Class IV risk. Patient showing some improvement. SBT did well today, plan to extubate. Pulmonology and cardiology assisting with care. Problems addressed as follows: Septic shock, resolved Bilateral pneumonia, dense right consolidation Streptococcal pneumonia bacteremia, likely cause of her pneumonia. Acute hypoxic respiratory failure satting less than 90% on room air, resolved Sepsis present on admission due to pneumonia and bacteremia #Opioid withdrawal - S/p extubation 06/05/2024. ? Blood cultures growing strep pneumonia, sensitive to cephalosporins. Repeat blood cultures were negative. ? Pulmonology consulted, assisting with care. ? Continue Suboxone 16/4mg with good toleration and control of opioid withdrawal symptoms. [employer] marketing support specialist consulted, will have [facility] appointment on discharge. #Worsening leukocytosis ? WBC this morning 14, septic workup including UA and CXR essentially unchanged and unremarkable. ? Was planning to discharge patient this afternoon, so repeated WBC again this afternoon which up trended to 20. ? During this course, patient was asymptomatic showing no signs of active infection. Denies chest pain, shortness of breath, fever/chills, abdominal pain, urinary symptoms. ? Stage I sacral decubitus ulcer is stable and not draining. ? Broadened IV antibiotics to vancomycin and Zosyn, discontinued cefepime. ? Follow-up repeat blood cultures. ? Plan to remove midline if blood cultures are positive. Patient is a very hard stick. #Physical deconditioning ? PT/OT consulted, recommended SNF. However, patient prefers home health. [employer] recommended mechanical soft with thin liquids. NSTEMI - SEBASTIAN performed. No vegetations identified. At this time, no indication of endocarditis. Discussed case with cardiology, patient status post left heart cath with normal coronaries. EF approximately 40%. Secondary to stress of acute illness and sepsis Diabetes: On metformin at home. A1c normal at 5.6. continue sliding scale insulin and fingersticks ACHS. DVT prophylaxis-heparin Full code
[2024-06-07] MEDS: PIPERACILLIN/TAZO 3.375 GM in 0.9 % SODIUM CHLORIDE 50 ML IV (18:32)
[2024-06-07] MEDS: VANCOMYCIN CONSULT REQUEST 1 EACH NOTAPPLIC (18:42)
--- NOTE | 2024-06-07 18:58 | PC.NURSE ---
85% RA sat. 2lnc placed on pt with sats around 94%
[2024-06-07] MEDS: VANCOMYCIN/WATER FOR INJ (PEG) 1.75 GM/350 ML PIGGYBACK IV (20:32)
[2024-06-07] MEDS: SACUBITRIL/VALSARTAN 24-26MG TABLET 1 EACH PO (21:50)
[2024-06-08] VITALS: BP 127/57; PULSE 82; PULSE 90; RESP 16; TEMP 37; O2SAT 94
[2024-06-08 00:08] LABS: Adenovirus F 40/41, stool Not Detected (NotDetected); Astrovirus Not Detected (NotDetected); Campylobacter Not Detected (NotDetected); Clostridium Difficile A/B, PCR Not Detected (NotDetected); Cryptosporidium Not Detected (NotDetected); Cyclospora Cayetanesis Not Detected (NotDetected); Entamoeba histolytica Not Detected (NotDetected); Enteroaggregative E coli Not Detected (NotDetected); Enteropathogenic E coli Not Detected (NotDetected); Enterotoxigenic E coli Not Detected (NotDetected); Giardia lamblia Not Detected (NotDetected); Plesimonas Shigalloides, PCR Not Detected (NotDetected); Rotavirus A Not Detected (NotDetected); Salmonella, PCR Not Detected (NotDetected); Sapovirus Not Detected (NotDetected); Shiga-like toxin E coli Not Detected (NotDetected); Shigella Enterovasive E coli Not Detected (NotDetected); Vibrio Cholerae Not Detected (NotDetected); Vibrio, PCR Not Detected (NotDetected); Yersinia Entercolitica, PCR Not Detected (NotDetected)
[2024-06-08] MEDS: PIPERACILLIN/TAZO 3.375 GM in 0.9 % SODIUM CHLORIDE 50 ML IV ×2 (00:50→08:11)
[2024-06-08] MEDS: LORazepam 0.5MG TABLET 0.5 MG PO ×2 (01:08→15:59)
[2024-06-08 02:16] LABS: Norovirus Detected (NotDetected)
[2024-06-08 03:40] VITALS: BP 135/66; PULSE 85; RESP 18; TEMP 37.1; O2SAT 90
[2024-06-08 04:00] VITALS: PULSE 100; BMI 41.7
[2024-06-08] MEDS: HEPARIN SODIUM 5,000 UNIT/ML VIAL 5000 UNIT SUBCUT (05:26)
[2024-06-08] MEDS: FLUTICASONE/UMECLIDIN/VILANTER 100/62.5/25MCG INHALER 1 PUFF IH (06:48)
--- NOTE | 2024-06-08 07:42 | P.CONPHA_ITS ---
Pharmacy Consult Date: 06/08/24 Time: 07:43 Referring provider: DR. JAIN Reason for Consult:: VANCOMYCIN DOSING Allergies Allergy/AdvReac Type Severity Reaction Status Date / Time sertraline (From Zoloft) Allergy Intermediate Unknown Verified 05/30/24 21:20 allergy reaction morphine AdvReac Intermediate Unknown Verified 05/30/24 21:20 allergy reaction Home Medications ?Medication ?Instructions ?Recorded ?Confirmed ?Type buspirone 10 mg tablet 10 mg PO BID 05/30/24 05/30/24 History lisinopril 10 mg tablet 10 mg PO DAILY 05/30/24 05/30/24 History melatonin 5 mg tablet 5 mg PO HS PRN Insomnia 05/30/24 05/30/24 History metformin 500 mg tablet 500 mg PO DAILY 05/30/24 05/30/24 History New Prescriptions to Start Prescriptions: Height: 1.3 m Weight: 70.534 kg Laboratory Results:: Laboratory Results - last 24 hr 06/07/24 06:35: Sodium 131 L, Potassium 3.7 D, Chloride 101, Carbon Dioxide 22, Anion Gap 11.7, BUN 18 H D, Creatinine 0.40 L D, Estimated Creat Clear 63, Estimated GFR 166, Est GFR ( Amer) 201 D, Glucose 81, Calcium 8.0 L, Total Bilirubin 1.0, AST 29, ALT 32, Alkaline Phosphatase 108, Total Protein 6.0 L, Albumin 2.8 L D, Globulin 3.2, Albumin/Globulin Ratio 0.9 L, Procalcitonin 1.22 06/07/24 12:20: Urine Color Yellow, Urine Appearance Clear, Urine pH 6.0, Ur Specific [place] 1.020, Urine Protein Negative, Urine Glucose (UA) 1+, Urine Ketones 1+, Urine Blood 2+ A, Urine Nitrate Negative, Urine Bilirubin Negative, Urine Urobilinogen 0.2, Ur Leukocyte Esterase Negative, Urine RBC 5-10, Urine WBC None, Ur Squamous Epith Cells None, Urine Bacteria Trace 06/07/24 13:30: WBC 20.9 H* D, RBC 3.58 L, Hgb 10.6 L, Hct 31.5 L, MCV 88.1, MCH 29.8, MCHC 33.8, RDW 14.7, Plt Count 414, MPV 8.5, Neut % (Auto) 86.7 H, Lymph % (Auto) 8.5 L, [place] % (Auto) 3.5, Eos % (Auto) 0.8, Baso % (Auto) 0.5, Neut # (Auto) 18.1 H, Lymph # (Auto) 1.8, [place] # (Auto) 0.7, Eos # (Auto) 0.2, Baso # (Auto) 0.1, Total Counted 100, Neutrophils % (Manual) 87 H, Band Neutrophils % 3.0, Lymphocytes % (Manual) 6 L, Monocytes % (Manual) 3, Eosinophils % (Manual) 1, Platelet Estimate Normal, Anisocytosis 1+, Microcytosis 1+, Macrocytosis 1+ 06/08/24 00:02: Stl Aeromonas (PCR) Not detected, Stl C. cayetanensis PCR Not detected, Stool Rotavirus (PCR) Not detected, Stl Adenov F 40/41 PCR Not detected, Stool Astrovirus (PCR) Not detected, Stool Campylobacter PCR Not detected, Stl C.difficile Tox PCR Not detected, Stool Cryptosporidium PCR Not detected, Stl E.coli Shiga Tox PCR Not detected, Stool E coli O157 PCR Not detected, Stl Enterotoxigenic E PCR Not detected, Stool EPEC (PCR) Not detected, Stool EAEC (PCR) Not detected, Stl E. histolytica PCR Not detected, Stool Giardia Lamblia PCR Not detected, Stool Salmonella PCR Not detected, Stool Sapovirus (PCR) Not detected, Stl P. shigelloides PCR Not detected, Stl Shigella/EIEC PCR Not detected, St Y.enterocolitica PCR Not detected, Stool Vi brio (PCR) Not detected, Stl Vibrio cholerae PCR Not detected, Stl Norovirus GI/GII PCR Detected A Medical History: Medical History (Updated 06/05/24 @ 10:39 by Jessie Dacosta APRN) Non-STEMI (non-ST elevated myocardial infarction) HFrEF (heart failure with reduced ejection fraction) Cardiomyopathy Bacteremia Septic shock Lactic acidosis Acute respiratory failure with hypoxia Assessment and Plan Assessment and plan all Dx Assessment and Plan for all problems:: Pharmacokinetic dosing service Objective: Patient: Floor: Age: 53 yo Serum creatinine: 0.8 mg/dL Height: 61.8 Inches Weight (kg): 70 Assessment: IBW (kg): 49.64 Dosing wt(kg): 70 Estimated Creatinine clearance (ml/min): 63.0 CRCL method: Cockcroft and Gault using ibw(default). Drug selected: Vancomycin Loading dose (mg): 0 Vd (liters): 56.0 (factor used: 0.8 L/kg) Percy (hr-1): 0.057 Half life (hrs): 12.16 Recommended dose: 1250 mg Interval: 18 hrs Infusion time (hrs): 2.0 Predicted peak (mcg/mL): 32.9 Predicted trough (mcg/mL): 13.22 Total body weight is being used for vancomycin dosing. Recommendations: Give Vancomycin 1250 mg q 18 hrs with an expected Cpeak of 32.9 mcg/ml and an expected Ctrough of 13.22 mcg/ml ----Vanco only - ignore for aminoglycosides----- CLvanco= 3.19 L/hr AUC 0-24 /ALESSANDRA Data: ALESSANDRA 0.5 mcg/mL: AUC/ALESSANDRA: 1044.9 ALESSANDRA 1.0 mcg/mL: AUC/ALESSANDRA: 522.5 --------- ALESSANDRA 1.5 mcg/mL: AUC/ALESSANDRA: 348.3 ALESSANDRA 2.0 mcg/mL: AUC/ALESSANDRA: 261.2
[2024-06-08 08:00] VITALS: BP 128/79; PULSE 90; PULSE 94; RESP 19; TEMP 37.1; O2SAT 2; O2SAT 94
[2024-06-08] MEDS: SACUBITRIL/VALSARTAN 24-26MG TABLET 1 EACH PO (08:10)
[2024-06-08] MEDS: FUROSEMIDE 40 MG TABLET PO (08:10)
[2024-06-08] MEDS: CARVEDILOL 3.125MG TABLET 3.125 MG PO (08:10)
[2024-06-08] MEDS: BUPRENORPHINE/NALOXONE 8MG/2MG ODT 2 EACH SL (08:10)
[2024-06-08] MEDS: EMPAGLIFLOZIN 10MG TABLET 10 MG PO (08:10)
[2024-06-08] MEDS: SPIRONOLACTONE 25MG TABLET 50 MG PO (08:11)
[2024-06-08] MEDS: FAMOTIDINE 20MG TABLET 20 MG PO (08:12)
--- NOTE | 2024-06-08 09:53 | EXP.PULM.PN ---
Subjective *Date: 06/08/24 *Time: 11:27 Interval history: No acute respiratory vents overnight. Patient admits continued improvement in her respiratory symptoms. Pulmonology Exam Inpatient Vital signs and Labs for Last 24 Hours: Temp Pulse Resp BP Pulse Ox O2 Del Method O2 Flow Rate 98.7 F 94 H 19 128/79 94 L Nasal Cannula 2 06/08/24 08:00 06/08/24 08:00 06/08/24 08:00 06/08/24 08:00 06/08/24 08:00 06/08/24 09:00 06/08/24 09:00 FiO2 28 06/06/24 19:01 Laboratory Results - last 24 hr 06/07/24 06:35: Procalcitonin 1.22 06/07/24 12:20: Urine Color Yellow, Urine Appearance Clear, Urine pH 6.0, Ur Specific [place] 1.020, Urine Protein Negative, Urine Glucose (UA) 1+, Urine Ketones 1+, Urine Blood 2+ A, Urine Nitrate Negative, Urine Bilirubin Negative, Urine Urobilinogen 0.2, Ur Leukocyte Esterase Negative, Urine RBC 5-10, Urine WBC None, Ur Squamous Epith Cells None, Urine Bacteria Trace 06/07/24 13:30: WBC 20.9 H* D, RBC 3.58 L, Hgb 10.6 L, Hct 31.5 L, MCV 88.1, MCH 29.8, MCHC 33.8, RDW 14.7, Plt Count 414, MPV 8.5, Neut % (Auto) 86.7 H, Lymph % (Auto) 8.5 L, [place] % (Auto) 3.5, Eos % (Auto) 0.8, Baso % (Auto) 0.5, Neut # (Auto) 18.1 H, Lymph # (Auto) 1.8, [place] # (Auto) 0.7, Eos # (Auto) 0.2, Baso # (Auto) 0.1, Total Counted 100, Neutrophils % (Manual) 87 H, Band Neutrophils % 3.0, Lymphocytes % (Manual) 6 L, Monocytes % (Manual) 3, Eosinophils % (Manual) 1, Platelet Estimate Normal, Anisocytosis 1+, Microcytosis 1+, Macrocytosis 1+ 06/08/24 00:02: Stl Aeromonas (PCR) Not detected, Stl C. cayetanensis PCR Not detected, Stool Rotavirus (PCR) Not detected, Stl Adenov F 40/41 PCR Not detected, Stool Astrovirus (PCR) Not detected, Stool Campylobacter PCR Not detected, Stl C.difficile Tox PCR Not detected, Stool Cryptosporidium PCR Not detected, Stl E.coli Shiga Tox PCR Not detected, Stool E coli O157 PCR Not detected, Stl Enterotoxigenic E PCR Not detected, Stool EPEC (PCR) Not detected, Stool EAEC (PCR) Not detected, Stl E. histolytica PCR Not detected, Stool Giardia Lamblia PCR Not detected, Stool Salmonella PCR Not detected, Stool Sapovirus (PCR) Not detected, Stl P. shigelloides PCR Not detected, Stl Shigella/EIEC PCR Not detected, St Y.enterocolitica PCR Not detected, Stool Vibrio (PCR) Not detected, Stl Vibrio cholerae PCR Not detected, Stl Norovirus GI/GII PCR Detected A I & O for Labs for Last 24 Hours: Intake & Output 06/05/24 06/06/24 06/07/24 06/08/24 23:59 23:59 23:59 23:59 Intake Total 1186.651 / 1850.531 2342 / 1560 1190 / 1190 118 / 118 Output Total 3970 / 3970 3145 / 3145 500 / 700 200 / 200 Balance -2783.349 / -2783.349 -2145 / -1585 690 / 490 -82 / -82 Weight 161 lb 1.01 oz 161 lb 1.01 oz 162 lb 11.218 oz 155 lb 8 oz Constitutional: Present moderate distress Head: Present normocephalic and atraumatic ENT: Present normal exam, normal oropharynx and mucous membranes moist Neck: Present normal inspection and full ROM Respiratory: Present respiratory distress, rhonchi and able to speak in complete sentences; Absent wheezes Cardiac: Present S1/S2, Tachycardia and radial pulses present GI: Present soft and distention; Absent tenderness or guarding Rectal (female): Present deferred (female): Present deferred Skin: Present intact; Absent cyanosis or jaundice Neuro: Present alert, awake and oriented x 3 Extremities: Present normal inspection; Absent clubbing or cyanosis Assessment and Plan *Assessment and plan (1) Acute respiratory failure with hypoxia: Status: Acute Category: Medical Code(s): J96.01 - Acute respiratory failure with hypoxia (2) Pneumonia: Status: Acute Qualifiers: Laterality: bilateral Lung location: lower lobe of lung Pneumonia type: due to Pneumococcus Qualified Code(s): J13 - Pneumonia due to Streptococcus pneumoniae Category: Medical Code(s): J18.9 - Pneumonia, unspecified organism (3) Lactic acidosis: Status: Acute Category: Medical Code(s): E87.20 - Acidosis, unspecified (4) Septic shock: Status: Acute Category: Medical Code(s): A41.9 - Sepsis, unspecified organism; R65.21 - Severe sepsis with septic shock (5) Streptococcal bacteremia: Status: Acute Category: Medical Code(s): R78.81 - Bacteremia; B95.5 - Unspecified streptococcus as the cause of diseases classified elsewhere Plan Ms. Mckeon is a 53-year-old female with reported history of tobacco abuse presented today with worsening respiratory status and shortness of breath and pulmonary was consulted for further evaluation and management. Patient appeared lethargic, still arousable to verbal commands and responding appropriately Leukopenia with lymphopenia upon admission. CTA upon admission dense lobar consolidative changes in the right lower lobe along with consolidative changes in the right upper lobe and left lower lobe. COVID-19 and flu PCR panel negative. No recent prior imaging available for comparison. On initial examination patient appeared to be in severe respiratory distress. Saturating 95% on 3 L nasal cannula. VBG from this morning did not show any evidence of hypercarbic respiratory failure. VBG upon admission showed tachypnea and hypercarbia. Echo EF 35 to 40%. SEBASTIAN negative for vegetations. Repeat blood cultures negative. Interval update: No acute respiratory vents overnight. Continue to remain on room air. Given concern for worsening leukocytosis yesterday antibiotics were escalated to vancomycin and Zosyn Afebrile. Hemodynamically stable. Continue to monitor. Chest x-ray from yesterday and from this morning continue to show stable/improving airspace disease. Small right pleural effusion noted. Leukocytosis normalized this morning. Patient is requesting to be discharged home and agreeable for a closer follow-up Plan: Patient can be discharged from pulmonary standpoint on cefdinir to complete a total of 14-day course Trelegy 100 inhaler along with DuoNebs 4 times daily. Follow with repeat blood cultures as an outpatient basis. # Thank you for involving pulmonary in this patient care. Will follow in pulmonary clinic in 1 week with a chest x-ray PA lateral prior to clinic visit
--- NOTE | 2024-06-08 09:55 | XR_ITS ---
PROCEDURE INFORMATION: Exam: XR Chest Exam date and time: 06/08/2024 10:11 AM Age: 53 years old Clinical indication: Other: Pnm TECHNIQUE: Imaging protocol: Radiologic exam of the chest. Views: 1 view. COMPARISON: CR XR CHEST PORTABLE 06/05/2024 9:36 PM FINDINGS: Lungs: Subtle airspace disease left lung base. Pleural spaces: Unremarkable. No pleural effusion. No pneumothorax. Heart/Mediastinum: Unremarkable. No cardiomegaly. Bones/joints: Unremarkable. IMPRESSION: Subtle airspace disease left lung base. Patchy airspace disease in the right mid lung with subtle airspace disease right lung base. Mildly improved.
[2024-06-08 10:44] LABS: Basophils # 0.2 K/mm3 (0-0.2); Basophils % 2.4 % (0.1-2.0); Eosinophils # 0.2 K/mm3 (0.0-0.4); Eosinophils % 1.7 % (0.1-12.0); Hematocrit 35.2 % (37.0-47.0); Hemoglobin 11.3 g/dL (12.2-16.2); Lymphocytes # 1.3 K/mm3 (0.7-4.5); Lymphocytes % 13.4 % (10-50); Mean Corpuscular HGB Conc 31.9 g/dL (31.8-35.4); Mean Corpuscular Hemoglobin 30.9 pg (27.0-31.2); Mean Corpuscular Volume 96.8 fl (81-99); Monocytes # 0.6 K/mm3 (0.1-1.0); Monocytes % 6.4 % (1.7-9.3); Neutrophils # 7.6 K/mm3 (1.8-7.8); Neutrophils % 76.2 % (37.0-80.0); Platelet Count 361 K/mm3 (142-424); Red Blood Count 3.64 M/mm3 (4.20-5.40); Red Cell Distribution Width 14.5 % (11.5-17.5)
[2024-06-08 10:52] LABS: Alanine Aminotransferase 34 U/L (12-78); Albumin Level 3.3 g/dl (3.5-5.0); Albumin/Globulin Ratio 0.9 (1.1-1.8); Alkaline Phosphatase 138 U/L (38-126); Anion Gap 14.2 mEq/L (5-15); Aspartate Amino Transferase 69 U/L (14-36); Bilirubin,Total 1.1 mg/dl (0.2-1.3); Blood Urea Nitrogen 9 mg/dl (7-17); Calcium 7.8 mg/dl (8.4-10.2); Carbon Dioxide 22 mmol/L (22.0-30.0); Chloride 97 mmol/L (98-107); Creatinine Clearance Estimated 84 mL/min (50-200); Estimated Glomerular Filt Rate 232 ml/min (>60); GFR (African American) 281 ML/MIN (>60); Globulin 3.5 g/dL (1.3-3.2); Glucose 123 mg/dl (74-100); Potassium 3.2 mmoL/L (3.5-5.1); Sodium 130 mmol/L (136-145); Total Protein,Serum 6.8 g/dl (6.3-8.2)
[2024-06-08 11:12] LABS: Procalcitonin 0.819 ng/mL (0.0-2.0)
--- NOTE | 2024-06-08 11:29 | P.PN_ITS ---
Subjective Subjective Date: 06/08/24 Time: 08:45 Principal diagnosis: Resp Failure, [place] Interval history: This is a 53-year-old female who was admitted to the hospital with pneumonia and respiratory distress ultimately intubated and on mechanical ventilation. She was extubated on Wednesday. She has done well since that time. This morning she denies any chest pain or pressure. She denies any shortness of breath or edema. She denies any fever, chills, nausea, vomiting or diarrhea. She states that she is really looking forward to being discharged home. Exam Data for Last 24 hours Vital signs and Labs for Last 24 Hours: Temp Pulse Resp BP Pulse Ox O2 Del Method O2 Flow Rate 98.7 F 94 H 19 128/79 94 L Nasal Cannula 2 06/08/24 08:00 06/08/24 08:00 06/08/24 08:00 06/08/24 08:00 06/08/24 08:00 06/08/24 09:00 06/08/24 09:00 FiO2 28 06/06/24 19:01 Laboratory Results - last 24 hr 06/07/24 06:35: Procalcitonin 1.22 06/07/24 12:20: Urine Color Yellow, Urine Appearance Clear, Urine pH 6.0, Ur Specific [place] 1.020, Urine Protein Negative, Urine Glucose (UA) 1+, Urine Ketones 1+, Urine Blood 2+ A, Urine Nitrate Negative, Urine Bilirubin Negative, Urine Urobilinogen 0.2, Ur Leukocyte Esterase Negative, Urine RBC 5-10, Urine WBC None, Ur Squamous Epith Cells None, Urine Bacteria Trace 06/07/24 13:30: WBC 20.9 H* D, RBC 3.58 L, Hgb 10.6 L, Hct 31.5 L, MCV 88.1, MCH 29.8, MCHC 33.8, RDW 14.7, Plt Count 414, MPV 8.5, Neut % (Auto) 86.7 H, Lymph % (Auto) 8.5 L, [place] % (Auto) 3.5, Eos % (Auto) 0.8, Baso % (Auto) 0.5, Neut # (Auto) 18.1 H, Lymph # (Auto) 1.8, [place] # (Auto) 0.7, Eos # (Auto) 0.2, Baso # (Auto) 0.1, Total Counted 100, Neutrophils % (Manual) 87 H, Band Neutrophils % 3.0, Lymphocytes % (Manual) 6 L, Monocytes % (Manual) 3, Eosinophils % (Manual) 1, Platelet Estimate Normal, Anisocytosis 1+, Microcytosis 1+, Macrocytosis 1+ 06/08/24 00:02: Stl Aeromonas (PCR) Not detected, Stl C. cayetanensis PCR Not detected, Stool Rotavirus (PCR) Not detected, Stl Adenov F 40/41 PCR Not detected, Stool Astrovirus (PCR) Not detected, Stool Campylobacter PCR Not detected, Stl C.difficile Tox PCR Not detected, Stool Cryptosporidium PCR Not detected, Stl E.coli Shiga Tox PCR Not detected, Stool E coli O157 PCR Not detected, Stl Enterotoxigenic E PCR Not detected, Stool EPEC (PCR) Not detected, Stool EAEC (PCR) Not detected, Stl E. histolytica PCR Not detected, Stool Giardia Lamblia PCR Not detected, Stool Salmonella PCR Not detected, Stool Sapovirus (PCR) Not detected, Stl P. shigelloides PCR Not detected, Stl Shigell a/EIEC PCR Not detected, St Y.enterocolitica PCR Not detected, Stool Vibrio (PCR) Not detected, Stl Vibrio cholerae PCR Not detected, Stl Norovirus GI/GII PCR Detected A 06/08/24 10:30: WBC 10.0 D, RBC 3.64 L, Hgb 11.3 L, Hct 35.2 L, MCV 96.8, MCH 30.9, MCHC 31.9, RDW 14.5, Plt Count 361, MPV 9.0, Neut % (Auto) 76.2, Lymph % (Auto) 13.4, [place] % (Auto) 6.4, Eos % (Auto) 1.7, Baso % (Auto) 2.4 H, Neut # (Auto) 7.6, Lymph # (Auto) 1.3, [place] # (Auto) 0.6, Eos # (Auto) 0.2, Baso # (Auto) 0.2 06/08/24 10:32: Sodium 130 L, Potassium 3.2 L, Chloride 97 L, Carbon Dioxide 22, Anion Gap 14.2, BUN 9 D, Creatinine 0.30 L D, Estimated Creat Clear 84, Estimated GFR 232, Est GFR ( Amer) 281 D, Glucose 123 H, Calcium 7.8 L, Total Bilirubin 1.1, AST 69 H D, ALT 34, Alkaline Phosphatase 138 H, Total Protein 6.8, Albumin 3.3 L D, Globulin 3.5 H, Albumin/Globulin Ratio 0.9 L, Procalcitonin 0.819 I & O for Last 24 hours: Intake & Output 06/05/24 06/06/24 06/07/24 06/08/24 23:59 23:59 23:59 23:59 Intake Total 1186.651 / 9750.559 0642 / 1560 1190 / 1190 118 / 118 Output Total 3970 / 3970 3145 / 3145 500 / 700 200 / 200 Balance -2783.349 / -2783.349 -2145 / -1585 690 / 490 -82 / -82 Weight 161 lb 1.01 oz 161 lb 1.01 oz 162 lb 11.218 oz 155 lb 8 oz Microbiology Reports for the Last 24 Hours: Microbiology 05/31/24 Unknown Bronchial Washings - Right Lower Lobe - Final 05/31/24 Unknown Bronchial Washings - Right Lower Lobe - Final Constitutional Constitutional: no acute distress and morbidly obese *Routine HEENT Exam Head: Present normocephalic and atraumatic ENT: Present mucous membranes moist *Routine Neck Exam Neck: Present supple, full ROM and normal carotid upstroke; Absent JVD, carotid bruit or lymphadenopathy *Routine Respiratory Exam Respiratory: Present rhonchi, normal respiratory effort and able to speak in complete sentences; Absent accessory muscle use *Routine Cardiovascular Exam Cardiovascular: Present RRR, Normal S1 and Normal S2; Absent murmur or gallop *Routine Abdominal Exam Abdominal: Present soft and normoactive bowel sounds; Absent distended or organomegaly *Routine Extremities Exam Extremities: Present full ROM, pulses intact and normal capillary refill; Absent cyanosis, clubbing or edema *Routine Skin Exam Skin: Present intact and warm; Absent erythema *Routine Neurological Exam Neurological: Present alert and oriented X3 Routine Psychiatric Exam Psychiatric: Present normal affect Progress Note: A&P Assessment and plan (1) HFrEF (heart failure with reduced ejection fraction): Status: Acute (2) Cardiomyopathy: Status: Acute (3) Non-STEMI (non-ST elevated myocardial infarction): Status: Acute (4) Acute respiratory failure with hypoxia: Status: Acute (5) Pneumonia: Status: Acute (6) Lactic acidosis: Status: Acute (7) Septic shock: Status: Acute (8) Streptococcal bacteremia: Status: Acute Assessment and Plan Assessment and Plan for All Diagnoses:: Plan: 1. The patient was admitted to the hospital with bacteremia and septic shock secondary to strep pneumonia. She had acute respiratory failure with hypoxia requiring intubation and mechanical ventilation. The patient was successfully extubated Wednesday. Will defer management of this to the hospitalist and pulmonology. 2. The patient did have a non-STEMI with an elevated troponin. Left cardiac catheterization showed normal coronary arteries with an ejection fraction of 35% and LVEDP of 20 mmHg. Echocardiogram and SEBASTIAN showed ejection fraction of 40%. 3. Echocardiogram shows an ejection fraction of 40 to 45%. The patient has normal coronary arteries. Recommend an outpatient cardiac MRI with cardiomyopathy protocol to evaluate for nonischemic etiologies. 4. Her blood pressure is well-controlled today. 5. Her LDL goal is less than 100. Her LDL is 58. 6. Continue Lasix, spironolactone and Entresto for HFrEF. 7. Continue carvedilol and Jardiance for HFrEF. 8. No further recommendations at this time from a cardiac standpoint. When the patient is medically cleared she is stable for discharge home from a cardiac standpoint. She will need to follow-up in cardiology clinic next week. 9. When the patient is ready for discharge she can be discharged on the following cardiac medications: Coreg 3.125 mg p.o. twice daily, Jardiance 10 mg daily, Lasix 40 mg daily, Entresto 49/51 mg p.o. twice daily, spironolactone 50 mg p.o. daily Thank you for the opportunity to help participate in the care of this patient. All recommendations and orders are per Dr. Rogers.
[2024-06-08 11:41] VITALS: BP 128/47; PULSE 84; RESP 17; TEMP 36.5; O2SAT 93
--- NOTE | 2024-06-08 12:02 | EXP.DC.SUM ---
General Admission date:: 05/30/24 HPI HPI HPI: Patient is a 53-year-old female with past medical history of smoking, marijuana use, prediabetes, depression who presents to the hospital due to shortness of breath, cough. According to patient she also has associated chest pain with shortness of breath, has phlegm production along with a cough. She also mentions she has subjective fevers and chills. She denies sick contacts. She mentions she feels chest pain especially with deep breathing. On further evaluation patient was found to have hypoxia, hyponatremia, hypokalemia as well as right lower lobe consolidation. Hospital Course Hospital Course Hospital Course: Patient is a 53-year-old female with past medical history of smoking, marijuana use, prediabetes, depression who presents to the hospital due to shortness of breath, cough. According to patient she also has associated chest pain with shortness of breath, has phlegm production along with a cough. She also mentions she has subjective fevers and chills. She denies sick contacts. She mentions she feels chest pain especially with deep breathing. On further evaluation patient was found to have hypoxia, hyponatremia, hypokalemia as well as right lower lobe consolidation. PSI/port score of 114 on presentation. Class IV risk. Patient showing some improvement. SBT did well today, plan to extubate. Pulmonology and cardiology assisting with care. Problems addressed as follows: Septic shock, resolved Bilateral pneumonia, dense right consolidation Streptococcal pneumonia bacteremia, likely cause of her pneumonia. Acute hypoxic respiratory failure satting less than 90% on room air, resolved Sepsis present on admission due to pneumonia and bacteremia #Opioid withdrawal - Treated with broad-spectrum antibiotics, including vancomycin and cefepime. S/p extubation 06/05/2024 to room air. ? Blood cultures growing strep pneumonia, sensitive to cephalosporins. Repeat blood cultures were negative. - WBC bumped to 20 day before discharged, but resolved to 10 today. Patient remained stable with no new symptoms during this course, vital signs stable. ? Pulmonology consulted, appreciate recommendations and assisted with care as above. ? Titrated Suboxone to 16/4mg with good toleration and control of opioid withdrawal symptoms. [facility] direct support professional home health consulted, will have [facility] appointment on discharge. - Discharged with cefdinir 300mg BID for 5 more days for a total of 14 day coverage for E Coli bacteremia. Also provided Trelegy inhaler. - Will follow-up with pulmonology within 1 week. #Physical deconditioning ? PT/OT consulted, recommended SNF. However, patient prefers home health. NSTEMI HFrEF - [place] performed. No vegetations identified. At this time, no indication of endocarditis. Discussed case with cardiology, patient status post left heart cath with normal coronaries. EF approximately 40%. Secondary to stress of acute illness and sepsis. - Discharged with Lasix 40mg, spironolactone 50mg, Jardiance 10mg, Entresto 24/26mg BID, Coreg 3.125mg BID. Diabetes On metformin at home. A1c normal at 5.6. Exam Data for Last 24 hours Vital signs and Labs for Last 24 Hours: Temp Pulse Resp BP Pulse Ox O2 Del Method O2 Flow Rate 97.7 F 84 17 128/47 L 93 L Room Air 2 06/08/24 11:41 06/08/24 11:41 06/08/24 11:41 06/08/24 11:41 06/08/24 11:41 06/08/24 11:41 06/08/24 09:00 FiO2 28 06/06/24 19:01 Laboratory Results - last 24 hr 06/07/24 12:20: Urine Color Yellow, Urine Appearance Clear, Urine pH 6.0, Ur Specific [place] 1.020, Urine Protein Negative, Urine Glucose (UA) 1+, Urine Ketones 1+, Urine Blood 2+ A, Urine Nitrate Negative, Urine Bilirubin Negative, Urine Urobilinogen 0.2, Ur Leukocyte Esterase Negative, Urine RBC 5-10, Urine WBC None, Ur Squamous Epith Cells None, Urine Bacteria Trace 06/07/24 13:30: WBC 20.9 H* D, RBC 3.58 L, Hgb 10.6 L, Hct 31.5 L, MCV 88.1, MCH 29.8, MCHC 33.8, RDW 14.7, Plt Count 414, MPV 8.5, Neut % (Auto) 86.7 H, Lymph % (Auto) 8.5 L, O'Brien % (Auto) 3.5, Eos % (Auto) 0.8, Baso % (Auto) 0.5, Neut # (Auto) 18.1 H, Lymph # (Auto) 1.8, O'Brien # (Auto) 0.7, Eos # (Auto) 0.2, Baso # (Auto) 0.1, Total Counted 100, Neutrophils % (Manual) 87 H, Band Neutrophils % 3.0, Lymphocytes % (Manual) 6 L, Monocytes % (Manual) 3, Eosinophils % (Manual) 1, Platelet Estimate Normal, Anisocytosis 1+, Microcytosis 1+, Macrocytosis 1+ 06/08/24 00:02: Stl Aeromonas (PCR) Not detected, Stl C. cayetanensis PCR Not detected, Stool Rotavirus (PCR) Not detected, Stl Adenov F 40/41 PCR Not detected, Stool Astrovirus (PCR) Not detected, Stool Campylobacter PCR Not detected, Stl C.difficile Tox PCR Not detected, Stool Cryptosporidium PCR Not detected, Stl E.coli Shiga Tox PCR Not detected, Stool E coli O157 PCR Not detected, Stl Enterotoxigenic E PCR Not detected, Stool EPEC (PCR) Not detected, Stool EAEC (PCR) Not detected, Stl E. histolytica PCR Not detected, Stool Giardia Lamblia PCR Not detected, Stool Salmonella PCR Not detected, Stool Sapovirus (PCR) Not detected, Stl P. shigelloides PCR Not detected, Stl Shigella/EIEC PCR Not detected, St Y.enterocolitica PCR Not detected, Stool Vibrio (PCR) Not detected, Stl Vibrio cholerae PCR Not detected, Stl Norovirus GI/GII PCR Detected A 06/08/24 10:30: WBC 10.0 D, RBC 3.64 L, Hgb 11.3 L, Hct 35.2 L, MCV 96.8, MCH 30.9, MCHC 31.9, RDW 14.5, Plt Count 361, MPV 9.0, Neut % (Auto) 76.2, Lymph % (Auto) 13.4, O'Brien % (Auto) 6.4, Eos % (Auto) 1.7, Baso % (Auto) 2.4 H, Neut # (Auto) 7.6, Lymph # (Auto) 1.3, O'Brien # (Auto) 0.6, Eos # (Auto) 0.2, Baso # (Auto) 0.2 06/08/24 10:32: Sodium 130 L, Potassium 3.2 L, Chloride 97 L, Carbon Dioxide 22, Anion Gap 14.2, BUN 9 D, Creatinine 0.30 L D, Estimated Creat Clear 84, Estimated GFR 232, Est GFR ( Amer) 281 D, Glucose 123 H, Calcium 7.8 L, Total Bilirubin 1.1, AST 69 H D, ALT 34, Alkaline Phosphatase 138 H, Total Protein 6.8, Albumin 3.3 L D, Globulin 3.5 H, Albumin/Globulin Ratio 0.9 L, Procalcitonin 0.819 I & O for Last 24 hours: Intake & Output 06/05/24 06/06/24 06/07/24 06/08/24 23:59 23:59 23:59 23:59 Intake Total 1186.651 / 6142.432 4401 / 1560 1190 / 1190 118 / 118 Output Total 3970 / 3970 3145 / 3145 500 / 700 200 / 200 Balance -2783.349 / -2783.349 -2145 / -1585 690 / 490 -82 / -82 Weight 73.057 kg 73.057 kg 73.8 kg 70.534 kg Microbiology Reports for the Last 24 Hours: Microbiology 05/31/24 Unknown Bronchial Washings - Right Lower Lobe - Final 05/31/24 Unknown Bronchial Washings - Right Lower Lobe - Final Constitutional Constitutional: no acute distress and morbidly obese *Routine HEENT Exam Head: Present normocephalic and atraumatic ENT: Present mucous membranes moist *Routine Neck Exam Neck: Present supple, full ROM and normal carotid upstroke; Absent JVD, carotid bruit or lymphadenopathy *Routine Respiratory Exam Respiratory: Present rhonchi, normal respiratory effort and able to speak in complete sentences; Absent accessory muscle use *Routine Cardiovascular Exam Cardiovascular: Present RRR, Normal S1 and Normal S2; Absent murmur or gallop *Routine Abdominal Exam Abdominal: Present soft and normoactive bowel sounds; Absent distended or organomegaly *Routine Extremities Exam Extremities: Present full ROM, pulses intact and normal capillary refill; Absent cyanosis, clubbing or edema *Routine Skin Exam Skin: Present intact and warm; Absent erythema *Routine Neurological Exam Neurological: Present alert and oriented X3 Routine Psychiatric Exam Psychiatric: Present normal affect Results Data Completed and Pending Labs on day of discharge: Labs from last 24 hours 06/08/24 06/08/24 06/08/24 10:32 10:30 00:02 WBC 10.0 D RBC 3.64 L Hgb 11.3 L Hct 35.2 L MCV 96.8 MCH 30.9 MCHC 31.9 RDW 14.5 Plt Count 361 MPV 9.0 Neut % (Auto) 76.2 Lymph % (Auto) 13.4 O'Brien % (Auto) 6.4 Eos % (Auto) 1.7 Baso % (Auto) 2.4 H Neut # (Auto) 7.6 Lymph # (Auto) 1.3 O'Brien # (Auto) 0.6 Eos # (Auto) 0.2 Baso # (Auto) 0.2 Total Counted Neutrophils % (Manual) Band Neutrophils % Lymphocytes % (Manual) Monocytes % (Manual) Eosinophils % (Manual) Platelet Estimate Anisocytosis Microcytosis Macrocytosis Sodium 130 L Potassium 3.2 L Chloride 97 L Carbon Dioxide 22 Anion Gap 14.2 BUN 9 D Creatinine 0.30 L D Estimated Creat Clear 84 Estimated GFR 232 Est GFR ( Amer) 281 D Glucose 123 H Calcium 7.8 L Total Bilirubin 1.1 AST 69 H D ALT 34 Alkaline Phosphatase 138 H Total Protein 6.8 Albumin 3.3 L D Globulin 3.5 H Albumin/Globulin Ratio 0.9 L Procalcitonin 0.819 Urine Color Urine Appearance Urine pH Ur Specific [place] Urine Protein Urine Glucose (UA) Urine Ketones Urine Blood Urine Nitrate Urine Bilirubin Urine Urobilinogen Ur Leukocyte Esterase Urine RBC Urine WBC Ur Squamous Epith Cells Urine Bacteria Stl Aeromonas (PCR) Not detected Stl C. cayetanensis PCR Not detected Stool Rotavirus (PCR) Not detected Stl Adenov F 40/41 PCR Not detected Stool Astrovirus (PCR) Not detected Stool Campylobacter PCR Not detected Stl C.difficile Tox PCR Not detected Stool Cryptosporidium PCR Not detected Stl E.coli Shiga Tox PCR Not detected Stool E coli O157 PCR Not detected Stl Enterotoxigenic E PCR Not detected Stool EPEC (PCR) Not detected Stool EAEC (PCR) Not detected Stl E. histolytica PCR Not detected Stool Giardia Lamblia PCR Not detected Stool Salmonella PCR Not detected Stool Sapovirus (PCR) Not detected Stl P. shigelloides PCR Not detected Stl Shigella/EIEC PCR Not detected St Y.enterocolitica PCR Not detected Stool Vibrio (PCR) Not detected Stl Vibrio cholerae PCR Not detected Stl Norovirus GI/GII PCR Detected A 11/13/24 11/13/24 13:30 12:20 WBC 20.9 H* D RBC 3.58 L Hgb 10.6 L Hct 31.5 L MCV 88.1 MCH 29.8 MCHC 33.8 RDW 14.7 Plt Count 414 MPV 8.5 Neut % (Auto) 86.7 H Lymph % (Auto) 8.5 L O'Brien % (Auto) 3.5 Eos % (Auto) 0.8 Baso % (Auto) 0.5 Neut # (Auto) 18.1 H Lymph # (Auto) 1.8 O'Brien # (Auto) 0.7 Eos # (Auto) 0.2 Baso # (Auto) 0.1 Total Counted 100 Neutrophils % (Manual) 87 H Band Neutrophils % 3.0 Lymphocytes % (Manual) 6 L Monocytes % (Manual) 3 Eosinophils % (Manual) 1 Platelet Estimate Normal Anisocytosis 1+ Microcytosis 1+ Macrocytosis 1+ Sodium Potassium Chloride Carbon Dioxide Anion Gap BUN Creatinine Estimated Creat Clear Estimated GFR Est GFR ( Amer) Glucose Calcium Total Bilirubin AST ALT Alkaline Phosphatase Total Protein Albumin Globulin Albumin/Globulin Ratio Procalcitonin Urine Color Yellow Urine Appearance Clear Urine pH 6.0 Ur Specific [place] 1.020 Urine Protein Negative Urine Glucose (UA) 1+ Urine Ketones 1+ Urine Blood 2+ A Urine Nitrate Negative Urine Bilirubin Negative Urine Urobilinogen 0.2 Ur Leukocyte Esterase Negative Urine RBC 5-10 Urine WBC None Ur Squamous Epith Cells None Urine Bacteria Trace Stl Aeromonas (PCR) Stl C. cayetanensis PCR Stool Rotavirus (PCR) Stl Adenov F 40/41 PCR Stool Astrovirus (PCR) Stool Campylobacter PCR Stl C.difficile Tox PCR Stool Cryptosporidium PCR Stl E.coli Shiga Tox PCR Stool E coli O157 PCR Stl Enterotoxigenic E PCR Stool EPEC (PCR) Stool EAEC (PCR) Stl E. histolytica PCR Stool Giardia Lamblia PCR Stool Salmonella PCR Stool Sapovirus (PCR) Stl P. shigelloides PCR Stl Shigella/EIEC PCR St Y.enterocolitica PCR Stool Vibrio (PCR) Stl Vibrio cholerae PCR Stl Norovirus GI/GII PCR Preliminary micro results at discharge 05/30/24 16:30 Gram Stain - Preliminary Sputum - Expectorated Sputum 05/30/24 22:23 Gram Stain - Preliminary Sputum - Endotracheal Tube Aspirate DS: Diagnosis Discharge Diagnosis (1) HFrEF (heart failure with reduced ejection fraction): Status: Acute Code(s): I50.20 - Unspecified systolic (congestive) heart failure (2) Cardiomyopathy: Status: Acute Code(s): I42.9 - Cardiomyopathy, unspecified (3) Non-STEMI (non-ST elevated myocardial infarction): Status: Acute Code(s): I21.4 - Non-ST elevation (NSTEMI) myocardial infarction (4) Acute respiratory failure with hypoxia: Status: Acute Code(s): J96.01 - Acute respiratory failure with hypoxia (5) Pneumonia: Status: Acute Code(s): J18.9 - Pneumonia, unspecified organism Qualifiers: Laterality: bilateral Lung location: lower lobe of lung Pneumonia type: due to Pneumococcus Qualified Code(s): J13 - Pneumonia due to Streptococcus pneumoniae (6) Lactic acidosis: Status: Acute Code(s): E87.20 - Acidosis, unspecified (7) Septic shock: Status: Acute Code(s): A41.9 - Sepsis, unspecified organism; R65.21 - Severe sepsis with septic shock (8) Streptococcal bacteremia: Status: Acute Code(s): R78.81 - Bacteremia; B95.5 - Unspecified streptococcus as the cause of diseases classified elsewhere Meds Home Medications and Allergies Home Medications ?Medication ?Instructions ?Recorded ?Confirmed ?Type buspirone 10 mg tablet 10 mg PO BID 05/30/24 05/30/24 History melatonin 5 mg tablet 5 mg PO HS PRN Insomnia 05/30/24 05/30/24 History metformin 500 mg tablet 500 mg PO DAILY 05/30/24 05/30/24 History buprenorphine 8 mg-naloxone 2 mg 2 tab sublingual DAILY 7 days #14 06/08/24 Rx sublingual tablet tabs carvedilol 3.125 mg tablet 3.125 mg PO BID 30 days #60 tabs 06/08/24 Rx cefdinir 300 mg capsule 300 mg PO BID 5 days #10 caps 06/08/24 Rx empagliflozin 10 mg tablet 10 mg PO DAILY 30 days #30 tabs 06/08/24 Rx (Jardiance) fluticasone fur. 100 mcg-umeclid 1 inh inhalation DAILY 30 days #60 06/08/24 Rx 62.5 mcg-vilant 25 mcg ea inhalat.powder (Trelegy Ellipta) furosemide 40 mg tablet 40 mg PO DAILY 30 days #30 tabs 06/08/24 Rx sacubitril 24 mg-valsartan 26 mg 1 tab PO BID 30 days #60 tabs 06/08/24 Rx tablet (Entresto) spironolactone 25 mg tablet 50 mg (2 x 25 mg) PO DAILY 30 days 06/08/24 Rx #60 tabs New Prescriptions to Start Prescriptions: buprenorphine-naloxone Gauri,Earl carvedilol Gauri,Earl cefdinir Gauri,Earl empagliflozin [Jardiance] Gauri,Earl [id number] [Trelegy Ellipta] Gauri,Earl furosemide Gauri,Earl sacubitril-valsartan [Entresto] Gauri,Earl spironolactone Gauri,Earl Allergies Allergy/AdvReac Type Severity Reaction Status Date / Time sertraline (From Zoloft) Allergy Intermediate Unknown Verified 05/30/24 21:20 allergy reaction morphine AdvReac Intermediate Unknown Verified 05/30/24 21:20 allergy reaction Discharge Plan Disposition Patient Disposition: Home, Self-Care Discharge Order Discharge Orders: Discharge Order (Routine); Ordered 06/08/24 Ordered By: Earl Astorga Follow up Plan Follow up with: Mitchell Whyte PA [Physician Applied Exercise Physiologist] - 06/20/24 1:30 pm Raman Sanchez MD [Physician] - 06/15/24 1:00 pm Prescriptions/Medication Reconciliation: New furosemide 40 mg Tablet 40 mg PO DAILY 30 Days Qty: 30 0RF spironolactone 25 mg Tablet 50 mg PO DAILY 30 Days Qty: 60 0RF carvedilol 3.125 mg Tablet 3.125 mg PO BID 30 Days Qty: 60 0RF buprenorphine-naloxone 8-2 mg Tablet, Sublingual 2 tab sublingual DAILY 7 Days Qty: 14 0RF Jardiance 10 mg Tablet 10 mg PO DAILY 30 Days Qty: 30 0RF Entresto 24-26 mg Tablet 1 tab PO BID 30 Days Qty: 60 0RF Trelegy Ellipta 100-62.5-25 mcg Blister With Device 1 inh inhalation DAILY 30 Days Qty: 60 0RF cefdinir 300 mg capsule 300 mg PO BID 5 Days Qty: 10 0RF Continued metformin 500 mg Tablet 500 mg PO DAILY buspirone 10 mg Tablet 10 mg PO BID melatonin 5 mg Tablet 5 mg PO HS PRN (Reason: Insomnia) Discontinued lisinopril 10 mg Tablet 10 mg PO DAILY Other Ambulatory Orders: XR chest 2V (Routine) Timeframe: 1 Week Facility: [facility] - Location: Radiology Ordered By: Raman Sanchez Problem Reconciliation Problems Reviewed?: Yes Patient Discharge Instructions Patient Instructions: DI for Pneumonia -- Adult, DI for Cardiac Catheterization, DI for Surgical Site Infection, DI for Sepsis -- Adult, Ventilator-Associated Pneumonia, DI for Norovirus Infection, DI for Bacteremia-Adult, Catheter-Associated Urinary Tract Infection Print Language: [place] Providers Primary Care Provider: Provider,Referral Admit Provider: Kimberly Patino Attending Provider: Kimberly Patino
--- NOTE | 2024-06-08 12:04 | CARE MANAGER ---
Patient requires a walker to aid in ambulation as cane is not enough support for the patient's mobility impairment. There is potential for ambulation with the walker. CORNEL Green
[2024-06-08] MEDS: POTASSIUM CHLORIDE 20MEQ TAB 40 MEQ PO (13:00)
--- NOTE | 2024-06-08 15:20 | PC.NURSE ---
pt is waiting for a ride home.
--- NOTE | 2024-06-08 15:52 | PC.NURSE ---
george from peer support has been with pt multiple times over the last couple of hrs getting the pt clothes and trying to find her a ride home
[2024-06-08] MEDS: NICOTINE 21MG/24HR PATCH 21 MG TD (15:58)
--- NOTE | 2024-06-08 18:19 | PEERSUPPORT ---
Peer Support Note Patient Information Patient Information: DOS: 06/08/2024 ? Reason: Ps Check in Plan: Discharge Home [facility] Referral Appointment 06/15/2024 @9:30AM Buprenorphine/Naloxone 8mg/2mg 2x per day -7 days [place] [employer]: Transport to home ? Pt is ready to be home, she is frustrated with her boyfriend who is not available to pick her up. She is feeling very sad and hurt. Ps shares personal experiences fostering a solution based mindset. ? Pt is receptive agreeing to reframe her thinking in order to find a solution to her problems and prevent added stress. ? Pt is involved in creating a calendar for reminders of upcoming appointments to [facility] and [facility]. ? Potential barriers to discharge: Transportation Clothes Access to her house ? Solutions: Ps provided clothes from hospital for discharge. Pt agreed to have [place] [employer] dept transport her home. Ps contacts and arranges transport for officer to transport pt home. ? ? Harm reduction: Awareness to high risk of overdose with opioid use, since being admitted and not using for 11 days. Naloxone- two dose package ? Tentative Plan: Ps will continue to follow up weekly and offers recovery support encouraging connections to recovery community. ?
--- NOTE | 2024-06-09 13:48 | CARE MANAGER ---
Contacted patient related to hospital discharge. She states she is doing better. She has all her medications and is aware of follow up appointments. Provided phone number for [employer] to patient. Denies other questions or concerns. CORNEL Green
== END 2024-06-08 16:18 | disposition home or self-care (01) | DRG 207 ==
LOC: ER 02:49 → 2ND 03:34
PROVIDERS: Internal Medicine; Internal Medicine Adolescent Medicine; Internal Medicine Pulmonary Disease; Nurse Practitioner Family; Student in an Organized Health Care Education/Training Program; Admitting Provider Internal Medicine; Emergency Provider Emergency Medicine; Visit Provider Internal Medicine
PROC: 0B9F8ZX Drainage of Right Lower Lung Lobe, Via Natural or Artificial Opening Endoscopic, Diagnostic (ICD-10-PCS; principal; 2024-05-31 10:00)
PROC: 4A023N7 Measurement of Cardiac Sampling and Pressure, Left Heart, Percutaneous Approach (ICD-10-PCS; principal; 2024-05-31 11:00)
DX: J96.01 Acute respiratory failure with hypoxia (principal); J13 Pneumonia due to Streptococcus pneumoniae; R65.21 Severe sepsis with septic shock; I21.B Myocardial infarction with coronary microvascular dysfunction; I42.9 Cardiomyopathy, unspecified; I50.20 Unspecified systolic (congestive) heart failure; F11.23 Opioid dependence with withdrawal; F17.210 Nicotine dependence, cigarettes, uncomplicated; Z79.899 Other long term (current) drug therapy; T38.3X6A Underdosing of insulin and oral hypoglycemic [antidiabetic] drugs, initial encounter; T43.206A Underdosing of unspecified antidepressants, initial encounter; Z91.128 Patient's intentional underdosing of medication regimen for other reason; E87.6 Hypokalemia
CPT/HCPCS: 36410; 36415; 71045; 71275; 74018; 80048; 80053; 80061; 80202; 81001; 82803; 82962; 83036; 83605; 83735; 83880; 84100; 84145; 84484; 85007; 85025; 85610; 86140; 86803; 87040; 87070; 87077; 87081; 87102; 87116; 87186; 87205; 87206; 87389; 87507; 87636; 89051; 92610; 93005; 93270; 93306; 93312; 93319; 93458; 94002; 94003; 94640; 94761; 97110; 97163; 97165; 97530; 97535; 99285; 99291; C1725; C1751; C1769; J0131; J0153; J0330; J0574; J1200; J1644; J1885; J1940; J2060; J2250; J2405; J2543; J2704; J3010; J3370; J3475; J3480; J7030; J7050; J7120; J7620; Q9967; S0028